=== PATIENT | male | born 1975 | race Caucasian/White ===

== ENCOUNTER → 2017-09-12 | Outpatient (CLI) | payer OTHER ==
[2017-09-12 21:15] LABS: Basophils % (A) 0 %; Eosinophils # (A) 0.1 k/uL (0-0.7); Eosinophils % (A) 2 %; HCT 40.1 % (39.0-53.0); HGB 13.6 gm/dL (13.0-17.5); Lymphocytes # (A) 2.5 k/uL (1.0-4.8); Lymphocytes % (A) 30 %; MCV 88.2 fL (80.0-100.0); Monocytes # (A) 0.5 k/uL (0-1.0); Monocytes % (A) 6 %; Neutrophils % (A) 60 %; Platelet Count 264 k/uL (150-450); RBC 4.55 m/uL (4.30-5.90); RDW 13.5 % (11.5-15.5); WBC 8.3 k/uL (3.8-10.6)
[2017-09-12 21:32] LABS: ALT 48 U/L (21-72); AST 36 U/L (17-59); Albumin 4.5 g/dL (3.5-5.0); Alkaline Phosphatase 124 U/L (38-126); Anion Gap 13 mmol/L; Bilirubin, Delta 0.3 mg/dL (0.0-0.2); Blood Urea Nitrogen 14 mg/dL (9-20); Calcium 9.3 mg/dL (8.4-10.2); Carbon Dioxide 23 mmol/L (22-30); Chloride 108 mmol/L (98-107); Glucose 62 mg/dL (74-99); Potassium 3.9 mmol/L (3.5-5.1); Sodium 144 mmol/L (137-145); Total Bilirubin 0.3 mg/dL (0.2-1.3)
[2017-09-12 21:46] LABS: T4, Free (Free Thyroxine) 0.81 ng/dL (0.78-2.19)
== END | disposition home or self-care (01) ==
LOC: LABMAIN 20:42
DX: Z51.81 Encounter for therapeutic drug level monitoring (principal)
CPT/HCPCS: 36415; 80053; 82248; 82306; 84439; 84443; 85025

== ENCOUNTER → 2017-09-12 | Outpatient (CLI) | payer OTHER ==
[2017-09-12 21:02] LABS: Blood Urea Nitrogen 14 mg/dL (9-20)
--- NOTE | 2017-09-12 23:25 | MR ---
EXAMINATION TYPE: MR brain wo/w con DATE OF EXAM: 09/12/2017 COMPARISON: NONE HISTORY: 42-year-old male Hyperacusis TECHNIQUE: Multiplanar, multisequence images of the brain and brainstem were acquired before and aft er administration of 10 ml mL IV Gadavist. Diffusion weighted imaging is performed. FINDINGS: No evidence for acute infarction, hemorrhage, mass, mass effect, midline shift, herniation, effacemen t of basal cisterns, or extra-axial fluid collection. The ventricles and sulci are age-appropriate. Major intracranial flow voids are intact. T2/FLAIR weighted sequences show mild T2 bright white matter change especially in the subcortical reg ions of the bifrontal lobes numbering approximately 10-15 on each side. Midline structures demonstrate normal morphology. The craniocervical junction is normal. Post contrast images demonstrate no evidence of pathologic enhancement. Dural venous sinuses are pat ent. Mild mucosal thickening of the ethmoid air cells and inferior maxillary sinuses with a a few mucosal retention cysts. Globes are intact. IMPRESSION: 1. No acute intracranial abnormality seen. 2. Mild burden of T2 bright white matter change with approximately 10-15 bright foci in each frontal lobe, primarily in the subcortical regions. Findings are nonspecific and may reflect early changes of chronic small vessel ischemic disease, chronic migraines, or other demyelinating process. Clinically correlate. 3. Mild chronic maxillary and ethmoid sinus disease.
== END | disposition home or self-care (01) ==
LOC: RADMRIMAIN 20:23
DX: R90.89 Other abnormal findings on diagnostic imaging of central nervous system (principal); H93.239 Hyperacusis, unspecified ear
CPT/HCPCS: 82565; 84520; 70553; 36415; A9581

== ENCOUNTER 2017-09-26 03:53 | Emergency (ER) | payer OTHER ==
[2017-09-26 04:00] VITALS: RESP 18
[2017-09-26] MEDS ORDERED: SODIUM CHLORIDE 0.9% 500 ML IV STA (04:16)
[2017-09-26] MEDS ORDERED: RX INFO: IV CONTRAST WAS GIVEN 1 EACH MISC MISCELLANE PRN (04:16)
--- NOTE | 2017-09-26 04:19 | ED ---
General Adult HPI - General Chief complaint: Headache Stated complaint: headache,dizziness Time Seen by Provider: 09/26/17 04:04 Source: patient, RN notes reviewed Mode of arrival: wheelchair Limitations: no limitations - History of Present Illness Initial comments: Patient is a pleasant 42-year-old male presenting to the emergency Department with complaints of headache. Headache symptoms present for the past month. Discomfort is mostly posterior however patient has tingling on the left side of his face and neck. Symptoms are positional. Patient has had some dizziness. Patient is scheduled to see a neurologist in the near future. Patient did have MRI of the brain done recently by ENT. No weakness. No confusion. No speech problems. No fevers. Patient does not want any pain medication at this time. - Related Data Home Medications Medication Instructions Recorded Confirmed ALPRAZolam [Xanax] 1 mg PO Q8HR PRN 12/27/14 03/12/15 Cholecalciferol [Vitamin D3] 2,000 unit PO HS 12/27/14 03/12/15 Citalopram Hydrobromide 40 mg PO HS 12/27/14 03/12/15 [Citalopram HBr] Levothyroxine Sodium [Synthroid] 25 mcg PO HS 12/27/14 03/12/15 Lisinopril 40 mg PO HS 12/27/14 03/12/15 Omeprazole [PriLOSEC] 20 mg PO HS 12/27/14 03/12/15 QUEtiapine FUMARATE [SEROquel XR] 300 mg PO HS 12/27/14 03/12/15 Simvastatin [Zocor] 80 mg PO HS 12/27/14 03/12/15 buPROPion XL [Wellbutrin Xl] 300 mg PO HS 12/27/14 03/12/15 Ibuprofen [Motrin] 200 - 400 mg PO Q6HR PRN 03/10/15 03/12/15 traZODone HCL [Desyrel] 100 mg PO HS PRN 03/10/15 03/12/15 Previous Rx's Medication Instructions Recorded Acetaminophen-Codeine 300-30mg 1 each PO Q4H PRN #12 tablet 09/26/17 [Tylenol #3] Allergies Allergy/AdvReac Type Severity Reaction Status Date / Time No Known Allergies Allergy Verified 09/26/17 04:00 Review of Systems ROS Statement: Those systems with pertinent positive or pertinent negative responses have been documented in the HPI. ROS Other: All systems not noted in ROS Statement are negative. Constitutional: Denies: fever Eyes: Denies: eye pain ENT: Denies: ear pain Respiratory: Denies: cough Cardiovascular: Denies: chest pain Endocrine: Denies: fatigue Gastrointestinal: Denies: abdominal pain Genitourinary: Denies: urgency Musculoskeletal: Denies: back pain Skin: Denies: rash Neurological: Reports: headache Past Medical History Past Medical History: Hyperlipidemia, Hypertension, Thyroid Disorder History of Any Multi-Drug Resistant Organisms: None Reported Past Surgical History: Hernia Repair Additional Past Surgical History / Comment(s): vasectomy, wisdom teeth removed, Past Psychological History: Depression, PTSD Smoking Status: Former smoker Past Alcohol Use History: Occasional General Exam Limitations: no limitations General appearance: alert, in no apparent distress Head exam: Present: atraumatic, other (No facial tenderness. No tenderness over the temporal artery.) Eye exam: Present: normal appearance, PERRL, EOMI. Absent: nystagmus ENT exam: Present: normal oropharynx Neck exam: Present: normal inspection, other (No carotid bruit). Absent: tenderness Respiratory exam: Present: normal lung sounds bilaterally Cardiovascular Exam: Present: regular rate, normal rhythm Extremities exam: Present: normal inspection Neurological exam: Present: alert, CN II-XII intact. Absent: motor sensory deficit Expanded Neurological exam: Present: protecting the airway Speech: Present: fluid speech Cranial nerves: EOM's Intact: Normal, Facial Sensation: Normal Sensory exam: Upper Extremity Light Touch: Normal, Lower Extremity Light Touch: Normal Motor strength exam: RUE: 5, LUE: 5, RLE: 5, LLE: 5 Eye Response: (4) open spontaneously Motor Response: (6) obeys commands Verbal Response: (5) oriented Psychiatric exam: Present: normal affect, normal mood Skin exam: Present: normal color Course Vital Signs 09/26/17 03:56 Temperature 98.3 F Pulse Rate 97 Respiratory 18 Rate Blood Pressure 111/66 O2 Sat by Pulse 96 Oximetry Medical Decision Making - Medical Decision Making Patient reevaluated and resting comfortably in bed. Patient does not want anything for discomfort at this time however is receptive to prescription. Patient updated on results and need for close follow-up with primary care physician as well as his planned neurology evaluation. - Lab Data Result diagrams: 09/26/17 04:21 09/26/17 04:21 Lab Results 09/26/17 09/26/17 09/26/17 Range/Units 04:21 04:21 04:21 WBC 8.4 (3.8-10.6) k/uL RBC 4.45 (4.30-5.90) m/uL Hgb 12.8 L (13.0-17.5) gm/dL Hct 38.2 L (39.0-53.0) % MCV 85.9 (80.0-100.0) fL MCH 28.7 (25.0-35.0) pg MCHC 33.4 (31.0-37.0) g/dL RDW 13.3 (11.5-15.5) % Plt Count 247 (150-450) k/uL Neutrophils % 57 % Lymphocytes % 32 % Monocytes % 7 % Eosinophils % 2 % Basophils % 1 % Neutrophils # 4.7 (1.3-7.7) k/uL Lymphocytes # 2.7 (1.0-4.8) k/uL Monocytes # 0.6 (0-1.0) k/uL Eosinophils # 0.2 (0-0.7) k/uL Basophils # 0.0 (0-0.2) k/uL PT 10.0 (9.0-12.0) sec INR 1.0 (<1.2) APTT 21.4 L (22.0-30.0) sec Sodium 146 H (137-145) mmol/L Potassium 3.4 L (3.5-5.1) mmol/L Chloride 107 (98-107) mmol/L Carbon Dioxide 19 L (22-30) mmol/L Anion Gap 20 mmol/L BUN 16 (9-20) mg/dL Creatinine 1.10 (0.66-1.25) mg/dL Est GFR (CKD-EPI)AfAm >90 (>60 ml/min/1.73 sqM) Est GFR (CKD-EPI)NonAf 82 (>60 ml/min/1.73 sqM) Glucose 93 (74-99) mg/dL Calcium 9.5 (8.4-10.2) mg/dL Total Bilirubin 0.3 (0.2-1.3) mg/dL AST 37 (17-59) U/L ALT 49 (21-72) U/L Alkaline Phosphatase 124 (38-126) U/L Total Protein 7.8 (6.3-8.2) g/dL Albumin 4.5 (3.5-5.0) g/dL - Radiology Data Radiology results: report reviewed (Computed tomography scan of brain shows no acute process. CTA of the brain and neck show no acute process.) Disposition Clinical Impression: Headache Disposition: HOME SELF-CARE Condition: Stable Instructions: Acute Headache (ED) Additional Instructions: Please follow-up to primary care physician in the next day or 2 for recheck. Please also follow-up with your neurologist as planned. Return for weakness, fever, increased pain, confusion, visual changes, worsening or changing symptoms or other concerns. Prescriptions: Acetaminophen-Codeine 300-30mg [Tylenol #3] 1 each PO Q4H PRN #12 tablet PRN Reason: Pain Referrals: Manan Brown MD [Primary Care Provider] - 1-2 days Time of Disposition: 05:31
[2017-09-26 04:28] LABS: Basophils % (A) 1 %; Eosinophils # (A) 0.2 k/uL (0-0.7); Eosinophils % (A) 2 %; HCT 38.2 % (39.0-53.0); HGB 12.8 gm/dL (13.0-17.5); Lymphocytes # (A) 2.7 k/uL (1.0-4.8); Lymphocytes % (A) 32 %; MCH 28.7 pg (25.0-35.0); MCHC 33.4 g/dL (31.0-37.0); MCV 85.9 fL (80.0-100.0); Mean Platelet Volume 6.8; Monocytes # (A) 0.6 k/uL (0-1.0); Monocytes % (A) 7 %; Neutrophils # (A) 4.7 k/uL (1.3-7.7); Neutrophils % (A) 57 %; Platelet Count 247 k/uL (150-450); RBC 4.45 m/uL (4.30-5.90); RDW 13.3 % (11.5-15.5); WBC 8.4 k/uL (3.8-10.6)
[2017-09-26 04:43] LABS: ALT 49 U/L (21-72); AST 37 U/L (17-59); Albumin 4.5 g/dL (3.5-5.0); Alkaline Phosphatase 124 U/L (38-126); Anion Gap 20 mmol/L; Blood Urea Nitrogen 16 mg/dL (9-20); Calcium 9.5 mg/dL (8.4-10.2); Carbon Dioxide 19 mmol/L (22-30); Chloride 107 mmol/L (98-107); Glucose 93 mg/dL (74-99); Partial Thromboplastin Time 21.4 sec (22.0-30.0); Potassium 3.4 mmol/L (3.5-5.1); Sodium 146 mmol/L (137-145); Total Bilirubin 0.3 mg/dL (0.2-1.3); Total Protein 7.8 g/dL (6.3-8.2)
--- NOTE | 2017-09-26 04:57 | CT ---
EXAM: CT Angiography Head With Intravenous Contrast CLINICAL HISTORY: CVA TECHNIQUE: Axial computed tomographic angiography images of the head with intravenous contrast using CT angiography protocol. CTDI is 57.40 mGy and DLP is 1150.50 mGy-cm. This CT exam was performed using one or more of the following dose reduction techniques: automated exposure control, adjustment of the mA and/or kV according to patient size, and/or use of iterative reconstruction technique. MIP reconstructed images were created and reviewed. COMPARISON: No relevant prior studies available. FINDINGS: HEAD: Right anterior cerebral artery: Unremarkable. No occlusion or significant stenosis. No aneurysm. Right middle cerebral artery: Unremarkable. No occlusion or significant stenosis. No aneurysm. Right posterior cerebral artery: Unremarkable. No occlusion or significant stenosis. No aneurysm. Left anterior cerebral artery: Unremarkable. No occlusion or significant stenosis. No aneurysm. Left middle cerebral artery: Unremarkable. No occlusion or significant stenosis. No aneurysm. Left posterior cerebral artery: Unremarkable. No occlusion or significant stenosis. No aneurysm. Basilar artery: Unremarkable. No occlusion or significant stenosis. No aneurysm. CAROTID STENOSIS REFERENCE USING NASCET CRITERIA: % ICA stenosis = (1 - narrowest ICA diameter/diameter of distal cervical ICA) x 100. Mild - <50% stenosis. Moderate - 50-69% stenosis. Severe - 70-94% stenosis. Near occlusion - 95-99% stenosis. Occluded - 100% stenosis. IMPRESSION: No acute findings in the arteries of the head. EXAM: CT Angiography Neck With Intravenous Contrast CLINICAL HISTORY: CVA TECHNIQUE: Axial computed tomographic angiography images of the neck with intravenous contrast using CT angiography protocol. CTDI is 57.40 mGy and DLP is 1150.50 mGy-cm. This CT exam was performed using one or more of the following dose reduction techniques: automated exposure control, adjustment of the mA and/or kV according to patient size, and/or use of iterative reconstruction technique. MIP reconstructed images were created and reviewed. COMPARISON: No relevant prior studies available. FINDINGS: VASCULATURE: Right common carotid artery: Unremarkable. No significant stenosis. No dissection or occlusion. Right internal carotid artery: Unremarkable. Extracranial segment is patent with no significant stenosis. No dissection or occlusion. Right external carotid artery: Unremarkable. No occlusion. Right vertebral artery: Unremarkable. No significant stenosis. No dissection or occlusion. Left common carotid artery: Unremarkable. No significant stenosis. No dissection or occlusion. Left internal carotid artery: Unremarkable. Extracranial segment is patent with no significant stenosis. No dissection or occlusion. Left external carotid artery: Unremarkable. No occlusion. Left vertebral artery: Unremarkable. No significant stenosis. No dissection or occlusion. NECK: Bones/joints: No acute fracture. No dislocation. Soft tissues: Unremarkable as visualized. No mass. CAROTID STENOSIS REFERENCE USING NASCET CRITERIA: % ICA stenosis = (1 - narrowest ICA diameter/diameter of distal cervical ICA) x 100. Mild - <50% stenosis. Moderate - 50-69% stenosis. Severe - 70-94% stenosis. Near occlusion - 95-99% stenosis. Occluded - 100% stenosis. IMPRESSION: Normal neck CTA.
--- NOTE | 2017-09-26 05:08 | CT ---
EXAM: CT Head Without Intravenous Contrast CLINICAL HISTORY: Headache TECHNIQUE: Axial computed tomography images of the head/brain without intravenous contrast. CTDI is 57.4 mGy and DLP is 1150.5 mGy-cm. This CT exam was performed using one or more of the following dose reduction techniques: automated exposure control, adjustment of the mA and/or kV according to patient size, and/or use of iterative reconstruction technique. COMPARISON: No relevant prior studies available. FINDINGS: Brain: Unremarkable. No hemorrhage. No significant white matter disease. No edema. Ventricles: Unremarkable. No ventriculomegaly. Bones/joints: Unremarkable. No acute fracture. Soft tissues: Unremarkable. Sinuses: Mild mucosal thickening of the paranasal sinuses. Mastoid air cells: Unremarkable as visualized. No mastoid effusion. IMPRESSION: No acute findings.
[2017-09-26] MEDS ORDERED: ACET/COD 300 MG/30 MG STARTER PACK 6 TAB BTL PO STA (05:38)
[2017-09-26 05:44] VITALS: BP 103/67; PULSE 88; TEMP 98.1
== END 2017-09-26 05:44 | disposition home or self-care (01) ==
LOC: EC 03:53
DX: R51 Headache (principal); R42 Dizziness and giddiness; R20.2 Paresthesia of skin; R40.2142 Coma scale, eyes open, spontaneous, at arrival to emergency department; R40.2252 Coma scale, best verbal response, oriented, at arrival to emergency department; R40.2362 Coma scale, best motor response, obeys commands, at arrival to emergency department; E78.5 Hyperlipidemia, unspecified; I10 Essential (primary) hypertension; E07.9 Disorder of thyroid, unspecified; F32.9 Major depressive disorder, single episode, unspecified; F43.10 Post-traumatic stress disorder, unspecified; Z87.891 Personal history of nicotine dependence; Z79.899 Other long term (current) drug therapy
CPT/HCPCS: 36415; 70450; 70496; 70498; 80053; 85025; 85610; 85730; 96360; 99284

== ENCOUNTER 2017-09-28 08:44 | Day surgery (SDC) | payer OTHER ==
[2017-09-27 09:19] VITALS: BMI 33.3
[~2017-09-28 08:44] MED LIST: LACTATED RINGERS 1,000 ML IV SCH
[2017-09-28] MEDS ORDERED: LIDOCAINE 1% INJ 10MG/ML (20 ML MDV) ONE ×2 (08:53→11:00)
[2017-09-28] MEDS ORDERED: GLYCOPYRROLATE 0.2 MG/ML 2 ML VIAL ONE ×2 (08:53→11:00)
[2017-09-28] MEDS ORDERED: PROPOFOL 10 MG/ML 20 ML VIAL IV ONE ×2 (08:53→11:00)
[2017-09-28 10:05] VITALS: TEMP 98.5
[2017-09-28] MEDS ORDERED: LIDOCAINE 1% 20 ML VIAL (10MG/ML) FOR IV START INTRADERMA ONE (10:11)
[2017-09-28] MEDS ORDERED: fentaNYL (PF) 50 MCG/ML 2 ML AMP IVP ONE (10:32)
--- NOTE | 2017-09-28 11:24 | P.PCN ---
Date of Procedure: 09/28/17 Procedure(s) Performed: Brief history: Patient is a pleasant 42-year-old white male, scheduled for an elective upper endoscopy as well as colonoscopy as a part of evaluation of and abdominal pain, and intermittent rectal bleeding. 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 He also has history of GERD and takes Prevacid 20 mg daily. Has been having intermittent rectal bleeding and also has prior history of colon polyps, hence he scheduled for colonoscopy today. Procedure performed: Esophagogastroduodenoscopy with biopsy Colonoscopy Preoperative diagnosis: History of gastric MALT lymphoma diagnosed in 2003 Abdominal pain or rectal bleeding Anesthesia: MAC Procedure: After informed consent was obtained from the patient was brought into the endoscopy unit and IV sedation was administered by anesthesia under continuous monitoring. Initially upper endoscopy was done. The Olympus GF 160 video endoscope was inserted inserted into the mouth and esophagus intubated without any difficulty and was gradually advanced into the stomach and duodenum and carefully examined. The bulb and second part of the duodenum appeared normal. The scope was then withdrawn into the stomach adequately insufflated with air and upon careful examination the antrum and body, cardia and fundus appeared normal. The scope was then withdrawn into the esophagus. The GE junction was located at 40 cm to the incisors. It appeared regular with no erythema erosions or ulcerations. Rest of the esophagus appeared normal. Patient tolerated the procedure well. At this time the patient continued to remain sedation. Initial digital rectal examination was normal. Olympus CF 160 video colonoscope was then inserted into the rectum and gradually advanced to the cecum without any difficulty. Careful examination was performed as the scope was gradually being withdrawn. The prep was excellent. The cecum, ascending colon, transverse colon, descending colon, sigmoid colon and rectum appeared normal. Retroflexion was performed in the rectum and small internal hemorrhoids were noted. Patient tolerated the procedure well. Impression: 1. Upper endoscopy revealed mild gastritis. 2 Colonoscopy revealed small internal hemorrhoids but no evidence of colitis or colorectal neoplasia. Recommendations: Findings of this examination were discussed with the patient as well as his family. He was advised to follow with the biopsy results. He can have a repeat surveillance colonoscopy in 5 is removed because of the prior history of colon polyps.]
[2017-09-28 11:41] VITALS: BP 106/69; PULSE 84; RESP 16
== END 2017-09-28 12:11 | disposition home or self-care (01) ==
LOC: ORWHC2ENDO 08:44
PROVIDERS: ATTEND Internal Medicine Gastroenterology
DX: K29.50 Unspecified chronic gastritis without bleeding (principal); K64.8 Other hemorrhoids; Z86.010 Personal history of colon polyps; Z85.72 Personal history of non-Hodgkin lymphomas; Z92.21 Personal history of antineoplastic chemotherapy; I10 Essential (primary) hypertension; E78.5 Hyperlipidemia, unspecified; Z87.891 Personal history of nicotine dependence; E07.9 Disorder of thyroid, unspecified; F39 Unspecified mood [affective] disorder; Z79.1 Long term (current) use of non-steroidal anti-inflammatories (NSAID); Z79.891 Long term (current) use of opiate analgesic; Z79.899 Other long term (current) drug therapy
CPT/HCPCS: 88305; 45378; 43239; J2001; J3010; J2704

== ENCOUNTER → 2017-10-19 | Outpatient (CLI) | payer OTHER ==
--- NOTE | 2017-10-19 15:43 | MR ---
EXAMINATION TYPE: MR cervical spine wo con DATE OF EXAM: 10/19/2017 COMPARISON: NONE HISTORY: Bilateral occipital neuralgia, head and neck pain for 1 to 2 months TECHNIQUE: Multiplanar, multisequence images of the cervical spine were acquired. C2-C3: No evidence for degenerative disc disease. No disc bulge/herniation or protrusion. No Canal stenosis. Foramina are patent bilaterally. C3-C4: There is broad-based subligamentous disc herniation with mild anterior thecal sac flattening. No spinal canal stenosis present. No cord contact is evident. Uncovertebral joint hypertrophy is pres ent with mild foraminal narrowing. C4-C5: No evidence of degenerative disc disease no focal disc bulge herniation or protrusion. No Lincoln l stenosis. Foramen are patent. C5-C6: No focal disc herniation or significant disc bulge is evident. No spinal canal stenosis is pre sent. There is uncovertebral joint hypertrophy with narrowing of the left foramen. C6-C7: Uncovertebral joint hypertrophy is present on the right with moderate right foraminal narrowin g. No significant disc bulge is evident. No spinal canal stenosis is present. Cord contact is not stephen dent. C7-T1: No evidence for degenerative disc disease. No disc bulge/herniation or protrusion. No Canal stenosis. Foramina are patent bilaterally. Vertebral body alignment is normal. Craniovertebral junction is normal. Spinal cord maintains normal signal through its visualized course. IMPRESSION: 1. Broad-based disc bulging and subligamentous disc extension at C3-4 with mild anterior thecal sac c ompression. No stenosis or cord contact is evident. 2. Uncovertebral joint hypertrophy discussed above with mild foraminal narrowing.
== END ==
LOC: RADMRIMAIN 14:32
PROVIDERS: ATTEND Psychiatry & Neurology Neurology
DX: M50.01 Cervical disc disorder with myelopathy, high cervical region (principal); M48.02 Spinal stenosis, cervical region
CPT/HCPCS: 72141

== ENCOUNTER → 2017-10-24 | Outpatient (CLI) | payer OTHER ==
[2017-10-23 15:15] VITALS: BMI 33.5
[2017-10-24 13:07] VITALS: BP 123/78; PULSE 92; RESP 16
--- NOTE | 2017-10-24 13:37 | P.HPIM ---
History of Present Illness H&P Date: 10/24/17 Chief Complaint: neck pain and headaches This is a 42-year-old patient referred by Dr. Ni for chronic pain in head and neck, and in his face at multiple locations. Patient has been taking medications from primary care physician including Tylenol #3 medications with some relief. Patient denies adverse drug effects from medications. Patient also denies new-onset weakness, bowel/bladder incontinence, or any other signs or symptoms of cauda equina syndrome. There are no signs of acute intoxication, and no indications of medication diversion or overuse. Patient notes that pain worsens significantly with rotating and sidebending the head and concentrating, and improves with heat, rest, and medication. Patient has used several types of medications for pain, including NSAIDS, OPIOIDS, TRAMADOL and BENZODIAZEPINES (Xanax. Patient HAS NOT had surgery. Patient HAS NOT had injections previously. Patient HAS NOT had physical therapy recently. In addition to above, 13-point review of systems is also negative for chest pain , shortness of breath, changes in vision, changes in hearing, new onset weakness , abdominal pain, diarrhea, extreme fatigue, malaise, fever, skin changes, homicidal or suicidal ideation, or bowel or bladder incontinence. Vital Signs: Reviewed in EMR Gen: WDWN, AAOx3, NAD HEENT: NCAT, EOMI, hearing grossly normal, TTP over bilateral occipital ridges Pulm: resp unlabored Abd: soft, NT, ND Neck: supple, trachea midline ROM in flexion cervical spine: reduced ROM in extension cervical spine: reduced Cervical paravertebral tenderness: + Cervical Facet tenderness: + R > L Spurling's: neg Upper extremity: decreased broom bundler strength in LUE Past Medical History Past Medical History: GERD/Reflux, Hyperlipidemia, Hypertension, Thyroid Disorder Additional Past Medical History / Comment(s): HEADACHES AND DIZZINESS, STATES HX OF HYPERACUSIS, HX MALT LYMPHOMA 2005, CHEMO 2004 History of Any Multi-Drug Resistant Organisms: None Reported Past Surgical History: Hernia Repair Additional Past Surgical History / Comment(s): vasectomy, wisdom teeth removed, Past Anesthesia/Blood Transfusion Reactions: No Reported Reaction Smoking Status: Former smoker - Past Family History Mother Family Medical History: No Reported History Medications and Allergies Home Medications Medication Instructions Recorded Confirmed Type Cholecalciferol [Vitamin D3] 2,000 unit PO HS 12/27/14 10/24/17 History Levothyroxine Sodium [Synthroid] 25 mcg PO HS 12/27/14 10/24/17 History Lisinopril 40 mg PO HS 12/27/14 10/24/17 History Omeprazole [PriLOSEC] 20 mg PO DAILY 12/27/14 10/24/17 History Simvastatin [Zocor] 80 mg PO HS 12/27/14 10/24/17 History Ibuprofen [Motrin] 800 mg PO RT-Q12H PRN 03/10/15 10/24/17 History Naproxen Sodium 220 mg PO DAILY PRN 09/27/17 10/24/17 History OXcarbazepine [Trileptal] 150 mg PO BID 09/27/17 10/24/17 History Prazosin [Minipress] 1 mg PO HS 09/27/17 10/24/17 History Venlafaxine HCl [Effexor XR] 150 mg PO HS 09/27/17 10/24/17 History Zolpidem [Ambien] 5 - 10 mg PO HS PRN 09/27/17 10/24/17 History buPROPion HCL [Wellbutrin SR] 150 mg PO HS 09/27/17 10/24/17 History ALPRAZolam [Xanax] 0.5 mg PO DAILY PRN 10/23/17 10/24/17 History Topiramate [Topiramate ER] 100 mg PO BID 10/23/17 10/24/17 History Venlafaxine HCl [Effexor XR] 37.5 mg PO HS 10/23/17 10/24/17 History Allergies Allergy/AdvReac Type Severity Reaction Status Date / Time No Known Allergies Allergy Verified 10/24/17 12:49 Physical Exam Vitals: Intake and Output 10/23/17 10/24/17 10/24/17 22:59 06:59 14:59 Other: Weight 104.326 kg Results Comments: MRI cervical spine without contrast demonstrates broad-based subligamentous disc herniation with mild anterior thecal sac flattening at the C3-C4 level. There is uncovertebral joint hypertrophy with mild foraminal narrowing at this level as well. At the C5-C6 level there is uncovertebral joint hypertrophy with narrowing of the left-sided foramen. At the C6-C7 level there is uncovertebral joint hypertrophy noted on the right with moderate right neural foraminal narrowing. Assessment and Plan (1) Occipital neuralgia Current Visit: Yes Status: Chronic Code(s): M54.81 - OCCIPITAL NEURALGIA SNOMED Code(s): 65397252 (2) Cervical spondylosis Current Visit: Yes Status: Chronic Code(s): M47.812 - SPONDYLOSIS W/O MYELOPATHY OR RADICULOPATHY, CERVICAL REGION SNOMED Code(s): 661792089 (3) Neural foraminal stenosis of cervical spine Current Visit: Yes Status: Chronic Code(s): M99.81 - OTHER BIOMECHANICAL LESIONS OF CERVICAL REGION SNOMED Code(s): 324427211842 Plan: Plan: 1. Explanation: Opioid and psychological risk scores were reviewed. Diagnoses , prognoses, and multiple treatment options including but not limited to physical therapy, interventional therapies, adjuvant medical therapies, narcotic medication therapies, and surgery were discussed with the patient and all questions were answered to the patient's satisfaction. 2. Opioid agreement: no opioids prescribed today 3. Counseling: The patient was counseled extensively on SMOKING CESSATION, BODY MASS INDEX, EXERCISE. Specifically, the patient was instructed regarding the importance of smoking cessation, weight control, and exercise in the context of both chronic pain and overall health. 4. Procedures: bilateral occipital NB, consider CMBB if little relief 5. Consultations: none 6. Investigations: none 7. Medications: none prescribed 8. Morphine equivalents per day prescribed: zero 9. Disposition: f/u for procedure as scheduled Time with Patient: Greater than 30
== END | disposition home or self-care (01) ==
LOC: PNWHC3 12:23
PROVIDERS: ATTEND Anesthesiology
DX: G89.29 Other chronic pain (principal); M99.71 Connective tissue and disc stenosis of intervertebral foramina of cervical region; M47.812 Spondylosis without myelopathy or radiculopathy, cervical region; M54.2 Cervicalgia; M54.81 Occipital neuralgia; E07.9 Disorder of thyroid, unspecified; E78.5 Hyperlipidemia, unspecified; I10 Essential (primary) hypertension; K21.9 Gastro-esophageal reflux disease without esophagitis; Z79.899 Other long term (current) drug therapy; Z79.1 Long term (current) use of non-steroidal anti-inflammatories (NSAID); Z87.891 Personal history of nicotine dependence
CPT/HCPCS: 99211

== ENCOUNTER 2017-11-13 08:06 | Day surgery (SDC) | payer OTHER ==
[2017-11-09 15:12] VITALS: BMI 33.0
[2017-11-13 08:51] VITALS: TEMP 96.9
[2017-11-13] MEDS ORDERED: LACTATED RINGERS 1,000 ML IV ONE (08:54)
[2017-11-13] MEDS ORDERED: LIDOCAINE 1% 20 ML VIAL (10MG/ML) FOR IV START INTRADERMA ONE (08:55)
--- NOTE | 2017-11-13 09:40 | P.PCN ---
Date of Procedure: 11/13/17 Surgeon: Sebastian Hancock Pathology: none sent Condition: stable Disposition: PACU Description of Procedure: PREOPERATIVE DIAGNOSIS: 1-occipital neuralgia POSTOPERATIVE DIAGNOSIS:. 1-occipital neuralgia PROCEDURE: Bilateral occipital nerve block ANESTHESIA: Conscious sedation with Versed. EBL: Minimal PROCEDURE INDICATION: The patient with neck pain and headache secondary to bilateral occipital neuralgia and has failed conservative management. No use of blood thinners. PROCEDURE DESCRIPTION / TECHNIQUE: The patient was seen and identified in the preoperative area. Risks, benefits, complications, and alternatives were discussed with the patient (including but not limited to incomplete pain relief , bleeding, infection, nerve damage, and allergies to medications), the patient agreed to proceed with the procedure and signed the consent after all questions were answered. Patient was taken to the OR and time out was completed to verify proper patient , position, laterality of pain, and allergies. Pt was placed in the sitting position. IV was started. Vital signs remained stable throughout the procedure. Conscious sedation was used during the procedure to decrease patients anxiety. The cervical area and bilateral occipital areas were prepped in the usual sterile fashion. Critical pause was taken. The right occipital ridge was palpated and was then accessed with a 25 G needle. Then after negative aspiration, 3 ml of the total 6 ml block solution containing 4 ml of PF Bupivacaine 0.5% and Kenalog 40 mg was injected. Needle was withdrawn intact. The entire procedure was then repeated on the left side exactly as above. Needle was withdrawn intact and there were no acute complications. DISPOSITION / PLANS: The patient was placed in a supine position and transferred to the recovery area in a stable condition for observation and was discharged from the recovery room after meeting discharge criteria. Home discharge instructions given to the patient by the staff. The patient was reexamined prior to discharge. The patient will schedule a follow up injection in approximately 2-4 weeks.
[2017-11-13] MEDS ORDERED: LACTATED RINGERS 1,000 ML IV SCH (09:45)
[2017-11-13 10:10] VITALS: BP 116/74; PULSE 90; RESP 20
[2017-11-13] MEDS ORDERED: IV FLUID CONTINUATION 1,000 ML IV ONE (10:11)
== END 2017-11-13 10:16 | disposition home or self-care (01) ==
LOC: ORPAIN 08:06
PROVIDERS: ATTEND Anesthesiology
DX: G89.29 Other chronic pain (principal); M54.81 Occipital neuralgia; M47.812 Spondylosis without myelopathy or radiculopathy, cervical region; M48.02 Spinal stenosis, cervical region; K21.9 Gastro-esophageal reflux disease without esophagitis; E78.5 Hyperlipidemia, unspecified; I10 Essential (primary) hypertension; E07.9 Disorder of thyroid, unspecified; Z79.891 Long term (current) use of opiate analgesic; Z79.890 Hormone replacement therapy; Z79.899 Other long term (current) drug therapy; Z85.72 Personal history of non-Hodgkin lymphomas; Z92.21 Personal history of antineoplastic chemotherapy; Z87.891 Personal history of nicotine dependence
CPT/HCPCS: 64405; J2250; J3301; J2001

== ENCOUNTER 2017-12-10 07:46 | Day surgery (SDC) | payer OTHER ==
[2017-12-07 08:24] VITALS: BMI 33.3
[2017-12-10 08:21] VITALS: TEMP 98.7
[2017-12-10] MEDS ORDERED: LIDOCAINE 1% 20 ML VIAL (10MG/ML) FOR IV START INTRADERMA ONE (08:30)
--- NOTE | 2017-12-10 09:26 | P.PCN ---
Date of Procedure: 12/10/17 Surgeon: Obey Muñoz Pathology: none sent Condition: stable Disposition: PACU Description of Procedure: PREOPERATIVE DIAGNOSIS: 1-occipital neuralgia POSTOPERATIVE DIAGNOSIS:. 1-occipital neuralgia PROCEDURE: Bilateral occipital nerve block ANESTHESIA: Conscious sedation with Versed. EBL: Minimal PROCEDURE INDICATION: The patient with neck pain and headache secondary to bilateral occipital neuralgia and has failed conservative management. No use of blood thinners. PROCEDURE DESCRIPTION / TECHNIQUE: The patient was seen and identified in the preoperative area. Risks, benefits, complications, and alternatives were discussed with the patient (including but not limited to incomplete pain relief , bleeding, infection, nerve damage, and allergies to medications), the patient agreed to proceed with the procedure and signed the consent after all questions were answered. Patient was taken to the OR and time out was completed to verify proper patient , position, laterality of pain, and allergies. Pt was placed in the sitting position. IV was started. Vital signs remained stable throughout the procedure. Conscious sedation was used during the procedure to decrease patients anxiety. The cervical area and bilateral occipital areas were prepped in the usual sterile fashion. Critical pause was taken. The right occipital ridge was palpated and was then accessed with a 25 G needle. Then after negative aspiration, 1.5 ml of the total 3 ml block solution containing 2 ml of PF Bupivacaine 0.5% and Kenalog 40 mg was injected. Needle was withdrawn intact. The entire procedure was then repeated on the left side exactly as above. Needle was withdrawn intact and there were no acute complications. DISPOSITION / PLANS: The patient was placed in a supine position and transferred to the recovery area in a stable condition for observation and was discharged from the recovery room after meeting discharge criteria. Home discharge instructions given to the patient by the staff. The patient was reexamined prior to discharge. The patient will follow up in the clinic in 2-4 weeks.
[2017-12-10 09:36] VITALS: BP 108/75; RESP 18
[2017-12-10 09:56] VITALS: PULSE 81
[2017-12-10] MEDS ORDERED: IV FLUID CONTINUATION 1,000 ML IV ONE (09:56)
== END 2017-12-10 10:05 | disposition home or self-care (01) ==
LOC: ORPAIN 07:46
PROVIDERS: ATTEND Anesthesiology
DX: M54.81 Occipital neuralgia (principal); G50.0 Trigeminal neuralgia; I10 Essential (primary) hypertension
CPT/HCPCS: 64405; J2250; J3301

== ENCOUNTER → 2017-12-26 | Outpatient (CLI) | payer OTHER ==
[2017-12-26 14:50] VITALS: BP 120/76; PULSE 116; RESP 18
--- NOTE | 2017-12-26 15:22 | P.PAINPG ---
Subjective Progress Note Date: 12/26/17 This is follow-up visit for this patient with a history of severe and chronic neck pain and headache diagnosed with occipital neuralgia , cervical spondylosis , cervical disc herniation We have done interventional pain procedures, we've done bilateral occipital nerve block, patient gets some benefit for short-term, currently is complaining of increased pain with activity He had some benefit from physical therapy done in the past Patients currently on Motrin 800 mg when necessary Patient denies any side effects of the medication, denies excessive drowsiness or sleepiness, denies suicidal ideation, and reports that the current pain medication is helping to control the pain and improve activity of daily living Patient denies any motor or sensory deficit , patient denies any fever or night sweats, denies any change in the bowel movements or urination Physical Examinations : 1-Constitutional : Cooperative , not in acute distress . 2-HEENT : nech ; supple , no Lymphadenopathy , no Thyromegaly , normal thyroid size . eyes : no ptosis , no icterus, no photophobia . ENT : normal of hearing , normal oropharynx , no Thrush . 3- Respiratory : Chest clear to auscultations Bilaterally , no wheezing , no Rhonchi . 4- Cardiovascular : regular rate and rhythem , S1 , S2 , no S3 , no S4. 5- Gastrointestinal : abdomen soft no tenderness , bowel sounds positive all four quadrents , no organomegally . 6- Genitourinary : Defferred . 7- neurologic: Cranial nerve II to XII intact , no focal neurological deffecit . 8- Psychatric: alert , oriented X 3 , appropriate affect , intact judgment and insight . 9- Lymphatic : no Lymphadenopathy . 10- Musculoskeltal : exams of the cervical spine = motor strength normal bilateral upper extremities facet loading test cervical area positive. Tenderness over the occipital nerve bilaterally exams of the Lumber spine =motor strength lower extremities ,thigh and legs .5/5 Assessment and plan = Chronic neck pain and headaches secondary to occipital neuralgia, cervical spondylosis, cervical herniated disc disease - diagnoses, prognosis, and treatment options including but not limited to physical therapy, surgical interventions, interventional therapies , and medication management including narcotics and adjuvant medication were discussed with the patient and all the questions answered Patient had good results after physical therapy done in the past and he will be referred to have repeat physical therapy in the cervical area, He will follow up in the pain clinic in 2 months, if he continues to have pain then we will consider doing diagnostic medial branch block cervical area C2 3, C3 4 and third occipital nerve Then if he had a good result and costovertebral doing radiofrequency ablation of the medial branch at the levels mentioned above Objective - Vital Signs Vital signs: Vital Signs Temp Pulse 116 H 12/26/17 14:42 Resp 18 12/26/17 14:42 BP 120/76 12/26/17 14:42 Pulse Ox 94 L 12/26/17 14:42 Intake & Output 12/25/17 12/26/17 12/26/17 18:59 06:59 18:59 Weight 103.419 kg PQRS Measure Charge Sheet Measure #130: Documentation of Current Meds in Medical Chart: Patient's medications documented in chart Measure #226: Tobacco Use: Screen & Cessation Intervention: Pt not a tobacco user Measure #111: Pneumonia Vaccination: Pneumococcal vaccine NOT administered or previously given Measure #47: Advance Care Plan: Advance care planning discussed & documented, plan or surrogate given Measure #412: Opioid Treatment Agreement: No documentation of signed opioid treatment agreement Measure #408: Opioid Therapy Follow-up Evaluation: Patient had NO f/u eval minimum every 3 months during opioid therapy Measure #317: Preventitive Care & Scrn High Bld Press & F/U: Normal blood pressure, f/u not required Measure #128: Body Mass Index (BMI) Screening & Follow-up: BMI documented ABOVE normal parameters - f/u documented Measure #131: Pain Assessment & Follow-up: Pain positive & plan documented, Follow-up scheduled Measure #431: Unhealthy Alcohol Use Preventative Care & Scrn: Patient not identified as an unhealthy alcohol user PQRS Narrative: Smoking Status Former smoker Do You Want the Pneumonia No Vaccine AT THIS TIME? Blood Pressure 120/76 Pain Intensity [Generalized] 1 Scale Used Numeric (1 - 10) Hx Alcohol Use (MH) No Home Medications: Ambulatory Orders Cholecalciferol [Vitamin D3] 2,000 unit PO HS 12/27/14 Levothyroxine Sodium [Synthroid] 25 mcg PO HS 12/27/14 Lisinopril 40 mg PO HS 12/27/14 Omeprazole [PriLOSEC] 20 mg PO DAILY 12/27/14 Simvastatin [Zocor] 80 mg PO HS 12/27/14 Ibuprofen [Motrin] 800 mg PO RT-Q12H PRN 03/10/15 OXcarbazepine [Trileptal] 300 mg PO BID 09/27/17 Prazosin [Minipress] 1 mg PO HS 09/27/17 Zolpidem [Ambien] 5 - 10 mg PO HS PRN 09/27/17 ALPRAZolam [Xanax] 0.5 mg PO DAILY PRN 10/23/17 Topiramate [Topiramate ER] 100 mg PO BID 10/23/17 Venlafaxine HCl [Effexor] 225 mg PO HS 12/07/17 Controlled Substance Measures - Controlled Substance Measures Is patient prescribed a controlled substance at discharge?: No When asked, does pt state using other controlled substances?: No If prescribed controlled substance>3 days was MAPS reviewed?: No If Rx opioid, was Start Talking consent form obtained?: No If opioid is for acute pain is fill amount 7 days or less?: No Was information provided regarding opioid addiction?: No
== END | disposition home or self-care (01) ==
LOC: PNWHC3 14:25
PROVIDERS: ATTEND Specialist
DX: G89.29 Other chronic pain (principal); M50.20 Other cervical disc displacement, unspecified cervical region; M47.812 Spondylosis without myelopathy or radiculopathy, cervical region; M54.81 Occipital neuralgia; Z79.891 Long term (current) use of opiate analgesic; Z87.891 Personal history of nicotine dependence; Z79.1 Long term (current) use of non-steroidal anti-inflammatories (NSAID); Z79.899 Other long term (current) drug therapy
CPT/HCPCS: 99211

== ENCOUNTER → 2018-04-09 | Outpatient (CLI) | payer OTHER ==
[2018-04-09 11:52] VITALS: BP 124/83; PULSE 99; RESP 16
--- NOTE | 2018-04-09 12:20 | P.PAINPG ---
Subjective Progress Note Date: 04/09/18 This is follow-up visit for this patient with a history of severe and chronic neck pain and headache diagnosed with occipital neuralgia , cervical spondylosis , cervical disc herniation We have done interventional pain procedures, we've done bilateral occipital nerve block, patient gets benefit for short-term, and he is done physical therapy, and he continued to have neck pain and headache, currently is complaining of increased pain with activity He had some benefit from physical therapy done in the past Patients currently on Motrin 800 mg when necessary Patient denies any side effects of the medication, denies excessive drowsiness or sleepiness, denies suicidal ideation, and reports that the current pain medication is helping to control the pain ,and improve activity of daily living Patient denies any motor or sensory deficit , patient denies any fever or night sweats, denies any change in the bowel movements or urination Physical Examinations : 1-Constitutional : Cooperative , not in acute distress . 2-HEENT : nech ; supple , no Lymphadenopathy , no Thyromegaly , normal thyroid size . eyes : no ptosis , no icterus, no photophobia . ENT : normal of hearing , normal oropharynx , no Thrush . 3- Respiratory : Chest clear to auscultations Bilaterally , no wheezing , no Rhonchi . 4- Cardiovascular : regular rate and rhythem , S1 , S2 , no S3 , no S4. 5- Gastrointestinal : abdomen soft no tenderness , bowel sounds positive all four quadrents , no organomegally . 6- Genitourinary : Defferred . 7- neurologic: Cranial nerve II to XII intact , no focal neurological deffecit . 8- Psychatric: alert , oriented X 3 , appropriate affect , intact judgment and insight . 9- Lymphatic : no Lymphadenopathy . 10- Musculoskeltal : exams of the cervical spine = motor strength normal bilateral upper extremities facet loading test cervical area positive. Tenderness over the occipital nerve bilaterally exams of the Lumber spine =motor strength lower extremities ,thigh and legs .5/5 Assessment and plan = Chronic neck pain and headaches secondary to occipital neuralgia, cervical spondylosis, cervical herniated disc disease - diagnoses, prognosis, and treatment options including but not limited to physical therapy, surgical interventions, interventional therapies , he continues to have pain then we will consider doing diagnostic medial branch block cervical area C2 3, C3 4 and third occipital nerve Then if he had a good result ,then we will consider doing radiofrequency ablation of the medial branch at the levels mentioned above PQRS Measure Charge Sheet Measure #130: Documentation of Current Meds in Medical Chart: Patient's medications documented in chart Measure #226: Tobacco Use: Screen & Cessation Intervention: Pt not a tobacco user Measure #111: Pneumonia Vaccination: Pneumococcal vaccine NOT administered or previously given Measure #47: Advance Care Plan: Advance care planning discussed & documented, pt chose/unable to give Measure #412: Opioid Treatment Agreement: No documentation of signed opioid treatment agreement Measure #408: Opioid Therapy Follow-up Evaluation: Patient had NO f/u eval minimum every 3 months during opioid therapy Measure #317: Preventitive Care & Scrn High Bld Press & F/U: Normal blood pressure, f/u not required Measure #128: Body Mass Index (BMI) Screening & Follow-up: BMI documented ABOVE normal parameters - f/u documented Measure #131: Pain Assessment & Follow-up: Pain positive & plan documented, Follow-up scheduled Measure #431: Unhealthy Alcohol Use Preventative Care & Scrn: Patient not identified as an unhealthy alcohol user PQRS Narrative: Smoking Status Former smoker Hx Alcohol Use (MH) No Home Medications: Ambulatory Orders Cholecalciferol [Vitamin D3] 2,000 unit PO HS 12/27/14 Levothyroxine Sodium [Synthroid] 25 mcg PO HS 12/27/14 Lisinopril 40 mg PO HS 12/27/14 Omeprazole [PriLOSEC] 20 mg PO DAILY 12/27/14 Simvastatin [Zocor] 80 mg PO HS 12/27/14 Ibuprofen [Motrin] 800 mg PO RT-Q12H PRN 03/10/15 OXcarbazepine [Trileptal] 600 mg PO TID 09/27/17 Prazosin [Minipress] 2 mg PO HS 09/27/17 Zolpidem [Ambien] 5 - 10 mg PO HS PRN 09/27/17 ALPRAZolam [Xanax] 0.5 mg PO DAILY PRN 10/23/17 Topiramate [Topiramate ER] 100 mg PO BID 10/23/17 Venlafaxine HCl [Effexor] 225 mg PO HS 12/07/17 Cyclobenzaprine [Flexeril] 10 mg PO DAILY PRN 04/09/18 Controlled Substance Measures - Controlled Substance Measures Is patient prescribed a controlled substance at discharge?: No When asked, does pt state using other controlled substances?: No If prescribed controlled substance>3 days was MAPS reviewed?: No If Rx opioid, was Start Talking consent form obtained?: No If opioid is for acute pain is fill amount 7 days or less?: No Was information provided regarding opioid addiction?: No
== END | disposition home or self-care (01) ==
LOC: PNWHC3 11:27
PROVIDERS: ATTEND Specialist
DX: G89.29 Other chronic pain (principal); M47.812 Spondylosis without myelopathy or radiculopathy, cervical region; M50.20 Other cervical disc displacement, unspecified cervical region; M54.81 Occipital neuralgia; Z87.891 Personal history of nicotine dependence; Z79.899 Other long term (current) drug therapy
CPT/HCPCS: 99211

== ENCOUNTER 2018-04-13 04:07 | Emergency (ER) | payer OTHER ==
[2018-04-13] MEDS ORDERED: SODIUM CHLORIDE 0.9% 1,000 ML IV STA (04:20)
[2018-04-13 04:39] LABS: Basophils % (A) 0 %; Eosinophils # (A) 0.1 k/uL (0-0.7); Eosinophils % (A) 2 %; HCT 39.9 % (39.0-53.0); HGB 13.3 gm/dL (13.0-17.5); Lymphocytes # (A) 1.5 k/uL (1.0-4.8); Lymphocytes % (A) 26 %; MCH 29.6 pg (25.0-35.0); MCHC 33.3 g/dL (31.0-37.0); MCV 88.8 fL (80.0-100.0); Mean Platelet Volume 6.2; Monocytes # (A) 0.3 k/uL (0-1.0); Monocytes % (A) 5 %; Neutrophils # (A) 3.6 k/uL (1.3-7.7); Neutrophils % (A) 66 %; Platelet Count 216 k/uL (150-450); RBC 4.49 m/uL (4.30-5.90); RDW 13.3 % (11.5-15.5); WBC 5.5 k/uL (3.8-10.6)
--- NOTE | 2018-04-13 04:43 | ED ---
Syncope HPI - General Chief Complaint: Syncope Stated Complaint: SYNCOPE Time Seen by Provider: 04/13/18 04:20 Source: patient, EMS Mode of arrival: EMS - History of Present Illness Initial Comments: Jeff is a 42-year-old male who presents the emergency department today for evaluation of syncopal episode at home. Patient reports that he has a complicated past medical history including significant occipital neuralgia which causes chronic headaches. He reports he is having a headache for a couple of days so he has not taken all of his medications, he states that yesterday evening he did choose to take all of his medications including his antihypertensives. He believes he took them as prescribed. He states that for a long period of time he has experienced lightheadedness and dizziness upon standing and that he has to stand very slowly. He does not know why this occurs. He is on to oral antihypertensives. He has discussed these symptoms with his physician in the past. Patient reports that this evening he stood and felt very lightheaded, he was attempting to walk to the restroom. He sat down and rested but then when he got back up and attempted to walk he again became very lightheaded, his vision darkened any reports that he fell forward, he states that he may have briefly lost consciousness but recalls landing on the ground. He believes he braced himself. He did obtain an abrasion to his left knee. Patient reports he then attempted to stand back up and again got lightheaded and fell to his knees. He reports this happened 3 times when trying to walk to the restroom. He then decided to call 911 for evaluation. EMS reports they found patient resting, he was very lightheaded upon sitting and standing to get on the gurney. He was noted to be tachycardic and hypotensive. He was never noted to have any dyspnea or hypoxia. He did report to EMS that he may have taken too much of his oral antihypertensives, however he denied this with speaking to staff in the ER. Patient reports that he is expressed lightheadedness with standing but never passed out before. He denies any cardiac history aside from hypertension. He denies any history of DVT or PE or any known family history of such. He denies any history of known arrhythmia. He's not had any recent long distance travel, immobilization, has not noticed any edema in his legs. He reports he has not been eating or drinking very well but has been some, he did miss a few doses of his oral antihypertensives. - Related Data Home Medications Medication Instructions Recorded Confirmed Cholecalciferol [Vitamin D3] 2,000 unit PO HS 12/27/14 04/11/18 Levothyroxine Sodium [Synthroid] 25 mcg PO HS 12/27/14 04/11/18 Lisinopril 40 mg PO HS 12/27/14 04/11/18 Omeprazole [PriLOSEC] 20 mg PO DAILY 12/27/14 04/11/18 Simvastatin [Zocor] 80 mg PO HS 12/27/14 04/11/18 Ibuprofen [Motrin] 800 mg PO RT-Q12H PRN 03/10/15 04/11/18 OXcarbazepine [Trileptal] 600 mg PO TID 09/27/17 04/11/18 Prazosin [Minipress] 2 mg PO HS 09/27/17 04/11/18 Zolpidem [Ambien] 5 - 10 mg PO HS PRN 09/27/17 04/11/18 ALPRAZolam [Xanax] 0.5 mg PO DAILY PRN 10/23/17 04/11/18 Topiramate [Topiramate ER] 100 mg PO BID 10/23/17 04/11/18 Venlafaxine HCl [Effexor] 225 mg PO HS 12/07/17 04/11/18 Cyclobenzaprine [Flexeril] 10 mg PO DAILY PRN 04/09/18 04/11/18 Allergies Allergy/AdvReac Type Severity Reaction Status Date / Time No Known Allergies Allergy Verified 04/11/18 13:55 Review of Systems ROS Statement: Those systems with pertinent positive or pertinent negative responses have been documented in the HPI. ROS Other: All systems not noted in ROS Statement are negative. Past Medical History Past Medical History: Hyperlipidemia, Hypertension, Musculoskeletal Disorder, Thyroid Disorder Additional Past Medical History / Comment(s): HX HEADACHES AND DIZZINESS Hx MALT LYMPHOMA 2004, bulging disk in neck. Hearing sensitive. History of Any Multi-Drug Resistant Organisms: None Reported Past Surgical History: Hernia Repair Additional Past Surgical History / Comment(s): vasectomy, wisdom teeth removed, pain procedures Past Anesthesia/Blood Transfusion Reactions: No Reported Reaction Past Psychological History: Depression, PTSD Smoking Status: Former smoker Past Alcohol Use History: Occasional Past Drug Use History: None Reported - Past Family History Mother Family Medical History: No Reported History General Exam - General Exam Comments Initial Comments: GENERAL: Patient is well-developed and well-nourished. Patient is nontoxic and well- hydrated and is in no distress. HENT: Normocephalic, Atraumatic. Neck is soft and supple. No significant lymphadenopathy is noted. Oropharynx is clear. Moist mucous membranes. Neck has full range of motion without eliciting any pain. No carotid bruits EYES: The sclera were anicteric and conjunctiva were pink and moist. Extraocular movements were intact and pupils were equal round and reactive to light. Eyelids were unremarkable. PULMONARY: Unlabored respirations. Good breath sounds bilaterally. No audible rales rhonchi or wheezing was noted. CARDIOVASCULAR: There is a regular rate and rhythm without any murmurs gallops or rubs. ABDOMEN: Soft and nontender with normal bowel sounds. SKIN: Abrasion to left knee NEUROLOGIC: Patient is alert and oriented x3. Cranial nerves II through XII are grossly intact. Motor and sensory are also intact. Normal speech, volume and content. Symmetrical smile. MUSCULOSKELETAL: Normal extremities with adequate strength and full range of motion. No lower extremity swelling or edema. No calf tenderness. LYMPHATICS: No significant lymphadenopathy is noted PSYCHIATRIC: Normal psychiatric evaluation. Limitations: no limitations Course Vital Signs 04/13/18 04/13/18 04/13/18 04:12 07:14 08:19 Temperature 98.4 F 98.9 F Pulse Rate 107 H 78 78 Respiratory 15 18 16 Rate Blood Pressure 91/56 95/61 111/61 O2 Sat by Pulse 93 L 97 99 Oximetry EKG Findings - EKG Comments: EKG Findings:: EKG obtained at 4:16 AM, rate is 104, rhythm is sinus tachycardia , there is leftward axis, normal intervals, VA 158, QRS 96, QTC is 454, there are no acute ST elevations or depressions no evidence of acute ischemia or infarction. Medical Decision Making - Medical Decision Making The patient was seen and evaluated, patient with what appears to be a episode of orthostatic syncope Patient was noted to be hypotensive upon EMS evaluation, hypotension resolved with IV fluids prior to arrival On exam the patient is very well-appearing EKG is sinus tachycardia Labs were ordered Patient was noted to be tachycardic, tachypneic with oxygen saturation of 93%, despite not having any risk factors decision was made to order CT pulmonary embolism study D-dimer was elevated, patient was arty in CT when this resulted. Computed tomography scan with no evidence of acute pulmonary embolism Patient was reevaluated, blood pressure and heart rate had improved. Patient reported feeling much better after IV fluids. Patient was able to ambulate independently from the bed up and down the hallway to the restroom with no symptoms. I discussed with the patient options for admission to the hospital for further evaluation versus discharge home. At this time the patient like to be discharged home to follow up with his primary care physician. I advised the patient to check his blood pressure home, he does have a blood pressure cuff. I advised the patient to hold his oral antihypertensives as his systolic blood pressure was below 120. Patient's breast understanding with this. All questions pertaining to care were answered the best my ability patient was discharged home in stable condition. - Lab Data Result diagrams: 04/13/18 04:25 Lab Results 04/13/18 04/13/18 04/13/18 Range/Units 04:25 04:25 04:25 WBC 5.5 (3.8-10.6) k/uL RBC 4.49 (4.30-5.90) m/uL Hgb 13.3 (13.0-17.5) gm/dL Hct 39.9 (39.0-53.0) % MCV 88.8 (80.0-100.0) fL MCH 29.6 (25.0-35.0) pg MCHC 33.3 (31.0-37.0) g/dL RDW 13.3 (11.5-15.5) % Plt Count 216 (150-450) k/uL Neutrophils % 66 % Lymphocytes % 26 % Monocytes % 5 % Eosinophils % 2 % Basophils % 0 % Neutrophils # 3.6 (1.3-7.7) k/uL Lymphocytes # 1.5 (1.0-4.8) k/uL Monocytes # 0.3 (0-1.0) k/uL Eosinophils # 0.1 (0-0.7) k/uL Basophils # 0.0 (0-0.2) k/uL PT (9.0-12.0) sec INR (<1.2) APTT (22.0-30.0) sec D-Dimer (<0.60) mg/L FEU Magnesium 1.9 (1.6-2.3) mg/dL Total Creatine Kinase 85 (55-170) U/L CK-MB (CK-2) 0.7 (0.0-2.4) ng/mL CK-MB (CK-2) Rel Index 0.8 Troponin I <0.012 (0.000-0.034) ng/mL Urine Color Urine Appearance (Clear) Urine pH (5.0-8.0) Ur Specific [place] (1.001-1.035) Urine Protein (Negative) Urine Glucose (UA) (Negative) Urine Ketones (Negative) Urine Blood (Negative) Urine Nitrite (Negative) Urine Bilirubin (Negative) Urine Urobilinogen (<2.0) mg/dL Ur Leukocyte Esterase (Negative) 04/13/18 04/13/18 Range/Units 06:16 07:20 WBC (3.8-10.6) k/uL RBC (4.30-5.90) m/uL Hgb (13.0-17.5) gm/dL Hct (39.0-53.0) % MCV (80.0-100.0) fL MCH (25.0-35.0) pg MCHC (31.0-37.0) g/dL RDW (11.5-15.5) % Plt Count (150-450) k/uL Neutrophils % % Lymphocytes % % Monocytes % % Eosinophils % % Basophils % % Neutrophils # (1.3-7.7) k/uL Lymphocytes # (1.0-4.8) k/uL Monocytes # (0-1.0) k/uL Eosinophils # (0-0.7) k/uL Basophils # (0-0.2) k/uL PT 10.6 (9.0-12.0) sec INR 1.1 (<1.2) APTT 18.2 L (22.0-30.0) sec D-Dimer 0.92 H (<0.60) mg/L FEU Magnesium (1.6-2.3) mg/dL Total Creatine Kinase (55-170) U/L CK-MB (CK-2) (0.0-2.4) ng/mL CK-MB (CK-2) Rel Index Troponin I (0.000-0.034) ng/mL Urine Color Yellow Urine Appearance Clear (Clear) Urine pH 7.0 (5.0-8.0) Ur Specific [place] 1.014 (1.001-1.035) Urine Protein Trace H (Negative) Urine Glucose (UA) Negative (Negative) Urine Ketones Negative (Negative) Urine Blood Negative (Negative) Urine Nitrite Negative (Negative) Urine Bilirubin Negative (Negative) Urine Urobilinogen <2.0 (<2.0) mg/dL Ur Leukocyte Esterase Negative (Negative) Disposition Clinical Impression: Syncope due to orthostatic hypotension Disposition: HOME SELF-CARE Condition: Good Instructions: Syncope (ED) Additional Instructions: Checking her blood pressure before taking any of your oral antihypertensives, do not take your blood pressure medications if your systolic blood pressure is below 120. Follow up with her primary care physician on Sunday Is patient prescribed a controlled substance at d/c from ED?: No Referrals: Manan Brown MD [Primary Care Provider] - 1-2 days
[2018-04-13 05:00] LABS: Creatine Kinase 85 U/L (55-170)
[2018-04-13 05:13] LABS: Creatine Kinase MB 0.7 ng/mL (0.0-2.4); Troponin I <0.012 ng/mL (0.000-0.034)
--- NOTE | 2018-04-13 05:22 | XR ---
EXAMINATION TYPE: XR chest 2V DATE OF EXAM: 04/13/2018 COMPARISON: NONE HISTORY: Syncope TECHNIQUE: Frontal and lateral views of the chest are obtained. FINDINGS: Heart and mediastinum are normal. Lungs are clear. Diaphragm is normal. Bony thorax appear s normal. IMPRESSION: Normal chest
[2018-04-13 06:52] LABS: INR 1.1 (<1.2); Prothrombin Time 10.6 sec (9.0-12.0)
[2018-04-13 07:15] VITALS: PULSE 78
[2018-04-13 07:28] LABS: Appearance,Urine Clear (Clear); Bilirubin,Urine Negative (Negative); Blood,Urine Negative (Negative); Color,Urine Yellow; Glucose,Urine (UA) Negative (Negative); Ketones,Urine Negative (Negative); Leukocyte Esterase,Urine Negative (Negative); Nitrite,Urine Negative (Negative); Protein,Urine Trace (Negative); Specific Gravity,Urine 1.014 (1.001-1.035); Urobilinogen,Urine <2.0 mg/dL (<2.0)
[2018-04-13 07:33] LABS: D-Dimer 0.92 mg/L FEU (<0.60); Partial Thromboplastin Time 18.2 sec (22.0-30.0)
--- NOTE | 2018-04-13 07:53 | CT ---
EXAMINATION TYPE: CT chest angio for PE DATE OF EXAM: 04/13/2018 COMPARISON: None. HISTORY: Syncopal episode CT DLP: 455 mGycm Automated exposure control for dose reduction was used. CONTRAST: CT Chest for pulmonary embolism performed with with IV Contrast, patient injected with 70 mL of Isovu e 370. FINDINGS: There is minimal dependent atelectasis in the dependent portions of the lungs. There is no significant axillary, mediastinal or hilar adenopathy. There is no evidence of pulmonary embolus. The aorta is normal in caliber. The heart is not enlarged. There is no pleural or pericardial fluid Visualized portions of the upper abdomen are unremarkable. There is minimal hypertrophic spondylosis within the spine. IMPRESSION: This examination is negative for pulmonary embolus.
[2018-04-13 08:21] VITALS: BP 111/61; RESP 16; TEMP 98.9
== END 2018-04-13 08:19 | disposition home or self-care (01) ==
LOC: EC 04:07
DX: I95.1 Orthostatic hypotension (principal); E78.5 Hyperlipidemia, unspecified; I10 Essential (primary) hypertension; E07.9 Disorder of thyroid, unspecified; F32.9 Major depressive disorder, single episode, unspecified; F43.10 Post-traumatic stress disorder, unspecified; Z85.72 Personal history of non-Hodgkin lymphomas; Z87.891 Personal history of nicotine dependence; Z79.899 Other long term (current) drug therapy
CPT/HCPCS: 36415; 85379; 82550; 82553; 83735; 84484; 85025; 85610; 85730; 81003; 71046; 71275; 99285; 96360; 96361 ×2; Q9967

== ENCOUNTER → 2018-04-18 | Day surgery (SDC) | payer OTHER ==
[2018-04-11 13:57] VITALS: BMI 33.3
[~2018-04-18] MED LIST changes: -LACTATED RINGERS 1,000 ML IV SCH; +SODIUM CHLORIDE 0.9% 1,000 ML IV ONE; +SODIUM CHLORIDE 0.9% 500 ML 500 ML IV SCH
[2018-04-18 06:59] VITALS: BP 124/78; PULSE 92; RESP 16; TEMP 97.8
--- NOTE | 2018-04-18 08:42 | P.PCN ---
Date of Procedure: 04/18/18 Procedure(s) Performed: PREOPERATIVE DIAGNOSIS:1- Cervical Spondylosis with Facet Arthropathy.without myelopathy. 2-occipital neuralgia. 3-cervical herniated disc disease. POSTOPERATIVE DIAGNOSIS: Same as preop diagnosis. PROCEDURES: Diagnostic bilateral C2-3 , C3-4, medial branch blocks, with fluoroscopic guidance. Diagnostic bilateral cervical occipital nerve block under fluoroscopy guidance ANESTHESIA: Local with 1% lidocaine; moderate sedation with Versed. 2 mg , and fentanyl 25 micrograms. EBL: Minimal PROCEDURE INDICATION: The patient with neck pain and headache secondary to cervical arthropathy unresponsive to more conservative treatments. PROCEDURE DESCRIPTION / TECHNIQUE: The patient was seen and identified in the preoperative area. Risks, benefits, complications, and alternatives were discussed with the patient, the patient agreed to proceed with the procedure and signed the consent. IV was started. Vital signs remained stable throughout the procedure. Patient was taken to the OR and time out was completed. The patient was placed in the prone position on the procedure table. A pillow was placed under the patients chest to increase the cervical interlaminar space. The cervical area was prepped and draped in the usual sterile fashion. Critical pause was taken. Vital signs were closely monitored during the procedure. Conscious sedation was used during the procedure to decrease patients anxiety. Using cross-table lateral fluoroscopy, the centroid of the trapezoid of right C2 , C3, was identified, marked, and localized with 1% lidocaine 1 ml at each level for skin and Sub Q infiltrations . Subsequently, a 22 G spinal needle was advanced guided by fluoroscopy to the centroid of the trapezoid of RightC2, C3, . [place] tip position was confirmed at the centroid of the trapezoids of Right C2 C3 with anteroposterior fluoroscopy. Subsequently,1 ml of preservative -free Ropivacaine 0.5% mixed with kenalog 10 mg and half ml of the mixture was injected after negative aspiration for blood and CSF. [place] was then removed intact the same procedure was repeated at the left C2-3 ,C3-4,levels. And then to do the right side third occipital nerve 22-gauge Quincke needle advanced slowly under fluoroscopy and placed at the center of the facet gel between the C2 on C3 vertebra on the right side, needle placement confirmed with AP and lateral views and after negative aspiration ropivacaine 0.5% half a milligram mixed with 10 mg of Kenalog injected after negative aspiration, then the same procedure was done for the left side third occipital nerve COMPLICATIONS: No acute complications. DISPOSITION / PLANS: The patient was placed in a supine position and transferred to the recovery area in a stable condition for observation and was discharged from the recovery room after meeting discharge criteria. Home discharge instructions given to the patient by the staff. The patient was reexamined prior to discharge. The patient will schedule a follow up in the clinic in 2-4 weeks.
--- NOTE | 2018-04-18 09:33 | FL ---
EXAMINATION TYPE: FL guided pain mgmt statistic DATE OF EXAM: 04/18/2018 FLUOROSCOPY Fluoroscopy time of 11 seconds was used during the lateral cervical facet injection at 3 levels. 4 i mage/s document/s the procedure.
== END | disposition home or self-care (01) ==
LOC: ORPAIN 06:33
PROVIDERS: ATTEND Specialist
DX: M47.812 Spondylosis without myelopathy or radiculopathy, cervical region (principal); M50.20 Other cervical disc displacement, unspecified cervical region; M54.81 Occipital neuralgia
CPT/HCPCS: 64490; 64491; 64405; J2250; J3301; J3010; 99152

== ENCOUNTER → 2018-05-01 | Day surgery (SDC) | payer OTHER ==
[2018-04-25 12:43] VITALS: BMI 33.3
[~2018-05-01] MED LIST changes: -SODIUM CHLORIDE 0.9% 1,000 ML IV ONE; +SODIUM CHLORIDE 0.9% 500 ML 500 ML IV ONE
[2018-05-01 06:57] VITALS: BP 99/62; PULSE 92; RESP 16; TEMP 97.8
--- NOTE | 2018-05-01 08:06 | P.PCN ---
Date of Procedure: 05/01/18 Surgeon: Obey Muñoz Pathology: none sent Condition: stable Disposition: PACU Description of Procedure: PREOPERATIVE DIAGNOSIS:1- Cervical Spondylosis with Facet Arthropathy.without myelopathy. 2-Cervicogenic headache POSTOPERATIVE DIAGNOSIS: Same as preop diagnosis. PROCEDURES: Diagnostic bilateral C2-3 , C3-4, medial branch blocks, with fluoroscopic guidance. Diagnostic bilateral third occipital nerve block under fluoroscopy guidance ANESTHESIA: Local with 1% lidocaine; moderate sedation with Versed. 2 mg , and fentanyl 25 micrograms. EBL: Minimal PROCEDURE INDICATION: The patient with neck pain and headache secondary to cervical arthropathy unresponsive to more conservative treatments. PROCEDURE DESCRIPTION / TECHNIQUE: The patient was seen and identified in the preoperative area. Risks, benefits, complications, and alternatives were discussed with the patient, the patient agreed to proceed with the procedure and signed the consent. IV was started. Vital signs remained stable throughout the procedure. Patient was taken to the OR and time out was completed. The patient was placed in the prone position on the procedure table. A pillow was placed under the patients chest to increase the cervical interlaminar space. The cervical area was prepped and draped in the usual sterile fashion. Critical pause was taken. Vital signs were closely monitored during the procedure. Conscious sedation was used during the procedure to decrease patients anxiety. Using cross-table lateral fluoroscopy, the centroid of the trapezoid of right C2 , C3, was identified, marked, and localized with 1% lidocaine 1 ml at each level for skin and Sub Q infiltrations . Subsequently, a 22 G spinal needle was advanced guided by fluoroscopy to the center of the trapezoid of RightC2, C3 , . [place] tip position was confirmed at the centroid of the trapezoids of Right C2 C3 with anteroposterior fluoroscopy. Subsequently,1 ml of preservative -free Ropivacaine 0.5% mixed with Decadron 10 mg and half ml of the mixture was injected after negative aspiration for blood and CSF. [place] was then removed intact the same procedure was repeated at the left C2-3 ,C3-4,levels. The target for the third occipital nerve was at the center of the C2 and C3 joint line bilaterally. And then to do the right side third occipital nerve 22-gauge Quincke needle advanced slowly under fluoroscopy and placed at the center of the facet gel between the C2 on C3 vertebra on the right side, needle placement confirmed with AP and lateral views and after negative aspiration ropivacaine 0.5% half a milligram mixed with 10 mg of Decadron injected after negative aspiration, then the same procedure was done for the left side third occipital nerve. A total dose of 10 mg of Decadron was used for this procedure. COMPLICATIONS: No acute complications. DISPOSITION / PLANS: The patient was placed in a supine position and transferred to the recovery area in a stable condition for observation and was discharged from the recovery room after meeting discharge criteria. Home discharge instructions given to the patient by the staff. The patient was reexamined prior to discharge. The patient will schedule a follow up in the clinic in 2-4 weeks.
--- NOTE | 2018-05-01 10:39 | FL ---
EXAMINATION TYPE: FL guided pain mgmt statistic DATE OF EXAM: 05/01/2018 HISTORY: Pain 17 secs fl time [address] Muñoz
== END | disposition home or self-care (01) ==
LOC: ORPAIN 06:32
PROVIDERS: ATTEND Anesthesiology
DX: M47.812 Spondylosis without myelopathy or radiculopathy, cervical region (principal); R51 Headache
CPT/HCPCS: 64490; 64491; 64450; J2250; J1100; J3010; 99152

== ENCOUNTER → 2018-05-20 | Outpatient (CLI) | payer OTHER ==
[2018-05-20 11:55] VITALS: BP 122/95; PULSE 101; RESP 16
--- NOTE | 2018-05-20 14:21 | P.PN ---
Subjective Progress Note Date: 05/20/18 Principal diagnosis: Neck and low back pain Jeff is a 42-year-old gentleman who presents today for follow-up. He presents after having bilateral cervical medial branch blocks done he reports that he had significant pain relief from the medial branch block. He was neck pain continues to be relieved since having the injections. He is inquiring about what the next step would be. He also complains of low back pain sometimes radiates into his right buttock. In terms of his neck pain he reports that his pain is doing better and is unsure what the next step should be if there is 1. He's had physical therapy in the past and continues to do the exercises at home. He is also inquiring about his low back pain which radiates into his buttock at times with exertion only. He also sees a neurologist for occipital neuralgia and sees a psychiatrist and is on multiple medications from those providers. Denies any new symptoms since last visit. Objective - Vital Signs Vital signs: Vital Signs Temp Pulse 101 H 05/20/18 11:48 Resp 16 05/20/18 11:48 BP 122/95 05/20/18 11:48 Pulse Ox 97 05/20/18 11:48 Intake & Output 05/19/18 05/20/18 05/20/18 18:59 06:59 18:59 Weight 104.326 kg - Exam General: Awake and alert oriented 3 no distress Respiratory exam: No audible wheezing no accessory muscle usage Cardiovascular exam: regular rate, palpable bilateral pulses, no lower extremity edema Abdominal exam: No distention nontender to palpation Cervical spine: Normal alignment, Spurling's negative, facet loading negative Lumbar spine: Loss of lumbar lordosis, normal alignment, non-tender to palpation over bilateral paraspinal muscles, facet loading is negative bilaterally. Straight leg raise is negative. Normal range of motion with flexion and extension of the lumbar spine and hips. His normal lateral side bending. Sacroiliac joints: Nontender to palpation, CHIARA is negative, [place] negative Neuro exam: Normal sensation in bilateral upper extremities, deep tendon reflexes are 2+ bilateral upper extremities. Normal sensation in bilateral lower extremities. Deep tendon reflexes are 2+ in lower extremities Psych exam: Cooperative, appropriate mood Assessment and Plan Assessment: Cervical spondylosis without myelopathy lumbago Plan: In terms of patient's cervical pain I discussed that if he continues to have good relief from the medial branch blocks we should wait on doing the ablation. He reports that he'll continue doing exercises daily routine and follow up with us as needed. If his pain gets any worse advised him to call and schedule the radiofrequency ablation which all from the longest term relief. As of his low back pain and did not find any physical red flags or any signs of nerve entrapment or facet arthritis at this time. I advised the patient exercise routinely and to focus on potentially losing some weight. Patient follow with us as needed Time with Patient: Less than 30
== END ==
LOC: PNWHC3 11:33
PROVIDERS: ATTEND Hospitalist
DX: M54.5 Low back pain (principal); M47.812 Spondylosis without myelopathy or radiculopathy, cervical region
CPT/HCPCS: 99211

== ENCOUNTER → 2018-09-10 | Outpatient (CLI) | payer OTHER ==
--- NOTE | 2018-09-10 14:06 | MR ---
EXAMINATION TYPE: MR brain wo/w con DATE OF EXAM: 09/10/2018 COMPARISON: 09/12/2017 HISTORY: Left-sided trigeminal neuralgia TECHNIQUE: Multiplanar, multisequence images of the brain and brainstem is performed without and with IV contras t, utilizing 11 mL intravenous Gadavist . FINDINGS: Diffusion weighted images demonstrate no evidence of a recent infarct or other diffusion ab normality. Midline structures demonstrate normal morphology. The craniocervical junction appears within normal limits. Post contrast images demonstrate no abnormal enhancement. The dural venous sinuses appear pa tent. Changes of chronic sinusitis are noted. Trace amount of fluid surrounding the optic nerves is nonspec ific. Craniocervical junction maintained. Sella turcica has a normal appearance. There again are multiple areas of abnormal signal seen scattered throughout the white matter bilatera lly. Findings are nonspecific. No enhancing lesions. No midline shift or mass effect. No cerebellopontine angle mass. IMPRESSION: 1. Stable nonspecific white matter changes differential diagnosis includes migraine headaches, hypert ension, or remote microvascular ischemia. Demyelinating process not entirely excluded. 2. Stable changes of chronic sinusitis. 3. Trace amount of fluid surrounding the optic nerves bilaterally is a nonspecific finding.
== END ==
LOC: RADMRIMAIN 12:52
PROVIDERS: ATTEND Psychiatry & Neurology Neurology
DX: R90.89 Other abnormal findings on diagnostic imaging of central nervous system (principal)
CPT/HCPCS: 82565; 70553; 36415; A9585

== ENCOUNTER 2018-10-17 07:25 | Day surgery (SDC) | payer OTHER ==
[2018-10-14 15:34] VITALS: BMI 34.9
[~2018-10-17 07:25] MED LIST changes: +LACTATED RINGERS 1,000 ML IV SCH; -SODIUM CHLORIDE 0.9% 500 ML 500 ML IV ONE; -SODIUM CHLORIDE 0.9% 500 ML 500 ML IV SCH
[2018-10-17 07:54] VITALS: RESP 18; TEMP 98.4
[2018-10-17] MEDS ORDERED: LIDOCAINE 1% 20 ML VIAL (10MG/ML) FOR IV START INTRADERMA ONE (08:14)
--- NOTE | 2018-10-17 08:43 | P.PCN ---
Date of Procedure: 10/17/18 Procedure(s) Performed: Preoperative diagnosis: Multiple sclerosis Post operative diagnoses: Multiple sclerosis Anesthesia = moderate sedation with Versed 2 mg and fentanyl 50 g, local infiltration with lidocaine 1% was Condition: stable Complication: none. Description of the procedure procedure risk and benefits discussed with the patient and family, consent signed. Patient and the procedure area placed in lateral position back prepped with chlorhexidine 3 times been local infiltration of the skin and subcutaneous tissue with lidocaine 1% 2 mL for skin and subcu interstitial frustrations at L4 5 levels then 22-gauge Quincke-type needle advanced slowly at L4- 5 interlaminar space there was positive cerebrospinal fluid which was clear, no heme, no paresthesia ,total of 9 ML of clear cerebrospinal fluid collected in 4 different tubes 2-2-1/2 mL in each, then the needle removed and a Band-Aid applied and patient tolerated the procedure well without any complications.
[2018-10-17] MEDS ORDERED: IV FLUID CONTINUATION 1,000 ML IV ONE (08:50)
[2018-10-17 09:04] LABS: T4, Free (Free Thyroxine) 0.69 ng/dL (0.78-2.19)
[2018-10-17 09:06] VITALS: BP 108/82; PULSE 79
[2018-10-17 10:25] LABS: Glucose,CSF 52 mg/dL (40-70); Total Protein,CSF 68 mg/dL (12-60)
[2018-10-17 10:56] LABS: Appearance,CSF Clear; CSF Tube Number 4; CSF Tube Volume 2.3; Nucleated Cells, CSF 1 u/L (0-5); Red Blood Cell,CSF 0 u/L (0-10)
[2018-10-17 16:22] LABS: Rheumatoid Factor 8 IU/mL (0-15)
[2018-10-17 17:12] LABS: Anti-DNA, DS unit <1.0 IU/mL; DNA Double-Stranded NEGATIVE (NEGATIVE); RNP <0.2 AI
[2018-10-18 11:08] LABS: VDRL, Qualitative CSF Nonreactive (Nonreactive)
[2018-10-18 11:22] LABS: Lyme IgG/IgM 0.03 Index
[2018-10-18 13:36] LABS: IgG - CSF 4.6 mg/dL (0.0 - 3.4); IgG/Albumin Index (CSF) 0.47 (0.00 - 0.77)
[2018-10-18 13:54] LABS: APTT 32 Sec(s) (<43); Dilute Russell Viper Venom 42 Sec(s) (<44)
== END 2018-10-17 09:23 | disposition home or self-care (01) ==
LOC: ORPAIN 07:25
PROVIDERS: ATTEND Specialist
DX: R20.0 Anesthesia of skin (principal)
CPT/HCPCS: 86592; 86235 ×3; 84439; 88108; 84157; 82945; 82040; 82042; 82784; 83916; 83873; 84443; 84450; 84460; 85730; 86431; 85613; 89050; 86618; 86780; 86038; 86225; 87801; 62270; J2250; J3010

== ENCOUNTER → 2019-01-20 | Outpatient (CLI) | payer OTHER ==
--- NOTE | 2019-01-20 14:17 | CT ---
EXAMINATION TYPE: CT iac wo con DATE OF EXAM: 01/20/2019 COMPARISON: CT brain 09/26/2017 HISTORY: 43-year-old male, hyperacusis bilateral ears. Left sided hearing sensitivity CT DLP: 142.7 mGycm Automated exposure control for dose reduction was used. TECHNIQUE: Contiguous high-resolution axial scanning of the temporal bones performed without IV cont rast. Coronal reformatted images obtained. FINDINGS: There is no obvious abnormality of the visualized intracranial structures allowing for thin section C T technique. External auditory canals are patent. The middle ear cavities and mastoid air cells are well opacified. There is no abnormality of middle e ar ossicles. The round and oval windows are normal. There is no abnormality of bony labyrinths. The vestibular and cochlear aqueducts are well visualized. 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 The facial nerve canal is normal bilaterally. The internal auditory canal and meati are symmetrical bilaterally. There is no evidence of fractures. Lobulated mucosal thickening left greater than right inferior maxillary sinuses and scattered trace m ucosal thickening ethmoid air cells. Reformatted images confirm above findings. IMPRESSION: 1. 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 Correlate for any corresponding clinical symptoms. 2. Otherwise, no specific abnormality on temporal bone CT. 3. Mild chronic maxillary and ethmoid sinus disease.
== END | disposition home or self-care (01) ==
LOC: RADCTMAIN 12:21
DX: H93.13 Tinnitus, bilateral (principal); H93.233 Hyperacusis, bilateral
CPT/HCPCS: 70480

== ENCOUNTER → 2019-03-05 | Outpatient (CLI) | payer OTHER ==
[2019-03-05 11:48] VITALS: BP 113/80; PULSE 94; RESP 18
--- NOTE | 2019-03-05 20:54 | P.PN ---
Subjective Progress Note Date: 03/05/19 This is follow-up visit for this patient with a history of severe and chronic neck pain and headache diagnosed with occipital neuralgia , cervical spondylosis cervical facet arthropathy , cervical disc herniation ,We have done interventional pain procedures, we've done bilateral medial branch blocks C2, and C3 , and the third occipital nerve, he got excellent pain relief for long- term , the neck pain and the headache came back recently and he is here to discuss the option of doing radiofrequency ablation of the medial branch and the levels mentioned above Patient denies any side effects of the medication, denies excessive drowsiness or sleepiness, denies suicidal ideation, and reports that the current pain medication is helping to control the pain ,and improve activity of daily living Patient denies any motor or sensory deficit , patient denies any fever or night sweats, denies any change in the bowel movements or urination Physical Examinations : -Constitutional : Cooperative , not in acute distress . -HEENT : nech ; supple , no Lymphadenopathy , no Thyromegaly , normal thyroid size . eyes : no ptosis , no icterus, no photophobia - neurologic: Cranial nerve II to XII intact , no focal neurological deffecit . - Psychatric: alert , oriented X 3 , appropriate affect , intact judgment and insight . - Lymphatic : no Lymphadenopathy . - Musculoskeltal : exams of the cervical spine = motor strength normal bilateral upper extremities facet loading test cervical area positive. Tenderness over the occipital nerve bilaterally exams of the Lumber spine =motor strength lower extremities ,thigh and legs .5/5 Assessment and plan = Chronic neck pain and headaches secondary to occipital neuralgia, cervical spondylosis with cervical facet arthropathy, cervical herniated disc disease - diagnostic medial branch block cervical area C2 , C3 and third occipital nerve done x2 ,and he gets excellent pain relief he will be a good candidate to radiofrequency ablation of the medial branch at the levels mentioned above , we will do the right side first PQRS Measure Charge Sheet Measure #130: Documentation of Current Meds in Medical Chart: Patient's medications documented in chart Measure #226: Tobacco Use: Screen & Cessation Intervention: Pt not a tobacco user Measure #111: Pneumonia Vaccination: Pneumococcal vaccine NOT administered or previously given Measure #47: Advance Care Plan: Advance care planning discussed & documented, pt chose/unable to give Measure #412: Opioid Treatment Agreement: No documentation of signed opioid treatment agreement Measure #408: Opioid Therapy Follow-up Evaluation: Patient had NO f/u eval minimum every 3 months during opioid therapy Measure #317: Preventitive Care & Scrn High Bld Press & F/U: Normal blood pressure, f/u not required Measure #128: Body Mass Index (BMI) Screening & Follow-up: BMI documented ABOVE normal parameters - f/u documented Measure #131: Pain Assessment & Follow-up: Pain positive & plan documented, Follow-up scheduled Measure #431: Unhealthy Alcohol Use Preventative Care & Scrn: Patient not identified as an unhealthy alcohol user PQRS Narrative: - Controlled Substance Measures Is patient prescribed a controlled substance at discharge?: No When asked, does pt state using other controlled substances?: No If prescribed controlled substance>3 days was MAPS reviewed?: No If Rx opioid, was Start Talking consent form obtained?: No If opioid is for acute pain is fill amount 7 days or less?: No Was information provided regarding opioid addiction?: No Objective - Vital Signs Vital signs: Vital Signs Temp Pulse 94 03/05/19 11:39 Resp 18 03/05/19 11:39 BP 113/80 03/05/19 11:39 Pulse Ox 96 03/05/19 11:39 Intake & Output 03/05/19 03/05/19 03/06/19 06:59 18:59 06:59 Weight 104.326 kg
== END | disposition home or self-care (01) ==
LOC: PNWHC3 11:25
PROVIDERS: ATTEND Specialist
DX: G89.29 Other chronic pain (principal); M50.20 Other cervical disc displacement, unspecified cervical region; M47.812 Spondylosis without myelopathy or radiculopathy, cervical region; M46.92 Unspecified inflammatory spondylopathy, cervical region; M54.81 Occipital neuralgia
CPT/HCPCS: 99211

== ENCOUNTER 2019-03-25 07:52 | Day surgery (SDC) | payer OTHER ==
[2019-03-24 08:36] VITALS: BMI 33.2
[2019-03-25 08:13] VITALS: RESP 16; TEMP 98.1
[2019-03-25] MEDS ORDERED: LIDOCAINE 1% 20 ML VIAL (10MG/ML) FOR IV START INTRADERMA ONE (08:20)
[2019-03-25] MEDS ORDERED: IV FLUID CONTINUATION 400 ML IV ONE (09:27)
--- NOTE | 2019-03-25 09:31 | P.PCN ---
Date of Procedure: 03/25/19 Procedure(s) Performed: PREOPERATIVE DIAGNOSIS: Cervical spondylosis POSTOPERATIVE DIAGNOSIS: Same PROCEDURES: Right C2, TON, C3 Radiofrequency thermocoagulation, with fluoroscopic guidance SURGEON: Michele Duke MD. ANESTHESIA: Moderate sedation with intravenous versed 2 mg and fentanyl 100 mcg and local infiltration with lidocaine 1% 4 ml EBL: Minimal PROCEDURE INDICATION: Cervical spondylosis PROCEDURE DESCRIPTION / TECHNIQUE: The patient was seen and identified in the preoperative area. Risks, benefits, complications, including but not limited to risk of infection ,bleeding , allergic reactions to the medications, incomplete pain relief, nerve damage and headache Alternatives were discussed with the patient, the patient agreed to proceed with the procedure and signed the consent. IV was started. The operative site was marked. Patient was taken to the OR and time out was completed. The patient was placed in the prone position on the procedure table. The lumber area was prepped and draped in the usual sterile fashion. . Vital signs were closely monitored during the procedure .IV sedation was used during the procedure to decrease patients anxiety. Using AP and then oblique fluoroscopy, the articular waist of the corresponding cervical vertebral bodies for the above-mentioned levels were identified, marked, and localized with 1% lidocaine. Subsequently, a 20 [id number] radiofrequency cannula with a 10-mm active tip was advanced guided by fluoroscopy to the midpoint of the trapezoid formed on the lateral view of the cervical vertebral bodies at each site then underwent motor testing at 2.5 Hz and 0 to 3 volt with local stimulation, but no radicular symptoms. Then the sites underwent radiofrequency thermocoagulation at 80 degrees celsius for 90 seconds after injecting 0.5 ml of PF lidocaine 4%. Cannulas were retracted and bandages were applied.. At the end of the procedure, the skin was cleansed and bandages were applied. COMPLICATIONS: No acute complications. DISPOSITION / PLANS: The patient was placed in a supine position and trans ferred to the recovery area in a stable condition for observation and was discharged from the recovery room after meeting discharge criteria. Home discharge instructions given to the patient by the staff. He will follow up for the same procedure on the left side in a few weeks.
[2019-03-25 09:57] VITALS: BP 119/78; PULSE 80
--- NOTE | 2019-03-25 15:38 | FL ---
EXAMINATION TYPE: FL guided pain mgmt statistic DATE OF EXAM: 03/25/2019 CLINICAL HISTORY: Neck pain TECHNIQUE: Fluoroscopy. COMPARISON: None. FINDINGS: Fluoroscopic guidance was provided during procedure performed by Dr. Duke. A total of 7 seconds of fluoroscopic time was utilized during the procedure and 2 spot images was acquired demon strating multilevel localization of the cervical spine. IMPRESSION: As Above.
== END 2019-03-25 10:04 | disposition home or self-care (01) ==
LOC: ORPAIN 07:52
PROVIDERS: ATTEND Student in an Organized Health Care Education/Training Program
DX: M47.892 Other spondylosis, cervical region (principal); M54.81 Occipital neuralgia
CPT/HCPCS: 64633; 64634; 99152

== ENCOUNTER 2019-04-08 07:25 | Day surgery (SDC) | payer OTHER ==
[2019-04-03 11:17] VITALS: BMI 32.7
[2019-04-08 07:54] VITALS: TEMP 97.8
[2019-04-08] MEDS ORDERED: LIDOCAINE 1% 20 ML VIAL (10MG/ML) FOR IV START INTRADERMA ONE (07:54)
[2019-04-08] MEDS ORDERED: LACTATED RINGERS 1,000 ML IV ONE (07:54)
--- NOTE | 2019-04-08 09:17 | P.PCN ---
Date of Procedure: 04/08/19 Procedure(s) Performed: PREOPERATIVE DIAGNOSIS: Cervical spondylosis POSTOPERATIVE DIAGNOSIS: Same PROCEDURES: Left Radiofrequency thermocoagulation, with fluoroscopic guidance PHYSICIAN: Michele Duke MD. ANESTHESIA: Moderate sedation with intravenous versed 2 mg and fentanyl 100 mcg and local infiltration with lidocaine 1% 4 ml EBL: Minimal PROCEDURE INDICATION: Cervical spondylosis, neck pain PROCEDURE DESCRIPTION / TECHNIQUE: The patient was seen and identified in the preoperative area. Risks, benefits, complications, including but not limited to risk of infection ,bleeding , allergic reactions to the medications, incomplete pain relief, nerve damage and headache Alternatives were discussed with the patient, the patient agreed to proceed with the procedure and signed the consent. IV was started. The operative site was marked. Patient was taken to the OR and time out was completed. The patient was placed in the prone position on the procedure table. The lumber area was prepped and draped in the usual sterile fashion. . Vital signs were closely monitored during the procedure .IV sedation was used during the procedure to decrease patients anxiety. Using AP and then oblique fluoroscopy, the articular waist of the corresponding cervical vertebral bodies for the above-mentioned levels were identified, marked, and localized with 1% lidocaine. Subsequently, a 18 [id number] radiofrequency cannula with a 10-mm active tip was advanced guided by fluoroscopy to the midpoint of the trapezoid formed on the lateral view of the cervical vertebral bodies at each site then underwent motor testing at 2.5 Hz and 0 to 3 volt with local stimulation, but no radicular symptoms. Then the sites underwent radiofrequency thermocoagulation at 80 degrees celsius for 90 seconds after injecting 0.5-.75 ml of PF lidocaine 4%. ACannulas were retracted while injecting lidocaine 1% until the needle is out. Images were saved to radiology. At the end of the procedure, the skin was cleansed and bandages were applied. COMPLICATIONS: No acute complications. DISPOSITION / PLANS: The patient was placed in a supine position and transferred to the recovery area in a stable condition for observation and was discharged from the recovery room after meeting discharge criteria. Home discharge instructions given to the patient by the staff. He will be seen in follow up in clinic.
--- NOTE | 2019-04-08 09:27 | FL ---
EXAMINATION TYPE: FL guided pain mgmt statistic DATE OF EXAM: 04/08/2019 COMPARISON: NONE HISTORY: Neck pain TECHNIQUE: Fluoroscopy. FINDINGS: Fluoroscopic guidance was provided during procedure performed by Dr. Duke. A total of 7 seconds of fluoroscopic time was utilized during the procedure and 2 spot images were acquired demo nstrating multilevel localization of the cervical spine. IMPRESSION: As Above.
[2019-04-08 09:28] VITALS: RESP 16
[2019-04-08 09:42] VITALS: BP 110/66; PULSE 91
== END 2019-04-08 09:52 | disposition home or self-care (01) ==
LOC: ORPAIN 07:25
PROVIDERS: ATTEND Student in an Organized Health Care Education/Training Program
DX: M47.812 Spondylosis without myelopathy or radiculopathy, cervical region (principal)
CPT/HCPCS: 64633; 64634; J2250; J2001; J3010; 99152

== ENCOUNTER → 2019-05-20 | Outpatient (CLI) | payer OTHER ==
[2019-05-20 13:39] VITALS: BP 146/87; PULSE 96; RESP 18
--- NOTE | 2019-05-20 14:36 | P.PAINPG ---
Subjective Progress Note Date: 05/20/19 This is a 43-year-old male with cervical spondylosis, who presents for follow-up after cervical RFA. He reports excellent pain control and increase function after his RFA, he reports reduced incidence of headaches, and decrease high neck pain. However now isn't noticing more pain in the lower neck, in the areas that were not ablated. He sits for long times this pain does had bothersome. Thus he would like to address this. Furthermore he would like an excuse for jury duty given his symptoms, this is denied. He also interested in getting an MRI. Objective - Vital Signs Vital signs: Vital Signs Temp Pulse 96 05/20/19 13:31 Resp 18 05/20/19 13:31 BP 146/87 05/20/19 13:31 Pulse Ox 96 05/20/19 13:31 - Exam Vital Signs: Reviewed in EMR GENERAL: Well appearing, in no acute distress, PSYCH: Mood and affect is appropriate. Awake, alert, and oriented SKIN: Skin color, texture, turgor normal, no rashes or lesions HEENT: Normocephalic, atraumatic. EOM intact CV: No pedal edema RESP: Respirations are unlabored, no audible wheezing GI: Abdomen non-distended MUSCULOSKELETAL: Bilateral upper and lower extremity strength is normal and symmetric. No atrophy or tone abnormalities are noted. Neck: pain to palpation over cervical paraspinals. Cervical facet loading did proDUCE pain Extremities: Peripheral joint ROM is full and pain free without obvious instability or laxity in all four extremities. No edema or skin discolorations noted. Gait: Gait is anantalgic NEUR: Bilateral upper and lower extremity coordination and muscle stretch reflexes are physiologic and symmetric. Negative clonus. No loss of sensation is noted. Cranial nerves are grossly intact. Assessment and Plan Assessment: Assessment: 1. Cervical spondylosis 2. Cervicogenic headaches 3. Obesity Plan: 1. Explanation: I explained to him that it appears that he has pain in the lower cervical facets, this was not targeted recently. When one area of pain is treated another area sometimes becomes more prominent. 2. Opioid agreement: None 3. Counseling: The patient was counseled extensively on BODY MASS INDEX, EXERCISE. Specifically, the patient was instructed regarding the importance of weight control, and exercise in the context of both chronic pain and overall health. 4. Procedures: Medial branch workup at bilateral C4, C5, C6 5. Consultations: None 6. Investigations: Cervical MRI ordered, given patient's ongoing neck pain, and per patient's request. We do not need to review this MRI prior to proceeding with a medial branch workup 7. Medications: Encouraged patient to have discussions with primary care physician 8. Disposition: For his procedures , PQRS Measure Charge Sheet Measure #131: Pain Assessment & Follow-up: Pain positive & plan documented PQRS Narrative: Smoking Status Former smoker Blood Pressure 146/87 Pain Intensity [Neck] 3 Scale Used Numeric (1 - 10) Hx Alcohol Use (MH) No Home Medications: Ambulatory Orders Cholecalciferol [Vitamin D3] 2,000 unit PO HS 12/27/14 Levothyroxine Sodium [Synthroid] 50 mcg PO HS 12/27/14 Lisinopril 20 mg PO HS 12/27/14 Omeprazole [PriLOSEC] 20 mg PO DAILY 12/27/14 Simvastatin [Zocor] 80 mg PO HS 12/27/14 Ibuprofen [Motrin] 800 mg PO Q8H PRN 03/10/15 OXcarbazepine [Trileptal] 900 mg PO BID 09/27/17 Prazosin [Minipress] 4 mg PO HS 09/27/17 Zolpidem [Ambien] 5 - 10 mg PO HS PRN 09/27/17 ALPRAZolam [Xanax] 0.5 mg PO DAILY PRN 10/23/17 Topiramate [Topiramate ER] 100 mg PO BID 10/23/17 Venlafaxine HCl [Effexor] 300 mg PO HS 12/07/17 ARIPiprazole [Abilify] 5 mg PO HS 05/14/19 Baclofen [Lioresal] 20 mg PO QID PRN 05/14/19 Controlled Substance Measures - Controlled Substance Measures Is patient prescribed a controlled substance at discharge?: No
== END | disposition home or self-care (01) ==
LOC: PNWHC3 12:49
PROVIDERS: ATTEND Student in an Organized Health Care Education/Training Program
DX: M47.812 Spondylosis without myelopathy or radiculopathy, cervical region (principal); R51 Headache; E66.9 Obesity, unspecified
CPT/HCPCS: 99211

== ENCOUNTER 2019-05-28 06:13 | Day surgery (SDC) | payer OTHER ==
[2019-05-26 11:27] VITALS: BMI 33.5
[2019-05-28] MEDS ORDERED: LACTATED RINGERS 1,000 ML IV SCH (06:19)
[2019-05-28 07:19] VITALS: TEMP 98.2
[2019-05-28] MEDS ORDERED: IV FLUID CONTINUATION 1,000 ML IV ONE (08:07)
[2019-05-28] MEDS ORDERED: LACTATED RINGERS 1,000 ML IV ONE (08:07)
[2019-05-28 08:10] VITALS: RESP 18
[2019-05-28 08:25] VITALS: BP 132/67; PULSE 67
--- NOTE | 2019-05-28 08:32 | FL ---
EXAMINATION TYPE: FL guided pain mgmt statistic DATE OF EXAM: 05/28/2019 CLINICAL HISTORY: Neck pain. TECHNIQUE: Fluoroscopy. COMPARISON: None. FINDINGS: Fluoroscopic guidance was provided during pain relief procedure performed by Dr. Leon . A total of 24 seconds of fluoroscopic time was utilized during the procedure and 7 spot images are acqu ired. Images acquired shows needle localization at several levels in the cervical spine . IMPRESSION: As Above.
--- NOTE | 2019-05-28 08:35 | P.PCN ---
Date of Procedure: 05/28/19 Procedure(s) Performed: PREOPERATIVE DIAGNOSIS: Cervical Spondylosis with Facet Arthropathy.without myelopathy POSTOPERATIVE DIAGNOSIS: Cervical Spondylosis, Facet Arthropathy. Without myelopathy PROCEDURES: Bilateral Diagnostic C4, C5, C6 medial branch blocks for facets C4- 5, C5-6, with fluoroscopic guidance ANESTHESIA: Local with 1% lidocaine; no IV sedation per patient request Fluoroscopy was used for the procedure and images were saved in the radiology portion of the chart. EBL: Minimal PROCEDURE INDICATION: The patient with neck pain secondary to cervical arthropathy unresponsive to more conservative treatments. PROCEDURE DESCRIPTION / TECHNIQUE: The patient was seen and identified in the preoperative area. Risks, benefits, complications, and alternatives were discussed with the patient, the patient agreed to proceed with the procedure and signed the consent. IV was started. Vital signs remained stable throughout the procedure. Patient was taken to the OR and time out was completed. The patient was placed in the prone position on the procedure table. A pillow was placed under the patients chest to increase the cervical interlaminar space. The cervical area was prepped and draped in the usual sterile fashion. A timeout was performed. Vital signs were closely monitored during the procedure. Using cross-table lateral fluoroscopy, and using a lateral approach for needle placement the centroid of the trapezoid of the C4, C5 was identified, marked, and localized with 1% lidocaine 0.2 ml at each level for skin and subcutaneous infiltration . Subsequently, a 25 G 3.5" Quinke spinal needle was advanced guided by fluoroscopy to the centroid of the trapezoid C4, C5. [place] tip position was confirmed using lateral fluoroscopy.0.2 mL of [id number]-[id number] was injected at each level, revealing no intravascular uptake. Subsequently, 0.5 mL of 4% lidocaine was injected at each level. For C6 level, a posterior approach was used for needle placement and needle was advanced to the centroid of the trapezoid using crosstable lateral fluoroscopy. 0.2 mL of Isovue-200 was injected, revealing no intravascular uptake. Subsequently, 0.5 mL of 4% lidocaine was injected at each level. COMPLICATIONS: No acute complications. DISPOSITION / PLANS: The patient was placed in a supine position and transferred to the recovery area in a stable condition for observation and was discharged from the recovery room after meeting discharge criteria. Home discharge instructions given to the patient by the staff. The patient will follow up for repeat procedure in 2 weeks.
== END 2019-05-28 08:44 | disposition home or self-care (01) ==
LOC: ORPAIN 06:13
PROVIDERS: ATTEND Anesthesiology
DX: M47.812 Spondylosis without myelopathy or radiculopathy, cervical region (principal); E66.9 Obesity, unspecified; Z68.34 Body mass index [BMI] 34.0-34.9, adult; Z87.891 Personal history of nicotine dependence; Z79.899 Other long term (current) drug therapy; Z79.890 Hormone replacement therapy; Z79.1 Long term (current) use of non-steroidal anti-inflammatories (NSAID)
CPT/HCPCS: 64490; 64491; Q9966

== ENCOUNTER → 2019-06-04 | Outpatient (CLI) | payer OTHER ==
--- NOTE | 2019-06-04 14:20 | MR ---
EXAMINATION TYPE: MR cervical spine wo con DATE OF EXAM: 06/04/2019 COMPARISON: 10/19/2017 HISTORY: Cervical disc degeneration TECHNIQUE: Multiplanar, multisequence images of the cervical spine were acquired. FINDINGS: Cervical spine vertebral bodies maintain normal vertebral body heights and alignment. Cervi kit cord signal is within normal limits. C2-C3: Disc desiccation without spinal canal stenosis or neural foraminal narrowing. No focal herniat ion. C3-C4: There is a central disc herniation superimposed on a broad-based disc bulge mildly narrowing t he ventral subarachnoid space and bilateral neural foramen. Uncovertebral hypertrophy is also again s een. Finding is similar to the prior exam. C4-C5: New left foraminal disc herniation is small with uncovertebral hypertrophy creating mild left neural foraminal narrowing. Right neuroforamen and spinal canal are patent. C5-C6: Broad-based disc bulge and uncovertebral hypertrophy mildly narrow the left neural foramen. Ri ght neuroforamen and spinal canal are patent. Disc desiccation is seen. C6-C7: Right eccentric disc bulge mildly narrows the right neural foramen in combination with uncover tebral hypertrophy. Spinal canal and neural foramen are patent. C7-T1: No evidence for degenerative disc disease. No disc bulge/herniation or protrusion. No Canal stenosis. Foramina are patent bilaterally. IMPRESSION: 1. New left foraminal disc herniation at C4-C5 and small creating mild left neural foraminal narrowin g. 2. Similar-appearing central disc herniation and broad-based disc bulge at C3-C4 creating mild spinal stenosis and mild bilateral neural foraminal narrowing. 3. Mild degenerative disc disease of the cervical spine creating variable degrees of neural foraminal narrowing as detailed above.
== END | disposition home or self-care (01) ==
LOC: RADMRIMAIN 13:11
PROVIDERS: ATTEND Student in an Organized Health Care Education/Training Program
DX: M48.02 Spinal stenosis, cervical region (principal); M50.21 Other cervical disc displacement, high cervical region; M50.30 Other cervical disc degeneration, unspecified cervical region
CPT/HCPCS: 72141

== ENCOUNTER 2019-06-11 06:58 | Day surgery (SDC) | payer OTHER ==
[2019-06-10 11:00] VITALS: BMI 34.6
[2019-06-11 07:26] VITALS: TEMP 98.8
[2019-06-11] MEDS ORDERED: LIDOCAINE 1% 20 ML VIAL (10MG/ML) FOR IV START INTRADERMA ONE (07:31)
--- NOTE | 2019-06-11 08:31 | P.PCN ---
Date of Procedure: 06/11/19 Procedure(s) Performed: PREOPERATIVE DIAGNOSIS: Cervical Spondylosis with Facet Arthropathy.without myelopathy POSTOPERATIVE DIAGNOSIS: Cervical Spondylosis Facet Arthropathy. Without myelopathy PROCEDURES: Diagnostic bilateral C4 , C5 , and C6 medial branch blocks, with fluoroscopic guidance (fluoroscopy images available in radiology department ) ( to target the facet joint at C4- 5 , C5- 6 ) ANESTHESIA: Local with 1% lidocaine; moderate sedation with Versed. 2 mg , and fentanyl 50 micrograms EBL: Minimal PROCEDURE INDICATION: The patient with neck pain secondary to cervical arthropathy unresponsive to more conservative treatments. PROCEDURE DESCRIPTION / TECHNIQUE: The patient was seen and identified in the preoperative area. Risks, benefits, complications, and alternatives were discussed with the patient, the patient agreed to proceed with the procedure and signed the consent. IV was started. Vital signs remained stable throughout the procedure. Patient was taken to the OR and time out was completed. The patient was placed in the prone position on the procedure table. A pillow was placed under the patients chest to increase the cervical interlaminar space. The cervical area was prepped and draped in the usual sterile fashion. Critical pause was taken. Vital signs were closely monitored during the procedure. Conscious sedation was used during the procedure to decrease patients anxiety. Using cross-table lateral fluoroscopy, the centroid of the trapezoid of right C4 , C5 and C6, was identified, marked, and localized with 1% lidocaine 1 ml at each level for skin and Sub Q infiltrations . Subsequently, a 22 G 3 spinal needle was advanced guided by fluoroscopy to the centroid of the trapezoid of Right C4 , C5, C6 . [place] tip position was confirmed at the centroid of the trapezoids of Right C4 , C5 ,C6 with anteroposterior fluoroscopy. Subsequently, 1.5 ml of preservative-free Ropivacaine 0.5% mixed with Depo- Medrol 20 mg and half ml of the mixture was injected after negative aspiration for blood and CSF. Taylor was then removed intact the same procedure was repeated at the left C4 , C5 , and C6 levels. COMPLICATIONS: No acute complications DISPOSITION / PLANS: The patient was placed in a supine position and transferred to the recovery area in a stable condition for observation and was discharged from the recovery room after meeting discharge criteria. Home discharge instructions given to the patient by the staff. The patient was reexamined prior to discharge. The patient will schedule a follow up in the clinic in 2-4 weeks.
[2019-06-11] MEDS ORDERED: IV FLUID CONTINUATION 1,000 ML IV ONE ×2 (08:35)
[2019-06-11 08:57] VITALS: BP 111/77; PULSE 75; RESP 18
--- NOTE | 2019-06-11 08:57 | FL ---
EXAMINATION TYPE: FL guided pain mgmt statistic DATE OF EXAM: 06/11/2019 CLINICAL HISTORY: Neck pain. TECHNIQUE: Fluoroscopy. COMPARISON: None. FINDINGS: Fluoroscopic guidance was provided during pain relief procedure performed by Dr. Galeas . A total of 14 seconds of fluoroscopic time was utilized during the procedure and 5 spot images are acquired. Images acquired shows needle localization at multiple levels on the cervical spine. IMPRESSION: As Above.
== END 2019-06-11 09:06 | disposition home or self-care (01) ==
LOC: ORPAIN 06:58
PROVIDERS: ATTEND Specialist
DX: M47.812 Spondylosis without myelopathy or radiculopathy, cervical region (principal)
CPT/HCPCS: 64490; 64491; J2250; J1030; J3010; 99152

== ENCOUNTER → 2019-07-09 | Outpatient (CLI) | payer OTHER ==
[2019-07-09 13:29] VITALS: BP 116/78; PULSE 100; RESP 16
--- NOTE | 2019-07-10 05:17 | P.PAINPG ---
Subjective Progress Note Date: 07/09/19 This is a follow-up visit for this 43 years old male with a chronic history of severe neck pain and headache, he is diagnosed with occipital neuralgia ,and cervical spondylosis with cervical facet arthropathy, recently we have done diagnostic medial branch block cervical area C4, C5, C6, bilaterally, and he reported that he had significant improvement in his neck pain after the block and he was able to do more activity, and the improvement was only for short- term, he denies any motor or sensory deficit, he continued to use Motrin and baclofen., As prescribed by his primary care he denies any side effect of the medication, patient had a new MRI done which showed the patient had multilevel cervical herniated disc disease and multilevel cervical spondylosis with facet arthropathy Objective - Vital Signs Vital signs: Vital Signs Temp Pulse 100 07/09/19 13:21 Resp 16 07/09/19 13:21 BP 116/78 07/09/19 13:21 Pulse Ox 95 07/09/19 13:21 - Exam Physical Examinations : -Constitutiona : Cooperative , not in acute distress . -HEENT : nech : supple , no Lymphadenopathy , normal thyroid size . : eyes : no ptosis , no icterus, no photophobia . : ENT : normal of hearing , normal oropharynx , no Thrush . - Respiratory : Chest clear to auscultations Bilaterally , no wheezing , no Rhonchi . - Cardiovascula : regular rate and rhythem , S1 , S2 , no S3 , no S4. - Gastrointestina : abdomen soft no tenderness , bowel sounds , no organomegally . - Genitourinary : Defferred . - neurologic : Cranial nerve II to XII intact , no focal neurological deffecit . -psychatric : alert , oriented X 3 , appropriate affect , intact judgment and insight . -Lymphatic : no Lymphadenopathy . - musculoskeltal : Cervical Spine motor stregnth in the deltoid and biceps, normal right side , normal Left side motor stregnth biceps and the wrist extensors normal right side ,normal left side . motor stregnth in the triceps muscle . normal Right side , normal Left side deep tendon reflexes normal at the biceps , normal at Brachioradialis , normal at triceps. cervical facet loading test: Positive Bilaterally Tenderness over the occipital nerve bilaterally Spurling test positive bilaterally. Neck distraction test positive bilaterally. Serge sign positive bilaterally. Lumber spine moter stegnth lower extremities ,thigh and legs 5/5 Right side , 5/5 Left side Assessment and Plan Plan: Assessment and plan =Chronic neck pain and headaches secondary to cervical herniated disc disease, cervical spondylosis with facet arthropathy, and occipital neuralgia. Patient had positive results after diagnostic medial branch block cervical area C4, C5, C6 done on 2 different occasions, and he would be good candidate to have a frequency thermocoagulation of the medial branch cervical area or to the right side first. Procedure risk and benefits and alternatives discussed with the patient he agreed with the preceding. Patient would continue to use Motrin and colton lofen as prescribed by his primary care. Time with Patient: Less than 30 PQRS Measure Charge Sheet Measure #130: Documentation of Current Meds in Medical Chart: Patient's medications documented in chart Measure #226: Tobacco Use: Screen & Cessation Intervention: Pt not a tobacco user Measure #111: Pneumonia Vaccination: Pneumococcal vaccine administered or previously received Measure #47: Advance Care Plan: Advance care planning discussed & documented, pt chose/unable to give Measure #412: Opioid Treatment Agreement: No documentation of signed opioid treatment agreement Measure #408: Opioid Therapy Follow-up Evaluation: Patient had NO f/u eval minimum every 3 months during opioid therapy Measure #317: Preventitive Care & Scrn High Bld Press & F/U: Normal blood pressure, f/u not required Measure #128: Body Mass Index (BMI) Screening & Follow-up: BMI documented ABOVE normal parameters - f/u documented Measure #131: Pain Assessment & Follow-up: Pain positive & plan documented, Follow-up scheduled Measure #431: Unhealthy Alcohol Use Preventative Care & Scrn: Patient not identified as an unhealthy alcohol user PQRS Narrative: Smoking Status Former smoker Blood Pressure 116/78 Pain Intensity [Neck] 0 Scale Used Numeric (1 - 10) Hx Alcohol Use (MH) No Home Medications: Ambulatory Orders Levothyroxine Sodium [Synthroid] 50 mcg PO HS 12/27/14 Lisinopril 20 mg PO HS 12/27/14 Omeprazole [PriLOSEC] 20 mg PO DAILY 12/27/14 Simvastatin [Zocor] 80 mg PO HS 12/27/14 Ibuprofen [Motrin] 800 mg PO Q8H PRN 03/10/15 OXcarbazepine [Trileptal] 225 mg PO BID 09/27/17 Prazosin [Minipress] 4 mg PO HS 09/27/17 Zolpidem [Ambien] 5 - 10 mg PO HS PRN 09/27/17 Topiramate [Topiramate ER] 100 mg PO BID 10/23/17 Venlafaxine HCl [Effexor] 300 mg PO HS 12/07/17 ARIPiprazole [Abilify] 5 mg PO HS 05/14/19 Baclofen [Lioresal] 20 mg PO QID PRN 05/14/19 methylPREDNISolone Dose Pack [Medrol Dose Pack] 4 mg PO DIRECTED 07/07/19 Controlled Substance Measures - Controlled Substance Measures Is patient prescribed a controlled substance at discharge?: No
== END | disposition home or self-care (01) ==
LOC: PNWHC3 13:05
PROVIDERS: ATTEND Specialist
DX: G89.29 Other chronic pain (principal); M50.20 Other cervical disc displacement, unspecified cervical region; M47.892 Other spondylosis, cervical region; M46.92 Unspecified inflammatory spondylopathy, cervical region; M54.81 Occipital neuralgia; Z87.891 Personal history of nicotine dependence; Z79.890 Hormone replacement therapy; Z79.1 Long term (current) use of non-steroidal anti-inflammatories (NSAID); Z79.52 Long term (current) use of systemic steroids; Z79.899 Other long term (current) drug therapy
CPT/HCPCS: 99211

== ENCOUNTER 2019-07-23 06:37 | Day surgery (SDC) | payer OTHER ==
[2019-07-21 12:36] VITALS: BMI 35.2
[2019-07-23 07:04] VITALS: RESP 16; TEMP 98
[2019-07-23] MEDS ORDERED: LIDOCAINE 1% 20 ML VIAL (10MG/ML) FOR IV START INTRADERMA ONE (07:08)
[2019-07-23] MEDS ORDERED: MIDAZOLAM 2 MG/2 ML VIAL ONE (07:28)
[2019-07-23] MEDS ORDERED: methylPREDNISolone ACETATE 40 MG/ML 1 ML VIAL ONE (07:28)
[2019-07-23] MEDS ORDERED: fentaNYL (PF) 50 MCG/ML 2 ML AMP ONE (07:28)
[2019-07-23] MEDS ORDERED: ROPIVACAINE 5MG/ML 20ML VIAL ONE (07:28)
--- NOTE | 2019-07-23 07:52 | P.PCN ---
Date of Procedure: 07/23/19 Procedure(s) Performed: PREOPERATIVE DIAGNOSIS: Cervical spondylosis with Facet Arthropathy without myelopathy. POSTOPERATIVE DIAGNOSIS: Cervical spondylosis with Facet Arthropathy without myelopathy. PROCEDURES: Radiofrequency thermocoagulation Right C4, C5, C6 medial branch with Fluroscopy Guidence(fluoroscopy was available in etiology department ) (to denervate the facet joint at C4- 5 , C5- 6 ) ANESTHESIA: Local with Ropivacaine 0.5 % , moderate sedation with fentanyl 100 micrograms and Versed 2 mg EBL: Minimal PROCEDURE INDICATION: The patient with neck pain secondary to cervical arthropathy who had more than 50% relief of her pain with previous diagnostic cervical medial branch block. PROCEDURE DESCRIPTION / TECHNIQUE: The patient was seen and identified in the preoperative area. Risks, benefits, complications, and alternatives were d iscussed with the patient, the patient agreed to proceed with the procedure and signed the consent. IV was started. Vital signs remained stable throughout the procedure. Patient was taken to the OR and time out was completed. The patient was placed in the prone position on the procedure table. A pillow was placed under the patients chest to increase the cervical interlaminar space. The cervical area was prepped and draped in the usual sterile fashion. Critical pause was taken. Vital signs were closely monitored during the procedure. Conscious sedation was used during the procedure to decrease patients anxiety. Using cross-table lateral fluoroscopy, the centroid of the trapezoid of right C4, C5, and C6 were identified, marked, and localized with 1% lidocaine. Subsequently, a 20 [id number] radiofrequency cannula with a 10-mm active tip was advanced guided by fluoroscopy to the centroid of the trapezoid of right C4, C5, and C6 . Needle tip position was confirmed at the centroid of the trapezoids of right C4, C5, and C6 with anteroposterior fluoroscopy. Each site then underwent sensory testing at 50 Hz and 0 to 1 volt and motor testing at 2 Hz and 0 to 3 volt with local stimulation, but no radicular symptoms down the arm. Thereafter right C4, C5 and C6 sites underwent radiofrequency thermocoagulation at 80 degrees celsius for 90 seconds after injecting 0.5 ml of PF Ropivacaine 0.5 %. After thermocoagulation, 1 ml of the block solution containing Depo- Medrol 40 mg and 5 mL of preservative-free normal saline was injected at the right C4, C5, and C6 levels after negative aspiration of CSF and blood and with no paresthesias. Cannulas were retracted while injecting lidocaine 1% until the needle is out. Skin was cleansed and bandages were applied. COMPLICATIONS: No acute complications. DISPOSITION / PLANS: The patient was placed in a supine position and transferred to the recovery area in a stable condition for observation and was discharged from the recovery room after meeting discharge criteria. Home discharge instructions given to the patient by the staff. The patient was reexamined prior to discharge. The patient will schedule a follow up in the [facility] in 2-4 weeks.
[2019-07-23] MEDS ORDERED: IV FLUID CONTINUATION 1,000 ML IV ONE (07:56)
[2019-07-23 08:17] VITALS: BP 128/88; PULSE 90
--- NOTE | 2019-07-23 09:07 | FL ---
EXAMINATION TYPE: FL guided pain mgmt statistic DATE OF EXAM: 07/23/2019 HISTORY: Fluoroscopy time 22 seconds of fluoroscopy provided. IMPRESSION: 1. Fluoroscopy time.
== END 2019-07-23 08:27 ==
LOC: ORPAIN 06:37
PROVIDERS: ATTEND Specialist
DX: M47.812 Spondylosis without myelopathy or radiculopathy, cervical region (principal)
CPT/HCPCS: 64633; 64634; J2250; J1030; J3010; J2795; 99152

== ENCOUNTER 2019-08-06 08:01 | Day surgery (SDC) | payer OTHER ==
[2019-08-04 15:19] VITALS: BMI 34.7
[~2019-08-06 08:01] MED LIST changes: +BUPIVACAINE (PF) 0.5% 30 ML VIAL ONE; +MIDAZOLAM 2 MG/2 ML VIAL ONE; +fentaNYL (PF) 50 MCG/ML 2 ML AMP ONE; +methylPREDNISolone ACETATE 40 MG/ML 1 ML VIAL ONE
[2019-08-06 08:27] VITALS: TEMP 97.9
[2019-08-06] MEDS ORDERED: LIDOCAINE 1% 20 ML VIAL (10MG/ML) FOR IV START INTRADERMA ONE (08:33)
--- NOTE | 2019-08-06 09:06 | P.PCN ---
Date of Procedure: 08/06/19 Procedure(s) Performed: PREOPERATIVE DIAGNOSIS: Cervical spondylosis with Facet Arthropathy without myelopathy. POSTOPERATIVE DIAGNOSIS: Cervical spondylosis with Facet Arthropathy without myelopathy. PROCEDURES: Radiofrequency thermocoagulation Left C4, C5, C6 medial branch with Fluroscopy Guidence(fluoroscopy was available in etiology department ) (to denervate the facet joint at C4- 5 , C5- 6 ) ANESTHESIA: Local with Ropivacaine 0.5 % , moderate sedation with fentanyl 100 micrograms and Versed 2 mg EBL: Minimal PROCEDURE INDICATION: The patient with neck pain secondary to cervical arthropathy who had more than 50% relief of her pain with previous diagnostic cervical medial branch block. PROCEDURE DESCRIPTION / TECHNIQUE: The patient was seen and identified in the preoperative area. Risks, benefits, complications, and alternatives were di scussed with the patient, the patient agreed to proceed with the procedure and signed the consent. IV was started. Vital signs remained stable throughout the procedure. Patient was taken to the OR and time out was completed. The patient was placed in the prone position on the procedure table. A pillow was placed under the patients chest to increase the cervical interlaminar space. The cervical area was prepped and draped in the usual sterile fashion. Critical pause was taken. Vital signs were closely monitored during the procedure. Conscious sedation was used during the procedure to decrease patients anxiety. Using cross-table lateral fluoroscopy, the centroid of the trapezoid of Left C4, C5, and C6 were identified, marked, and localized with 1% lidocaine. Subsequently, a 20 [id number] radiofrequency cannula with a 10-mm active tip was advanced guided by fluoroscopy to the centroid of the trapezoid of Left C4, C5, and C6 . Needle tip position was confirmed at the centroid of the trapezoids of Left C4, C5, and C6 with anteroposterior fluoroscopy. Each site then underwent sensory testing at 50 Hz and 0 to 1 volt and motor testing at 2 Hz and 0 to 3 volt with local stimulation, but no radicular symptoms down the arm. Thereafter Left C4, C5 and C6 sites underwent radiofrequency thermocoagulation at 80 degrees celsius for 90 seconds after injecting 0.5 ml of PF Ropivacaine 0.5 %. After thermocoagulation, 1 ml of the block solution containing Depo- Medrol 40 mg and 5 mL of preservative-free normal saline was injected at the Left C4, C5, and C6 levels after negative aspiration of CSF and blood and with no paresthesias. Cannulas were retracted while injecting lidocaine 1% until the needle is out. Skin was cleansed and bandages were applied. COMPLICATIONS: No acute complications. DISPOSITION / PLANS: The patient was placed in a supine position and transferred to the recovery area in a stable condition for observation and was discharged from the recovery room after meeting discharge criteria. Home discharge instructions given to the patient by the staff. The patient was reexamined prior to discharge. The patient will schedule a follow up in the clinic in 2-4 weeks.
[2019-08-06 09:21] VITALS: RESP 18
[2019-08-06] MEDS ORDERED: IV FLUID CONTINUATION 600 ML IV ONE (09:22)
[2019-08-06 09:40] VITALS: BP 129/85; PULSE 90
--- NOTE | 2019-08-06 09:44 | FL ---
EXAMINATION TYPE: FL guided pain mgmt statistic DATE OF EXAM: 08/06/2019 CLINICAL HISTORY: Neck pain. TECHNIQUE: Fluoroscopy. COMPARISON: None. FINDINGS: Fluoroscopic guidance was provided during pain relief procedure performed by Dr. Galeas . A total of 11 seconds of fluoroscopic time was utilized during the procedure and 3 spot images are acquired. Images acquired shows needle localization at multiple levels of the cervical spine. IMPRESSION: As Above.
== END 2019-08-06 09:49 | disposition home or self-care (01) ==
LOC: ORPAIN 08:01
PROVIDERS: ATTEND Specialist
DX: M47.812 Spondylosis without myelopathy or radiculopathy, cervical region (principal)
CPT/HCPCS: 64633; 64634; J2250; J1030; J3010; 99152

== ENCOUNTER → 2019-08-27 | Outpatient (CLI) | payer OTHER ==
[2019-08-27 12:51] VITALS: BP 126/78; PULSE 93; RESP 18
--- NOTE | 2019-08-27 13:10 | P.PN ---
Subjective Progress Note Date: 08/27/19 This is a follow-up visit for this 43 years old male with a chronic history of severe neck pain and headache, he is diagnosed with occipital neuralgia ,and cervical spondylosis with cervical facet arthropathy, status post RFA medial branch block cervical area bilaterally, and he reported that he had significant improvement in his neck pain after the block and he was able to do more activity, he denies any motor or sensory deficit, he continued to use Motrin and baclofen., As prescribed by his primary care he denies any side effect of the medication. Objective - Vital Signs Vital signs: Vital Signs Temp Pulse 93 08/27/19 12:47 Resp 18 08/27/19 12:47 BP 126/78 08/27/19 12:47 Pulse Ox 94 L 08/27/19 12:47 - Exam Physical Examinations : -Constitutiona : Cooperative , not in acute distress . -HEENT : nech : supple , no Lymphadenopathy , normal thyroid size . : eyes : no ptosis , no icterus, no photophobia . - neurologic : Cranial nerve II to XII intact , no focal neurological deffecit . -psychatric : alert , oriented X 3 , appropriate affect , intact judgment and insight . -Lymphatic : no Lymphadenopathy . - musculoskeltal : Cervical Spine motor stregnth in the deltoid and biceps, normal right side , normal Left side motor stregnth biceps and the wrist extensors normal right side ,normal left side . motor stregnth in the triceps muscle . normal Right side , normal Left side Lumber spine moter stegnth lower extremities ,thigh and legs 5/5 Right side , 5/5 Left side Assessment and Plan Plan: Assessment and plan =Chronic neck pain and headaches secondary to cervical herniated disc disease, cervical spondylosis with facet arthropathy, and occipital neuralgia Patient had excellent pain relief after RFA of the medial branch cervical area. Patient would continue to use Motrin and baclofen as prescribed by his primary care. Patient will follow up in the pain clinic when necessary Time with Patient: Less than 30
== END | disposition home or self-care (01) ==
LOC: PNWHC3 12:09
PROVIDERS: ATTEND Specialist
DX: G89.29 Other chronic pain (principal); M50.20 Other cervical disc displacement, unspecified cervical region; M47.812 Spondylosis without myelopathy or radiculopathy, cervical region; M46.92 Unspecified inflammatory spondylopathy, cervical region; M54.81 Occipital neuralgia; Z98.890 Other specified postprocedural states
CPT/HCPCS: 99211

== ENCOUNTER → 2020-05-24 | Outpatient (CLI) | payer OTHER | END | disposition home or self-care (01) | LOC: LABWHC1 15:19 | PROVIDERS: ATTEND Family Medicine | DX: R05 Cough (principal); R68.83 Chills (without fever); R51.9 Headache, unspecified; R19.7 Diarrhea, unspecified; Z20.828 Contact with and (suspected) exposure to other viral communicable diseases | CPT/HCPCS: U0003; C9803 ==

== ENCOUNTER 2020-07-19 15:38 | Inpatient (IN) | payer OTHER ==
[2020-07-19] MEDS ORDERED: SODIUM CHLORIDE 0.9% 1,000 ML IV STA (16:02)
[2020-07-19] MEDS ORDERED: KETOROLAC 15 MG/ML 1 ML VIAL IVP STA (16:03)
[2020-07-19 16:50] LABS: Basophils % (A) 1 %; Eosinophils # (A) 0.2 k/uL (0-0.7); Eosinophils % (A) 2 %; HCT 38.6 % (39.0-53.0); HGB 13.1 gm/dL (13.0-17.5); Lymphocytes # (A) 1.2 k/uL (1.0-4.8); Lymphocytes % (A) 17 %; MCH 30.7 pg (25.0-35.0); MCV 90.1 fL (80.0-100.0); Monocytes # (A) 0.5 k/uL (0-1.0); Monocytes % (A) 7 %; Neutrophils # (A) 5.1 k/uL (1.3-7.7); Neutrophils % (A) 72 %; Platelet Count 198 k/uL (150-450); RBC 4.28 m/uL (4.30-5.90); RDW 12.7 % (11.5-15.5); WBC 7.1 k/uL (3.8-10.6)
[2020-07-19 16:58] LABS: ALT 27 U/L (4-49); AST 31 U/L (17-59); African American GFR (CKD) >90 (>60 ml/min/1.73 sqM); Albumin 4.2 g/dL (3.5-5.0); Alkaline Phosphatase 111 U/L (38-126); Anion Gap 11 mmol/L; Blood Urea Nitrogen 14 mg/dL (9-20); Calcium 8.9 mg/dL (8.4-10.2); Carbon Dioxide 19 mmol/L (22-30); Chloride 110 mmol/L (98-107); Glucose 102 mg/dL (74-99); Non-African American GFR(CKD) >90 (>60 ml/min/1.73 sqM); Potassium 3.6 mmol/L (3.5-5.1); Sodium 140 mmol/L (137-145); Total Bilirubin 0.7 mg/dL (0.2-1.3); Total Protein 7.7 g/dL (6.3-8.2)
--- NOTE | 2020-07-19 16:58 | XR ---
EXAMINATION TYPE: XR chest 2V DATE OF EXAM: 07/19/2020 COMPARISON: 04/13/2018 HISTORY: Difficulty breathing TECHNIQUE: 2 views FINDINGS: There is some atelectasis at the lung bases. Heart size is normal. There are no hilar abi s. Costophrenic angles are clear. Bony thorax is intact. IMPRESSION: There is some new atelectasis left lung base compared to old exam. Normal heart.
[2020-07-19 17:13] LABS: Prothrombin Time 10.8 sec (9.0-12.0)
--- NOTE | 2020-07-19 17:15 | ED ---
SOB HPI - General Chief Complaint: Shortness of Breath Stated Complaint: SOB Time Seen by Provider: 07/19/20 15:40 Source: patient Mode of arrival: wheelchair Limitations: no limitations - History of Present Illness Initial Comments: Patient is a 44-year-old male with past history of hypertension, hyperlipidemia and lymphoma who presents to the emergency department with reported cough and shortness of breath. Patient presents and states that since yesterday he has had pleuritic chest pain located on the left side but does not radiate. He is short of breath. Admits to nonproductive cough. No fevers or chills reported at home however patient presents and does have a temperature here. He denies previous history of cardiac or lung disease. States that he does pain. Patient tested positive for covid in may. Reports that his symptoms improved only to worsen yesterday. Patient denies any nausea or vomiting. No numbness, tingling or weakness in his extremities. No hematemesis. No changes in bowel or bladder habits. No lower trauma swelling. No history of DVT or PE. No other alleviating, precipitating or modifying factors - Related Data Home Medications Medication Instructions Recorded Confirmed Omeprazole [PriLOSEC] 20 mg PO DAILY 12/27/14 07/19/20 Simvastatin [Zocor] 80 mg PO HS 12/27/14 07/19/20 Ibuprofen [Motrin] 800 mg PO Q8H PRN 03/10/15 07/19/20 Baclofen [Lioresal] 20 mg PO QID PRN 05/14/19 07/19/20 ARIPiprazole [Abilify] 5 mg PO DAILY 07/19/20 07/19/20 Desvenlafaxine [Pristiq ER] 100 mg PO DAILY 07/19/20 07/19/20 Levothyroxine Sodium [Synthroid] 50 mcg PO DAILY 07/19/20 07/19/20 Rosman Carbonate 150 mg PO DAILY 07/19/20 07/19/20 Rosman Carbonate 300 mg PO HS 07/19/20 07/19/20 Loperamide [Imodium] 2 mg PO BID 07/19/20 07/19/20 Potassium Chloride ER [K-Dur 20] 20 meq PO BID 07/19/20 07/19/20 Prazosin HCl 4 mg PO HS 07/19/20 07/19/20 Topiramate [Topamax] 100 mg PO BID 07/19/20 07/19/20 Zolpidem Tartrate [Ambien] 10 mg PO HS PRN 07/19/20 07/19/20 clonazePAM [KlonoPIN] 0.5 mg PO TID 07/19/20 07/19/20 diphenhydrAMINE [Benadryl] 25 mg PO DAILY PRN 07/19/20 07/19/20 lisinopriL [Zestril] 20 mg PO DAILY 07/19/20 07/19/20 Previous Rx's Medication Instructions Recorded Rivaroxaban [Xarelto Starter Pack] 0 mg PO DIRECTED 30 Days #1 pack 07/20/20 Allergies Allergy/AdvReac Type Severity Reaction Status Date / Time No Known Allergies Allergy Verified 07/19/20 17:14 Review of Systems ROS Statement: Those systems with pertinent positive or pertinent negative responses have been documented in the HPI. ROS Other: All systems not noted in ROS Statement are negative. Past Medical History Past Medical History: Cancer, Hyperlipidemia, Hypertension, Thyroid Disorder Additional Past Medical History / Comment(s): HX HEADACHES AND DIZZINESS, Hx LYMPHOMA 2005, bulging disk in neck. 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 History of Any Multi-Drug Resistant Organisms: None Reported Past Surgical History: Hernia Repair Additional Past Surgical History / Comment(s): vasectomy, wisdom teeth removed, pain procedures Past Anesthesia/Blood Transfusion Reactions: No Reported Reaction Past Psychological History: Anxiety, Depression, PTSD Smoking Status: Never smoker Past Alcohol Use History: None Reported Past Drug Use History: Marijuana - Past Family History Mother Family Medical History: No Reported History General Exam Limitations: no limitations General appearance: alert, in no apparent distress Head exam: Present: atraumatic, normocephalic, normal inspection Eye exam: Present: normal appearance, PERRL, EOMI. Absent: scleral icterus, conjunctival injection, periorbital swelling ENT exam: Present: normal exam, mucous membranes moist Neck exam: Present: normal inspection. Absent: tenderness, meningismus, l ymphadenopathy Respiratory exam: Present: normal lung sounds bilaterally. Absent: respiratory distress, wheezes, rales, rhonchi, stridor Cardiovascular Exam: Present: regular rate, normal rhythm, normal heart sounds. Absent: systolic murmur, diastolic murmur, rubs, gallop, clicks GI/Abdominal exam: Present: soft, normal bowel sounds. Absent: distended, tenderness, guarding, rebound, rigid Extremities exam: Present: normal inspection, full ROM, normal capillary refill. Absent: tenderness, pedal edema, joint swelling, calf tenderness Back exam: Present: normal inspection Neurological exam: Present: alert, oriented X3, CN II-XII intact Psychiatric exam: Present: normal affect, normal mood Skin exam: Present: warm, dry, intact, normal color. Absent: rash Course Vital Signs 07/19/20 07/19/20 07/19/20 15:39 16:33 17:00 Temperature 100.8 F H Pulse Rate 98 86 83 Pulse Rate [ Pulse Oximetery ] Respiratory 20 18 18 Rate Blood Pressure 114/79 Blood Pressure [Right Arm] O2 Sat by Pulse 96 95 96 Oximetry 07/19/20 07/19/20 07/19/20 17:30 18:00 18:30 Temperature Pulse Rate 72 73 80 Pulse Rate [ Pulse Oximetery ] Respiratory 20 18 20 Rate Blood Pressure 111/83 112/75 106/76 Blood Pressure [Right Arm] O2 Sat by Pulse 95 95 97 Oximetry 07/19/20 07/19/20 07/20/20 19:40 20:00 00:00 Temperature 98.7 F 98.1 F Pulse Rate 74 Pulse Rate [ 81 101 H Pulse Oximetery ] Respiratory 18 18 18 Rate Blood Pressure 109/75 Blood Pressure 117/81 114/71 [Right Arm] O2 Sat by Pulse 97 97 Oximetry 07/20/20 03:16 Temperature 98.4 F Pulse Rate Pulse Rate [ 98 Pulse Oximetery ] Respiratory 18 Rate Blood Pressure Blood Pressure 119/77 [Right Arm] O2 Sat by Pulse 97 Oximetry Medical Decision Making - Medical Decision Making Upon arrival patient is placed into room 6. A thorough history of physical exam is performed. Laboratory studies are obtained and the patient went for chest x- ray. Because of this pleuritic chest pain I d-dimer was ordered which does come back elevated at 15.5. Coronavirus is not detected. Influenza A and B are negative. Patient was sent over for a CT of his chest which does demonstrate bi lateral pulmonary emboli with no evidence of right heart strain. Patchy bilateral lower lobe pneumonia. Results are discussed the patient. He is started on antibiotics and a heparin drip. He has no contra indications to heparin. Discussed the case with Dr. Brown who agreed to admit the patient. I will consult pulmonology. Patient remained in stable condition awaiting upon the floor - Lab Data Result diagrams: 07/21/20 07:28 07/20/20 05:21 Lab Results 07/19/20 07/19/20 07/19/20 Range/Units 16:41 16:41 16:41 WBC 7.1 (3.8-10.6) k/uL RBC 4.28 L (4.30-5.90) m/uL Hgb 13.1 (13.0-17.5) gm/dL Hct 38.6 L (39.0-53.0) % MCV 90.1 (80.0-100.0) fL MCH 30.7 (25.0-35.0) pg MCHC 34.0 (31.0-37.0) g/dL RDW 12.7 (11.5-15.5) % Plt Count 198 (150-450) k/uL MPV 7.0 Neutrophils % 72 % Lymphocytes % 17 % Monocytes % 7 % Eosinophils % 2 % Basophils % 1 % Neutrophils # 5.1 (1.3-7.7) k/uL Lymphocytes # 1.2 (1.0-4.8) k/uL Monocytes # 0.5 (0-1.0) k/uL Eosinophils # 0.2 (0-0.7) k/uL Basophils # 0.0 (0-0.2) k/uL PT 10.8 (9.0-12.0) sec INR 1.0 (<1.2) APTT 21.6 L (22.0-30.0) sec D-Dimer 15.51 H (<0.60) mg/L FEU Sodium 140 (137-145) mmol/L Potassium 3.6 (3.5-5.1) mmol/L Chloride 110 H (98-107) mmol/L Carbon Dioxide 19 L (22-30) mmol/L Anion Gap 11 mmol/L BUN 14 (9-20) mg/dL Creatinine 1.00 (0.66-1.25) mg/dL Est GFR (CKD-EPI)AfAm >90 (>60 ml/min/1.73 sqM) Est GFR (CKD-EPI)NonAf >90 (>60 ml/min/1.73 sqM) Glucose 102 H (74-99) mg/dL Plasma Lactic Acid Amadeo (0.7-2.0) mmol/L Calcium 8.9 (8.4-10.2) mg/dL Total Bilirubin 0.7 (0.2-1.3) mg/dL AST 31 (17-59) U/L ALT 27 (4-49) U/L Alkaline Phosphatase 111 (38-126) U/L Troponin I (0.000-0.034) ng/mL NT-Pro-B Natriuret Pep pg/mL Total Protein 7.7 (6.3-8.2) g/dL Albumin 4.2 (3.5-5.0) g/dL Coronavirus (PCR) (Not Detectd) Influenza Type A RNA (Not Detectd) Influenza Type B (PCR) (Not Detectd) 07/19/20 07/19/20 07/19/20 Range/Units 16:41 16:41 16:41 WBC (3.8-10.6) k/uL RBC (4.30-5.90) m/uL Hgb (13.0-17.5) gm/dL Hct (39.0-53.0) % MCV (80.0-100.0) fL MCH (25.0-35.0) pg MCHC (31.0-37.0) g/dL RDW (11.5-15.5) % Plt Count (150-450) k/uL MPV Neutrophils % % Lymphocytes % % Monocytes % % Eosinophils % % Basophils % % Neutrophils # (1.3-7.7) k/uL Lymphocytes # (1.0-4.8) k/uL Monocytes # (0-1.0) k/uL Eosinophils # (0-0.7) k/uL Basophils # (0-0.2) k/uL PT (9.0-12.0) sec INR (<1.2) APTT (22.0-30.0) sec D-Dimer (<0.60) mg/L FEU Sodium (137-145) mmol/L Potassium (3.5-5.1) mmol/L Chloride (98-107) mmol/L Carbon Dioxide (22-30) mmol/L Anion Gap mmol/L BUN (9-20) mg/dL Creatinine (0.66-1.25) mg/dL Est GFR (CKD-EPI)AfAm (>60 ml/min/1.73 sqM) Est GFR (CKD-EPI)NonAf (>60 ml/min/1.73 sqM) Glucose (74-99) mg/dL Plasma Lactic Acid Amadeo 1.0 (0.7-2.0) mmol/L Calcium (8.4-10.2) mg/dL Total Bilirubin (0.2-1.3) mg/dL AST (17-59) U/L ALT (4-49) U/L Alkaline Phosphatase (38-126) U/L Troponin I <0.012 (0.000-0.034) ng/mL NT-Pro-B Natriuret Pep 25 pg/mL Total Protein (6.3-8.2) g/dL Albumin (3.5-5.0) g/dL Coronavirus (PCR) (Not Detectd) Influenza Type A RNA (Not Detectd) Influenza Type B (PCR) (Not Detectd) 07/19/20 07/19/20 Range/Units 17:04 17:25 WBC (3.8-10.6) k/uL RBC (4.30-5.90) m/uL Hgb (13.0-17.5) gm/dL Hct (39.0-53.0) % MCV (80.0-100.0) fL MCH (25.0-35.0) pg MCHC (31.0-37.0) g/dL RDW (11.5-15.5) % Plt Count (150-450) k/uL MPV Neutrophils % % Lymphocytes % % Monocytes % % Eosinophils % % Basophils % % Neutrophils # (1.3-7.7) k/uL Lymphocytes # (1.0-4.8) k/uL Monocytes # (0-1.0) k/uL Eosinophils # (0-0.7) k/uL Basophils # (0-0.2) k/uL PT (9.0-12.0) sec INR (<1.2) APTT (22.0-30.0) sec D-Dimer (<0.60) mg/L FEU Sodium (137-145) mmol/L Potassium (3.5-5.1) mmol/L Chloride (98-107) mmol/L Carbon Dioxide (22-30) mmol/L Anion Gap mmol/L BUN (9-20) mg/dL Creatinine (0.66-1.25) mg/dL Est GFR (CKD-EPI)AfAm (>60 ml/min/1.73 sqM) Est GFR (CKD-EPI)NonAf (>60 ml/min/1.73 sqM) Glucose (74-99) mg/dL Plasma Lactic Acid Amadeo (0.7-2.0) mmol/L Calcium (8.4-10.2) mg/dL Total Bilirubin (0.2-1.3) mg/dL AST (17-59) U/L ALT (4-49) U/L Alkaline Phosphatase (38-126) U/L Troponin I (0.000-0.034) ng/mL NT-Pro-B Natriuret Pep pg/mL Total Protein (6.3-8.2) g/dL Albumin (3.5-5.0) g/dL Coronavirus (PCR) Not Detected (Not Detectd) Influenza Type A RNA Not Detected (Not Detectd) Influenza Type B (PCR) Not Detected (Not Detectd) - EKG Data EKG Comments: EKG demonstrates normal sinus rhythm with a ventricular rate of 85. MA interval 182. QRS 94. QTC of 426. No acute ST segment elevations or depressions Critical Care Time Critical Care Time: Yes Critical Care Time: 32 mins for initiation and management of heparin drip. Disposition Clinical Impression: Shortness of breath, Pulmonary embolism, Pyrexia, CAP (community acquired pneumonia), History of COVID-19 Disposition: ADMITTED IP TO THIS HOSP Condition: Serious Is patient prescribed a controlled substance at d/c from ED?: No Decision to Admit Reason: Admit from EC Decision Date: 07/19/20 Decision Time: 18:55
[2020-07-19 17:27] LABS: D-Dimer 15.51 mg/L FEU (<0.60); Partial Thromboplastin Time 21.6 sec (22.0-30.0)
--- NOTE | 2020-07-19 18:29 | CT ---
EXAMINATION TYPE: CT chest angio for PE DATE OF EXAM: 07/19/2020 COMPARISON: 04/13/2018 HISTORY: SOB, elevated d-dimer CT DLP: 565.9 mGycm Automated exposure control for dose reduction was used. CONTRAST: Performed with IV Contrast, patient injected with 100 mL of Isovue 370. Images were obtained from the thoracic inlet to the diaphragm with IV contrast Isovue 100 mL. FINDINGS: There are 3-D post processed images. There is some patchy linear infiltrate and atelectasis at the lung bases. This is more on the left si de. Heart size is fairly normal. There is no pericardial effusion. There is no mediastinal adenopathy . There are no hilar masses. There are multiple filling defects in the smaller branches of the lower lobe pulmonary arteries bilat erally. There is also embolism in right upper lobe pulmonary artery. Thoracic vertebra have normal al ignment. There is no compression fracture. Sternum is intact. The ribs appear intact. IMPRESSION: Bilateral pulmonary emboli as above. No evidence of right heart strain. Normal heart size. There is patchy bilateral lower lobe pneumonia and atelectasis that is increased compared to old exam . This exam was discussed with Rachel Gan at 6:30 PM. Pulmonary emboli appear new compared to old exam . Pneumonia is new compared to old exam. :
[2020-07-19] MEDS ORDERED: HEPARIN SODIUM,PORCINE 10,000 UNIT/ML 1 ML VIAL IV ONE (18:49)
[2020-07-19] MEDS ORDERED: HEPARIN SODIUM,PORCINE 5,000 UNIT/ML 1 ML VIAL IV PRN (18:49)
[2020-07-19] MEDS ORDERED: AZITHROMYCIN 500 MG in SODIUM CHLORIDE 0.9% 250 ML IVPB STA (18:50)
[2020-07-19] MEDS ORDERED: cefTRIAXone IN SWFI 1,000 MG/10 ML SYRINGE IVP STA (18:50)
[2020-07-19] MEDS ORDERED: NALOXONE 0.4 MG/ML 1 ML VIAL IV PRN (18:57)
[2020-07-19] MEDS: HEPARIN SOD,PORK IN 0.45% NACL 25,000 UNIT in 0.45% NACL 1 250ML.BAG IV SCH (19:37)
[2020-07-19] MEDS ORDERED: IBUPROFEN 400 MG TAB PO PRN (20:52)
[2020-07-19] MEDS ORDERED: LOPERAMIDE 2 MG CAP PO PRN (21:30)
[2020-07-19] MEDS: PRAZOSIN 1 MG CAP PO SCH (22:03)
[2020-07-19] MEDS: POTASSIUM CHLORIDE ER 20 MEQ TAB.ER PO SCH (22:03)
[2020-07-19] MEDS: LITHIUM CARBONATE 150 MG CAP PO SCH (22:03)
[2020-07-19] MEDS: TOPIRAMATE 100 MG TAB PO SCH (22:03)
[2020-07-19] MEDS: ZOLPIDEM 5 MG TAB PO PRN (23:14)
[2020-07-19] MEDS: clonazePAM 0.5 MG TAB PO PRN (23:14)
--- NOTE | 2020-07-19 23:49 | US ---
EXAMINATION TYPE: US venous doppler duplex LE DATE OF EXAM: 07/19/2020 11:08 PM COMPARISON: NONE CLINICAL HISTORY: pe. PE per order. Patient on Heparin. SIDE PERFORMED: Bilateral TECHNIQUE: The lower extremity deep venous system is examined utilizing real time linear array sonog bal with graded compression, doppler sonography and color-flow sonography. VESSELS IMAGED: Common Femoral Vein Deep Femoral Vein Greater Saphenous Vein * Femoral Vein Popliteal Vein Small Saphenous Vein * Proximal Calf Veins (* superficial vessels) Right Leg: There appear to be internal echoes within the noncompressible PTV's at mid calf. These ve ssels show trickle-no color flow. No evidence of DVT in veins imaged from prox calf veins - through C FV/GSV. Left Leg: No evidence of DVT in veins imaged at this time. IMPRESSION: There is evidence of acute deep vein thrombosis in the right calf posterior tibial vein. No evidence of deep vein thrombosis in the left leg.
[2020-07-20] MEDS: MORPHINE SULFATE 4 MG/ML SYRINGE IV PRN ×2 (00:55→05:36)
[2020-07-20] MEDS: LEVOTHYROXINE 50 MCG TAB PO SCH (05:36)
[2020-07-20] MEDS: PANTOPRAZOLE 40 MG TABLET PO SCH (05:36)
[2020-07-20 06:07] LABS: Basophils % (A) 0 %; Eosinophils # (A) 0.1 k/uL (0-0.7); Eosinophils % (A) 1 %; HCT 35.7 % (39.0-53.0); HGB 11.7 gm/dL (13.0-17.5); Lymphocytes # (A) 1.7 k/uL (1.0-4.8); Lymphocytes % (A) 21 %; MCH 29.9 pg (25.0-35.0); MCHC 32.9 g/dL (31.0-37.0); Mean Platelet Volume 6.8; Monocytes # (A) 0.6 k/uL (0-1.0); Monocytes % (A) 8 %; Neutrophils # (A) 5.2 k/uL (1.3-7.7); Neutrophils % (A) 67 %; Platelet Count 169 k/uL (150-450); RBC 3.92 m/uL (4.30-5.90); RDW 12.6 % (11.5-15.5); WBC 7.7 k/uL (3.8-10.6)
[2020-07-20 06:18] LABS: Partial Thromboplastin Time 60.7 sec (22.0-30.0); Prothrombin Time 11.1 sec (9.0-12.0)
[2020-07-20 06:25] LABS: African American GFR (CKD) >90 (>60 ml/min/1.73 sqM); Anion Gap 8 mmol/L; Blood Urea Nitrogen 14 mg/dL (9-20); Calcium 8.5 mg/dL (8.4-10.2); Carbon Dioxide 19 mmol/L (22-30); Chloride 113 mmol/L (98-107); Glucose 87 mg/dL (74-99); Non-African American GFR(CKD) >90 (>60 ml/min/1.73 sqM); Potassium 3.6 mmol/L (3.5-5.1); Sodium 140 mmol/L (137-145)
[2020-07-20] MEDS: LITHIUM CARBONATE 150 MG CAP PO SCH ×2 (09:15→21:37)
[2020-07-20] MEDS: ARIPiprazole 5 MG TAB PO SCH (09:15)
[2020-07-20] MEDS: POTASSIUM CHLORIDE ER 20 MEQ TAB.ER PO SCH ×2 (09:16→20:38)
[2020-07-20] MEDS: TOPIRAMATE 100 MG TAB PO SCH ×2 (09:16→20:38)
[2020-07-20] MEDS: DESVENLAFAXINE SUCCINATE 50 MG TAB.ER.24H PO SCH (09:16)
[2020-07-20] MEDS: lisinopriL 20 MG TAB PO SCH (09:16)
--- NOTE | 2020-07-20 09:55 | ECHOF ---
Referral Reason:b/l pe MEASUREMENTS -------- HEIGHT: 177.8 cm WEIGHT: 92.1 kg BP: 119/77 RVIDd: 2.7 cm (< 3.3) IVSd: 0.8 cm (0.6 - 1.1) LVIDd: 4.7 cm (3.9 - 5.3) LVPWd: 0.9 cm (0.6 - 1.1) IVSs: 1.9 cm LVIDs: 1.4 cm LVPWs: 1.4 cm LAESV Index (A-L): 17.47 ml/m Ao Diam: 3.3 cm (2.0 - 3.7) AV Cusp: 1.4 cm (1.5 - 2.6) LA Diam: 3.1 cm (2.7 - 3.8) MV EXCURSION: 19.783 mm (> 18.000) MV EF SLOPE: 166 mm/s (70 - 150) EPSS: 0.6 cm MV E Rhys: 0.80 m/s MV DecT: 196 ms MV A Rhys: 0.77 m/s MV E/A Ratio: 1.05 RAP: 5.00 mmHg RVSP: 24.78 mmHg FINDINGS -------- Sinus rhythm. This was a technically adequate study. The left ventricular size is normal. Left ventricular wall thickness is normal. Overall left vent ricular systolic function is normal with, an EF between 55 - 60 %. The diastolic filling pattern is normal for the age of the patient 8.81. The right ventricle is normal in size. Normal LA size by volume 22+/-6 ml/m2. The right atrial size is normal. The aortic valve is trileaflet, and appears structurally normal. No aortic stenosis or regurgitation. The mitral valve is normal. There is trace mitral regurgitation. The tricuspid valve appears structurally normal. Mild tricuspid regurgitation present. Right vent ricular systolic pressure is normal at < 35 mmHg. Trace/mild (physiologic) pulmonic regurgitation. The aortic root size is normal. IVC Not well visulized. There is no pericardial effusion. CONCLUSIONS -------- 1. Left ventricular wall thickness is normal. 2. Overall left ventricular systolic function is normal with, an EF between 55 - 60 %. 3. Normal LA size by volume 22+/-6 ml/m2. 4. The aortic valve is trileaflet, and appears structurally normal. No aortic stenosis or regurgitati on. 5. There is trace mitral regurgitation. 6. Mild tricuspid regurgitation present. 7. Trace/mild (physiologic) pulmonic regurgitation. 8. There is no pericardial effusion. TOOL AND DIE ENGINEER: Irene Lomeli RDCS
--- NOTE | 2020-07-20 11:14 | P.CNPUL ---
History of Present Illness Consult date: 07/20/20 Reason for consult: dyspnea History of present illness: 44-year-old male patient presented to the ED with increased shortness of breath and cough. The patient had some pleuritic chest pain on the left and he became progressively more short of breath. No fever. No chills. No 70 previous cardiac disease or lung disease. He has tested positive for COVID 19 back in May 2020 she was retested during this current admission and assess came back negative. At that point, and based on his ongoing symptoms, the patient was given a CT angiogram/that his d-dimer level was elevated. The CAT scan of the chest was done utilizing a CT a protocol and it showed bilateral pulmonary embolism. There were filling defects bilaterally and this was involving the smaller branches of the lower lobe pulmonary artery bilaterally. There was also some patchy infiltration of the left lower lobe along with some atelectasis. A Doppler of the lower extremity came back no DVT on the left, there was some noncompressibility on the right and there was evidence of a DVT involving the right posterior tibial vein. For that reason, the patient was admitted to the hospital. Echocardiogram showed a preserved LV function without any acute abnormalities. The patient is currently on IV heparin. Hemodynamically, the patient is currently on room air oxygen with a pulse ox of 97%, his heart rate is 86 in sinus and he is afebrile and hemodynamically stable on no pressors. White cell count at 7.7 with a hemoglobin of 11.7 and the coagulation profile was normal at the time of admission. Renal function is also stable. He has a component of non-anion gap metabolic acidosis. The patient has a remote history of non-Hodgkin's lymphoma and he was treated by Dr. Hussein with a combination of chemotherapy and Rituxan and he had full remission since. She is not sedentary. He is quite active at home. No other identifiable risk factors. No orthopedic injuries. No recent surgeries. Past Medical History Past Medical History: Cancer, Hyperlipidemia, Hypertension, Thyroid Disorder Additional Past Medical History / Comment(s): COVID 19 in May 2020, NHL in 2003 in remission, bulging disk in neck. 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 History of Any Multi-Drug Resistant Organisms: None Reported Past Surgical History: Hernia Repair Additional Past Surgical History / Comment(s): vasectomy, wisdom teeth removed, pain procedures Past Anesthesia/Blood Transfusion Reactions: No Reported Reaction Past Psychological History: Anxiety, Depression, PTSD Smoking Status: Never smoker Past Alcohol Use History: None Reported Past Drug Use History: Marijuana - Past Family History Mother Family Medical History: No Reported History Medications and Allergies Home Medications Medication Instructions Recorded Confirmed Type Omeprazole [PriLOSEC] 20 mg PO DAILY 12/27/14 07/19/20 History Simvastatin [Zocor] 80 mg PO HS 12/27/14 07/19/20 History Ibuprofen [Motrin] 800 mg PO Q8H PRN 03/10/15 07/19/20 History Baclofen [Lioresal] 20 mg PO QID PRN 05/14/19 07/19/20 History ARIPiprazole [Abilify] 5 mg PO DAILY 07/19/20 07/19/20 History Desvenlafaxine [Pristiq ER] 100 mg PO DAILY 07/19/20 07/19/20 History Levothyroxine Sodium [Synthroid] 50 mcg PO DAILY 07/19/20 07/19/20 History Loperamide [Imodium] 2 mg PO BID 07/19/20 07/19/20 History Potassium Chloride ER [K-Dur 20] 20 meq PO BID 07/19/20 07/19/20 History RX: [place] Carbonate 150 mg PO DAILY 07/19/20 07/19/20 History RX: [place] Carbonate 300 mg PO HS 07/19/20 07/19/20 History RX: Prazosin HCl 4 mg PO HS 07/19/20 07/19/20 History Topiramate [Topamax] 100 mg PO BID 07/19/20 07/19/20 History Zolpidem Tartrate [Ambien] 10 mg PO HS PRN 07/19/20 07/19/20 History clonazePAM [KlonoPIN] 0.5 mg PO TID 07/19/20 07/19/20 History diphenhydrAMINE [Benadryl] 25 mg PO DAILY PRN 07/19/20 07/19/20 History lisinopriL [Zestril] 20 mg PO DAILY 07/19/20 07/19/20 History Allergies Allergy/AdvReac Type Severity Reaction Status Date / Time No Known Allergies Allergy Verified 07/19/20 17:14 Physical Exam Vitals: Vital Signs Temp Pulse Pulse Resp BP BP Pulse Ox 07/20/20 08:00 98.9 F 86 18 102/66 97 07/20/20 03:16 98.4 F 98 18 119/77 97 07/20/20 00:00 98.1 F 101 H 18 114/71 97 07/19/20 20:00 98.7 F 81 18 117/81 07/19/20 19:40 74 18 109/75 97 07/19/20 18:30 80 20 106/76 97 07/19/20 18:00 73 18 112/75 95 07/19/20 17:30 72 20 111/83 95 07/19/20 17:00 83 18 96 07/19/20 16:33 86 18 95 07/19/20 15:39 100.8 F H 98 20 114/79 96 Intake and Output 07/19/20 07/20/20 07/20/20 22:59 06:59 14:59 Intake Total 363.588 222 Output Total 250 Balance 113.588 222 Intake: IV 250 Azithromycin 500 mg In 250 Sodium Chloride 0.9% 250 ml @ 250 mls/hr IVPB ONCE STA Rx#:[id number] Intake, IV Titration 113.588 Amount Heparin Sod,Pork in 0.45% 113.588 NaCl 25,000 unit In 0.45 % NaCl 1 250ml.bag @ 18 UNITS/KG/HR 18.37 mls/hr IV .[id number] [facility] Rx#: [id number] Oral 222 Output: Urine 250 Other: Voiding Method Urinal # Voids 0 Weight 102.058 kg 92.5 kg The patient appeared well nourished and normally developed. Vital signs as documented. Head exam is unremarkable. No scleral icterus or corneal arcus noted. Neck is without jugular venous distension, thyromegaly, or carotid bruits. Carotid upstrokes are brisk bilaterally. Lungs are clear to auscultation and percussion. Cardiac exam reveals the PMI to be normally sized and situated. Rhythm is regular. First and second heart sounds normal. No murmurs, rubs or gallops. Abdominal exam reveals normal bowel sounds, no masses, no organomegaly and no aortic enlargement. Extremities are nonedematous and both femoral and pedal pulses are normal. Results - Laboratory Findings CBC and BMP: 07/20/20 05:21 07/20/20 05:21 ABG WBC 7.7 k/uL (3.8-10.6) 07/20/20 05:21 RBC 3.92 m/uL (4.30-5.90) L 07/20/20 05:21 Hgb 11.7 gm/dL (13.0-17.5) L 07/20/20 05:21 Hct 35.7 % (39.0-53.0) L 07/20/20 05:21 MCV 91.0 fL (80.0-100.0) 07/20/20 05:21 MCH 29.9 pg (25.0-35.0) 07/20/20 05:21 MCHC 32.9 g/dL (31.0-37.0) 07/20/20 05:21 RDW 12.6 % (11.5-15.5) 07/20/20 05:21 Plt Count 169 k/uL (150-450) 07/20/20 05:21 MPV 6.8 07/20/20 05:21 Neutrophils % 67 % 07/20/20 05:21 Lymphocytes % 21 % 07/20/20 05:21 Monocytes % 8 % 07/20/20 05:21 Eosinophils % 1 % 07/20/20 05:21 Basophils % 0 % 07/20/20 05:21 Neutrophils # 5.2 k/uL (1.3-7.7) 07/20/20 05:21 Lymphocytes # 1.7 k/uL (1.0-4.8) 07/20/20 05:21 Monocytes # 0.6 k/uL (0-1.0) 07/20/20 05:21 Eosinophils # 0.1 k/uL (0-0.7) 07/20/20 05:21 Basophils # 0.0 k/uL (0-0.2) 07/20/20 05:21 PT 11.1 sec (9.0-12.0) 07/20/20 05:21 INR 1.0 (<1.2) 07/20/20 05:21 APTT 60.7 sec (22.0-30.0) H 07/20/20 05:21 D-Dimer 15.51 mg/L FEU (<0.60) H 07/19/20 16:41 Sodium 140 mmol/L (137-145) 07/20/20 05:21 Potassium 3.6 mmol/L (3.5-5.1) 07/20/20 05:21 Chloride 113 mmol/L (98-107) H 07/20/20 05:21 Carbon Dioxide 19 mmol/L (22-30) L 07/20/20 05:21 Anion Gap 8 mmol/L 07/20/20 05:21 BUN 14 mg/dL (9-20) 07/20/20 05:21 Creatinine 0.90 mg/dL (0.66-1.25) 07/20/20 05:21 Est GFR (CKD-EPI)AfAm >90 (>60 ml/min/1.73 sqM) 07/20/20 05:21 Est GFR (CKD-EPI)NonAf >90 (>60 ml/min/1.73 sqM) 07/20/20 05:21 Glucose 87 mg/dL (74-99) 07/20/20 05:21 Plasma Lactic Acid Amadeo 1.0 mmol/L (0.7-2.0) 07/19/20 16:41 Calcium 8.5 mg/dL (8.4-10.2) 07/20/20 05:21 Total Bilirubin 0.7 mg/dL (0.2-1.3) 07/19/20 16:41 AST 31 U/L (17-59) 07/19/20 16:41 ALT 27 U/L (4-49) 07/19/20 16:41 Alkaline Phosphatase 111 U/L (38-126) 07/19/20 16:41 Troponin I <0.012 ng/mL (0.000-0.034) 07/20/20 05:21 NT-Pro-B Natriuret Pep 25 pg/mL 07/19/20 16:41 Total Protein 7.7 g/dL (6.3-8.2) 07/19/20 16:41 Albumin 4.2 g/dL (3.5-5.0) 07/19/20 16:41 Coronavirus (PCR) Not Detected (Not Detectd) 07/19/20 17:25 Influenza Type A RNA Not Detected (Not Detectd) 07/19/20 17:04 Influenza Type B (PCR) Not Detected (Not Detectd) 07/19/20 17:04 PT/INR, D-dimer PT 11.1 sec (9.0-12.0) 07/20/20 05:21 INR 1.0 (<1.2) 07/20/20 05:21 D-Dimer 15.51 mg/L FEU (<0.60) H 07/19/20 16:41 Abnormal lab findings: Abnormal Labs 07/19/20 07/19/20 07/19/20 16:41 16:41 16:41 RBC 4.28 L Hgb Hct 38.6 L APTT 21.6 L D-Dimer 15.51 H Chloride 110 H Carbon Dioxide 19 L Glucose 102 H 07/20/20 07/20/20 07/20/20 01:16 05:21 05:21 RBC 3.92 L Hgb 11.7 L Hct 35.7 L APTT 96.0 H 60.7 H D-Dimer Chloride Carbon Dioxide Glucose 07/20/20 05:21 RBC Hgb Hct APTT D-Dimer Chloride 113 H Carbon Dioxide 19 L Glucose - Diagnostic Findings Chest x-ray: image reviewed Assessment and Plan Plan: 1 acute bilateral pulmonary embolism with secondary shortness of breath and pleurisy and the patient has some atelectatic changes involving the left lung base. The patient also has a right lower extremity DVT. The patient is hemodyn amically stable on room air oxygen and the patient is currently on IV heparin. Echo shows not show any significant strain pattern. 2 Covid 19 infection, back in May 2020 and the patient is clinically recovered 3 history of non-Hodgkin's lymphoma 2004 post treatment with systemic chemotherapy and the patient has been in remission since 4 hyperlipidemia 5 hypothyroidism Plan I'm not sure if this is a provoked or a unprovoked event. Ideally, COVID 19 infection can trigger DVT and pulmonary embolism. Nevertheless, his infection was back in May 2020 and I think it is late for this type of complication to occur specially the patient is clinically recovered post COVID. I'm recom mending long as anticoagulation for now, and I'm recommending treating this patient is an unprovoked event with long-term anticoagulation. The patient was started with heparin and we'll switch him to an oral anticoagulants at a later stage, preferably Eliquis. We'll continue to follow.
[2020-07-20] MEDS: HEPARIN SOD,PORK IN 0.45% NACL 25,000 UNIT in 0.45% NACL 1 250ML.BAG IV SCH ×2 (13:27→22:57)
[2020-07-20] MEDS ORDERED: diphenhydrAMINE 25 MG CAP PO PRN (16:34)
--- NOTE | 2020-07-20 18:07 | HP ---
HISTORY AND PHYSICAL CHIEF COMPLAINT: Shortness of breath. HISTORY OF PRESENT ILLNESS: This is the first admission for this 44-year-old white male. At the end of May he developed coronavirus infection with very few symptoms, stayed home, did well. For the last 4 days he has been getting progressively more short of breath. He has had no fever, chills, chest pain, hemoptysis, etc. He came to the emergency room, where studies yesterday showed that he had multiple bilateral pulmonary emboli. REVIEW OF SYSTEMS: He has had no neurologic problems, change in vision or hearing, history of heart disease, palpitations, chest pain, abdominal pain, nausea, vomiting, melena, hematochezia, jaundice, hepatitis, cirrhosis, hematuria, frequency, urgency, incontinence, renal failure, diabetes, etc. Past medical history reveals that he has bipolar disorder with depression. His medications include: 1. Baclofen 20 mg q.i.d. p.r.n. 2. Potassium. 3. Ibuprofen 800 q.i.d. p.r.n. 4. Omeprazole 20 mg once a day. 5. Lisinopril 20 mg once a day. 6. Levothyroxine 50 once a day. 7. Simvastatin 80 mg at bedtime. 8. [place] 150 mg twice a day. 9. Ambien 10 mg at bedtime p.r.n. 10.Aripiprazole 5 mg once a day. 11.Desvenlafaxine 100 mg once a day. 12.Klonopin 0.5 twice a day p.r.n. 13.Fluticasone. 14.Prazosin 2 mg at bedtime. 15.Topiramate 100 mg twice a day. He used to smoke but has stopped. He does not abuse alcohol. PHYSICAL EXAMINATION: Blood pressure is 123/76 with a pulse of 79, respirations of 34. He is afebrile. In general he appeared to be well developed, well nourished, in no acute distress. Skin color is normal. Skin is warm and dry. Lymph nodes were not enlarged. Head, ears, eyes, nose, mouth and throat were normal and neck veins were not distended. Thyroid is not enlarged. Chest is clear. Cardiac exam is normal. The abdomen is soft, nontender. Extremities are normal. IMPRESSION: 1. Pulmonary emboli. 2. Recent SARs COV-2 infection. 3. History of hypertension. 4. Hypothyroidism. 5. Hyperlipidemia. 6. Bipolar disorder. 7. Depression. PLAN: 1. Bed rest. 2. IV fluids. 3. Anticoagulate. 4. Pulmonology consult. DARIEN / KATIE: [id number] /
--- NOTE | 2020-07-20 18:22 | PN ---
PROGRESS NOTE CHIEF COMPLAINT: Pulmonary emboli. HISTORY OF PRESENT ILLNESS: This gentleman is fairly comfortable and not particularly short of breath. He has had no cough, hemoptysis, fever, chills, etc. PHYSICAL EXAMINATION: He has scattered rales throughout both lung cervantes. Cardiac exam is normal. Abdomen is soft. IMPRESSION: Multiple pulmonary emboli. PLAN: Continue with anticoagulation and increase activity. MMODL / IJN: [id number] /
[2020-07-20] MEDS: clonazePAM 0.5 MG TAB PO PRN (20:38)
[2020-07-20] MEDS: ZOLPIDEM 5 MG TAB PO PRN (20:38)
[2020-07-20] MEDS: PRAZOSIN 1 MG CAP PO SCH (21:37)
[2020-07-21] MEDS: MORPHINE SULFATE 4 MG/ML SYRINGE IV PRN (06:21)
[2020-07-21] MEDS: HEPARIN SOD,PORK IN 0.45% NACL 25,000 UNIT in 0.45% NACL 1 250ML.BAG IV SCH (06:21)
[2020-07-21] MEDS: LEVOTHYROXINE 50 MCG TAB PO SCH (06:21)
[2020-07-21] MEDS: PANTOPRAZOLE 40 MG TABLET PO SCH (06:21)
[2020-07-21 08:16] LABS: Basophils % (A) 1 %; Eosinophils # (A) 0.1 k/uL (0-0.7); Eosinophils % (A) 2 %; HCT 35.8 % (39.0-53.0); HGB 11.7 gm/dL (13.0-17.5); Lymphocytes # (A) 1.3 k/uL (1.0-4.8); Lymphocytes % (A) 19 %; MCH 29.9 pg (25.0-35.0); MCHC 32.7 g/dL (31.0-37.0); MCV 91.6 fL (80.0-100.0); Mean Platelet Volume 6.8; Monocytes # (A) 0.5 k/uL (0-1.0); Monocytes % (A) 8 %; Neutrophils # (A) 4.7 k/uL (1.3-7.7); Neutrophils % (A) 69 %; Platelet Count 192 k/uL (150-450); RBC 3.91 m/uL (4.30-5.90); RDW 12.6 % (11.5-15.5); WBC 6.9 k/uL (3.8-10.6)
[2020-07-21 08:20] LABS: Prothrombin Time 10.6 sec (9.0-12.0)
[2020-07-21] MEDS: POTASSIUM CHLORIDE ER 20 MEQ TAB.ER PO SCH ×2 (10:28→20:39)
[2020-07-21] MEDS: DESVENLAFAXINE SUCCINATE 50 MG TAB.ER.24H PO SCH (10:29)
[2020-07-21] MEDS: lisinopriL 20 MG TAB PO SCH (10:29)
[2020-07-21] MEDS: ARIPiprazole 5 MG TAB PO SCH (10:29)
[2020-07-21] MEDS: TOPIRAMATE 100 MG TAB PO SCH ×2 (10:29→20:39)
[2020-07-21] MEDS: LITHIUM CARBONATE 150 MG CAP PO SCH ×2 (10:29→20:39)
--- NOTE | 2020-07-21 11:10 | P.PN ---
Subjective Progress Note Date: 07/21/20 44-year-old male patient presented to the ED with increased shortness of breath and cough. The patient had some pleuritic chest pain on the left and he became progressively more short of breath. No fever. No chills. No 70 previous cardiac disease or lung disease. He has tested positive for COVID 19 back in May 2020 she was retested during this current admission and assess came back negative. At that point, and based on his ongoing symptoms, the patient was given a CT angiogram/that his d-dimer level was elevated. The CAT scan of the chest was done utilizing a CT a protocol and it showed bilateral pulmonary embolism. There were filling defects bilaterally and this was involving the sm aller branches of the lower lobe pulmonary artery bilaterally. There was also some patchy infiltration of the left lower lobe along with some atelectasis. A Doppler of the lower extremity came back no DVT on the left, there was some noncompressibility on the right and there was evidence of a DVT involving the right posterior tibial vein. For that reason, the patient was admitted to the hospital. Echocardiogram showed a preserved LV function without any acute abnormalities. The patient is currently on IV heparin. Hemodynamically, the patient is currently on room air oxygen with a pulse ox of 97%, his heart rate is 86 in sinus and he is afebrile and hemodynamically stable on no pressors. White cell count at 7.7 with a hemoglobin of 11.7 and the coagulation profile was normal at the time of admission. Renal function is also stable. He has a component of non-anion gap metabolic acidosis. The patient has a remote history of non-Hodgkin's lymphoma and he was treated by Dr. Hussein with a combination of chemotherapy and Rituxan and he had full remission since. She is not sedentar y. He is quite active at home. No other identifiable risk factors. No orthopedic injuries. No recent surgeries. A follow-up is being done on 07/21/2020 and the patient is doing well and he is still experiencing some limited amount of pleurisy along the left lung. The patient otherwise doing well. He has no specific complaints. No calf pain. No hemoptysis. The patient remains on IV heparin. No fever chills or night sweats. No other significant events otherwise over the past 24 hours. No nausea. No vomiting. No abdominal pain. Objective - Vital Signs Vital signs: Vital Signs Temp 98.0 F 07/21/20 06:20 Pulse 73 07/21/20 06:20 Resp 16 07/21/20 06:20 BP 100/65 07/21/20 06:20 Pulse Ox 96 07/21/20 06:20 Intake & Output 07/20/20 07/21/20 07/21/20 18:59 06:59 18:59 Intake Total 723.412 250 240 Output Total 2 Balance 723.412 248 240 Weight 120.5 kg Intake: Intake, IV Titration 136.412 250 Amount Heparin Sod,Pork in 0.45% 136.412 250 NaCl 25,000 unit In 0.45 % NaCl 1 250ml.bag @ 18 UNITS/KG/HR 18.37 mls/hr IV .[id number] [facility] Rx#: [id number] Oral 587 240 Output: Urine 2 Other: # Voids 3 - Exam The patient appeared well nourished and normally developed. Vital signs as documented. Head exam is unremarkable. No scleral icterus or corneal arcus no briana. Neck is without jugular venous distension, thyromegaly, or carotid bruits. Carotid upstrokes are brisk bilaterally. Lungs are clear to auscultation and percussion. Cardiac exam reveals the PMI to be normally sized and situated. Rhythm is regular. First and second heart sounds normal. No murmurs, rubs or gallops. Abdominal exam reveals normal bowel sounds, no masses, no organomegaly and no aortic enlargement. Extremities are nonedematous and both femoral and pedal pulses are normal. - Labs CBC & Chem 7: 07/21/20 07:28 07/20/20 05:21 Labs: Abnormal Lab Results - Last 24 Hours (Table) 07/21/20 Range/Units 07:28 RBC 3.91 L (4.30-5.90) m/uL Hgb 11.7 L (13.0-17.5) gm/dL Hct 35.8 L (39.0-53.0) % Microbiology - Last 24 Hours (Table) 07/19/20 19:23 Blood Culture - Preliminary Blood No Growth after 24 hours Assessment and Plan Plan: 1 acute bilateral pulmonary embolism with secondary shortness of breath and pleurisy and the patient has some atelectatic changes involving the left lung base. The patient also has a right lower extremity DVT. The patient is hemodynamically stable on room air oxygen and the patient is currently on IV heparin. Echo shows not show any significant strain pattern. 2 Covid 19 infection, back in May 2020 and the patient is clinically recovered 3 history of non-Hodgkin's lymphoma 2004 post treatment with systemic chemotherapy and the patient has been in remission since 4 hyperlipidemia 5 hypothyroidism Plan I'm not sure if this is a provoked or a unprovoked event. Ideally, COVID 19 infection can trigger DVT and pulmonary embolism. Nevertheless, his infection was back in May 2020 and I think it is late for this type of complication to occur specially the patient is clinically recovered post COVID. I'm recommending long as anticoagulation for now, and I'm recommending treating this patient is an unprovoked event with long-term anticoagulation. The patient was started with heparin and we'll switch him to an oral anticoagulants at a later stage, preferably Eliquis of Xarelto. After sending the prescription, we decided on Xarelto starting doses of 50 mg twice a day for one week and later on 20 mg by mouth daily from that point on. We'll initiate anticoagulation. His condition is stable for now. No interval change in his condition otherwise. We'll provide the patient incentive spirometer. Increase activity as tolerated
[2020-07-21] MEDS: RIVAROXABAN 15 MG TAB PO SCH ×2 (12:52→17:16)
--- NOTE | 2020-07-21 17:31 | PN ---
PROGRESS NOTE CHIEF COMPLAINT: Pulmonary emboli. HISTORY OF PRESENT ILLNESS: This gentleman is doing fairly well, but he is still experiencing chest pain when he breathes and he is still short of breath. PHYSICAL EXAMINATION: He still has scattered rales throughout. Cardiac exam is normal and vital signs are normal. IMPRESSION: Pulmonary emboli with pleuritic pain. PLAN: Continue with current program. He probably should be kept in the hospital another day or so until his shortness of breath and pleurisy improve, and then he can be sent home on a DOAC. MMODL / IJN: [id number] /
[2020-07-21] MEDS: ZOLPIDEM 5 MG TAB PO PRN (20:39)
[2020-07-21] MEDS: BACLOFEN 10 MG TAB PO PRN (20:39)
[2020-07-21] MEDS: clonazePAM 0.5 MG TAB PO PRN (20:39)
[2020-07-21] MEDS: PRAZOSIN 1 MG CAP PO SCH (20:39)
[2020-07-22] MEDS: RIVAROXABAN 15 MG TAB PO SCH (05:20)
[2020-07-22] MEDS: BACLOFEN 10 MG TAB PO PRN (05:20)
[2020-07-22] MEDS: PANTOPRAZOLE 40 MG TABLET PO SCH (05:20)
[2020-07-22] MEDS: LEVOTHYROXINE 50 MCG TAB PO SCH (05:21)
[2020-07-22 08:07] LABS: Basophils % (A) 1 %; Eosinophils # (A) 0.2 k/uL (0-0.7); Eosinophils % (A) 3 %; HCT 37.1 % (39.0-53.0); HGB 12.3 gm/dL (13.0-17.5); Lymphocytes # (A) 1.4 k/uL (1.0-4.8); Lymphocytes % (A) 21 %; MCH 30.3 pg (25.0-35.0); MCHC 33.2 g/dL (31.0-37.0); MCV 91.3 fL (80.0-100.0); Mean Platelet Volume 6.9; Monocytes # (A) 0.4 k/uL (0-1.0); Monocytes % (A) 6 %; Neutrophils # (A) 4.6 k/uL (1.3-7.7); Neutrophils % (A) 69 %; Platelet Count 231 k/uL (150-450); RBC 4.06 m/uL (4.30-5.90); RDW 12.5 % (11.5-15.5); WBC 6.8 k/uL (3.8-10.6)
[2020-07-22 08:17] LABS: INR 1.3 (<1.2); Prothrombin Time 13.5 sec (9.0-12.0)
[2020-07-22] MEDS: POTASSIUM CHLORIDE ER 20 MEQ TAB.ER PO SCH (08:19)
[2020-07-22] MEDS: LITHIUM CARBONATE 150 MG CAP PO SCH (08:22)
[2020-07-22] MEDS: DESVENLAFAXINE SUCCINATE 50 MG TAB.ER.24H PO SCH (08:22)
[2020-07-22] MEDS: TOPIRAMATE 100 MG TAB PO SCH (08:23)
[2020-07-22] MEDS: ARIPiprazole 5 MG TAB PO SCH (08:23)
[2020-07-22] MEDS: lisinopriL 20 MG TAB PO SCH (09:08)
--- NOTE | 2020-07-22 10:55 | P.PN ---
Subjective Progress Note Date: 07/22/20 44-year-old male patient presented to the ED with increased shortness of breath and cough. The patient had some pleuritic chest pain on the left and he became progressively more short of breath. No fever. No chills. No 70 previous cardiac disease or lung disease. He has tested positive for COVID 19 back in May 2020 she was retested during this current admission and assess came back negative. At that point, and based on his ongoing symptoms, the patient was given a CT angiogram/that his d-dimer level was elevated. The CAT scan of the chest was done utilizing a CT a protocol and it showed bilateral pulmonary embolism. There were filling defects bilaterally and this was involving the sm aller branches of the lower lobe pulmonary artery bilaterally. There was also some patchy infiltration of the left lower lobe along with some atelectasis. A Doppler of the lower extremity came back no DVT on the left, there was some noncompressibility on the right and there was evidence of a DVT involving the right posterior tibial vein. For that reason, the patient was admitted to the hospital. Echocardiogram showed a preserved LV function without any acute abnormalities. The patient is currently on IV heparin. Hemodynamically, the patient is currently on room air oxygen with a pulse ox of 97%, his heart rate is 86 in sinus and he is afebrile and hemodynamically stable on no pressors. White cell count at 7.7 with a hemoglobin of 11.7 and the coagulation profile was normal at the time of admission. Renal function is also stable. He has a component of non-anion gap metabolic acidosis. The patient has a remote history of non-Hodgkin's lymphoma and he was treated by Dr. Hussein with a combination of chemotherapy and Rituxan and he had full remission since. She is not sedentar y. He is quite active at home. No other identifiable risk factors. No orthopedic injuries. No recent surgeries. A follow-up is being done on 07/21/2020 and the patient is doing well and he is still experiencing some limited amount of pleurisy along the left lung. The patient otherwise doing well. He has no specific complaints. No calf pain. No hemoptysis. The patient remains on IV heparin. No fever chills or night sweats. No other significant events otherwise over the past 24 hours. No nausea. No vomiting. No abdominal pain. Anyone 2020, the patient is being seen for a follow-up. Still on room air oxygen. Hemoglobin is at 12.3 and the patient was taken the IV heparin the p atient was started on Xarelto. Doing well. Still having some pain in the left posterior chest area which is pleuritic although this is also improving. He is ambulating. No respiratory difficulties at this point and his left ventricle ejection fraction is around 55-60% on the right side of the heart shows no evidence of any strain pattern. Objective - Vital Signs Vital signs: Vital Signs Temp 98.4 F 07/22/20 08:15 Pulse 89 07/22/20 08:15 Resp 20 07/22/20 08:15 BP 101/64 07/22/20 08:15 Pulse Ox 95 07/22/20 08:15 Intake & Output 07/21/20 07/22/20 07/22/20 18:59 06:59 18:59 Intake Total 1020 240 Output Total 300 Balance 720 240 Weight 119.5 kg Intake: Oral 1020 240 Output: Urine 300 Other: # Voids 3 1 - Exam The patient appeared well nourished and normally developed. Vital signs as documented. Head exam is unremarkable. No scleral icterus or corneal arcus noted. Neck is without jugular venous distension, thyromegaly, or carotid bruits. Carotid upstrokes are brisk bilaterally. Lungs are clear to auscultation and percussion. Cardiac exam reveals the PMI to be normally sized and situated. Rhythm is regular. First and second heart sounds normal. No murmurs, rubs or gallops. Abdominal exam reveals normal bowel sounds, no masses, no organomegaly and no aortic enlargement. Extremities are nonedematous and both femoral and pedal pulses are normal. - Labs CBC & Chem 7: 07/22/20 07:48 07/20/20 05:21 Labs: Abnormal Lab Results - Last 24 Hours (Table) 07/22/20 07/22/20 Range/Units 07:48 07:48 RBC 4.06 L (4.30-5.90) m/uL Hgb 12.3 L (13.0-17.5) gm/dL Hct 37.1 L (39.0-53.0) % PT 13.5 H (9.0-12.0) sec INR 1.3 H (<1.2) Microbiology - Last 24 Hours (Table) 07/19/20 19:23 Blood Culture - Preliminary Blood No Growth after 48 hours Assessment and Plan Plan: 1 acute bilateral pulmonary embolism with secondary shortness of breath and pleurisy and the patient has some atelectatic changes involving the left lung base. The patient also has a right lower extremity DVT. The patient is hemodynamically stable on room air oxygen and the patient is currently on IV heparin. Echo shows not show any significant strain pattern. 2 Covid 19 infection, back in May 2020 and the patient is clinically recovered 3 history of non-Hodgkin's lymphoma 2003 post treatment with systemic chemotherapy and the patient has been in remission since 4 hyperlipidemia 5 hypothyroidism Plan I'm not sure if this is a provoked or a unprovoked event. Ideally, COVID 19 infection can trigger DVT and pulmonary embolism. Nevertheless, his infection was back in May 2020 and I think it is late for this type of complication t o occur specially the patient is clinically recovered post COVID. I'm recommending long as anticoagulation for now, and I'm recommending treating this patient is an unprovoked event with long-term anticoagulation. The patient was started with heparin and we'll switch him to an oral anticoagulants at a later stage, preferably Eliquis of Xarelto. After sending the prescription, we decided on Xarelto starting doses of 15 mg twice a day for one week and later on 20 mg by mouth daily from that point on. The Xarelto was started yesterday and the patient is taking her treatment without any major side effects. He is being considered for discharge today to be followed up on outpatient basis with me in 2 months time. His pleurisy will ultimately recovered. He will need an outpatient chest x-ray.
[2020-07-22 12:14] VITALS: BP 119/77; PULSE 73; RESP 18; TEMP 98.1
--- NOTE | 2020-07-22 23:38 | DS ---
DISCHARGE SUMMARY CHIEF COMPLAINT: Chest pain, shortness of breath. HISTORY OF PRESENT ILLNESS AND PHYSICAL EXAMINATION: Details of this man's history and physical can be found in the initial workup. LABORATORY STUDIES: While he was in the hospital, he had laboratory studies, details of which can be found in the laboratory section of his chart. COURSE IN THE HOSPITAL: After admission, he was placed on bedrest, started on intravenous fluids and seen by Infectious Disease and Pulmonology and was placed on protocol for pulmonary emboli. While in the hospital, he did fairly well but he continued to have some pleuritic pain, as well as shortness of breath. He was doing fairly well and quite stable and it was felt that he could go home on the and he will be seen in 1 day. He will be sent home on oral anticoagulants. FINAL DIAGNOSES: 1. Multiple bilateral pulmonary emboli. 2. History of Covid pneumonia 2 months ago. MMODL / IJN: [id number] /
== END 2020-07-22 13:58 | disposition home or self-care (01) | DRG 176 ==
LOC: EC 15:38 → 3SCARD 18:57
PROVIDERS: ADMIT Family Medicine; ATTEND Family Medicine
DX: I26.99 Other pulmonary embolism without acute cor pulmonale (principal); E87.2 Acidosis; J98.11 Atelectasis; I82.441 Acute embolism and thrombosis of right tibial vein; E03.9 Hypothyroidism, unspecified; E78.5 Hyperlipidemia, unspecified; F31.9 Bipolar disorder, unspecified; F43.10 Post-traumatic stress disorder, unspecified; Z86.16 Personal history of COVID-19; I10 Essential (primary) hypertension; Z79.890 Hormone replacement therapy; Z79.899 Other long term (current) drug therapy; Z85.72 Personal history of non-Hodgkin lymphomas; Z87.01 Personal history of pneumonia (recurrent); Z98.890 Other specified postprocedural states; Z92.21 Personal history of antineoplastic chemotherapy
CPT/HCPCS: 36415; 71046; 71275; 80048; 80053; 83605; 83880; 84484; 85025; 85379; 85610; 85730; 87040; 87502; 87635; 93005; 93306; 93970; 96361; 96365; 96366; 96367; 96375; 96376; 99291

== ENCOUNTER 2021-03-02 14:46 | Inpatient (IN) | payer MEDICAID, OTHER ==
--- NOTE | 2021-03-02 15:47 | ED ---
Psych HPI - General Chief Complaint: Psychiatric Symptoms Stated Complaint: Mental Health Time Seen by Provider: 03/02/21 15:21 Source: patient, RN notes reviewed Mode of arrival: ambulatory - History of Present Illness Initial Comments: 45-year-old male with a history depression who states she's feeling suicidal and depressed. He states is uncooperative for past 2-3 weeks he did recently get his lithium level changed. He has no particular trigger at this time he did cut himself last night he was afraid he might come self worse and possibly harms also is here for evaluation. He cut himself on the left forearm with a scalpel he had. His last tetanus shot was within the last 10 years. MD Complaint: suicidal ideation, feels depressed - Related Data Home Medications Medication Instructions Recorded Confirmed Omeprazole [PriLOSEC] 20 mg PO HS 12/27/14 03/02/21 Simvastatin [Zocor] 80 mg PO HS 12/27/14 03/02/21 Baclofen [Lioresal] 20 mg PO QID PRN 05/14/19 03/02/21 ARIPiprazole [Abilify] 5 mg PO DAILY 07/19/20 03/02/21 Desvenlafaxine [Pristiq ER] 100 mg PO DAILY 07/19/20 03/02/21 Levothyroxine Sodium [Synthroid] 50 mcg PO DAILY 07/19/20 03/02/21 [place] Carbonate 300 mg PO BID 07/19/20 03/02/21 Potassium Chloride ER [K-Dur 20] 20 meq PO BID 07/19/20 03/02/21 Prazosin HCl 4 mg PO HS 07/19/20 03/02/21 Topiramate [Topamax] 100 mg PO BID 07/19/20 03/02/21 clonazePAM [KlonoPIN] 0.5 mg PO TID 07/19/20 03/02/21 Ergocalciferol [Vitamin D2 (1250 1,250 mcg PO Q7D 02/14/21 03/02/21 Mcg = 75415 Iu)] Rivaroxaban [Xarelto] 20 mg PO HS 02/14/21 03/02/21 Zolpidem [Ambien] 5 mg PO HS PRN 02/14/21 03/02/21 Allergies Allergy/AdvReac Type Severity Reaction Status Date / Time No Known Allergies Allergy Verified 03/02/21 16:16 Review of Systems ROS Statement: Those systems with pertinent positive or pertinent negative responses have been documented in the HPI. ROS Other: All systems not noted in ROS Statement are negative. Past Medical History Past Medical History: Cancer, Deep Vein Thrombosis (DVT), GERD/Reflux, Hyperlipidemia, Hypertension, Osteoarthritis (OA), Pneumonia, Pulmonary Embolus (PE), Thyroid Disorder Additional Past Medical History / Comment(s): HX HEADACHES AND DIZZINESS, Hx LYMPHOMA 2003, bulging disc in neck. 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 , no longer on bp meds, states Covid May-2019, pneumonia Aug 2020 .,states current blood clot right leg and in lungs., frequent diarrhea., back, neck & hip pain. History of Any Multi-Drug Resistant Organisms: None Reported Past Surgical History: Hernia Repair Additional Past Surgical History / Comment(s): vasectomy, wisdom teeth removed, pain procedures Past Anesthesia/Blood Transfusion Reactions: No Reported Reaction Past Psychological History: Anxiety, Depression, PTSD Smoking Status: Former smoker Past Alcohol Use History: None Reported Past Drug Use History: None Reported, Marijuana - Past Family History Mother Family Medical History: No Reported History Father Family Medical History: Cancer General Exam - General Exam Comments Initial Comments: This is a well developed well-nourished awake alert oriented 3 male Limitations: no limitations General appearance: alert Head exam: Present: atraumatic, normocephalic, normal inspection Eye exam: Present: normal appearance, PERRL, EOMI. Absent: scleral icterus, conjunctival injection, periorbital swelling ENT exam: Present: normal exam, mucous membranes moist Neck exam: Present: normal inspection. Absent: tenderness, meningismus, lym phadenopathy Respiratory exam: Present: normal lung sounds bilaterally. Absent: respiratory distress, wheezes, rales, rhonchi, stridor Cardiovascular Exam: Present: regular rate, normal rhythm, normal heart sounds. Absent: systolic murmur, diastolic murmur, rubs, gallop, clicks GI/Abdominal exam: Present: soft, normal bowel sounds. Absent: distended, tenderness, guarding, rebound, rigid Extremities exam: Present: full ROM, normal capillary refill, other (Superficial abrasion seen to the lower left forearm no suture repair indicated no active bleeding no foreign body. At least 5 or 6 linear abrasions.). Absent: tenderness, pedal edema, joint swelling, calf tenderness Back exam: Present: normal inspection Neurological exam: Present: alert, oriented X3, CN II-XII intact Psychiatric exam: Present: depressed, flat affect, suicidal ideation Skin exam: Present: warm, dry, intact, normal color. Absent: rash Course Vital Signs 03/02/21 15:08 Temperature 98.3 F Pulse Rate 77 Respiratory 18 Rate Blood Pressure 120/85 O2 Sat by Pulse 96 Oximetry Medical Decision Making - Medical Decision Making The patient was evaluated by the EPS service he will be admitted for inpatient evaluation and treatment noted to have hypokalemia and was started in the emergency department with oral potassium supplements. Additionally his lithium level was found to be subtherapeutic. - Lab Data Result diagrams: 03/02/21 16:00 03/02/21 16:00 Lab Results 03/02/21 03/02/21 03/02/21 Range/Units 16:00 16:00 17:01 WBC 5.2 (3.8-10.6) k/uL RBC 4.32 (4.30-5.90) m/uL Hgb 13.8 (13.0-17.5) gm/dL Hct 39.7 (39.0-53.0) % MCV 92.0 (80.0-100.0) fL MCH 32.0 (25.0-35.0) pg MCHC 34.8 (31.0-37.0) g/dL RDW 13.2 (11.5-15.5) % Plt Count 214 (150-450) k/uL MPV 6.5 Neutrophils % 57 % Lymphocytes % 31 % Monocytes % 6 % Eosinophils % 3 % Basophils % 1 % Neutrophils # 3.0 (1.3-7.7) k/uL Lymphocytes # 1.6 (1.0-4.8) k/uL Monocytes # 0.3 (0-1.0) k/uL Eosinophils # 0.2 (0-0.7) k/uL Basophils # 0.1 (0-0.2) k/uL Sodium 143 (137-145) mmol/L Potassium 3.0 L (3.5-5.1) mmol/L Chloride 112 H (98-107) mmol/L Carbon Dioxide 21 L (22-30) mmol/L Anion Gap 10 mmol/L BUN 9 (9-20) mg/dL Creatinine 0.88 (0.66-1.25) mg/dL Est GFR (CKD-EPI)AfAm >90 (>60 ml/min/1.73 sqM) Est GFR (CKD-EPI)NonAf >90 (>60 ml/min/1.73 sqM) Glucose 110 H (74-99) mg/dL Calcium 8.5 (8.4-10.2) mg/dL Total Bilirubin 0.1 L (0.2-1.3) mg/dL AST 33 (17-59) U/L ALT 27 (4-49) U/L Alkaline Phosphatase 90 (38-126) U/L Total Protein 7.1 (6.3-8.2) g/dL Albumin 4.1 (3.5-5.0) g/dL Urine Opiates Screen (NotDetected) Ur Oxycodone Screen (NotDetected) Urine Methadone Screen (NotDetected) Ur Propoxyphene Screen (NotDetected) Ur Barbiturates Screen (NotDetected) U Tricyclic Antidepress (NotDetected) Ur Phencyclidine Scrn (NotDetected) Ur Amphetamines Screen (NotDetected) U Methamphetamines Scrn (NotDetected) U Benzodiazepines Scrn (NotDetected) [place] 0.5 mmol/L Urine Cocaine Screen (NotDetected) U Marijuana (THC) Screen (NotDetected) Coronavirus (PCR) Not Detected (Not Detectd) 03/02/21 Range/Units Unknown WBC (3.8-10.6) k/uL RBC (4.30-5.90) m/uL Hgb (13.0-17.5) gm/dL Hct (39.0-53.0) % MCV (80.0-100.0) fL MCH (25.0-35.0) pg MCHC (31.0-37.0) g/dL RDW (11.5-15.5) % Plt Count (150-450) k/uL MPV Neutrophils % % Lymphocytes % % Monocytes % % Eosinophils % % Basophils % % Neutrophils # (1.3-7.7) k/uL Lymphocytes # (1.0-4.8) k/uL Monocytes # (0-1.0) k/uL Eosinophils # (0-0.7) k/uL Basophils # (0-0.2) k/uL Sodium (137-145) mmol/L Potassium (3.5-5.1) mmol/L Chloride (98-107) mmol/L Carbon Dioxide (22-30) mmol/L Anion Gap mmol/L BUN (9-20) mg/dL Creatinine (0.66-1.25) mg/dL Est GFR (CKD-EPI)AfAm (>60 ml/min/1.73 sqM) Est GFR (CKD-EPI)NonAf (>60 ml/min/1.73 sqM) Glucose (74-99) mg/dL Calcium (8.4-10.2) mg/dL Total Bilirubin (0.2-1.3) mg/dL AST (17-59) U/L ALT (4-49) U/L Alkaline Phosphatase (38-126) U/L Total Protein (6.3-8.2) g/dL Albumin (3.5-5.0) g/dL Urine Opiates Screen Not Detected (NotDetected) Ur Oxycodone Screen Not Detected (NotDetected) Urine Methadone Screen Not Detected (NotDetected) Ur Propoxyphene Screen Not Detected (NotDetected) Ur Barbiturates Screen Not Detected (NotDetected) U Tricyclic Antidepress Not Detected (NotDetected) Ur Phencyclidine Scrn Not Detected (NotDetected) Ur Amphetamines Screen Not Detected (NotDetected) U Methamphetamines Scrn Not Detected (NotDetected) U Benzodiazepines Scrn Detected H (NotDetected) [place] mmol/L Urine Cocaine Screen Not Detected (NotDetected) U Marijuana (THC) Screen Detected H (NotDetected) Coronavirus (PCR) (Not Detectd) Disposition Clinical Impression: Depression, Suicidal ideation, Abrasion of left forearm, Hypokalemia Disposition: TRANSFER TO PSYCH HOSP/UNIT Condition: Stable Referrals: Manan Brown MD [Primary Care Provider] - 1-2 days
[2021-03-02 16:08] LABS: Basophils # (A) 0.1 k/uL (0-0.2); Basophils % (A) 1 %; Eosinophils # (A) 0.2 k/uL (0-0.7); Eosinophils % (A) 3 %; HCT 39.7 % (39.0-53.0); HGB 13.8 gm/dL (13.0-17.5); Lymphocytes # (A) 1.6 k/uL (1.0-4.8); Lymphocytes % (A) 31 %; MCHC 34.8 g/dL (31.0-37.0); Mean Platelet Volume 6.5; Monocytes # (A) 0.3 k/uL (0-1.0); Monocytes % (A) 6 %; Neutrophils % (A) 57 %; Platelet Count 214 k/uL (150-450); RBC 4.32 m/uL (4.30-5.90); RDW 13.2 % (11.5-15.5); WBC 5.2 k/uL (3.8-10.6)
[2021-03-02 16:18] LABS: ALT 27 U/L (4-49); AST 33 U/L (17-59); African American GFR (CKD) >90 (>60 ml/min/1.73 sqM); Albumin 4.1 g/dL (3.5-5.0); Alkaline Phosphatase 90 U/L (38-126); Anion Gap 10 mmol/L; Blood Urea Nitrogen 9 mg/dL (9-20); Calcium 8.5 mg/dL (8.4-10.2); Carbon Dioxide 21 mmol/L (22-30); Chloride 112 mmol/L (98-107); Glucose 110 mg/dL (74-99); Lithium 0.5 mmol/L; Non-African American GFR(CKD) >90 (>60 ml/min/1.73 sqM); Sodium 143 mmol/L (137-145); Total Bilirubin 0.1 mg/dL (0.2-1.3); Total Protein 7.1 g/dL (6.3-8.2)
[2021-03-02 16:39] LABS: Amphetamine Screen,Urine Not Detected (NotDetected); Barbiturate Screen,Urine Not Detected (NotDetected); Benzodiazepines Screen,Urine Detected (NotDetected); Cocaine Screen,Urine Not Detected (NotDetected); Methadone Screen, Urine Not Detected (NotDetected); Opiate Screen,Urine Not Detected (NotDetected); Oxycodone Screen, Urine Not Detected (NotDetected); Phencyclidine Screen,Urine Not Detected (NotDetected); Tricyclic Antidepressant,Urine Not Detected (NotDetected); Urn Cannabinoid Scrn Detected (NotDetected)
[2021-03-02] MEDS ORDERED: POTASSIUM CHLORIDE ER 20 MEQ TAB.ER PO STA (16:54)
[2021-03-02] MEDS ORDERED: ATORVASTATIN 40 MG TAB PO STA (18:05)
[2021-03-02] MEDS ORDERED: MAGNESIUM HYDROXIDE 2,400 MG/10 ML CUP PO PRN (18:11)
[2021-03-02] MEDS ORDERED: MAG HYDROX/AL HYDROX/SIMETH 30 ML CUP PO PRN (18:11)
[2021-03-02] MEDS ORDERED: ACETAMINOPHEN TAB 325 MG TAB PO PRN (18:11)
[2021-03-02] MEDS ORDERED: ZOLPIDEM 5 MG TAB PO PRN (18:27)
[2021-03-02] MEDS: PANTOPRAZOLE 40 MG TABLET PO SCH (20:15)
[2021-03-02] MEDS: clonazePAM 0.5 MG TAB PO SCH (20:15)
[2021-03-02] MEDS: LITHIUM CARBONATE 300 MG CAP PO SCH (20:16)
[2021-03-02] MEDS: PRAZOSIN 1 MG CAP PO SCH (20:16)
[2021-03-02] MEDS: TOPIRAMATE 100 MG TAB PO SCH (20:16)
[2021-03-02] MEDS: POTASSIUM CHLORIDE ER 20 MEQ TAB.ER PO SCH (20:17)
[2021-03-02] MEDS: RIVAROXABAN 20 MG TAB PO SCH (20:17)
[2021-03-03] MEDS ORDERED: DESVENLAFAXINE SUCCINATE 50 MG TAB.ER.24H PO SCH (09:00)
[2021-03-03] MEDS ORDERED: ARIPiprazole 5 MG TAB PO SCH (09:00)
[2021-03-03] MEDS: TOPIRAMATE 100 MG TAB PO SCH (09:02)
[2021-03-03] MEDS: POTASSIUM CHLORIDE ER 20 MEQ TAB.ER PO SCH ×2 (09:04→20:46)
[2021-03-03] MEDS: clonazePAM 0.5 MG TAB PO SCH ×3 (09:05→20:46)
[2021-03-03] MEDS: LITHIUM CARBONATE 300 MG CAP PO SCH ×2 (09:05→20:46)
[2021-03-03] MEDS: NICOTINE 14MG/24HR PATCH TRANSDERM SCH (09:09)
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
[2021-03-03] MEDS: ATORVASTATIN 80 MG TAB PO SCH (20:46)
[2021-03-03] MEDS: PANTOPRAZOLE 40 MG TABLET PO SCH (20:46)
[2021-03-03] MEDS: RIVAROXABAN 20 MG TAB PO SCH (20:46)
[2021-03-03] MEDS: PRAZOSIN 1 MG CAP PO SCH (20:46)
[2021-03-03] MEDS: BACLOFEN 10 MG TAB PO PRN (20:47)
[2021-03-03] MEDS ORDERED: DOXEPIN 25 MG CAP PO SCH (21:00)
--- NOTE | 2021-03-04 00:24 | P.MDCNMH ---
History of Present Illness H&P Date: 03/03/21 Chief Complaint: Suicide attempt. Patient is a 45-year-old male with a known history of hypertension, hyperlipidemia, GERD, history of DVT, osteoarthritis, PE, hypothyroidism and history of lymphoma in 2003, history of COVID-19 pneumonia in May 2020 anxiety/depression and PTSD, and chronic neck and back and hip pain. Presents to ER due to complaints of suicidal ideation. Patient states that he is very depressed and for the past 2 to 3 weeks has not taken his medication. He did cut himself last night as he was afraid he might become worse. He did cut himself on the left forearm with a scalpel he had. Last tetanus start was within last 10 years. Laboratory data showed WBC 5.2 hemoglobin 13.8 and platelets 240 Sodium 143 potassium 3.0 chloride 112 bicarb is 21 BUN 9 creatinine 0.88 11 years or not elevated UDS is positive for benzodiazepines and marijuana [place] level is 0.5 Review of Systems Complete review of systems could not be obtained from the patient except as per HPI. Past Medical History Past Medical History: Cancer, Deep Vein Thrombosis (DVT), GERD/Reflux, Hyperlipidemia, Hypertension, Osteoarthritis (OA), Pneumonia, Pulmonary Embolus (PE), Thyroid Disorder Additional Past Medical History / Comment(s): HX HEADACHES AND DIZZINESS, Hx LYMPHOMA 2003, bulging disc in neck. 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 , no longer on bp meds, states Covid May-2020, pneumonia Aug 2020 .,states current blood clot right leg and in lungs., frequent diarrhea., back, neck & hip pain. History of Any Multi-Drug Resistant Organisms: None Reported Past Surgical History: Hernia Repair Additional Past Surgical History / Comment(s): vasectomy, wisdom teeth removed, pain procedures Past Anesthesia/Blood Transfusion Reactions: No Reported Reaction Past Psychological History: Anxiety, Depression, PTSD Smoking Status: Former smoker Past Alcohol Use History: None Reported Additional Past Alcohol Use History / Comment(s): QUIT SMOKING 2012, smoked for about 20 yrs Past Drug Use History: None Reported, Marijuana Additional Drug Use History / Comment(s): no current marijuana (quit 1 month ago) - Past Family History Mother Family Medical History: No Reported History Father Family Medical History: Cancer Medications and Allergies Home Medications Medication Instructions Recorded Confirmed Type Omeprazole [PriLOSEC] 20 mg PO HS 12/27/14 03/02/21 History Simvastatin [Zocor] 80 mg PO HS 12/27/14 03/02/21 History Baclofen [Lioresal] 20 mg PO QID PRN 05/14/19 03/02/21 History ARIPiprazole [Abilify] 5 mg PO DAILY 07/19/20 03/02/21 History Desvenlafaxine [Pristiq ER] 100 mg PO DAILY 07/19/20 03/02/21 History Levothyroxine Sodium [Synthroid] 50 mcg PO DAILY 07/19/20 03/02/21 History [place] Carbonate 300 mg PO BID 07/19/20 03/02/21 History Potassium Chloride ER [K-Dur 20] 20 meq PO BID 07/19/20 03/02/21 History Prazosin HCl 4 mg PO HS 07/19/20 03/02/21 History Topiramate [Topamax] 100 mg PO BID 07/19/20 03/02/21 History clonazePAM [KlonoPIN] 0.5 mg PO TID 07/19/20 03/02/21 History Ergocalciferol [Vitamin D2 (1250 1,250 mcg PO Q7D 02/14/21 03/02/21 History Mcg = 21461 Iu)] Rivaroxaban [Xarelto] 20 mg PO HS 02/14/21 03/02/21 History Zolpidem [Ambien] 5 mg PO HS PRN 02/14/21 03/02/21 History Allergies Allergy/AdvReac Type Severity Reaction Status Date / Time No Known Allergies Allergy Verified 03/02/21 16:16 Physical Exam Vitals: Vital Signs Temp Pulse Resp BP 03/03/21 03:40 98.1 F 93 15 130/90 PHYSICAL EXAMINATION: Patient is lying in the bed comfortably, no acute distress, awake alert and cali ented.. HEENT: Normocephalic. Neck is supple. Pupils reactive. Nostrils clear. Oral cavity is moist. Neck reveals no JVD, carotid bruits, or thyromegaly. CHEST EXAMINATION: Trachea is central. Symmetrical expansion. Lung cervantes clear to auscultation and percussion. CARDIAC: Normal S1, S2 with no gallops. No murmurs ABDOMEN: Soft. Bowel sounds normal. No organomegaly. No abdominal bruits. Extremities: reveal no edema. No clubbing or cyanosis Neurologically awake, alert, oriented x3 with well-coordinated movements. No focal deficits noted Skin: No rash or skin lesions. Psychiatric: Coperative. Nonsuicidal Musculoskeletal: No joint swelling or deformity. Normal range of motion. Cranial Nerve Examination - Cranial Nerves Cranial Nerve I- Olfactory: Intact Cranial Nerve II- Optic: Intact Cranial Nerve III- Oculomotor: Intact Cranial Nerve IV- Trochlear: Intact Cranial Nerve V- Trigeminal: Intact Cranial Nerve - Abducens: Intact Cranial Nerve VII- Facial: Intact Cranial Nerve VIII- Auditory: Intact Cranial Nerve IX- Glossopharyngeal: Intact Cranial Nerve X- Vagus: Intact Cranial Nerve XI- Accessory: Intact Cranial Nerve XII- Hypoglossal: Intact Results CBC & Chem 7: 03/02/21 16:00 03/02/21 16:00 Assessment and Plan Assessment: Major depression with suicide attempt by cutting with a scalpel. UDS positive for benzodiazepines and marijuana hypokalemia. Noncompliance with medications and lithium level is 0.5 Recent history of DVT/PE currently on anticoagulation with Xarelto Hypertension Hyperlipidemia GERD Osteoarthritis Hypothyroidism History of chronic neck pain back pain and hip pain and bulging disc in the neck Hyperacusis Anxiety/depression PTSD Previous history of smoking and currently marijuana use. DVT prophylaxis with early ambulation. Plan: Patient will be continued on Current psychiatric medication and management. Continue with Xarelto and other home medications and follow-up closely. Replace \\potassium. Further recommendations based on clinical course. Thank you for your consult. Time with Patient: Greater than 30
[2021-03-04] MEDS: BACLOFEN 10 MG TAB PO PRN ×2 (05:53→16:12)
[2021-03-04] MEDS: LITHIUM CARBONATE 300 MG CAP PO SCH ×2 (08:47→20:09)
[2021-03-04] MEDS: POTASSIUM CHLORIDE ER 20 MEQ TAB.ER PO SCH ×2 (08:47→20:10)
[2021-03-04] MEDS: clonazePAM 0.5 MG TAB PO SCH ×3 (08:48→21:17)
[2021-03-04] MEDS: NICOTINE 14MG/24HR PATCH TRANSDERM SCH (08:49)
[2021-03-04] MEDS ORDERED: DESVENLAFAXINE SUCCINATE 50 MG TAB.ER.24H PO SCH (09:00)
--- NOTE | 2021-03-04 11:00 | P.PN ---
Progress Note - Text Progress Note Date: 03/04/21 Interval History: Patient was seen resting in bed and was directable and agreeable to speak with job specification writer in the office. Patient reports that he continues to experience suicidal thoughts and thoughts of self-harm. He does report that this has overall improved since his admission. He continues to endorse significant feelings of depression including anhedonia, hopelessness, helplessness. He is otherwise not reporting any homicidal ideation, intention, and/or plan. He reports no issues regarding his sleep or his appetite. The patient has been tolerating his medication adjustments well but does express that he experiences elevated anxiety. He does report that the doxepin appears to help with his sleep and his depression. The patient reports that he actually did well with topiramate and confused topiramate and Topamax. He reports he actually liked this medication as it helped him significantly with his neurological and neck pain. Mental Status Exam: General Appearance: Patient appears to be stated age is alert, directable, and cooperative. Superficial cuts on his left forearm. Multiple tattoos. Behavior: Patient is calmly seated without any agitated behavior. Eye contact is appropriate. Speech: Patient's speech is fluent and nonpressured. Mood/Affect: Mood is improving mildly, affect is congruent and constricted. Suicidality/Homicidality: Patient denies having any suicidal or homicidal ideation intent or plan. Perceptions: Patient denies any visual hallucinations and denies any auditory hallucinations Though content/process: There is no evidence of any delusional thought content and thought process is linear and goal-directed. Memory and concentration: AOX3, grossly intact for the purposes of this session Judgment and insight: Improving mildly Vital Signs Temp 97.7 F 03/04/21 05:56 Pulse 88 03/04/21 08:45 Resp 16 03/04/21 05:56 BP 143/89 03/04/21 08:45 Pulse Ox 97 03/02/21 18:24 Assessment Major depressive disorder, recurrent, severe Posttraumatic stress disorder Borderline personality disorder Plan: -Patient continues to meet criteria for inpatient psychiatric admission for symptom stabilization and safety. Patient has signed adult voluntary form and medication consent and was placed in patient's chart. -Medications: Continue Klonopin 0.5 mg 3 times a day for anxiety Discontinue Pristiq. We will increase Sinequan to 50 mg at bedtime for depression/anxiety/PTSD/insomnia Continue prazosin 4 mg at bedtime for PTSD related nightmares Continue lithium 300 mg by mouth twice a day for suicidal ideation Restart Topamax as per patient preference at 50 mg by mouth twice a day and we will gradually titrate to 100 mg twice a day over the weekend. -When necessary Haldol for agitation/aggression. -SW on board for discharge planning. Encouraged the patient to participate in milieu.
[2021-03-04] MEDS: PRAZOSIN 1 MG CAP PO SCH (20:09)
[2021-03-04] MEDS: TOPIRAMATE 25 MG TAB PO SCH (20:09)
[2021-03-04] MEDS: PANTOPRAZOLE 40 MG TABLET PO SCH (20:09)
[2021-03-04] MEDS: ATORVASTATIN 80 MG TAB PO SCH (20:10)
[2021-03-04] MEDS: RIVAROXABAN 20 MG TAB PO SCH (20:10)
[2021-03-04] MEDS: DOXEPIN 25 MG CAP PO SCH (20:10)
[2021-03-05] MEDS: LITHIUM CARBONATE 300 MG CAP PO SCH ×2 (08:41→20:49)
[2021-03-05] MEDS: clonazePAM 0.5 MG TAB PO SCH ×3 (08:41→20:52)
[2021-03-05] MEDS: POTASSIUM CHLORIDE ER 20 MEQ TAB.ER PO SCH ×2 (08:41→20:50)
[2021-03-05] MEDS: TOPIRAMATE 25 MG TAB PO SCH ×2 (08:41→20:51)
[2021-03-05] MEDS ORDERED: LOPERAMIDE 2 MG CAP PO PRN (10:29)
--- NOTE | 2021-03-05 12:24 | P.PN ---
Progress Note - Text Progress Note Date: 03/05/21 Clinical Problems: Major depressive disorder recurrent severe without psychotic features, posttraumatic stress disorder, borderline personality disorder Interim history: Reviewed the medical record and interviewed the patient. He is a 45-year-old single male who has a long history of mental illness. He described begining treatment for depression when he was in his 20s and in retrospect believes that he has been depressed since he was an adolescent. He described a fluctuating course of depression where her unexpectantly experiences periods of increased feelings of hopelessness and helplessness with resulting suicidal ideation and suicide attempts. In addition he began self cutting in his 20s after he is diagnosed with a cancer. He reported continued feelings of depression, hopelessness and helplessness. However, he denied that he is currently experiencing urges to cut himself. He showed several superficial lacerations on his left forearm from the cutting prior to admission. He described continued thoughts of or suicide but denied current intent or plan. Although he is unable to identify a reason for his recent worsening of his depression, the changes mental status appears to have developed since his last biopsy. He is currently waiting the results of the biopsy to determine if there is recurrence of the cancer. He denied side effects to the current dose of Sinequan. His lithium level on admission was 0.5. He is attending therapeutic groups and activities. He slept 7 hours last night. Mental status exam: He presented as a stocky and bearded 45-year-old male who was pleasant on approach. He made eye contact and appeared to attend to the interview. He had multiple tattoos and, as noted above, superficial lacerations on his left forearm. He had a depressed facial expression. He showed psychomotor retardation but no abnormal involuntary movements. His gait was slow but steady. Her speech was spontaneous with decreased crying rate, rhythm and volume. No articulation difficulties. His affect is depressed and not reactive. He describes suicidal ideation and wish but denied intent or plan. He expressed continued feelings of hopelessness, helplessness and worthlessness. He ruminated about his depression and his inability to function. He did not express ideas reference, paranoid ideation or delusions. His thinking was abstract and associations were coherent, logical goal directed. He denied hallucinations did not appear to responding to internal stimuli. Assessment: He his son currently depressed and presents with worsening depression, self-harm and suicidal ideation. He continues to experience thoughts of or suicide but is not experiencing urges to cut himself. Plan: He knew inpatient treatment. Safety precautions. Continue Klonopin 0.5 mg 3 times a day, Sinequan 50 mg at bedtime, lithium 300 mg twice a day and Minipress 4 mg at bedtime. Titrate both the Sinequan and lithium according to clinical response and tolerance. Begin Imodium 2 mg 4 times a day when necessary for diarrhea. Continue other medications including Lipitor, baclofen, ergoCalciferol, Protonix, K-Dur, Xarelto and Topamax. Encouraged continued participation in therapeutic groups and activities. Evaluate clinical status response to treatment daily basis.
[2021-03-05] MEDS: BACLOFEN 10 MG TAB PO PRN (13:49)
[2021-03-05] MEDS: DOXEPIN 25 MG CAP PO SCH (20:49)
[2021-03-05] MEDS: ATORVASTATIN 80 MG TAB PO SCH (20:49)
[2021-03-05] MEDS: PANTOPRAZOLE 40 MG TABLET PO SCH (20:50)
[2021-03-05] MEDS: PRAZOSIN 1 MG CAP PO SCH (20:51)
[2021-03-05] MEDS: RIVAROXABAN 20 MG TAB PO SCH (20:51)
[2021-03-06] MEDS: clonazePAM 0.5 MG TAB PO SCH ×3 (07:49→21:08)
[2021-03-06] MEDS: LITHIUM CARBONATE 300 MG CAP PO SCH ×2 (07:49→20:26)
[2021-03-06] MEDS: TOPIRAMATE 100 MG TAB PO SCH ×2 (07:49→20:26)
[2021-03-06] MEDS: POTASSIUM CHLORIDE ER 20 MEQ TAB.ER PO SCH ×2 (07:49→20:26)
[2021-03-06] MEDS: BACLOFEN 10 MG TAB PO PRN ×2 (07:51→22:46)
--- NOTE | 2021-03-06 11:59 | P.PN ---
Progress Note - Text Progress Note Date: 03/06/21 Clinical Problems: Major depressive disorder recurrent severe without psychotic features, titubation, posttraumatic stress disorder, borderline personality disorder Interim history: I reviewed the medical record and interviewed the patient. He feels that he is "withdrawing" from Pristiq. He talked about subjective experience that he described as "zapping" in his head. He has had similar experiences when he stopped other psychotropic medications. He complained of subjective anxiety that was not relief by clonazepam. His mood is "somewhat" better than on admission but he continues to experience feelings of hopelessness and helplessness. He denied current thoughts of self-harm but could not contract for safety. The titubation was more apparent today than yesterday. He discussed the titubation with a neurologist and the neurologist did not make a diagnosis. However titubation is considered a cerebellar tremor and is of cerebellar origin. He denied side effects to the current dose of Sinequan. He is attending therapeutic groups and activities. He slept 4 hours last night. Mental status exam: He presented as a stocky and bearded 45-year-old male who was pleasant on approach. He made eye contact and appeared to attend to the interview. He had prominent head tremor and a depressed facial expression. He showed psychomotor retardation but no abnormal involuntary movements. His gait was slow but steady. Her speech was spontaneous with decreased rate, rhythm and volume. No articulation difficulties. His affect is depressed and not reactive. He denied suicidal ideation and . He expressed continued feelings of hopelessness, helplessness and worthlessness. He ruminated about his depression and his inability to function. He did not express ideas reference, paranoid ideation or delusions. His thinking was abstract and associations were coherent, logical goal directed. He denied hallucinations did not appear to responding to internal stimuli. Assessment: His clinical status has improved mildly with a slight improvement in mood and decrease in suicidal thoughts and thoughts of self-harm. The head tremor is suspicious of underlying neurological disorder. Plan: Continue inpatient treatment and safety precautions. Continue Klonopin 0.5 mg 3 times a day, Sinequan 50 mg at bedtime, lithium 300 mg twice a day and Minipress 4 mg at bedtime. Titrate both the Sinequan and lithium according to clinical response and tolerance. Continue other medications including Lipitor, baclofen, ergoCalciferol, Protonix, K-Dur, Xarelto and Topamax. Encouraged continued participation in therapeutic groups and activities. Evaluate clinical status response to treatment daily basis.
[2021-03-06] MEDS: haloperidoL 5 MG TAB PO PRN ×2 (13:42→21:36)
[2021-03-06] MEDS: PRAZOSIN 1 MG CAP PO SCH (20:26)
[2021-03-06] MEDS: PANTOPRAZOLE 40 MG TABLET PO SCH (20:26)
[2021-03-06] MEDS: ATORVASTATIN 80 MG TAB PO SCH (20:26)
[2021-03-06] MEDS: DOXEPIN 25 MG CAP PO SCH (20:26)
[2021-03-06] MEDS: RIVAROXABAN 20 MG TAB PO SCH (20:27)
[2021-03-07] MEDS: LITHIUM CARBONATE 300 MG CAP PO SCH ×2 (08:36→20:09)
[2021-03-07] MEDS: TOPIRAMATE 100 MG TAB PO SCH ×2 (08:36→20:09)
[2021-03-07] MEDS: POTASSIUM CHLORIDE ER 20 MEQ TAB.ER PO SCH ×2 (08:36→20:09)
[2021-03-07] MEDS: BACLOFEN 10 MG TAB PO PRN ×2 (08:37→20:11)
[2021-03-07] MEDS: clonazePAM 0.5 MG TAB PO SCH ×3 (08:37→20:10)
--- NOTE | 2021-03-07 11:06 | P.PN ---
Progress Note - Text Progress Note Date: 03/07/21 Interval History: Patient was seen resting in bed and was directable and agreeable to speak with typewriter assembly and parts inspector in the office. The patient reports that he has been having a good week. He is currently not reporting any suicidal or homicidal ideation, and/or plan. He is not reporting any auditory or visual hallucinations. His delusions. The patient is not endorsing any issues with his sleep or his appetite. The patient does state that he feels like he is experiencing some discontinuation symptoms secondary to being off the Pristiq. He says that he has been expressing some "tingling" in his upper extremities and some "brain zaps." He is otherwise tolerating the change in medications well and reports that these symptoms are manageable at this time. Mental Status Exam: General Appearance: Patient appears to be stated age is alert, directable, and cooperative. Superficial cuts on his left forearm. Multiple tattoos. Behavior: Patient is calmly seated without any agitated behavior. Eye contact is appropriate. Speech: Patient's speech is fluent and nonpressured. Mood/Affect: Mood is improving mildly, affect is congruent and constricted. Slightly increased range of affect. Suicidality/Homicidality: Patient denies having any suicidal or homicidal ideation intent or plan. Perceptions: Patient denies any visual hallucinations and denies any auditory hallucinations Though content/process: There is no evidence of any delusional thought content and thought process is linear and goal-directed. Memory and concentration: AOX3, grossly intact for the purposes of this session Judgment and insight: Improving mildly Vital Signs Temp 97.9 F 03/07/21 05:53 Pulse 96 03/07/21 05:53 Resp 18 03/07/21 05:53 BP 108/68 03/07/21 05:53 Pulse Ox 96 03/07/21 05:53 Assessment Major depressive disorder, recurrent, severe Posttraumatic stress disorder Borderline personality disorder Plan: -Patient continues to meet criteria for inpatient psychiatric admission for symptom stabilization and safety. Patient has signed adult voluntary form and medication consent and was placed in patient's chart. -Medications: Continue Klonopin 0.5 mg 3 times a day for anxiety We will increase Sinequan to 75 mg at bedtime for depression/anxiety/PTSD/insomnia Continue prazosin 4 mg at bedtime for PTSD related nightmares Continue lithium 300 mg by mouth twice a day for suicidal ideation Continue Topamax 100 mg by mouth twice a day for off label use for mood stabilization with the added benefit of weight loss. -When necessary Haldol for agitation/aggression. -SW on board for discharge planning. Encouraged the patient to participate in milieu.
[2021-03-07] MEDS: ATORVASTATIN 80 MG TAB PO SCH (20:08)
[2021-03-07] MEDS: PANTOPRAZOLE 40 MG TABLET PO SCH (20:09)
[2021-03-07] MEDS: RIVAROXABAN 20 MG TAB PO SCH (20:09)
[2021-03-07] MEDS: PRAZOSIN 1 MG CAP PO SCH (20:09)
[2021-03-07] MEDS ORDERED: DOXEPIN 25 MG CAP PO SCH (21:00)
[2021-03-08] MEDS: POTASSIUM CHLORIDE ER 20 MEQ TAB.ER PO SCH (09:14)
[2021-03-08] MEDS: TOPIRAMATE 100 MG TAB PO SCH (09:15)
[2021-03-08] MEDS: LITHIUM CARBONATE 300 MG CAP PO SCH (09:15)
[2021-03-08] MEDS: clonazePAM 0.5 MG TAB PO SCH (09:15)
[2021-03-08 09:19] VITALS: BP 122/83; PULSE 114; RESP 16; TEMP 96.8
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
[2021-03-09] MEDS ORDERED: ERGOCALCIFEROL 1,250 MCG (50,000 IU) CAPSULE PO SCH (09:00)
== END 2021-03-08 11:50 | disposition home or self-care (01) | DRG 885 ==
LOC: EC 14:46 → 3MHU 18:24
PROVIDERS: ADMIT Psychiatry & Neurology Psychiatry; ATTEND Psychiatry & Neurology Psychiatry
DX: F31.4 Bipolar disorder, current episode depressed, severe, without psychotic features (principal); Z91.128 Patient's intentional underdosing of medication regimen for other reason; E03.9 Hypothyroidism, unspecified; F60.3 Borderline personality disorder; Z20.822 Contact with and (suspected) exposure to COVID-19; F43.10 Post-traumatic stress disorder, unspecified; S50.812A Abrasion of left forearm, initial encounter; F12.90 Cannabis use, unspecified, uncomplicated; E87.6 Hypokalemia; T43.596A Underdosing of other antipsychotics and neuroleptics, initial encounter; I10 Essential (primary) hypertension; K21.9 Gastro-esophageal reflux disease without esophagitis; H93.231 Hyperacusis, right ear; E78.5 Hyperlipidemia, unspecified; R45.87 Impulsiveness; R25.1 Tremor, unspecified; G47.00 Insomnia, unspecified; M54.2 Cervicalgia; M25.559 Pain in unspecified hip; M19.90 Unspecified osteoarthritis, unspecified site; X78.8XXA Intentional self-harm by other sharp object, initial encounter; Z79.890 Hormone replacement therapy; Z79.01 Long term (current) use of anticoagulants; Z79.899 Other long term (current) drug therapy; Z86.718 Personal history of other venous thrombosis and embolism; Z91.5 Personal history of self-harm; Z86.711 Personal history of pulmonary embolism; Z87.01 Personal history of pneumonia (recurrent); Z85.72 Personal history of non-Hodgkin lymphomas; Z87.19 Personal history of other diseases of the digestive system; Z98.52 Vasectomy status; Z98.818 Other dental procedure status; Z87.891 Personal history of nicotine dependence; Z56.0 Unemployment, unspecified; Z62.810 Personal history of physical and sexual abuse in childhood; Z86.16 Personal history of COVID-19; Z86.69 Personal history of other diseases of the nervous system and sense organs; Z98.890 Other specified postprocedural states; Z81.1 Family history of alcohol abuse and dependence
CPT/HCPCS: 36415; 80053; 80178; 80306; 82075; 85025; 87635; 99285

== ENCOUNTER → 2021-06-20 | Outpatient (CLI) | payer OTHER ==
[2021-06-20 18:51] LABS: African American GFR (CKD) 104.1 (60.0-200.0); Anion Gap 13.7 mmol/L (10.00-18.00); BUN/Creat Ratio 11.7 Ratio (12.00-20.00); Blood Urea Nitrogen 11.7 mg/dL (9.0-27.0); Calcium 8.9 mg/dL (8.7-10.3); Carbon Dioxide 18.3 mmol/L (20.0-27.5); Lithium 0.3 mmol/L (0.50-1.20); Non-African American GFR(CKD) 89.9 (60.0-200.0); Potassium 3.6 mmol/L (3.5-5.5)
== END | disposition home or self-care (01) ==
LOC: LABWHC1 10:09
PROVIDERS: ATTEND Psychiatry & Neurology Psychiatry
DX: F60.3 Borderline personality disorder (principal); F33.2 Major depressive disorder, recurrent severe without psychotic features
CPT/HCPCS: 36415; 80048; 80178

== ENCOUNTER 2021-06-29 14:07 | Inpatient (IN) | payer MEDICAID, OTHER ==
[2021-06-29 18:43] LABS: Basophils % (A) 1 %; Eosinophils # (A) 0.2 k/uL (0-0.7); Eosinophils % (A) 3 %; HCT 42.6 % (39.0-53.0); HGB 13.8 gm/dL (13.0-17.5); Lymphocytes # (A) 1.9 k/uL (1.0-4.8); Lymphocytes % (A) 33 %; MCH 30.3 pg (25.0-35.0); MCHC 32.5 g/dL (31.0-37.0); MCV 93.5 fL (80.0-100.0); Monocytes # (A) 0.4 k/uL (0-1.0); Monocytes % (A) 7 %; Neutrophils # (A) 3.2 k/uL (1.3-7.7); Neutrophils % (A) 54 %; Platelet Count 206 k/uL (150-450); RBC 4.56 m/uL (4.30-5.90); RDW 13.1 % (11.5-15.5); WBC 5.8 k/uL (3.8-10.6)
[2021-06-29 18:46] LABS: Appearance,Urine Clear (Clear); Bilirubin,Urine Negative (Negative); Blood,Urine Negative (Negative); Color,Urine Yellow; Glucose,Urine (UA) Negative (Negative); Ketones,Urine Negative (Negative); Leukocyte Esterase,Urine Negative (Negative); Nitrite,Urine Negative (Negative); PH, Urine 6.5 (5.0-8.0); Protein,Urine Negative (Negative); Urobilinogen,Urine <2.0 mg/dL (<2.0)
[2021-06-29 18:52] LABS: Partial Thromboplastin Time 23.2 sec (22.0-30.0); Prothrombin Time 10.5 sec (9.0-12.0)
[2021-06-29 18:55] LABS: ALT 31 U/L (4-49); AST 32 U/L (17-59); Acetaminophen <10.0 ug/mL; African American GFR (CKD) >90 (>60 ml/min/1.73 sqM); Albumin 4.4 g/dL (3.5-5.0); Alcohol <10 mg/dL; Alkaline Phosphatase 95 U/L (38-126); Anion Gap 12 mmol/L; Blood Urea Nitrogen 15 mg/dL (9-20); Carbon Dioxide 20 mmol/L (22-30); Chloride 111 mmol/L (98-107); Glucose 81 mg/dL (74-99); Lithium 0.5 mmol/L; Non-African American GFR(CKD) 85 (>60 ml/min/1.73 sqM); Potassium 3.9 mmol/L (3.5-5.1); Salicylate <1.0 mg/dL; Sodium 143 mmol/L (137-145); Total Bilirubin 0.3 mg/dL (0.2-1.3); Total Protein 7.9 g/dL (6.3-8.2)
[2021-06-29 18:57] LABS: Amphetamine Screen,Urine Not Detected (NotDetected); Barbiturate Screen,Urine Not Detected (NotDetected); Benzodiazepines Screen,Urine Not Detected (NotDetected); Cocaine Screen,Urine Not Detected (NotDetected); Methadone Screen, Urine Not Detected (NotDetected); Opiate Screen,Urine Not Detected (NotDetected); Oxycodone Screen, Urine Not Detected (NotDetected); Phencyclidine Screen,Urine Not Detected (NotDetected); Tricyclic Antidepressant,Urine Detected (NotDetected); Urn Cannabinoid Scrn Detected (NotDetected)
--- NOTE | 2021-06-29 19:32 | ED ---
Psych HPI - General Chief Complaint: Psychiatric Symptoms Stated Complaint: Mental Health Time Seen by Provider: 06/29/21 16:51 Source: patient Mode of arrival: ambulatory - History of Present Illness Initial Comments: Jeff is a 45-year-old male with extensive psychiatric history most recent hospitalization and patient was in March. Patient presents to the ER today via private vehicle with suicidal thoughts and feeling like his medications need to be adjusted. Patient reports he has been compliant with his home medications, he has been following with the [facility] but is getting established with [facility], he has an intake appointment on . - Related Data Home Medications Medication Instructions Recorded Confirmed Omeprazole [PriLOSEC] 20 mg PO HS 12/27/14 06/29/21 Baclofen [Lioresal] 20 mg PO QID PRN 05/14/19 06/29/21 Levothyroxine Sodium [Synthroid] 50 mcg PO HS 07/19/20 06/29/21 Potassium Chloride ER [K-Dur 20] 20 meq PO HS 07/19/20 06/29/21 clonazePAM [KlonoPIN] 0.5 mg PO BID 07/19/20 06/29/21 Rivaroxaban [Xarelto] 20 mg PO HS 02/14/21 06/29/21 ARIPiprazole [Abilify] 5 mg PO HS 06/29/21 06/29/21 Azelastine HCl [Astepro] 1 spray EA NOSTRIL HS 06/29/21 06/29/21 Ketoconazole 2% Shampoo [Nizoral] 1 applic TOPICAL DIRECTED 06/29/21 06/29/21 Prazosin HCl 2 mg PO HS 06/29/21 06/29/21 Propranolol [Inderal] 10 mg PO BID 06/29/21 06/29/21 Simvastatin [Zocor] 80 mg PO HS 06/29/21 06/29/21 Zolpidem Tartrate [Ambien Cr] 12.5 mg PO HS 06/29/21 06/29/21 Previous Rx's Medication Instructions Recorded Doxepin [SINEquan] 75 mg PO HS 30 Days cap 03/08/21 [place] Carbonate 300 mg PO BID 30 Days cap 03/08/21 Topiramate [Topamax] 100 mg PO BID 30 Days tab 03/08/21 Allergies Allergy/AdvReac Type Severity Reaction Status Date / Time No Known Allergies Allergy Verified 06/29/21 18:17 Review of Systems ROS Statement: Those systems with pertinent positive or pertinent negative responses have been documented in the HPI. ROS Other: All systems not noted in ROS Statement are negative. Past Medical History Past Medical History: Cancer, Deep Vein Thrombosis (DVT), GERD/Reflux, Hyper lipidemia, Hypertension, Osteoarthritis (OA), Pneumonia, Pulmonary Embolus (PE), Thyroid Disorder Additional Past Medical History / Comment(s): HX HEADACHES AND DIZZINESS, Hx LYMPHOMA 2003, bulging disc in neck. 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 , no longer on bp meds, states Covid May-2019, pneumonia Aug 2020 .,states current blood clot right leg and in lungs., frequent diarrhea., back, neck & hip pain. History of Any Multi-Drug Resistant Organisms: None Reported Past Surgical History: Hernia Repair Additional Past Surgical History / Comment(s): vasectomy, wisdom teeth removed, pain procedures Past Anesthesia/Blood Transfusion Reactions: No Reported Reaction Past Psychological History: Anxiety, Depression, PTSD Smoking Status: Former smoker Past Alcohol Use History: None Reported Past Drug Use History: None Reported, Marijuana - Past Family History Mother Family Medical History: No Reported History Father Family Medical History: Cancer General Exam - General Exam Comments Initial Comments: Physical Exam GENERAL: Patient is well-developed and well-nourished. Patient is nontoxic and well-hydrated and is in no distress. HENT: Normocephalic, Atraumatic. EYES: PERRL, EOMI PULMONARY: Unlabored respirations. CARDIOVASCULAR: RRR Warm and well perfused extremities ABDOMEN: Non-distended SKIN: No rashes or bruising : Deferred NEUROLOGIC: Alert and oriented Normal speech Normal gait MUSCULOSKELETAL: Moving all extremities with no apparent injury PSYCHIATRIC: No SI/HI Limitations: no limitations Course Vital Signs 06/29/21 14:23 Temperature 97.9 F Pulse Rate 79 Respiratory 18 Rate Blood Pressure 127/80 O2 Sat by Pulse 97 Oximetry Medical Decision Making - Medical Decision Making Patient medically cleared for evaluation by EPS, patient was evaluated Herself in voluntarily, patient has maximized outpatient resources he is compliant with medications to having suicidal thoughts therefore warrants admission to inpatient psychiatric care. Patient signed in voluntarily. - Lab Data Result diagrams: 06/29/21 17:28 06/29/21 17:28 Lab Results 06/29/21 06/29/21 06/29/21 Range/Units 17:28 17:28 17:28 WBC 5.8 (3.8-10.6) k/uL RBC 4.56 (4.30-5.90) m/uL Hgb 13.8 (13.0-17.5) gm/dL Hct 42.6 (39.0-53.0) % MCV 93.5 (80.0-100.0) fL MCH 30.3 (25.0-35.0) pg MCHC 32.5 (31.0-37.0) g/dL RDW 13.1 (11.5-15.5) % Plt Count 206 (150-450) k/uL MPV 7.0 Neutrophils % 54 % Lymphocytes % 33 % Monocytes % 7 % Eosinophils % 3 % Basophils % 1 % Neutrophils # 3.2 (1.3-7.7) k/uL Lymphocytes # 1.9 (1.0-4.8) k/uL Monocytes # 0.4 (0-1.0) k/uL Eosinophils # 0.2 (0-0.7) k/uL Basophils # 0.0 (0-0.2) k/uL PT 10.5 (9.0-12.0) sec INR 1.0 (<1.2) APTT 23.2 (22.0-30.0) sec Sodium (137-145) mmol/L Potassium (3.5-5.1) mmol/L Chloride (98-107) mmol/L Carbon Dioxide (22-30) mmol/L Anion Gap mmol/L BUN (9-20) mg/dL Creatinine (0.66-1.25) mg/dL Est GFR (CKD-EPI)AfAm (>60 ml/min/1.73 sqM) Est GFR (CKD-EPI)NonAf (>60 ml/min/1.73 sqM) Glucose (74-99) mg/dL Calcium (8.4-10.2) mg/dL Total Bilirubin (0.2-1.3) mg/dL AST (17-59) U/L ALT (4-49) U/L Alkaline Phosphatase (38-126) U/L Total Protein (6.3-8.2) g/dL Albumin (3.5-5.0) g/dL Urine Color Yellow Urine Appearance Clear (Clear) Urine pH 6.5 (5.0-8.0) Ur Specific [place] 1.020 (1.001-1.035) Urine Protein Negative (Negative) Urine Glucose (UA) Negative (Negative) Urine Ketones Negative (Negative) Urine Blood Negative (Negative) Urine Nitrite Negative (Negative) Urine Bilirubin Negative (Negative) Urine Urobilinogen <2.0 (<2.0) mg/dL Ur Leukocyte Esterase Negative (Negative) Salicylates mg/dL Urine Opiates Screen Not Detected (NotDetected) Ur Oxycodone Screen Not Detected (NotDetected) Urine Methadone Screen Not Detected (NotDetected) Ur Propoxyphene Screen Not Detected (NotDetected) Acetaminophen ug/mL Ur Barbiturates Screen Not Detected (NotDetected) U Tricyclic Antidepress Detected H (NotDetected) Ur Phencyclidine Scrn Not Detected (NotDetected) Ur Amphetamines Screen Not Detected (NotDetected) U Methamphetamines Scrn Not Detected (NotDetected) U Benzodiazepines Scrn Not Detected (NotDetected) [place] mmol/L Urine Cocaine Screen Not Detected (NotDetected) U Marijuana (THC) Screen Detected H (NotDetected) Serum Alcohol mg/dL Coronavirus (PCR) (Not Detectd) 06/29/21 06/29/21 Range/Units 17:28 21:21 WBC (3.8-10.6) k/uL RBC (4.30-5.90) m/uL Hgb (13.0-17.5) gm/dL Hct (39.0-53.0) % MCV (80.0-100.0) fL MCH (25.0-35.0) pg MCHC (31.0-37.0) g/dL RDW (11.5-15.5) % Plt Count (150-450) k/uL MPV Neutrophils % % Lymphocytes % % Monocytes % % Eosinophils % % Basophils % % Neutrophils # (1.3-7.7) k/uL Lymphocytes # (1.0-4.8) k/uL Monocytes # (0-1.0) k/uL Eosinophils # (0-0.7) k/uL Basophils # (0-0.2) k/uL PT (9.0-12.0) sec INR (<1.2) APTT (22.0-30.0) sec Sodium 143 (137-145) mmol/L Potassium 3.9 (3.5-5.1) mmol/L Chloride 111 H (98-107) mmol/L Carbon Dioxide 20 L (22-30) mmol/L Anion Gap 12 mmol/L BUN 15 (9-20) mg/dL Creatinine 1.05 (0.66-1.25) mg/dL Est GFR (CKD-EPI)AfAm >90 (>60 ml/min/1.73 sqM) Est GFR (CKD-EPI)NonAf 85 (>60 ml/min/1.73 sqM) Glucose 81 (74-99) mg/dL Calcium 9.0 (8.4-10.2) mg/dL Total Bilirubin 0.3 (0.2-1.3) mg/dL AST 32 (17-59) U/L ALT 31 (4-49) U/L Alkaline Phosphatase 95 (38-126) U/L Total Protein 7.9 (6.3-8.2) g/dL Albumin 4.4 (3.5-5.0) g/dL Urine Color Urine Appearance (Clear) Urine pH (5.0-8.0) Ur Specific [place] (1.001-1.035) Urine Protein (Negative) Urine Glucose (UA) (Negative) Urine Ketones (Negative) Urine Blood (Negative) Urine Nitrite (Negative) Urine Bilirubin (Negative) Urine Urobilinogen (<2.0) mg/dL Ur Leukocyte Esterase (Negative) Salicylates <1.0 mg/dL Urine Opiates Screen (NotDetected) Ur Oxycodone Screen (NotDetected) Urine Methadone Screen (NotDetected) Ur Propoxyphene Screen (NotDetected) Acetaminophen <10.0 ug/mL Ur Barbiturates Screen (NotDetected) U Tricyclic Antidepress (NotDetected) Ur Phencyclidine Scrn (NotDetected) Ur Amphetamines Screen (NotDetected) U Methamphetamines Scrn (NotDetected) U Benzodiazepines Scrn (NotDetected) [place] 0.5 mmol/L Urine Cocaine Screen (NotDetected) U Marijuana (THC) Screen (NotDetected) Serum Alcohol <10 mg/dL Coronavirus (PCR) Not Detected (Not Detectd) Disposition Clinical Impression: Depression, Suicidal ideation Disposition: TRANSFER TO PSYCH HOSP/UNIT Condition: Serious Referrals: Manan Brown MD [Primary Care Provider] - 1-2 days
[2021-06-29] MEDS ORDERED: BACLOFEN 10 MG TAB PO PRN (21:45)
[2021-06-29] MEDS ORDERED: ZOLPIDEM 5 MG TAB PO SCH (22:00)
[2021-06-29] MEDS: clonazePAM 0.5 MG TAB PO SCH (22:27)
[2021-06-29] MEDS ORDERED: MAG HYDROX/AL HYDROX/SIMETH 30 ML CUP PO PRN (23:40)
[2021-06-29] MEDS ORDERED: MAGNESIUM HYDROXIDE 2,400 MG/10 ML CUP PO PRN (23:40)
[2021-06-29] MEDS ORDERED: HALOPERIDOL LACTATE 5 MG/ML 1 ML VIAL IM PRN (23:45)
[2021-06-29] MEDS ORDERED: PANTOPRAZOLE 40 MG TABLET PO SCH (23:45)
[2021-06-29] MEDS ORDERED: haloperidoL 5 MG TAB PO PRN (23:45)
[2021-06-30] MEDS: ARIPiprazole 5 MG TAB PO SCH ×2 (00:46→20:51)
[2021-06-30] MEDS: DOXEPIN 25 MG CAP PO SCH ×2 (00:47→20:51)
[2021-06-30] MEDS: PROPRANOLOL 10 MG TAB PO SCH ×3 (00:47→20:52)
[2021-06-30] MEDS: LITHIUM CARBONATE 300 MG CAP PO SCH ×2 (00:47→08:01)
[2021-06-30] MEDS: PRAZOSIN 1 MG CAP PO SCH ×2 (00:47→20:54)
[2021-06-30] MEDS: RIVAROXABAN 20 MG TAB PO SCH ×2 (00:47→20:53)
[2021-06-30] MEDS: TOPIRAMATE 100 MG TAB PO SCH ×3 (00:48→20:53)
[2021-06-30] MEDS: BACLOFEN 10 MG TAB PO PRN ×2 (00:49→13:49)
[2021-06-30] MEDS: PANTOPRAZOLE 40 MG TABLET PO SCH ×2 (00:59→20:53)
[2021-06-30] MEDS: LEVOTHYROXINE 50 MCG TAB PO SCH (06:37)
[2021-06-30] MEDS: clonazePAM 0.5 MG TAB PO SCH ×2 (08:02→21:01)
[2021-06-30 08:24] LABS: Lithium 0.5 mmol/L
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
[2021-06-30] MEDS: clonazePAM 0.5 MG TAB PO PRN (13:50)
[2021-06-30 14:56] LABS: Chol/HDL Ratio 3.47 Ratio
[2021-06-30] MEDS: ATORVASTATIN 40 MG TAB PO SCH (20:51)
[2021-06-30] MEDS: LITHIUM CARBONATE 150 MG CAP PO SCH (20:53)
[2021-06-30] MEDS: POTASSIUM CHLORIDE ER 20 MEQ TAB.ER PO SCH (21:53)
[2021-07-01] MEDS: BACLOFEN 10 MG TAB PO PRN (02:45)
[2021-07-01] MEDS: LEVOTHYROXINE 50 MCG TAB PO SCH (06:19)
[2021-07-01] MEDS: PROPRANOLOL 10 MG TAB PO SCH ×2 (08:39→21:13)
[2021-07-01] MEDS: TOPIRAMATE 100 MG TAB PO SCH ×2 (08:39→21:10)
[2021-07-01] MEDS: LITHIUM CARBONATE 150 MG CAP PO SCH ×2 (08:39→21:11)
[2021-07-01] MEDS: POTASSIUM CHLORIDE ER 20 MEQ TAB.ER PO SCH ×2 (08:39→21:11)
[2021-07-01] MEDS: clonazePAM 0.5 MG TAB PO SCH ×2 (08:40→21:10)
--- NOTE | 2021-07-01 10:22 | P.PN ---
Progress Note - Text Progress Note Date: 07/01/21 Interval History: Patient was seen attending group and was directable and agreeable to speak with assembly instructions writer in the office after group. Patient reports that he feels no significant changes in regards to the medication adjustments. He does state that his suicidal thoughts appeared to be "fleeting." He is currently not reporting any homicidal ideation, intention, and/or plan. He denies any auditory or visual hallucinations. He reports no paranoia or other delusions. The patient denies any issues regarding his appetite. He does report that he has had a few episodes of nighttime awakening and expresses that he has some musculoskeletal pain in the morning. He is otherwise not endorsing any other significant issues at this time. He is scheduled for an intake with [facility] this Sunday. Mental Status Exam: General Appearance: Patient appears to be stated age is alert, directable, and cooperative. Behavior: Patient is calmly seated without any agitated behavior. Speech: Patient's speech is fluent and nonpressured. Mood/Affect: Mood is improving mildly, affect is congruent and constricted. Suicidality/Homicidality: Patient denies having any suicidal or homicidal ideation intent or plan. Perceptions: Patient denies any visual hallucinations and denies any auditory hallucinations Though content/process: There is no evidence of any delusional thought content and thought process is linear and goal-directed. Memory and concentration: AOX3, grossly intact for the purposes of this session Judgment and insight: Improving mildly Vital Signs Temp 97.3 F L 06/30/21 01:02 Pulse 78 07/01/21 08:35 Resp 18 06/30/21 20:48 BP 120/80 07/01/21 08:35 Pulse Ox 95 06/30/21 20:48 Intake & Output 06/30/21 07/01/21 07/01/21 18:59 06:59 18:59 Weight 111.5 kg Laboratory Results - Last 24 Hours 06/30/21 06/30/21 06:36 06:[address] Glu mg/dL 97 Hemoglobin A1c 5.0 Triglycerides 143.00 Cholesterol 140.00 LDL Cholesterol, Calc 71.0 VLDL Cholesterol, Calc 28.60 HDL Cholesterol 40.40 Cholesterol/HDL Ratio 3.47 Assessment Major depressive disorder, recurrent, severe Posttraumatic stress disorder Borderline personality disorder Plan: -Patient continues to meet criteria for inpatient psychiatric admission for symptom stabilization and safety. Patient has signed adult voluntary form and medication consent and was placed in patient's chart. -Medications: Continue Sinequan 75 mg by mouth at bedtime for depression/anxiety/insomnia Continue prazosin 2 mg by mouth at bedtime for PTSD related nightmares Continue Abilify 5 mg by mouth at bedtime for mood augmentation Continue Topamax for migraine headaches Continue Inderal for tremors Continue lithium 450 mg by mouth twice a day for suicidality -When necessary Ativan and Haldol for agitation/aggression. -SW on board for discharge planning. Encouraged the patient to participate in milieu.
[2021-07-01] MEDS: ACETAMINOPHEN TAB 325 MG TAB PO PRN (13:31)
[2021-07-01] MEDS: clonazePAM 0.5 MG TAB PO PRN (13:32)
[2021-07-01] MEDS: BACLOFEN 10 MG TAB PO SCH ×2 (15:10→21:10)
--- NOTE | 2021-07-01 18:54 | CONS ---
CONSULTATION CHIEF COMPLAINT: Major depression. HISTORY OF PRESENT ILLNESS: This is another admission for this 45-year-old white male. He presents to the hospital with depression. He has had a lifelong history of depression. He also has hypothyroidism, hyperlipidemia, gout, gastritis, and history of pulmonary embolism probably related to COVID last year. REVIEW OF SYSTEMS: He has no complaints including headache, chest pain, shortness of breath, abdominal pain, etc. Past medical history, family history and personal and social histories are all otherwise unremarkable or noncontributory. He has been on the psych floor before. He has smoked in the past, but does not any longer. PHYSICAL EXAMINATION: Blood pressure is 138/74 with a pulse of 69, respirations of 20 and he is afebrile. In general he appeared to be slightly overweight and in no acute distress. Skin color is normal. Skin is warm and dry. Head, ears, eyes, nose, mouth and throat were normal. Chest is clear. Cardiac exam is normal. Abdomen is soft and nontender. He has a depressed affect. He is admitted to the hospital with diagnoses: 1. Major depression. 2. History of pulmonary embolism. 3. Hypertriglyceridemia. 4. Gastritis. RECOMMENDATIONS: None. MMODL / IJN: [id number] /
[2021-07-01] MEDS: ARIPiprazole 5 MG TAB PO SCH (21:10)
[2021-07-01] MEDS: PANTOPRAZOLE 40 MG TABLET PO SCH (21:10)
[2021-07-01] MEDS: ATORVASTATIN 40 MG TAB PO SCH (21:11)
[2021-07-01] MEDS: RIVAROXABAN 20 MG TAB PO SCH (21:11)
[2021-07-01] MEDS: DOXEPIN 25 MG CAP PO SCH (21:13)
[2021-07-01] MEDS: PRAZOSIN 1 MG CAP PO SCH (21:14)
[2021-07-02] MEDS: ACETAMINOPHEN TAB 325 MG TAB PO PRN (02:12)
[2021-07-02] MEDS: LEVOTHYROXINE 50 MCG TAB PO SCH (06:36)
[2021-07-02] MEDS: LITHIUM CARBONATE 150 MG CAP PO SCH (07:57)
[2021-07-02] MEDS: PROPRANOLOL 10 MG TAB PO SCH ×2 (07:57→20:54)
[2021-07-02] MEDS: POTASSIUM CHLORIDE ER 20 MEQ TAB.ER PO SCH ×2 (07:57→20:54)
[2021-07-02] MEDS: TOPIRAMATE 100 MG TAB PO SCH ×2 (07:58→20:53)
[2021-07-02] MEDS: BACLOFEN 10 MG TAB PO SCH ×3 (07:58→20:54)
[2021-07-02] MEDS: clonazePAM 0.5 MG TAB PO SCH ×2 (07:59→20:56)
--- NOTE | 2021-07-02 11:40 | P.PN ---
Progress Note - Text Progress Note Date: 07/02/21 Interval History: Patient was seen attending group and was directable and agreeable to speak with resume writer in the office. The patient reports that he is feeling better today. He reports that he did wake up with some muscles collegial pain however was given a wedge which helped him sleep at night. He is currently not reporting any homicidal ideation, intention, and/or plan. He does report some suicidal ideation but denies any intention or plan at this time. The patient denies any issues regarding his appetite. He does report that he had some frequent nighttime awakenings due to pain.. He is not endorsing any auditory or visual hallucinations. He reports no paranoia or other delusions. Mental Status Exam: General Appearance: Patient appears to be stated age is alert, directable, and cooperative. Behavior: Patient is calmly seated without any agitated behavior. Speech: Patient's speech is fluent and nonpressured. Mood/Affect: Mood is improving mildly, affect is congruent and constricted. Suicidality/Homicidality: Patient denies any homicidal ideation however endorses suicidal ideation. Auditory/visual hallucinations: Patient denies any hallucinations. Though content/process: There is no evidence of any delusional thought content and thought process is linear and goal-directed. Memory and concentration: AOX3, grossly intact for the purposes of this session Judgment and insight: Improving mildly Vital Signs Temp 97.3 F L 06/30/21 01:02 Pulse 81 07/02/21 02:00 Resp 17 07/02/21 02:00 BP 125/79 07/02/21 02:00 Pulse Ox 95 07/02/21 02:00 Assessment Major depressive disorder, recurrent, severe Posttraumatic stress disorder Borderline personality disorder Plan: -Patient continues to meet criteria for inpatient psychiatric admission for symptom stabilization and safety. Patient has signed adult voluntary form and medication consent and was placed in patient's chart. -Medications: Continue Sinequan 75 mg by mouth at bedtime for depression/anxiety/insomnia Continue prazosin 2 mg by mouth at bedtime for PTSD related nightmares Continue Abilify 5 mg by mouth at bedtime for mood augmentation Continue Topamax for migraine headaches Continue Inderal for tremors Increase lithium to 450 mg in the morning and 600 mg at bedtime for suicidality We will draw a lithium level tomorrow. -When necessary Ativan and Haldol for agitation/aggression. -SW on board for discharge planning. Encouraged the patient to participate in milieu.
[2021-07-02] MEDS: ATORVASTATIN 40 MG TAB PO SCH (20:54)
[2021-07-02] MEDS: DOXEPIN 25 MG CAP PO SCH (20:54)
[2021-07-02] MEDS: PRAZOSIN 1 MG CAP PO SCH (20:54)
[2021-07-02] MEDS: RIVAROXABAN 20 MG TAB PO SCH (20:54)
[2021-07-02] MEDS: PANTOPRAZOLE 40 MG TABLET PO SCH (20:54)
[2021-07-02] MEDS: ARIPiprazole 5 MG TAB PO SCH (20:55)
[2021-07-02] MEDS ORDERED: LITHIUM CARBONATE 300 MG CAP PO SCH (21:00)
[2021-07-03] MEDS: LEVOTHYROXINE 50 MCG TAB PO SCH (06:12)
[2021-07-03] MEDS: BACLOFEN 10 MG TAB PO SCH ×3 (08:28→20:39)
[2021-07-03] MEDS: TOPIRAMATE 100 MG TAB PO SCH ×2 (08:28→20:40)
[2021-07-03] MEDS: clonazePAM 0.5 MG TAB PO SCH ×2 (08:28→20:40)
[2021-07-03] MEDS: PROPRANOLOL 10 MG TAB PO SCH ×2 (08:29→20:41)
[2021-07-03] MEDS: POTASSIUM CHLORIDE ER 20 MEQ TAB.ER PO SCH ×2 (08:29→20:40)
[2021-07-03] MEDS ORDERED: LITHIUM CARBONATE 150 MG CAP PO SCH (09:00)
--- NOTE | 2021-07-03 12:02 | P.PN ---
Progress Note - Text Progress Note Date: 07/03/21 Interval History: Patient was seen attending group and was directable and agreeable to speak with technical report writer in the office. He states that he is feeling better today does not endorse any suicidal or homicidal ideation, tests, and/or plan. He denies any auditory or visual hallucinations. He reports no paranoia or other delusions. The patient does state that he had one nighttime awakening but did overall have 8 hours of sleep. He is not reporting any significant side effects to the medication. Mental Status Exam: General Appearance: Patient appears to be stated age is alert, directable, and cooperative. Behavior: Patient is calmly seated without any agitated behavior. Speech: Patient's speech is fluent and nonpressured. Mood/Affect: Mood is improving mildly, affect is congruent and constricted. Suicidality/Homicidality: Patient denies any homicidal ideation however endorses suicidal ideation. Auditory/visual hallucinations: Patient denies any hallucinations. Though content/process: There is no evidence of any delusional thought content and thought process is linear and goal-directed. Memory and concentration: AOX3, grossly intact for the purposes of this session Judgment and insight: Improving mildly Vital Signs Temp 97.3 F L 07/03/21 05:55 Pulse 80 07/03/21 08:31 Resp 15 07/03/21 08:31 BP 135/94 07/03/21 08:31 Pulse Ox 96 07/02/21 20:56 Assessment Major depressive disorder, recurrent, severe Posttraumatic stress disorder Borderline personality disorder Plan: -Patient continues to meet criteria for inpatient psychiatric admission for symptom stabilization and safety. Patient has signed adult voluntary form and medication consent and was placed in patient's chart. -Medications: Continue Sinequan 75 mg by mouth at bedtime for depression/anxiety/insomnia Continue prazosin 2 mg by mouth at bedtime for PTSD related nightmares Continue Abilify 5 mg by mouth at bedtime for mood augmentation Continue Topamax for migraine headaches Continue Inderal for tremors [place] level was 0.6. We will increase lithium to 600 mg by mouth twice a day for suicidality. -When necessary Ativan and Haldol for agitation/aggression. -SW on board for discharge planning. Encouraged the patient to participate in milieu.
[2021-07-03] MEDS: ARIPiprazole 5 MG TAB PO SCH (20:39)
[2021-07-03] MEDS: LITHIUM CARBONATE 300 MG CAP PO SCH (20:39)
[2021-07-03] MEDS: PRAZOSIN 1 MG CAP PO SCH (20:39)
[2021-07-03] MEDS: DOXEPIN 25 MG CAP PO SCH (20:40)
[2021-07-03] MEDS: RIVAROXABAN 20 MG TAB PO SCH (20:40)
[2021-07-03] MEDS: PANTOPRAZOLE 40 MG TABLET PO SCH (20:40)
[2021-07-03] MEDS: ATORVASTATIN 40 MG TAB PO SCH (20:40)
[2021-07-04] MEDS: LEVOTHYROXINE 50 MCG TAB PO SCH (06:41)
[2021-07-04 07:17] VITALS: BP 115/79; PULSE 85; RESP 16; TEMP 97.8
[2021-07-04] MEDS: POTASSIUM CHLORIDE ER 20 MEQ TAB.ER PO SCH (08:52)
[2021-07-04] MEDS: BACLOFEN 10 MG TAB PO SCH (08:52)
[2021-07-04] MEDS: PROPRANOLOL 10 MG TAB PO SCH (08:52)
[2021-07-04] MEDS: TOPIRAMATE 100 MG TAB PO SCH (08:52)
[2021-07-04] MEDS: clonazePAM 0.5 MG TAB PO SCH (08:53)
[2021-07-04] MEDS: LITHIUM CARBONATE 300 MG CAP PO SCH (08:53)
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
== END 2021-07-04 12:40 | disposition home or self-care (01) | DRG 885 ==
LOC: EC 14:07 → 3MHU 23:38
PROVIDERS: ADMIT Psychiatry & Neurology Psychiatry; ATTEND Psychiatry & Neurology Psychiatry
DX: F33.2 Major depressive disorder, recurrent severe without psychotic features (principal); R45.851 Suicidal ideations; E03.9 Hypothyroidism, unspecified; E78.5 Hyperlipidemia, unspecified; F31.9 Bipolar disorder, unspecified; F43.10 Post-traumatic stress disorder, unspecified; F60.3 Borderline personality disorder; G43.909 Migraine, unspecified, not intractable, without status migrainosus; G47.00 Insomnia, unspecified; I10 Essential (primary) hypertension; K29.70 Gastritis, unspecified, without bleeding; M10.9 Gout, unspecified; Z79.01 Long term (current) use of anticoagulants; Z79.890 Hormone replacement therapy; Z79.899 Other long term (current) drug therapy; Z81.1 Family history of alcohol abuse and dependence; Z85.72 Personal history of non-Hodgkin lymphomas; Z86.16 Personal history of COVID-19; Z86.711 Personal history of pulmonary embolism; Z87.891 Personal history of nicotine dependence; Z91.52 Personal history of nonsuicidal self-harm; Z20.822 Contact with and (suspected) exposure to COVID-19
CPT/HCPCS: 36415; 80053; 80061; 80143; 80178; 80179; 80306; 80320; 81003; 82075; 83036; 84443; 85025; 85610; 85730; 87635; 99285

== ENCOUNTER → 2021-08-09 | Outpatient (CLI) | payer OTHER ==
--- NOTE | 2021-08-09 19:01 | CONS ---
CONSULTATION REASON FOR CONSULTATION: Sleep apnea. HISTORY OF PRESENT ILLNESS: This is a 45-year-old male patient with multiple comorbidities. The patient has poor sleep quality. He is coming in for further advice. He has issues with insomnia, yet his sleep is also fragmented. His insomnia was attributed to his chronic psychiatric disorder. The patient has chronic anxiety, bipolar disorder and depression. He has also a borderline personality disorder and followed up with Dr. Archibald on an outpatient basis. For sleep generation and maintenance, the patient was taking Ambien 6.25 mg CR 1 tab at bedtime and the psychiatry discontinued the medication in the beginning of July of 2021. He did have some rebound insomnia after discontinuing the medication. Nevertheless, he continues to be on Klonopin 0.5 mg at bedtime. He is also taking doxepin 25 mg 3 tabs at bedtime. Once he is able to generate sleep at around 11:00 pm, the patient wakes up frequently in the middle of the night. He admits to snore and his sleep is quite fragmented and after sleeping around 5-6 hours he would wake up and he feels tired and sleepy during the day. He ultimately gets out of bed around 8 o'clock in the morning. He is currently having also back pain which is waking him up from sleep. He is sleeping on a recliner and he is unable to sleep in his bed. No sleepwalking. No sleeptalking. No grinding of the teeth. No restlessness in the lower extremities. PAST MEDICAL HISTORY: 1. Chronic anxiety disorder. 2. Bipolar depression. 3. Hypothyroidism. 4. Hyperlipidemia. 5. Previous history of pulmonary embolism. 6. History of chronic insomnia. 7. Obesity. 8. Right hip osteoarthritis. 9. Borderline personality disorder. 10.History of depression. 11.Previous history of suicidal attempts. 12.Chronic back pain. 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 14.History of alcoholism. PAST SURGICAL HISTORY: Include hernia repair and vasectomy. DRUG ALLERGIES: Not known. OUTPATIENT MEDICATION LIST: The patient is currently off Ambien. He is taking propranolol 10 mg twice a day, Klonopin 1 mg at bedtime. [place] 1200 mg once a day. Baclofen 20 mg 4 tablets as needed. Topamax 100 mg twice a day. Potassium chloride 20 mEq p.o. daily, vitamin D2 03943/units q.month, ibuprofen on an as-needed basis, 20 mg p.o. daily, doxepin 75 mg at bedtime, omeprazole 20 mg p.o. daily, Synthroid 50 mcg p.o. daily, Zocor 80 mg p.o. daily, Abilify 5 mg p.o. daily. The patient also has nightmares and takes Prazosin 2 mg 1 tablet a day. SOCIAL HISTORY: Used to smoke marijuana in the past. Has not smoked for the past 5 months. He used to smoke cigarettes in the past. Has not smoked for 3 years. He has history of alcoholism and currently he is not drinking. He has not drank for more than 3 years. FAMILY HISTORY: Mother has hyperlipidemia and hypertension. Father has also hypertension. No history of any family history of obstructive sleep apnea. REVIEW OF SYSTEMS: Fourteen-point review of system was done. Positive findings are mentioned in history of present illness. Of significance is the absence of any sleepwalking. There is history of nightmares for which the patient is taking prazosin. No grinding of the teeth. No palpitations. No nocturnal heartburn. The patient has chronic anxiety requiring anxiolytics as mentioned. No recent weight gain. No heartburn. No chest pain or shortness of breath at this point in time. The patient has pulmonary embolism, maintained on long-term anticoagulation with Xarelto. PHYSICAL EXAMINATION: BP is 116/79, pulse 67, respirations 16, temperature 97.2, saturation 99% on room air. Height is 5 feet 8 inches, weight is 250, BMI 38. Neck size 18 inches. Sabine score of 10. GENERAL APPEARANCE: Calm comfortable. Head is atraumatic, normocephalic. NECK: Supple. No JVD. No goiter. No neck mass. Mallampati class 4. LUNGS: Clear to auscultation. HEART: Heart sounds are regular rate and rhythm, normal S1, S2. No murmurs. ABDOMEN: Soft, nontender. No organomegaly. EXTREMITIES: No edema, no cyanosis or clubbing. IMPRESSION: 1. Comorbid insomnia related to chronic anxiety/bipolar disorder. 2. Chronic hypersomnia. Consider underlying obstructive sleep apnea. The patient has a Mallampati class 4 along with chronic hypersomnia and sleepiness. Sabine score is currently at 10. The possibility of obstructive sleep apnea cannot be completely ruled out. 3. Sleep fragmentation related to anxiety, pain and possible obstructive sleep apnea. The patient is currently sleeping in a recliner. Consider also possibility of Ambien withdrawal knowing that the patient was taking Ambien for many years and this was discontinued earlier this year. 4. Chronic anxiety maintained on a combination of Klonopin and taking doxepin at bedtime. 5. History of marijuana use, quit five months ago. 6. History of alcohol abuse, quit 3 years ago. 7. Chronic back pain/sciatic nerve injury. 8. Chronic anxiety/bipolar disorder. 9. History of nightmares, maintained on prazosin. 10.History of pulmonary embolism, maintained on Xarelto. 11.Obesity. 12.Degenerative arthritis and chronic back pain. 13.History of bilateral inguinal hernia. 14.Previous history of suicide. PLAN: 1. Encourage weight loss. 2. Maintain a regular sleep schedule. 3. The patient is currently off Ambien. Continue doxepin and continue Klonopin for now. 4. Proceed with an in-lab polysomnogram to evaluate the patient's sleep architecture. Rule out underlying obstructive sleep apnea, assess if there is any component of insomnia. Based on that we will make further recommendations. 5. Continue same medication. 6. May need to have a better pain control and orthopedic evaluation regarding his chronic back pain, which is affecting his sleep maintenance and making him sleep on a recliner. 7. We will continue to follow and make further recommendations based on the results of the sleep study. DIANNEL / GINAN: [id number] /
== END ==
LOC: SLEEP 13:58
PROVIDERS: ATTEND Internal Medicine Critical Care Medicine
DX: G47.10 Hypersomnia, unspecified (principal); F41.9 Anxiety disorder, unspecified; G89.29 Other chronic pain; M54.9 Dorsalgia, unspecified; E66.9 Obesity, unspecified; M19.90 Unspecified osteoarthritis, unspecified site; Z68.38 Body mass index [BMI] 38.0-38.9, adult
CPT/HCPCS: 99211

== ENCOUNTER 2021-09-12 17:19 | Observation (INO) | payer OTHER ==
[2021-09-12] MEDS ORDERED: LORazepam 2 MG/ML INJ IV STA (17:29)
[2021-09-12] MEDS ORDERED: SODIUM CHLORIDE 0.9% 1,000 ML IV ONE (17:29)
--- NOTE | 2021-09-12 17:32 | ED ---
General Adult HPI - General Chief complaint: Altered Mental Status Stated complaint: AMS Time Seen by Provider: 09/12/21 17:22 Source: patient, EMS, RN notes reviewed Mode of arrival: EMS Limitations: altered mental status - History of Present Illness Initial comments: Patient is a pleasant 46-year-old male presenting to the emergency department with change in mental status. Onset of symptoms is unclear. Patient was found by EMS unresponsive. Patient is a poor historian regarding his symptoms. Patient states he feels fine and has no complaints. Patient states he was just a chair follow-up and shaky. Patient does not feel that he was unresponsive. No history of similar symptoms previously. Patient denies alcohol or drug use. Patient states he does have a history of alcohol use however not in the past 3 years. No history of seizures. Patient denies any injury or pain. Patient denies any depression or suicide attempt - Related Data Home Medications Medication Instructions Recorded Confirmed Omeprazole [PriLOSEC] 20 mg PO HS 12/27/14 09/12/21 Baclofen [Lioresal] 20 mg PO Q48H PRN 05/14/19 09/12/21 Potassium Chloride ER [K-Dur 20] 20 meq PO BID 07/19/20 09/12/21 Rivaroxaban [Xarelto] 20 mg PO HS 02/14/21 09/12/21 Ibuprofen [Motrin] 800 mg PO QID PRN 09/12/21 09/12/21 Levothyroxine Sodium [Synthroid] 50 mcg PO DAILY 09/12/21 09/12/21 [place] 900 mg PO HS 09/12/21 09/12/21 Prazosin HCl 2 mg PO HS 09/12/21 09/12/21 Simvastatin [Zocor] 80 mg PO HS 09/12/21 09/12/21 clonazePAM [KlonoPIN] 1 mg PO BID 09/12/21 09/12/21 Previous Rx's Medication Instructions Recorded ARIPiprazole [Abilify] 5 mg PO HS 30 Days tab 07/04/21 Doxepin [SINEquan] 75 mg PO HS 30 Days cap 07/04/21 Propranolol [Inderal] 10 mg PO BID 30 Days tab 07/04/21 Topiramate [Topamax] 100 mg PO BID 30 Days tab 07/04/21 Allergies Allergy/AdvReac Type Severity Reaction Status Date / Time No Known Allergies Allergy Verified 09/12/21 19:06 Review of Systems ROS Statement: Those systems with pertinent positive or pertinent negative responses have been documented in the HPI. ROS Other: All systems not noted in ROS Statement are negative. Constitutional: Denies: fever Eyes: Denies: eye pain ENT: Denies: ear pain Respiratory: Denies: cough Cardiovascular: Denies: chest pain Endocrine: Denies: fatigue Gastrointestinal: Denies: abdominal pain Genitourinary: Denies: dysuria Musculoskeletal: Denies: back pain Skin: Denies: rash Neurological: Denies: headache, weakness, confusion Past Medical History Past Medical History: Cancer, Deep Vein Thrombosis (DVT), GERD/Reflux, Hyperlipidemia, Hypertension, Osteoarthritis (OA), Pneumonia, Pulmonary Embolus (PE), Thyroid Disorder Additional Past Medical History / Comment(s): HX HEADACHES AND DIZZINESS, Hx LYMPHOMA 2003, bulging disc in neck. 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 , no longer on bp meds, states Covid May-2020, pneumonia Aug 2020 .,states current blood clot right leg and in lungs., frequent diarrhea., back, neck & hip pain. History of Any Multi-Drug Resistant Organisms: None Reported Past Surgical History: Hernia Repair Additional Past Surgical History / Comment(s): vasectomy, wisdom teeth removed, pain procedures Past Anesthesia/Blood Transfusion Reactions: No Reported Reaction Past Psychological History: Anxiety, Depression, PTSD Smoking Status: Former smoker Past Drug Use History: None Reported, Marijuana - Past Family History Mother Family Medical History: No Reported History Father Family Medical History: Cancer General Exam Limitations: altered mental status General appearance: alert, in no apparent distress, other (Patient does have mild resting tremor and appears somewhat postictal) Eye exam: Present: normal appearance, PERRL, EOMI ENT exam: Present: normal oropharynx Neck exam: Present: normal inspection. Absent: tenderness Respiratory exam: Present: normal lung sounds bilaterally Cardiovascular Exam: Present: regular rate, normal rhythm GI/Abdominal exam: Present: soft. Absent: tenderness Extremities exam: Present: normal inspection Neurological exam: Present: alert, CN II-XII intact. Absent: motor sensory deficit Expanded Patient oriented to: Present: person, place. Absent: time (Twice answers the location) Motor strength exam: RUE: 5, LUE: 5, RLE: 5, LLE: 5 Eye Response: (4) open spontaneously Motor Response: (6) obeys commands Verbal Response: (4) confused conversation Psychiatric exam: Present: flat affect Skin exam: Present: normal color Course Vital Signs 09/12/21 09/12/21 17:20 18:57 Temperature 99.3 F Pulse Rate 82 79 Respiratory 20 18 Rate Blood Pressure 133/96 135/95 O2 Sat by Pulse 95 96 Oximetry EKG Findings - EKG Comments: EKG Findings:: Sinus rhythm 87. ID 16 he 9. QRS 11. QT 317. QTC 362. Normal axis. LVH criteria. Nonspecific ST-T. Medical Decision Making - Medical Decision Making Patient reevaluated and still minimally confused. Patient is not able to oriented times. Patient updated on results and plan. Case discussed with Dr. Brown, who will admit his patient with neurology consult. - Lab Data Result diagrams: 09/12/21 19:00 09/12/21 17:32 Lab Results 09/12/21 09/12/21 09/12/21 Range/Units 17:32 17:32 17:32 WBC 5.1 (3.8-10.6) k/uL RBC 4.26 L (4.30-5.90) m/uL Hgb 12.8 L (13.0-17.5) gm/dL Hct 39.2 (39.0-53.0) % MCV 92.1 (80.0-100.0) fL MCH 30.0 (25.0-35.0) pg MCHC 32.6 (31.0-37.0) g/dL RDW 13.3 (11.5-15.5) % Plt Count Not Reportable MPV 9.9 Neutrophils % (Manual) 64 % Lymphocytes % (Manual) 28 % Monocytes % (Manual) 5 % Eosinophils % (Manual) 3 % Neutrophils # (Manual) 3.26 (1.3-7.7) k/uL Lymphocytes # (Manual) 1.43 (1.0-4.8) k/uL Monocytes # (Manual) 0.26 (0-1.0) k/uL Eosinophils # (Manual) 0.15 (0-0.7) k/uL Nucleated RBCs 0 (0-0) /100 WBC Manual Slide Review Performed Macrocytosis ACLS SPECIALIST PT (9.0-12.0) sec INR (<1.2) APTT (22.0-30.0) sec Sodium 143 (137-145) mmol/L Potassium 4.9 (3.5-5.1) mmol/L Chloride 114 H (98-107) mmol/L Carbon Dioxide 15 L (22-30) mmol/L Anion Gap 14 mmol/L BUN 11 (9-20) mg/dL Creatinine 1.09 (0.66-1.25) mg/dL Est GFR (CKD-EPI)AfAm >90 (>60 ml/min/1.73 sqM) Est GFR (CKD-EPI)NonAf 80 (>60 ml/min/1.73 sqM) Glucose 96 (74-99) mg/dL Calcium 9.0 (8.4-10.2) mg/dL Total Bilirubin 1.6 H (0.2-1.3) mg/dL AST 63 H (17-59) U/L ALT 36 (4-49) U/L Alkaline Phosphatase 122 (38-126) U/L Troponin I 0.020 (0.000-0.034) ng/mL Total Protein 9.1 H (6.3-8.2) g/dL Albumin 4.8 (3.5-5.0) g/dL Salicylates <1.0 mg/dL Acetaminophen <10.0 ug/mL Serum Alcohol <10 mg/dL 09/12/21 09/12/21 Range/Units 18:54 19:00 WBC (3.8-10.6) k/uL RBC (4.30-5.90) m/uL Hgb (13.0-17.5) gm/dL Hct (39.0-53.0) % MCV (80.0-100.0) fL MCH (25.0-35.0) pg MCHC (31.0-37.0) g/dL RDW (11.5-15.5) % Plt Count 239 MPV 7.3 Neutrophils % (Manual) % Lymphocytes % (Manual) % Monocytes % (Manual) % Eosinophils % (Manual) % Neutrophils # (Manual) (1.3-7.7) k/uL Lymphocytes # (Manual) (1.0-4.8) k/uL Monocytes # (Manual) (0-1.0) k/uL Eosinophils # (Manual) (0-0.7) k/uL Nucleated RBCs (0-0) /100 WBC Manual Slide Review Macrocytosis PT 10.9 (9.0-12.0) sec INR 1.0 (<1.2) APTT 23.7 (22.0-30.0) sec Sodium (137-145) mmol/L Potassium (3.5-5.1) mmol/L Chloride (98-107) mmol/L Carbon Dioxide (22-30) mmol/L Anion Gap mmol/L BUN (9-20) mg/dL Creatinine (0.66-1.25) mg/dL Est GFR (CKD-EPI)AfAm (>60 ml/min/1.73 sqM) Est GFR (CKD-EPI)NonAf (>60 ml/min/1.73 sqM) Glucose (74-99) mg/dL Calcium (8.4-10.2) mg/dL Total Bilirubin (0.2-1.3) mg/dL AST (17-59) U/L ALT (4-49) U/L Alkaline Phosphatase (38-126) U/L Troponin I (0.000-0.034) ng/mL Total Protein (6.3-8.2) g/dL Albumin (3.5-5.0) g/dL Salicylates mg/dL Acetaminophen ug/mL Serum Alcohol mg/dL - Radiology Data Radiology results: report reviewed (CT brain reveals no acute process), image reviewed (Chest x-ray shows no acute process) Disposition Clinical Impression: Altered mental status Disposition: ADMITTED IP TO THIS HOSP Is patient prescribed a controlled substance at d/c from ED?: No Referrals: Manan Brown MD [Primary Care Provider] - 1-2 days Decision Time: 20:45
[2021-09-12 17:44] LABS: HCT 39.2 % (39.0-53.0); HGB 12.8 gm/dL (13.0-17.5); MCHC 32.6 g/dL (31.0-37.0); MCV 92.1 fL (80.0-100.0); Mean Platelet Volume 9.9; RBC 4.26 m/uL (4.30-5.90); RDW 13.3 % (11.5-15.5); WBC 5.1 k/uL (3.8-10.6)
[2021-09-12 18:03] LABS: ALT 36 U/L (4-49); AST 63 U/L (17-59); Acetaminophen <10.0 ug/mL; African American GFR (CKD) >90 (>60 ml/min/1.73 sqM); Albumin 4.8 g/dL (3.5-5.0); Alcohol <10 mg/dL; Alkaline Phosphatase 122 U/L (38-126); Anion Gap 14 mmol/L; Blood Urea Nitrogen 11 mg/dL (9-20); Carbon Dioxide 15 mmol/L (22-30); Chloride 114 mmol/L (98-107); Glucose 96 mg/dL (74-99); Non-African American GFR(CKD) 80 (>60 ml/min/1.73 sqM); Salicylate <1.0 mg/dL; Sodium 143 mmol/L (137-145); Total Bilirubin 1.6 mg/dL (0.2-1.3); Total Protein 9.1 g/dL (6.3-8.2)
[2021-09-12 18:22] LABS: Eosinophils # (M) 0.15 k/uL (0-0.7); Lymphocytes # (M) 1.43 k/uL (1.0-4.8); Monocytes # (M) 0.26 k/uL (0-1.0); Neutrophils # (M) 3.26 k/uL (1.3-7.7); Neutrophils % (M) 64 %; Nucleated Red Blood Cells 0 /100 WBC (0-0); Total Cells Counted 100
--- NOTE | 2021-09-12 18:22 | CT ---
EXAMINATION TYPE: CT brain wo con DATE OF EXAM: 09/12/2021 COMPARISON: 09/26/2017 HISTORY: Altered mental status. CT DLP: 1178.4 mGycm Automated exposure control for dose reduction was used. Images of the brain obtained without contrast. Ventricles have normal size. There is no mass effect or midline shift. There is no sign of intracrani al hemorrhage. The calvarium is intact. There is normal aeration of the mastoid sinuses. IMPRESSION: Negative unenhanced head CT scan. No adverse change compared to old exam. There is clearing of mucous retention cyst left maxillary sinus compared to old exam.
--- NOTE | 2021-09-12 18:24 | XR ---
EXAMINATION TYPE: XR chest 2V DATE OF EXAM: 09/12/2021 COMPARISON: 03/16/2021 HISTORY: Altered mental status TECHNIQUE: FINDINGS: There is some minimal reticular density left lung base. The other lung cervantes are clear. He art and mediastinum are normal. Diaphragm is normal. There are chest leads. Bony thorax is intact. IMPRESSION: There are some new minimal reticular interstitial left lower lobe density compared to old exam. Normal heart.
[2021-09-12 18:28] LABS: Potassium 4.9 mmol/L (3.5-5.1)
[2021-09-12 19:28] LABS: Mean Platelet Volume 7.3; Platelet Count 239 k/uL (150-450)
[2021-09-12 19:42] LABS: Partial Thromboplastin Time 23.7 sec (22.0-30.0); Prothrombin Time 10.9 sec (9.0-12.0)
[2021-09-12] MEDS ORDERED: LORazepam 2 MG/ML INJ IV PRN (20:45)
[2021-09-12] MEDS ORDERED: NALOXONE 0.4 MG/ML 1 ML VIAL IV PRN (20:45)
[2021-09-12] MEDS: SODIUM CHLORIDE 0.9% 1,000 ML IV SCH (21:44)
[2021-09-12 23:20] LABS: Appearance,Urine Clear (Clear); Bilirubin,Urine Negative (Negative); Blood,Urine Negative (Negative); Color,Urine Yellow; Glucose,Urine (UA) Negative (Negative); Ketones,Urine Negative (Negative); Leukocyte Esterase,Urine Negative (Negative); Nitrite,Urine Negative (Negative); PH, Urine 6.5 (5.0-8.0); Protein,Urine Negative (Negative); Specific Gravity,Urine 1.012 (1.001-1.035); Urobilinogen,Urine <2.0 mg/dL (<2.0)
[2021-09-12 23:29] LABS: Amphetamine Screen,Urine Not Detected (NotDetected); Barbiturate Screen,Urine Not Detected (NotDetected); Benzodiazepines Screen,Urine Detected (NotDetected); Cocaine Screen,Urine Not Detected (NotDetected); Methadone Screen, Urine Not Detected (NotDetected); Opiate Screen,Urine Not Detected (NotDetected); Oxycodone Screen, Urine Not Detected (NotDetected); Phencyclidine Screen,Urine Not Detected (NotDetected); Tricyclic Antidepressant,Urine Detected (NotDetected); Urn Cannabinoid Scrn Not Detected (NotDetected)
[2021-09-12] MEDS ORDERED: IBUPROFEN 400 MG TAB PO PRN (23:32)
[2021-09-12] MEDS ORDERED: RIVAROXABAN 20 MG TAB PO SCH (23:45)
[2021-09-13] MEDS: PRAZOSIN 1 MG CAP PO SCH ×2 (00:13→21:38)
[2021-09-13] MEDS: LITHIUM CARBONATE 300 MG CAP PO SCH ×2 (00:13→21:38)
[2021-09-13] MEDS: TOPIRAMATE 100 MG TAB PO SCH ×3 (00:13→21:38)
[2021-09-13] MEDS: PROPRANOLOL 10 MG TAB PO SCH ×3 (00:13→21:38)
[2021-09-13] MEDS: DOXEPIN 25 MG CAP PO SCH ×2 (00:14→21:39)
[2021-09-13] MEDS: clonazePAM 1 MG TAB PO SCH ×3 (00:14→21:39)
[2021-09-13] MEDS: ARIPiprazole 5 MG TAB PO SCH ×2 (00:15→21:38)
[2021-09-13] MEDS: PANTOPRAZOLE 40 MG TABLET PO SCH ×2 (00:15→21:38)
[2021-09-13] MEDS: RIVAROXABAN 10 MG TAB PO SCH ×2 (00:52→21:19)
[2021-09-13] MEDS: LEVOTHYROXINE 50 MCG TAB PO SCH (05:27)
[2021-09-13] MEDS: POTASSIUM CHLORIDE ER 20 MEQ TAB.ER PO SCH ×2 (07:40→21:38)
[2021-09-13] MEDS ORDERED: BACLOFEN 10 MG TAB PO PRN (09:00)
[2021-09-13 09:05] LABS: Basophils # (A) 0.05 X 10*3/uL (0.00-0.10); Basophils % (A) 0.7 %; Eosinophils # (A) 0.12 X 10*3/uL (0.04-0.35); Eosinophils % (A) 1.7 %; HCT 41.3 % (39.6-50.0); Immature Grans, Automated 0.4 %; Lymphocytes # (A) 2.07 X 10*3/uL (0.90-5.00); Lymphocytes % (A) 30.1 %; MCH 29.2 pg (27.0-32.0); MCHC 31.5 g/dL (32.0-37.0); MCV 92.8 fL (80.0-97.0); Mean Platelet Volume 9.4 fL (9.5-12.2); Monocytes # (A) 0.56 X 10*3/uL (0.20-1.00); Monocytes % (A) 8.2 %; NRBC Per 100 WBC 0 /100 WBCS (0.0-0.0); Neutrophils # (A) 4.04 X 10*3/uL (1.80-7.70); Neutrophils % (A) 58.9 %; Platelet Count 245 X 10*3/uL (140-440); RBC 4.45 X 10*6/uL (4.40-5.60); RDW 13.3 % (11.5-14.5); WBC 6.87 X 10*3/uL (4.50-10.00)
[2021-09-13 09:10] LABS: African American GFR (CKD) 103.4 (60.0-200.0); Albumin 4.2 g/dL (3.8-4.9); Albumin/Globulin Ratio 1.5 (1.60-3.17); Anion Gap 11.6 mmol/L (10.00-18.00); Calcium 8.9 mg/dL (8.7-10.3); Carbon Dioxide 20.4 mmol/L (20.0-27.5); Globulin 2.8 g/dL (1.6-3.3); Non-African American GFR(CKD) 89.2 (60.0-200.0); Potassium 3.9 mmol/L (3.5-5.5); Total Bilirubin 0.4 mg/dL (0.30-1.20)
--- NOTE | 2021-09-13 09:15 | P.CNNES ---
History of Present Illness Consult date: 09/13/21 Requesting physician: Jonatan Horvath Reason for Consult: altered mental status History of Present Illness: This is a 46-year-old gentleman with history of non-hodgkins MALT lymphoma since 2003 post chemotherapy (last in 2004), occipital ncepalgia and trigeminal neurlagia, tremors, hypertension, hyperlipidemia, pulmonary embolism, DVT on anticoagulation, hypothyroidism, history of tobacco use (stopped in 2012), alcohol use (stopped 3 years ago) who presents emergency department on 09/12/2021 for episode of unresponsiveness. She stated that he was at home and that he was sitting in his recliner chair and all the sudden he passed out and he was on the floor and this happened around 4 PM yesterday. He is not sure how long the episode lasted for but he denies any urinary or bowel incontinence or any tongue bite or shortness of the tongue. Upon waking up he called for help and his mom called EMS. This event was witnessed when this happened according to the patient. He denies any history of seizures, stroke or TIA in the past. He denies any warning signs prior to passing out. He denies of any alcohol use and he said the last alcohol use was about 3 years ago and he doesn't have history of significant alcohol use in the past for 12 years area he also smoked about a half a pack a day for 20 years and stopped in 2012. Regarding his non- Hodgkin MALT lymphoma he said he is in remission and follows up with the oncologist Dr. Bah. He follows up with Dr. Ni for his headache occipital and trigeminal neuralgia. He states that that regarding his tremor that he has had for 3 years he was told by his neurologist Dr. Ni that it's unclear the cause. He said that he was tried on propranolol and that has not helped. Per the ED note it is mentioned that the patient was found unresponsive by EMS. Patient stated that he has history of anxiety, borderline percentile disorder, major depression disorder. Patient is on Xarelto 20 mg daily at bedtime, Zocor 80 mg daily at bedtime, Synthroid, Topamax 100 mg 1 tablet twice a day, propranolol 10 mg 1 tablet twice a day, prazosin 2 mg daily at bedtime, baclofen 20 mg every 4 hours as needed, Klonopin 1 mg 1 tablet twice a day, lithium 900 mg daily at bedtime, Abilify 5 mg daily at bedtime. Some other workup in the hospital consisted of: Initial vital signs his blood pressure of 133/96, heart rate of 82, respiratory of 20, temperature of 99.3 Fahrenheit oral, pulse ox of 95% room air. White blood cell is 5.1 thousand, MCV 92.1. Sodium is 143, BUN is 11, creatinine is 1.09, glucose is 96, calcium is 9.0, AST of 63 and ALT of 36. Urinalysis is negative for urinary tract infection. Urine drug screen is positive for tricyclic antidepressant and benzodiazepine otherwise rest is nondetected. Sessile it's is less than 1.0, acetaminophen is less than 10.0, serum alcohol was less than 10. CT of the head is reported as negative unenhanced head CT scan. No adverse change compared to old exam. There is clearing of mucus retention cyst left m axillary sinus compared to old exam. Review of Systems Review of system: The 12 point system was reviewed and apparent positive and negative per HPI. Past Medical History Past Medical History: Cancer, Deep Vein Thrombosis (DVT), GERD/Reflux, Hyperlipidemia, Hypertension, Osteoarthritis (OA), Pneumonia, Pulmonary Embolus (PE), Thyroid Disorder Additional Past Medical History / Comment(s): HX HEADACHES AND DIZZINESS, Hx LYMPHOMA 2003, bulging disc in neck. 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 , no longer on bp meds, states Covid May-2020, pneumonia Aug 2020 .,states current blood clot right leg and in lungs., frequent diarrhea., back, neck & hip pain. History of Any Multi-Drug Resistant Organisms: None Reported Past Surgical History: Hernia Repair Additional Past Surgical History / Comment(s): vasectomy, wisdom teeth removed, pain procedures Past Anesthesia/Blood Transfusion Reactions: No Reported Reaction Past Psychological History: Anxiety, Depression, PTSD Smoking Status: Former smoker Past Alcohol Use History: None Reported Additional Past Alcohol Use History / Comment(s): QUIT SMOKING 2012, smoked for about 20 yrs Past Drug Use History: None Reported, Marijuana Additional Drug Use History / Comment(s): no current marijuana (quit 1 month ago) - Past Family History Mother Family Medical History: No Reported History Father Family Medical History: Cancer Medications and Allergies Home Medications Medication Instructions Recorded Confirmed Type Omeprazole [PriLOSEC] 20 mg PO HS 12/27/14 09/12/21 History Baclofen [Lioresal] 20 mg PO Q48H PRN 05/14/19 09/12/21 History Potassium Chloride ER [K-Dur 20] 20 meq PO BID 07/19/20 09/12/21 History Rivaroxaban [Xarelto] 20 mg PO HS 02/14/21 09/12/21 History ARIPiprazole [Abilify] 5 mg PO HS 30 Days tab 07/04/21 09/12/21 Rx Doxepin [SINEquan] 75 mg PO HS 30 Days cap 07/04/21 09/12/21 Rx Propranolol [Inderal] 10 mg PO BID 30 Days tab 07/04/21 09/12/21 Rx Topiramate [Topamax] 100 mg PO BID 30 Days tab 07/04/21 09/12/21 Rx Ibuprofen [Motrin] 800 mg PO QID PRN 09/12/21 09/12/21 History Levothyroxine Sodium [Synthroid] 50 mcg PO DAILY 09/12/21 09/12/21 History [place] Carbonate 900 mg PO HS 09/12/21 09/12/21 History Prazosin HCl 2 mg PO HS 09/12/21 09/12/21 History Simvastatin [Zocor] 80 mg PO HS 09/12/21 09/12/21 History clonazePAM [KlonoPIN] 1 mg PO BID 09/12/21 09/12/21 History Allergies Allergy/AdvReac Type Severity Reaction Status Date / Time No Known Allergies Allergy Verified 09/12/21 19:06 Physical Examination - Vital Signs Vital Signs: Vital Signs Temp Pulse Pulse Resp BP BP Pulse Ox 09/13/21 07:42 18 09/13/21 07:36 97.4 F L 65 18 125/83 98 09/13/21 01:47 84 18 09/13/21 00:31 98.0 F 76 18 132/87 96 09/12/21 22:01 98.4 F 84 18 155/98 98 09/12/21 20:45 79 18 133/94 96 09/12/21 18:57 79 18 135/95 96 09/12/21 17:20 99.3 F 82 20 133/96 95 Intake and Output 09/12/21 09/13/21 09/13/21 22:59 06:59 14:59 Other: Voiding Method Toilet Toilet # Voids 1 1 Weight 104.326 kg GENERAL: The patient is lying in bed and is not in acute distress. CHEST: The heart rate is regular rate rhythm. No murmurs to auscultation. No carotid bruit bilaterally. LUNG: Clear to auscultation bilaterally no wheezing noted throughout. Not labored breathing. ABDOMEN/GI: Bowel sounds present in all 4 quadrants. No tenderness to palpation throughout. NEUROLOGICAL: Higher mental function: The patient is awake, alert, oriented to self, place and time. Patient is following commands. No aphasia and no neglect. Cranial nerves: The pupils are round, equal and reactive to light and accommodation. Visual cervantes are full to confrontation throughout. Extraocular movement is intact no nystagmus is noted. Facial sensation is normal to touch throughout. The facial strength is normal throughout. Hearing is normal bilaterally to hand rub. Tongue is midline and moved [id number] without any difficulty. No dysarthria is noted. Shoulder shrug is normal bilaterally. Has tremors over head and bilateral arms at rest. Motor: Gait is deferred. The strength is 5 over 5 throughout. Normal tone and bulk. Cerebellum: Normal finger to nose heel to dejesus bilaterally. Sensation: Sensation is normal to touch throughout. Reflexes (right/left): 2+ throughout. Plantars are downgoing bilaterally. Results - Laboratory Findings CBC and BMP: 09/12/21 19:00 09/12/21 17:32 Abnormal Lab Findings: Abnormal Labs 09/12/21 09/12/21 09/12/21 17:32 17:32 22:54 RBC 4.26 L Hgb 12.8 L Chloride 114 H Carbon Dioxide 15 L Total Bilirubin 1.6 H AST 63 H Total Protein 9.1 H U Tricyclic Antidepress Detected H U Benzodiazepines Scrn Detected H Assessment and Plan Assessment: Syncopal episode (had episode of unresponsiveness. He denies any urinary, bowel icontinence or tongue bite). Patient is afebrile and the there is no leukocytosis to suggest meningeal encephalitis. Rule out seizure. History of Non-hodgkins MALT lymphoma since 2003 and last chemotherapy in 2004 Tremor for 3 years involving head and bilateral upper extremities. Unsure exact cause that he was notified by his outpatient neurologist History of Trigemenal and occipital neuralgia History of hypertension and on presentation his blood pressure was slightly elevated History of pulmonary embolism on Xarelto History of DVT on Xarelto Hypothyroidism History of major depression disorder History of anxiety History of borderline personality Plan: I ordered MRI of the brain with and without. I ordered a routine EEG. I'll not start the patient on antiepileptic drugs unless there is up to foam discharges or seizure on the EEG Ordered TSH, vitamin B12, folate, ammonia level Every 4 neuro checks Ordered lithium level Ordered 2D echo We'll defer the rest of the medical management to the primary team Upon discharge, the patient needs to follow-up with his neurologist as outpatient (Dr. Ni) within 1-2 weeks The plan is discussed with patient and his nurse. Thank you for the consultation Alexis Villalta M.D. Neuro-hospitalist Time with Patient: Greater than 30
[2021-09-13] MEDS: SODIUM CHLORIDE 0.9% 1,000 ML IV SCH ×2 (12:35→21:39)
--- NOTE | 2021-09-13 17:09 | EEG ---
ELECTROENCEPHALOGRAM REPORT DATE OF SERVICE: 09/13/2021 CLINICAL HISTORY: This is a 46-year-old gentleman who had a syncopal episode at home. The video EEG is obtained to evaluate for seizure epileptiform activity. RELEVANT MEDICATION: The patient is not on any antiepileptic drugs. EEG TYPE: A routine 21-channel EEG is performed with video using the 10/20 electrode placement system. DESCRIPTION: Wakefulness is only obtained. During awake state, the background consists of low to moderate voltage that is well modulated and sustained of 8 to 8.5 hertz activity. There is no physiological sleep architecture. There is rare left temporal and central slowing (predominately over temporal derivatives). Interictal and ictal is none. ACTIVATION PROCEDURE: Photic stimulation and hyperventilation are not performed. CLINICAL INTERPRETATION: This is an abnormal routine EEG. The is rare focal slowing over the left temporal region possible due to focal cerebral dysfunction. Otherwise, the background is normal and there is no epileptiform discharges or seizure on the EEG. Clinical correlation is recommended. DARIEN / KATIE: [id number] / KAYLIN
[2021-09-13 17:52] LABS: Folate, Serum 15.6 ng/mL (4.40-31.00)
--- NOTE | 2021-09-13 18:07 | HP ---
HISTORY AND PHYSICAL CHIEF COMPLAINT: Syncopal episode. HISTORY OF PRESENT ILLNESS: This is another admission for this 46-year-old white male who has had psychiatric problems on and off in the past. He has been doing fairly well. Apparently he was sitting at home on a recliner and suddenly passed out. He had not stood up. He had no headache, chest pain, loss of sphincter control, aura or any other difficulties after he awoke. He denied any diaphoresis, focal neurologic deficits, tremors, etc. Review of systems is otherwise unremarkable. Past medical history, family history, and personal and social histories reveal that he has been on: 1. Xarelto for a previous pulmonary embolism. 2. Simvastatin 80 mg at bedtime. 3. Levothyroxine 0.05 mg. 4. Omeprazole 20 mg once a day. 5. Ibuprofen 800 mg q.i.d. p.r.n. 6. KCl 20 mEq twice a day. 7. [place] carbonate 300 mg four at bedtime. 8. Klonopin 0.5 twice a day. 9. Prazosin 2 at bedtime. 10.Baclofen 20 mg four times a day as needed. 11.Vitamin D. 12.Doxepin 25 mg three every night. 13.Ultram 50 mg p.r.n. 14.Azelastine nasal solution once a day. 15.Imodium p.r.n. 16.Aripiprazole 5 mg once a day. 17.Topiramate 100 mg twice a day. The remainder of his history is unremarkable. He does not drink. He used to smoke but does not any longer. He lives with his mother. PHYSICAL EXAMINATION: Blood pressure 126/72 with a pulse of 77, respirations of 15. He is afebrile. In general he appeared to be slightly overweight, in no acute distress. Skin color is normal. Skin is warm, dry. Lymph nodes are not enlarged. Head, ears, eyes, nose, mouth and throat were normal. Neck veins were not distended. Thyroid is not enlarged. Chest is clear. Cardiac exam is normal. Abdomen is soft, nontender. Extremities are normal. He does have a slight tremor in the left lower extremity. IMPRESSION: 1. Syncopal episode; etiology unknown. 2. ? seizure. 3. Depression. 4. Schizophrenia. PLAN: 1. Bedrest. 2. IV fluids. 3. Seizure precautions. 4. Frequent neurologic checks and vital signs. 5. Neurology consult. DARIEN / KATIE: [id number] /
--- NOTE | 2021-09-13 18:13 | PN ---
PROGRESS NOTE DATE OF SERVICE: 09/13/2021 CHIEF COMPLAINT: Syncope. HISTORY OF PRESENT ILLNESS: This gentleman is doing well. He is awake and alert. He has had no further problems. He is not lethargic. He has no neurologic complaints such as change in vision or hearing, weakness, numbness, tremors, etc. PHYSICAL EXAMINATION: His chest is clear. Cardiac exam is normal. Abdomen is soft, nontender. IMPRESSION: Syncopal event; etiology unknown. PLAN: Continue with neurologic evaluation. MMODL / IJN: [id number] /
[2021-09-14] MEDS: LEVOTHYROXINE 50 MCG TAB PO SCH (05:22)
[2021-09-14 08:25] VITALS: RESP 16
[2021-09-14] MEDS: POTASSIUM CHLORIDE ER 20 MEQ TAB.ER PO SCH (08:30)
[2021-09-14] MEDS: clonazePAM 1 MG TAB PO SCH (08:30)
[2021-09-14] MEDS: TOPIRAMATE 100 MG TAB PO SCH (09:44)
[2021-09-14] MEDS: PROPRANOLOL 10 MG TAB PO SCH (09:44)
--- NOTE | 2021-09-14 11:12 | ECHOF ---
Referral Reason:syncope MEASUREMENTS -------- HEIGHT: 177.8 cm WEIGHT: 104.3 kg BP: 125/83 IVSd: 1.0 cm (0.6 - 1.1) LVIDd: 4.9 cm (3.9 - 5.3) LVPWd: 0.9 cm (0.6 - 1.1) EDV(Teich): 111 ml IVSs: 1.5 cm LVIDs: 3.4 cm LVPWs: 1.3 cm %IVS Thck: 54 % ESV(Teich): 48 ml EF(Teich): 57 % %FS: 30 % SV(Teich): 63 ml LA Diam: 3.2 cm (2.7 - 3.8) RVIDd: 3.2 cm (< 3.3) Ao Diam: 3.3 cm (2.0 - 3.7) AV Cusp: 2.1 cm (1.5 - 2.6) EPSS: 1.0 cm MV E Rhys: 0.83 m/s MV DecT: 212 ms MV Dec Robeson: 3.9 m/s MV A Rhys: 0.62 m/s MV E/A Ratio: 1.35 MV PHT: 62 ms AV Vmax: 1.09 m/s AV maxP.79 mmHg TR Vmax: 1.97 m/s TR maxP.45 mmHg RAP: 5.00 mmHg RVSP: 20.45 mmHg MV EF SLOPE: 99.46 mm/s (70 - 150) MV EXCURSION: 13.99 mm (> 18.000) FINDINGS -------- Sinus rhythm. This was a technically good study. The left ventricular size is normal. Left ventricular wall thickness is normal. Overall left vent ricular systolic function is normal with, an EF between 55 - 60 %. The right ventricle is normal in size. The left atrium is normal in size. The right atrium is normal in size. Interatrial and interventricular septum intact. The aortic valve is trileaflet, and appears structurally normal. No aortic stenosis or regurgitation. There is trace mitral regurgitation. Mild tricuspid regurgitation present. Right ventricular systolic pressure is normal at < 35 mmHg. Trace/mild (physiologic) pulmonic regurgitation. The aortic root size is normal. Normal inferior vena cava with normal inspiratory collapse consistent with estimated right atrial pre ssure of 5 mmHg. There is no pericardial effusion. CONCLUSIONS -------- 1. The left ventricular size is normal. 2. Left ventricular wall thickness is normal. 3. Overall left ventricular systolic function is normal with, an EF between 55 - 60 %. 4. There is trace mitral regurgitation. 5. Mild tricuspid regurgitation present. 6. Trace/mild (physiologic) pulmonic regurgitation. 7. There is no pericardial effusion. CERTIFIED PESTICIDE APPLICATOR: Heidi Rodriguez RDCS
[2021-09-14 15:33] VITALS: BP 95/56; PULSE 69; TEMP 98.2
[2021-09-14] MEDS: SODIUM CHLORIDE 0.9% 1,000 ML IV SCH (16:12)
--- NOTE | 2021-09-14 16:23 | P.PN ---
Subjective Progress Note Date: 09/14/21 The patient is seen at bedside and he states he is doing well. No further seizure-like episodes. Pending MRI Brain. Objective - Vital Signs Vital signs: Vital Signs Temp 98.2 F 09/14/21 15:00 Pulse 69 09/14/21 15:00 Resp 16 09/14/21 15:00 BP 95/56 09/14/21 15:00 Pulse Ox 94 L 09/14/21 15:00 Intake & Output 09/13/21 09/14/21 09/14/21 18:59 06:59 18:59 Intake Total 1302 580 Balance 1302 580 Intake: Oral 1302 580 Other: Voiding Method Toilet Toilet Toilet # Voids 2 2 - Exam GENERAL: The patient is lying in bed and is not in acute distress. NEUROLOGICAL: Higher mental function: The patient is awake, alert, oriented to self, place and time. Patient is following commands. No aphasia and no neglect. Cranial nerves: The pupils are round, equal and reactive to light and accommodation. Visual cervantes are full to confrontation throughout. Extraocular movement is intact no nystagmus is noted. Facial sensation is normal to touch throughout. The facial strength is normal throughout. Hearing is normal bilaterally to hand rub. Tongue is midline and moved [id number] without any difficulty. No dysarthria is noted. Shoulder shrug is normal bilaterally. Has tremors over head and bilateral arms at rest. Motor: Gait is deferred. The strength is 5 over 5 throughout. Normal tone and bulk. Cerebellum: Normal finger to nose heel to dejesus bilaterally. Sensation: Sensation is normal to touch throughout. Reflexes (right/left): 2+ throughout. Plantars are downgoing bilaterally. WORK-UP: Routine EEG: This is a normal routine EEG. There is no focal slowing, epileptiform discharges or seizure on the EEG. [place] level is 1.0 which is subtherapeutic level Vitamin B12 is 441. Serum folate is 15.6 TSH is 0.278 and is free T4 is 1.03. 2-D echo was reported as left ventricle systolic function is normal with eject ion fraction of 55-60%. Left atrium is normal in size. - Labs CBC & Chem 7: 09/13/21 05:45 09/13/21 05:45 Labs: Abnormal Lab Results - Last 24 Hours (Table) 09/13/21 Range/Units 05:45 TSH 0.278 L (0.350-5.500) uIU/mL Assessment and Plan Assessment: Syncopal episode (had episode of unresponsiveness. He denies any urinary, bowel icontinence or tongue bite). Patient is afebrile and the there is no leukocytosis to suggest meningeal encephalitis. Rule out seizure. History of Non-hodgkins MALT lymphoma since 2003 and last chemotherapy in 2004 Tremor for 3 years involving head and bilateral upper extremities. Unsure exact cause that he was notified by his outpatient neurologist History of Trigemenal and occipital neuralgia History of hypertension and on presentation his blood pressure was slightly elevated History of pulmonary embolism on Xarelto History of DVT on Xarelto Hypothyroidism History of major depression disorder History of anxiety History of borderline personality Plan: I ordered MRI of the brain with and without. Routine EEG is normal and did not reveal any seizures. I will order 2.5 hour ambulatory EEG (outpatient) and it will be coordinated by film technician. Every 4 neuro checks We'll defer the rest of the medical management to the primary team Upon discharge, the patient needs to follow-up with his neurologist as outpatient (Dr. Ni) within 1-2 weeks The plan is discussed with patient and his nurse. Alexis Villalta M.D. Neuro-hospitalist Time with Patient: Less than 30
--- NOTE | 2021-09-14 17:37 | MR ---
EXAMINATION TYPE: MR brain wo con DATE OF EXAM: 09/14/2021 COMPARISON: 09/10/2018 HISTORY: altered mental status. Seizure protocol. Multiplanar multiecho imaging of the brain performed without contrast. Ventricles and sulci appear normal. There is no mass effect or midline shift. Diffusion images show n o evidence of acute infarct. Corpus callosum appears intact. Brainstem is intact. Cerebellum appears normal. Sella turcica is normal. There is no evidence of orbital mass. There is no evidence of cerebral edema . There is a pair of 5 mm foci of increased signal in the white matter left parietal lobe on the T2 a nd FLAIR images.: IMPRESSION: Isolated small white matter high signal foci in the left parietal lobe not significantly different th an old exam. No evidence of a new white matter lesion. No cortical infarct. There is improvement in the sinusitis compared to old exam.
--- NOTE | 2021-09-15 16:06 | DS ---
DISCHARGE SUMMARY CHIEF COMPLAINT: Syncopal episode. HISTORY OF PRESENT ILLNESS AND PHYSICAL EXAMINATION: Details of this man's history and physical can be found in the initial workup. LABORATORY STUDIES: While he was in the hospital he had laboratory studies, details of which can be found in the laboratory section of his chart. COURSE IN THE HOSPITAL: After admission he was placed on bedrest and started on intravenous fluids and frequent monitoring of his neurologic status and vital signs. He was seen by Neurology and studies were all negative. The reason for his syncope was not clear. He will be followed up in the office. FINAL DIAGNOSIS: 1. Syncopal episode, etiology unknown. 2. Schizophrenia. 3. Major depression. OPERATIONS: None. CONSULTATION: Neurology. He is improved. MMODL / IJN: [id number] /
== END 2021-09-14 18:12 | disposition home or self-care (01) ==
LOC: EC 17:19 → 6NMEDSUR 20:47
PROVIDERS: ADMIT Family Medicine; ATTEND Family Medicine
DX: R55 Syncope and collapse (principal); R56.9 Unspecified convulsions; R41.82 Altered mental status, unspecified; F20.9 Schizophrenia, unspecified; F32.A Depression, unspecified; R25.1 Tremor, unspecified; K21.9 Gastro-esophageal reflux disease without esophagitis; M19.90 Unspecified osteoarthritis, unspecified site; E03.9 Hypothyroidism, unspecified; E78.5 Hyperlipidemia, unspecified; M50.20 Other cervical disc displacement, unspecified cervical region; M54.50 Low back pain, unspecified; M25.559 Pain in unspecified hip; M54.81 Occipital neuralgia; G50.0 Trigeminal neuralgia; R19.7 Diarrhea, unspecified; F43.10 Post-traumatic stress disorder, unspecified; F60.3 Borderline personality disorder; F41.9 Anxiety disorder, unspecified; Z79.01 Long term (current) use of anticoagulants; Z79.890 Hormone replacement therapy; Z79.899 Other long term (current) drug therapy; Z98.52 Vasectomy status; I10 Essential (primary) hypertension; Z87.01 Personal history of pneumonia (recurrent); Z85.72 Personal history of non-Hodgkin lymphomas; Z86.711 Personal history of pulmonary embolism; Z86.718 Personal history of other venous thrombosis and embolism; Z87.891 Personal history of nicotine dependence; Z92.21 Personal history of antineoplastic chemotherapy; Z86.16 Personal history of COVID-19
CPT/HCPCS: 99285; 96361 ×3; 96374; 36415; 95816; 93005; 93306; 84439; 80053 ×2; 84443; 82607; 82746; 80178; 84484; 85025 ×2; 85049; 85610; 85730; 81003; 80306; 80143; 80179; 71046; 70450; 70551; G0378 ×3; G0480; J2060; 80320

== ENCOUNTER → 2021-10-03 | Outpatient (CLI) | payer OTHER ==
[2021-10-03 17:27] LABS: Cardiolipin Ab IgG Interp NEGATIVE (NEGATIVE); Cardiolipin Ab IgM Interp NEGATIVE (NEGATIVE); Cardiolipin IgA Antibody <2.0 U/mL; Cardiolipin IgM Antibody <1.5 U/mL
[2021-10-03 17:56] LABS: INR 0.9 (<1.2); Partial Thromboplastin Time 24.4 sec (22.0-30.0); Prothrombin Time 10.2 sec (9.0-12.0)
[2021-10-04 10:14] LABS: Protein C (Activity) 72 % (71-138)
[2021-10-04 11:46] LABS: Anti-Thrombin III Antigen 104 % (80 - 120); Free Protein S Antigen 111 % (57 - 171)
[2021-10-04 13:49] LABS: APTT 37 Sec(s) (<43); Dilute Russell Viper Venom 29 Sec(s) (<44)
== END | disposition home or self-care (01) ==
LOC: LABWHC1 09:52
PROVIDERS: ATTEND Internal Medicine Critical Care Medicine
DX: I26.99 Other pulmonary embolism without acute cor pulmonale (principal)
CPT/HCPCS: 36415; 81240; 81241; 85301; 85303; 85306; 85610; 85613; 85730; 86147

== ENCOUNTER → 2021-10-04 | Outpatient (CLI) | payer OTHER ==
--- NOTE | 2021-10-12 11:35 | HM ---
24 Hour Holter monitor note: Patient wore a Holter monitor for 24 hrs from 10/04/2021 until 10/05/2021. Findings: Patient's baseline heart rate was normal sinus rhythm. There were no signficant atrial fibrillation, atrial flutter, or ventricular tachycardia episodes. There were no significant pauses greater than 2 seconds. Patient's minimum heart rate was 58. Patient's maximum heart rate was 118. Patient's average heart rate was 77. There were a total of 25 PVCs noted which were asymptomatic. Patient had 4 activated events with episodes of chest pain which corresponded with normal sinus rhythm. Conclusions: 24-hour Holter monitor showing normal sinus rhythm with rare asymptomatic 25 total PVCs. Patient activated events of chest pain corresponding with normal sinus rhythm. [facility]
== END | disposition home or self-care (01) ==
LOC: RADECHMAIN 11:43
PROVIDERS: ATTEND Family Medicine
DX: R55 Syncope and collapse (principal)
CPT/HCPCS: 93225; 93226

== ENCOUNTER 2021-10-14 03:29 | Emergency (ER) | payer OTHER ==
[2021-10-14] MEDS ORDERED: SODIUM CHLORIDE 0.9% 1,000 ML IV ONE (03:48)
[2021-10-14 04:09] LABS: Basophils # (A) 0.1 k/uL (0-0.2); Basophils % (A) 1 %; Eosinophils # (A) 0.3 k/uL (0-0.7); Eosinophils % (A) 5 %; HCT 39.8 % (39.0-53.0); HGB 12.7 gm/dL (13.0-17.5); Lymphocytes # (A) 2.1 k/uL (1.0-4.8); Lymphocytes % (A) 32 %; MCH 29.7 pg (25.0-35.0); MCHC 31.9 g/dL (31.0-37.0); Mean Platelet Volume 7.1; Monocytes # (A) 0.4 k/uL (0-1.0); Monocytes % (A) 7 %; Neutrophils # (A) 3.4 k/uL (1.3-7.7); Neutrophils % (A) 53 %; Platelet Count 234 k/uL (150-450); RBC 4.28 m/uL (4.30-5.90); RDW 13.6 % (11.5-15.5); WBC 6.5 k/uL (3.8-10.6)
--- NOTE | 2021-10-14 04:18 | CT ---
EXAMINATION TYPE: CT brain wo con DATE OF EXAM: 10/14/2021 COMPARISON: 09/25/2021 HISTORY: fall CT DLP: 1158.4 mGycm Automated exposure control for dose reduction was used. CT brain without contrast. Ventricles have fairly normal size. There is no mass effect or midline shift. There is no sign of int racranial hemorrhage. No evidence of cerebral edema. There is some mild hyperostosis of the calvarium . Sella turcica appears normal. There is normal aeration of the mastoid sinuses. IMPRESSION: Negative unenhanced head CT scan. No evidence of traumatic injury. No change.
[2021-10-14 04:19] LABS: ALT 23 U/L (4-49); AST 43 U/L (17-59); African American GFR (CKD) >90 (>60 ml/min/1.73 sqM); Alkaline Phosphatase 88 U/L (38-126); Anion Gap 7 mmol/L; Blood Urea Nitrogen 10 mg/dL (9-20); Calcium 8.4 mg/dL (8.4-10.2); Carbon Dioxide 20 mmol/L (22-30); Chloride 114 mmol/L (98-107); Glucose 108 mg/dL (74-99); Non-African American GFR(CKD) >90 (>60 ml/min/1.73 sqM); Sodium 141 mmol/L (137-145); Total Bilirubin 0.7 mg/dL (0.2-1.3); Total Protein 7.5 g/dL (6.3-8.2)
[2021-10-14 04:23] LABS: Potassium 4.2 mmol/L (3.5-5.1)
[2021-10-14 04:33] LABS: Lithium 0.8 mmol/L
[2021-10-14] MEDS ORDERED: diphenhydrAMINE 50 MG/ML 1 ML VIAL IVP STA (05:11)
[2021-10-14] MEDS ORDERED: KETOROLAC 15 MG/ML 1 ML VIAL IVP STA (05:11)
--- NOTE | 2021-10-14 05:25 | ED ---
Headache HPI - General Chief Complaint: Headache Stated Complaint: Headache Time Seen by Provider: 10/14/21 03:34 Mode of arrival: EMS Limitations: no limitations - History of Present Illness Initial Comments: This patient is 46-year-old man who complains of having headache that is been persistent. He did have head injury recently. His heel head was struck on counter at home. Also having some associated nausea. No neck pain. MD Complaint: headache -: days(s) Onset Description: sudden Location: frontal Severity: severe Quality: aching Consistency: constant Improves With: nothing Worsens With: none Context: recent head injury Associated Symptoms: nausea - Related Data Home Medications Medication Instructions Recorded Confirmed Omeprazole [PriLOSEC] 20 mg PO HS 12/27/14 09/12/21 Baclofen [Lioresal] 20 mg PO Q48H PRN 05/14/19 09/12/21 Potassium Chloride ER [K-Dur 20] 20 meq PO BID 07/19/20 09/12/21 Rivaroxaban [Xarelto] 20 mg PO HS 02/14/21 09/12/21 Ibuprofen [Motrin] 800 mg PO QID PRN 09/12/21 09/12/21 Levothyroxine Sodium [Synthroid] 50 mcg PO DAILY 09/12/21 09/12/21 Prue Carbonate 900 mg PO HS 09/12/21 09/12/21 Prazosin HCl 2 mg PO HS 09/12/21 09/12/21 Simvastatin [Zocor] 80 mg PO HS 09/12/21 09/12/21 clonazePAM [KlonoPIN] 1 mg PO BID 09/12/21 09/12/21 Previous Rx's Medication Instructions Recorded ARIPiprazole [Abilify] 5 mg PO HS 30 Days tab 07/04/21 Doxepin [SINEquan] 75 mg PO HS 30 Days cap 07/04/21 Propranolol [Inderal] 10 mg PO BID 30 Days tab 07/04/21 Topiramate [Topamax] 100 mg PO BID 30 Days tab 07/04/21 Allergies Allergy/AdvReac Type Severity Reaction Status Date / Time No Known Allergies Allergy Verified 09/25/21 14:54 Review of Systems ROS Statement: Those systems with pertinent positive or pertinent negative responses have been documented in the HPI. ROS Other: All systems not noted in ROS Statement are negative. Constitutional: Denies: fever, chills, weakness Eyes: Denies: eye pain, vision change ENT: Denies: epistaxis, congestion Respiratory: Denies: cough, dyspnea Cardiovascular: Denies: chest pain, palpitations, syncope Gastrointestinal: Reports: nausea. Denies: abdominal pain, vomiting Genitourinary: Denies: dysuria Musculoskeletal: Denies: back pain Neurological: Reports: headache. Denies: weakness, numbness, paresthesias, confusion Past Medical History Past Medical History: Cancer, Deep Vein Thrombosis (DVT), GERD/Reflux, Hyperlipidemia, Hypertension, Osteoarthritis (OA), Pneumonia, Pulmonary Embolus (PE), Thyroid Disorder Additional Past Medical History / Comment(s): HX HEADACHES AND DIZZINESS, Hx LYMPHOMA 2003, bulging disc in neck. 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 , no longer on bp meds, states Covid May-2020, pneumonia Aug 2020 .,states current blood clot right leg and in lungs., frequent diarrhea., back, neck & hip pain. History of Any Multi-Drug Resistant Organisms: None Reported Past Surgical History: Hernia Repair Additional Past Surgical History / Comment(s): vasectomy, wisdom teeth removed, pain procedures Past Anesthesia/Blood Transfusion Reactions: No Reported Reaction Past Psychological History: Anxiety, Depression, PTSD Smoking Status: Former smoker Past Alcohol Use History: None Reported Past Drug Use History: None Reported, Marijuana - Past Family History Mother Family Medical History: No Reported History Father Family Medical History: Cancer General Exam Limitations: no limitations General appearance: alert, in no apparent distress Head exam: Present: atraumatic, normocephalic Eye exam: Present: normal appearance, PERRL, EOMI. Absent: scleral icterus, conjunctival injection, nystagmus ENT exam: Present: normal oropharynx Neck exam: Present: normal inspection, full ROM. Absent: tenderness, meningismus Respiratory exam: Present: normal lung sounds bilaterally. Absent: respiratory distress, wheezes, rales, rhonchi, stridor Cardiovascular Exam: Present: regular rate, normal rhythm, normal heart sounds. Absent: systolic murmur, diastolic murmur, rubs, gallop GI/Abdominal exam: Present: soft. Absent: tenderness Extremities exam: Present: normal inspection Back exam: Present: normal inspection. Absent: vertebral tenderness Neurological exam: Present: alert, oriented X3, CN II-XII intact. Absent: motor sensory deficit Skin exam: Present: warm, dry, intact, normal color. Absent: rash Course Vital Signs 10/14/21 10/14/21 10/14/21 03:31 05:16 05:52 Temperature 97.8 F 97.7 F Pulse Rate 76 72 68 Respiratory 18 20 18 Rate Blood Pressure 125/82 111/65 122/84 O2 Sat by Pulse 97 92 L 97 Oximetry Medical Decision Making - Lab Data Result diagrams: 10/14/21 03:56 10/14/21 03:56 Lab Results 10/14/21 10/14/21 Range/Units 03:56 03:56 WBC 6.5 (3.8-10.6) k/uL RBC 4.28 L (4.30-5.90) m/uL Hgb 12.7 L (13.0-17.5) gm/dL Hct 39.8 (39.0-53.0) % MCV 93.0 (80.0-100.0) fL MCH 29.7 (25.0-35.0) pg MCHC 31.9 (31.0-37.0) g/dL RDW 13.6 (11.5-15.5) % Plt Count 234 (150-450) k/uL MPV 7.1 Neutrophils % 53 % Lymphocytes % 32 % Monocytes % 7 % Eosinophils % 5 % Basophils % 1 % Neutrophils # 3.4 (1.3-7.7) k/uL Lymphocytes # 2.1 (1.0-4.8) k/uL Monocytes # 0.4 (0-1.0) k/uL Eosinophils # 0.3 (0-0.7) k/uL Basophils # 0.1 (0-0.2) k/uL Sodium 141 (137-145) mmol/L Potassium 4.2 (3.5-5.1) mmol/L Chloride 114 H (98-107) mmol/L Carbon Dioxide 20 L (22-30) mmol/L Anion Gap 7 mmol/L BUN 10 (9-20) mg/dL Creatinine 0.96 (0.66-1.25) mg/dL Est GFR (CKD-EPI)AfAm >90 (>60 ml/min/1.73 sqM) Est GFR (CKD-EPI)NonAf >90 (>60 ml/min/1.73 sqM) Glucose 108 H (74-99) mg/dL Calcium 8.4 (8.4-10.2) mg/dL Total Bilirubin 0.7 (0.2-1.3) mg/dL AST 43 (17-59) U/L ALT 23 (4-49) U/L Alkaline Phosphatase 88 (38-126) U/L Total Protein 7.5 (6.3-8.2) g/dL Albumin 4.0 (3.5-5.0) g/dL Prue 0.8 mmol/L Disposition Clinical Impression: Head injury Disposition: HOME SELF-CARE Condition: Good Instructions (If sedation given, give patient instructions): Head Injury (ED) Is patient prescribed a controlled substance at d/c from ED?: No Referrals: Manan Brown MD [Primary Care Provider] - 1-2 days
[2021-10-14 05:55] VITALS: BP 122/84; PULSE 68; RESP 18; TEMP 97.7
== END 2021-10-14 05:45 | disposition home or self-care (01) ==
LOC: EC 03:29
DX: S09.90XA Unspecified injury of head, initial encounter (principal); I10 Essential (primary) hypertension; E07.9 Disorder of thyroid, unspecified; K21.9 Gastro-esophageal reflux disease without esophagitis; Z79.899 Other long term (current) drug therapy; Z79.1 Long term (current) use of non-steroidal anti-inflammatories (NSAID); Z87.891 Personal history of nicotine dependence; W22.09XA Striking against other stationary object, initial encounter
CPT/HCPCS: 36415; 80053; 80178; 85025; 70450; 99285; 96374; 96361; J1885

== ENCOUNTER → 2021-10-18 | Outpatient (CLI) | payer OTHER ==
--- NOTE | 2021-10-18 16:02 | US ---
EXAMINATION TYPE: US carotid duplex BILAT DATE OF EXAM: 10/18/2021 COMPARISON: NONE CLINICAL HISTORY: R55 SYNCOPE AND COLLAPSE. EXAM MEASUREMENTS: RIGHT: Peak Systolic Velocity (PSV) cm/sec ----- Right CCA: 118.0 ----- Right ICA: 71.2 ----- Right ECA: 91.8 ICA/CCA ratio: 0.6 RIGHT: End Diastole cm/sec ----- Right CCA: 22.7 ----- Right ICA: 15.6 ----- Right ECA: 91.8 LEFT: Peak Systolic Velocity (PSV) cm/sec ----- Left CCA: 125.0 ----- Left ICA: 63.9 ----- Left ECA: 131.0 ICA/CCA ratio: 0.51 LEFT: End Diastole cm/sec ----- Left CCA: 20.8 ----- Left ICA: 24.6 ----- Left ECA: 13.1 VERTEBRALS (direction of flow): Right Vertebral: Antegrade Left Vertebral: Antegrade Rhythm: Normal Technically difficult study. Patient has large thick neck, high bifurcation and is unable to well lif t his chin. No atherosclerotic changes with no elevations in velocity seen bilaterally. IMPRESSION: 1. No significant flow-limiting stenosis based on velocity measurements. There were some technical li mitations present during this exam Criteria for Assigning % of Stenosis / Diameter reduction (Estimation based on the indirect measurements of the internal carotid artery velocities (ICA PSV). 1. Normal (no stenosis)=ICA PSV < 125 cm/s: ratio < 2.0: ICA EDV<40 cm/s. 2. Less than 50% stenosis=ICA PSV < 125 cm/s: ratio < 2.0: ICA EDV<40 cm/s. 3. 50 to 69% stenosis=ICA PSV of 125 to 230 cm/s: ration 2.0 ? 4.0: ICA EDV 40-100 cm/s. 4. Greater than 70% stenosis to near occlusion= ICA PSV > 230 cm/s: ratio > 4.0: ICA EDV > 100 cm/s. 5. Near occlusion= ICA PSV velocities may be low or undetectable: variable ratio and ICA EDV. 6. Total occlusion=unable to detect flow.
== END | disposition home or self-care (01) ==
LOC: RADUSWWP 14:29
PROVIDERS: ATTEND Psychiatry & Neurology Neurology
DX: R55 Syncope and collapse (principal)
CPT/HCPCS: 93880

== ENCOUNTER 2022-01-30 08:28 | Day surgery (SDC) | payer OTHER ==
[2022-01-26 12:11] VITALS: BMI 36.3
[~2022-01-30 08:28] MED LIST changes: -BUPIVACAINE (PF) 0.5% 30 ML VIAL ONE; -LACTATED RINGERS 1,000 ML IV SCH; -MIDAZOLAM 2 MG/2 ML VIAL ONE; +SODIUM CHLORIDE 0.9% 1,000 ML IV SCH; -fentaNYL (PF) 50 MCG/ML 2 ML AMP ONE; -methylPREDNISolone ACETATE 40 MG/ML 1 ML VIAL ONE
[2022-01-30 09:05] VITALS: BP 119/78; PULSE 76; RESP 18; TEMP 98.6
--- NOTE | 2022-02-01 10:35 | P.EPPROC ---
- EP Procedure Note Electrophysiology Procedure Note: Diagnosis Recurrent syncope Twelve-lead EKG Sinus mechanism 77 beats a minute normal ME narrow QRS normal ST segments normal QT interval No delta waves, no epsilon waves LVH Tilt table test Baseline blood pressure 122/74 mmHg, Baseline heart rate 78 beats a minute Patient was tilted upright at an angle of 70 per protocol No change in heart rate and blood pressure No symptoms Patient did supine at the end of the procedure Impression twelve-lead EKG shows left ventricle hypertrophy, sinus rhythm no other abnormalities Normal heart rate and blood pressure response to upright tilting
== END 2022-01-30 11:15 | disposition home or self-care (01) ==
LOC: CATHEP 08:28
PROVIDERS: ATTEND Internal Medicine Clinical Cardiac Electrophysiology
DX: I51.7 Cardiomegaly (principal); R55 Syncope and collapse; E03.9 Hypothyroidism, unspecified; Z86.718 Personal history of other venous thrombosis and embolism; Z86.711 Personal history of pulmonary embolism; Z86.16 Personal history of COVID-19; Z87.891 Personal history of nicotine dependence; F20.9 Schizophrenia, unspecified; Z85.028 Personal history of other malignant neoplasm of stomach; Z82.49 Family history of ischemic heart disease and other diseases of the circulatory system; Z20.822 Contact with and (suspected) exposure to COVID-19
CPT/HCPCS: 87635; 93660

== ENCOUNTER → 2022-03-27 | Outpatient (CLI) | payer OTHER ==
[2022-03-27 15:44] LABS: African American GFR (CKD) 97.5 (60.0-200.0); Blood Urea Nitrogen 10.4 mg/dL (9.0-27.0); Chol/HDL Ratio 3.66 Ratio; Non-African American GFR(CKD) 84.1 (60.0-200.0)
== END | disposition home or self-care (01) ==
LOC: LABWHC1 09:16
PROVIDERS: ATTEND Psychiatry & Neurology Psychiatry
DX: F32.0 Major depressive disorder, single episode, mild (principal); Z79.899 Other long term (current) drug therapy
CPT/HCPCS: 36415; 80061; 80178; 82565; 83036; 84439; 84443; 84520

== ENCOUNTER → 2023-01-05 | Outpatient (CLI) | payer OTHER ==
--- NOTE | 2023-01-05 17:00 | US ---
EXAMINATION TYPE: US venous doppler duplex LE BI DATE OF EXAM: 01/05/2023 1:03 PM COMPARISON: 07/19/2020 CLINICAL INDICATION: Male, 47 years old with history of R25.2 CRAMP AND SPASM; leg cramps. SIDE PERFORMED: Bilateral TECHNIQUE: The lower extremity deep venous system is examined utilizing real time linear array sonog bal with graded compression, doppler sonography and color-flow sonography. VESSELS IMAGED: Common Femoral Vein Deep Femoral Vein Greater Saphenous Vein * Femoral Vein Popliteal Vein Small Saphenous Vein * Proximal Calf Veins (* superficial vessels) Right Leg: Negative for DVT Left Leg: Negative for DVT IMPRESSION: Grayscale, color doppler, spectral doppler imaging performed of the deep veins of the lo wer extremities. There is normal flow, compressibility, vascular waveforms.
== END | disposition home or self-care (01) ==
LOC: RADUSWWP 12:28
PROVIDERS: ATTEND Internal Medicine Critical Care Medicine
DX: R25.2 Cramp and spasm (principal)
CPT/HCPCS: 93970

== ENCOUNTER → 2023-02-14 | Outpatient (CLI) | payer OTHER ==
--- NOTE | 2023-02-15 10:27 | MR ---
EXAMINATION TYPE: MR cervical spine wo con DATE OF EXAM: 02/14/2023 COMPARISON: 06/04/2000 and HISTORY: Neck pain, headaches, LUE weakness. TECHNIQUE: Multiplanar, multisequence images of the cervical spine were acquired without contrast. C2-C3: No evidence for degenerative disc disease. No disc bulge/herniation or protrusion. No Canal stenosis. Foramina are patent bilaterally. C3-C4: Broad-based central disc herniation encroaching upon the anterior margin of the spinal cord mi ldly progressed from previous exam. Mild right-sided foraminal protrusion. Mild degenerative disc dis ease. C4-C5: Uncovertebral joint hypertrophy greater on the left with mild left-sided foraminal attachment. Left paracentral disc bulging. No canal stenosis. Mild degenerative disease. C5-C6: Mild degenerative disc disease. No disc bulge/herniation or protrusion. No Canal stenosis. Foramina are patent bilaterally. C6-C7: Mild degenerative disc disease. No disc bulge/herniation or protrusion. No Canal stenosis. Foramina are patent bilaterally. C7-T1: No evidence for degenerative disc disease. No disc bulge/herniation or protrusion. No Canal stenosis. Foramina are patent bilaterally. Cervical segments are intact. There is normal alignment. Cervical spinal cord is of normal signal. Craniovertebral junction relationships are within normal limits. Scoliotic curvature of the spine. Shotty lymph nodes in the soft tissue compartments of the neck. IMPRESSION: 1. Mild progression of disc herniation and disc osteophyte complex broad-based greater paracentrally to the left C3-C4. Now encroaches upon the anterior margin of the spinal cord. 2. Multilevel mild degenerative disc disease. Uncovertebral joint particularly and disc bulging great er on the left C4-C5 appears stable with mild left-sided foraminal protrusion. 3. Scoliosis.
== END | disposition home or self-care (01) ==
LOC: RADMRIMAIN 10:16
PROVIDERS: ATTEND Psychiatry & Neurology Neurology
DX: M50.21 Other cervical disc displacement, high cervical region (principal); M50.31 Other cervical disc degeneration, high cervical region; M41.82 Other forms of scoliosis, cervical region; M25.78 Osteophyte, vertebrae; M54.81 Occipital neuralgia
CPT/HCPCS: 72141

== ENCOUNTER → 2023-02-21 | Outpatient (CLI) | payer OTHER ==
[2023-02-21 10:49] VITALS: BP 128/88; PULSE 83; RESP 15; TEMP 98.7
--- NOTE | 2023-02-21 15:13 | P.PAINPG ---
PQRS Measure Charge Sheet Comment: HISTORY OF PRESENT ILLNESS: 47 yr old male as a referral from Dr Brown presents today w severe and chronic LBP x 7 yrs secondary to lumbar DDD, spondylosis and facet arthropathy without myelopathy for evaluation. Pt states pain level is provoked at 6/10 in intensity, constant, localized in the lower lumbar spine, achy in character w shooting pain towards the BL hips and BLEs. Pain is provoked by bending, lifting. Pain is alleviated by PT x 6 wks in Nov 2022, medications (Baclofen, [place]), topical, sitting, use of a TENS unit, repositioning and rest. Oswestry axial pain score at 26. PMH: OA, Lymphoma (2003), GERD, Hyperlipidemia, HTN, OA, PE, Hypothyroid Disorder, Trigeminal Neuralgia, Occipital Neuralgia, MDD/ Anxiety PSH: Hernia Repair, Vasectomy, [place] Teeth Extraction SH: Former tobacco user, No ETOH use, Cannabis use FH: Mo- No Reported History. Fa- CA. All: See list Meds: See list REVIEW OF ORGAN SYSTEMS: CONSTITUTIONAL: No fevers or chills. No recent weight loss. NEUROLOGICAL: + numbness and tingling along the distal extremities. No seizure disorders or headaches. MUSCULOSKELETAL: + pain PSYCHIATRIC: Denies current depression or suicidal thoughts. Physical Examinations : Constitutional : Cooperative , not in acute distress . Neurologic : Cranial nerve II to XII intact. No focal neurological deficits. Psychiatric : alert & oriented x 3. Matching mood & appropriate affect. Judgment & insight intact. Musculoskeletal : Cervical Spine Motor strength in the deltoid and biceps: Normal right side. Normal Left side Motor strength biceps and the wrist extensors: Normal right side . Normal left side Motor strength in the triceps muscle: Normal right side. Normal left side Deep tendon reflexes: Normal at the biceps. Normal at Brachioradialis. Normal at triceps Vertebral body tenderness to deep palpation over Cervical facet loading test: positive bilaterally Spurling test: positive bilaterally Neck distraction test: positive bilaterally Serge sign: positive bilaterally Lumbar spine Motor strength lower extremities ,thigh and legs 5/5 Right side , 5/5 Left side Deep tendon reflexes : Normal Knee Jerk. Normal Ankle Jerk Vertebral body tenderness over L4 Hutchinson Test positive over L4-L5 Lumbar facet Loading Test: positive Right / positive Left Range of motion of the lumbar spine Flexion 30 degrees, extension 10 degrees Straight Leg Raise test: Left/ Right positive at degree Yoni test: positive right / positive left. Severe tenderness over the Sacroiliac joint on the Right / Left sides Gaenslen test: positive bilaterally Seated flexion test: positive bilaterally. Sacral spine : Severe tenderness over the Sacroiliac joint: right side / left side Range of motion: Flexion of the lumbar spine <60 degrees Range of motion: Extension of the lumbar spine <20 degrees Gaenslen's Test positive Sam's Test positive Yoni test: positive right side / left side Thigh Thrust Test Sacral Thrust Test Imaging: MRI noncontrast of the lumbar spine from 09/23/22 reviewed Assessment/ Plan : Lumbar DDD Recommendation of GOYO L4-L5 #1. May need a series of injections for optimal pain relief. Risks, benefits of procedure discussed and patient verbalized understanding. Admits to aspirin or anti- coagulant use or medical history of diabetes. Protocol for discontinuation/ continuation of medications arnav procedure discussed. Minimal anesthesia provided, if clinically indicated, consisting of Versed and Fentanyl. All questions answered. I have spent greater than 30 minutes on patient care today. Dr Galeas was available by phone for the evaluation of this patient. The time was used to review the medical records including relevant urine studies and Prescription history (MAPs), review of the available imaging, evaluation and examination of the patient, coordination of care with the medical staff and if applicable referring physicians, as well as creation of the medical record - Pain Location Bilateral Lower Back Non-Pharmacological Interventions: Ice, Inactivity, Physical Therapy, Position/Reposition, Sitting Pharmacological Interventions: PRN Medication, Scheduled Medication PQRS Narrative: Smoking Status Former smoker Hx Alcohol Use (MH) No Home Medications: Ambulatory Orders Omeprazole [PriLOSEC] 20 mg PO HS 12/27/14 Baclofen [Lioresal] 20 mg PO TID PRN 05/14/19 Potassium Chloride ER [K-Dur 20] 20 meq PO DAILY 07/19/20 Propranolol [Inderal] 10 mg PO BID 30 Days tab 07/04/21 Topiramate [Topamax] 100 mg PO BID 30 Days tab 07/04/21 Ibuprofen [Motrin] 800 mg PO QID PRN 09/12/21 Levothyroxine Sodium [Synthroid] 50 mcg PO DAILY 09/12/21 Simvastatin [Zocor] 80 mg PO HS 09/12/21 Ergocalciferol (Vitamin D2) [Drisdol (50,000 Iu)] 1,250 mcg PO Q30D 08/29/22 ARIPiprazole [Abilify] 5 mg PO DAILY 30 Days #30 tab 09/07/22 DULoxetine HCL [Cymbalta] 60 mg PO BID 30 Days #60 cap 09/07/22 Doxepin [SINEquan] 75 mg PO HS 30 Days #90 cap 09/07/22 [place] Carbonate 600 mg PO BID 30 Days #120 cap 09/07/22 Prazosin [Minipress] 2 mg PO HS 30 Days #60 cap 09/07/22 Controlled Substance Measures - Controlled Substance Measures Is patient prescribed a controlled substance at discharge?: No
== END ==
LOC: PNWHC3 10:23
PROVIDERS: ATTEND Specialist
DX: M51.36 Other intervertebral disc degeneration, lumbar region (principal); M54.41 Lumbago with sciatica, right side; M54.42 Lumbago with sciatica, left side; M54.81 Occipital neuralgia; M19.90 Unspecified osteoarthritis, unspecified site; K21.9 Gastro-esophageal reflux disease without esophagitis; I10 Essential (primary) hypertension; E78.5 Hyperlipidemia, unspecified; I26.99 Other pulmonary embolism without acute cor pulmonale; E03.9 Hypothyroidism, unspecified; F41.9 Anxiety disorder, unspecified; Z87.891 Personal history of nicotine dependence; Z79.890 Hormone replacement therapy
CPT/HCPCS: 99211

== ENCOUNTER 2023-02-23 12:25 | Inpatient (IN) | payer MEDICAID, OTHER ==
--- NOTE | 2023-02-23 13:11 | ED ---
General Adult HPI - General Chief complaint: Psychiatric Symptoms Stated complaint: PYSCH Time Seen by Provider: 02/23/23 12:30 Source: patient, family, EMS, RN notes reviewed, old records reviewed Mode of arrival: EMS Limitations: no limitations - History of Present Illness Initial comments: Patient is a 47-year-old male who presents with the department after being sent from his primary care's office for suicidal ideations and plan. Arrives via EMS. States he has a plan by overdosing on pills. Patient does have a history of attempting suicide by self injuring himself in cutting his arms. Not recently. States he has been having increased depression and stressors in his life. This includes living with family, having an old unreliable car, and just being unhappy with where he is currently. Denies any homicidal ideations, attempts complaints. Denies any chest pain or shortness of breath. Denies any visual or auditory hallucinations. He has no other acute complaints at this time. Presents for further evaluation at this time. - Related Data Home Medications Medication Instructions Recorded Confirmed Omeprazole [PriLOSEC] 20 mg PO DAILY 12/27/14 02/23/23 Baclofen [Lioresal] 20 mg PO TID 05/14/19 02/23/23 Potassium Chloride ER [K-Dur 20] 20 meq PO DAILY 07/19/20 02/23/23 Ergocalciferol (Vitamin D2) 1,250 mcg PO Q30D 08/29/22 02/23/23 [Drisdol (50,000 Iu)] ARIPiprazole [Abilify] 5 mg PO HS 02/23/23 02/23/23 HYDROcodone/APAP 7.5-325MG [[place] 1 tab PO BID PRN 02/23/23 02/23/23 7.5-325] Ibuprofen [Motrin] 800 mg PO Q6H PRN 02/23/23 02/23/23 Prazosin HCl 2 mg PO HS 02/23/23 02/23/23 Simvastatin [Zocor] 40 mg PO HS 02/23/23 02/23/23 Previous Rx's Medication Instructions Recorded Propranolol [Inderal] 10 mg PO BID 30 Days tab 07/04/21 Topiramate [Topamax] 100 mg PO BID 30 Days tab 07/04/21 DULoxetine HCL [Cymbalta] 60 mg PO BID 30 Days #60 cap 09/07/22 Doxepin [SINEquan] 75 mg PO HS 30 Days #90 cap 09/07/22 [place] Carbonate 600 mg PO BID 30 Days #120 cap 09/07/22 Allergies Allergy/AdvReac Type Severity Reaction Status Date / Time No Known Allergies Allergy Verified 02/23/23 17:41 Review of Systems ROS Statement: Those systems with pertinent positive or pertinent negative responses have been documented in the HPI. Review of Systems: CONST: Denies fever EYES: Denies blurry vision ENT: Denies nasal congestion C/V: Denies Chest pain RESP: Denies shortness of breath GI: Denies abdominal pain : Denies dysuria SKIN: Denies rash. MSK: Denies joint pain. NEURO: Denies headache PSYCH: Denies homicidal ideations/plans/attempts. Denies visual or auditory hallucinations. He endorses suicidal ideation, plan. Denies attempt. ROS Other: All systems not noted in ROS Statement are negative. Past Medical History Past Medical History: Cancer, Deep Vein Thrombosis (DVT), GERD/Reflux, Hyperlipidemia, Hypertension, Osteoarthritis (OA), Pneumonia, Pulmonary Embolus (PE), Syncope, Thyroid Disorder Additional Past Medical History / Comment(s): HX HEADACHES AND DIZZINESS, Hx LYMPHOMA 2003, bulging disc in neck. 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 , no longer on bp meds, states Covid May-2020, pneumonia Aug 2020 .,states current blood clot right leg and in lungs., frequent diarrhea., back, neck & hip pain. STATES PASSED OUT TWICE IN AUGUST History of Any Multi-Drug Resistant Organisms: None Reported Past Surgical History: Hernia Repair Additional Past Surgical History / Comment(s): vasectomy, wisdom teeth removed, pain procedures Past Anesthesia/Blood Transfusion Reactions: No Reported Reaction Past Psychological History: Anxiety, Depression, PTSD Smoking Status: Former smoker Past Alcohol Use History: None Reported Past Drug Use History: None Reported, Marijuana - Past Family History Mother Family Medical History: No Reported History Father Family Medical History: Cancer General Exam - General Exam Comments Initial Comments: General: Appears in no acute distress. HEAD: Normal with no signs of head trauma. EYES: PERRLA, EOMI, conjunctiva normal, no discharge. ENT: Hearing grossly intact, normal oropharynx. RESPIRATORY: Clear breath sounds bilaterally. No wheezes, rales, or rhonchi. C/V: Regular rate and rhythm, S1 and S2 auscultated, peripheral pulses 2+ and intact throughout. ABD: Abd is soft, nontender, nondistended EXT: Normal range of motion, no obvious deformity SKIN: Old healed self injuring scars on arms from self cutting. No new injuries. No cutting on legs. NEURO: Alert and oriented 4. Limitations: no limitations Course Vital Signs 02/23/23 12:30 Temperature 98.6 F Pulse Rate 75 Respiratory 19 Rate Blood Pressure 131/85 O2 Sat by Pulse 94 L Oximetry Medical Decision Making - Medical Decision Making Was pt. sent in by a medical professional or institution ([facility], FIRE B[employer]ALION CHIEF, urgent care, hospital, or senior living...) When possible be specific @ -Sent from his primary care physician's office for psychiatric evaluation. Did you speak to anyone other than the patient for history (EMS, parent, family, police, friend...)? What history was obtained from this source @ -No Did you review nursing and triage notes (agree or disagree)? Why? @ -I reviewed and agree with nursing and triage notes Were old charts reviewed (outside hosp., previous admission, EMS record, old EKG, old radiological studies, urgent care reports/EKG's, senior living records)? Report findings @ -No old charts were reviewed Differential Diagnosis (chest pain, altered mental status, abdominal pain women, abdominal pain men, vaginal bleeding, weakness, fever, dyspnea, syncope, headache, dizziness, GI bleed, back pain, seizure, CVA, palpatations, mental health, musculoskeletal)? @ -Differential Mental Health Depression, anxiety, bipolar, psychosis, schizophrenia, borderline personality, situational depression, adjustment disorder, behavioral disorder, brain tumor, malingering, substance abuse, encephalopathy, medication reaction, dementia, hypothyroidism, degenerative neurologic disorder, lupus.... This is not meant to be all-inclusive list EKG interpreted by me (3pts min.). @ -None done X-rays interpreted by me (1pt min.). @ -None done CT interpreted by me (1pt min.). @ -None done U/S interpreted by me (1pt. min.). @ -None done What testing was considered but not performed or refused? (CT, X-rays, U/S, labs)? Why? @ -None What meds were considered but not given or refused? Why? @ -None Did you discuss the management of the patient with other professionals (professionals i.e. , PA, FIRE BATTALION CHIEF, lab, RT, psych nurse, director social welfare, retread mold operator, teacher, parachute/combatant diver officer, telephonic case manager)? Give summary @ -EPS notified of the consult. Was smoking cessation discussed for >3mins.? @ -No Was critical care preformed (if so, how long)? @ -No Were there social determinants of health that impacted care today? How? (Homelessness, low income, unemployed, alcoholism, drug addiction, transportation, low edu. Level, literacy, decrease access to med. care, half-way, rehab)? @ -No Was there de-escalation of care discussed even if they declined (Discuss DNR or withdrawal of care, Hospice)? DNR status @ -No What co-morbidities impacted this encounter? (DM, HTN, Smoking, COPD, CAD, Cancer, CVA, ARF, Chemo, Hep., AIDS, mental health diagnosis, sleep apnea, morbid obesity)? @ -Past history of depression and mental health illness. Was patient admitted / discharged? Hospital course, mention meds given and route, prescriptions, significant lab abnormalities, going to OR and other pertinent info. @ -Based on the patient's presentation and physical exam, I believe he requires psychiatric evaluation. Vital signs within acceptable limits. Patient placed in green scrubs. Suicide precautions ordered. Sitter ordered. BAT is 0. UDS is still pending at this time. At this time, patient is medically cleared for evaluation by psychiatry. Disposition is pending psychiatric evaluation. EPS was notified of the consult. Patient evaluated by EPS. Patient will be admitted to inpatient psychiatry. Undiagnosed new problem with uncertain prognosis? @ -No Drug Therapy requiring intensive monitoring for toxicity (Heparin, Nitro, Insulin, Cardizem)? @ -No Were any procedures done? @ -No Diagnosis/symptom? @ -Encounter for psychiatric evaluation, suicidal ideation Acute, or Chronic, or Acute on Chronic? @ -Acute Uncomplicated (without systemic symptoms) or Complicated (systemic symptoms)? @ -Uncomplicated Side effects of treatment? @ -No Exacerbation, Progression, or Severe Exacerbation? @ -No Poses a threat to life or bodily function? How? (Chest pain, [place], [place], pneumonia, PE, COPD, DKA, ARF, appy, cholecystitis, CVA, Diverticulitis, Homicidal, Saima cidal, threat to staff... and all critical care pts) @ -Potentially - Lab Data Lab Results 02/23/23 02/23/23 02/23/23 Range/Units 13:21 16:05 16:15 Urine Color Yellow Urine Appearance Clear (Clear) Urine pH 7.5 (5.0-8.0) Ur Specific [place] 1.016 (1.001-1.035) Urine Protein Negative (Negative) Urine Glucose (UA) Negative (Negative) Urine Ketones Negative (Negative) Urine Blood Negative (Negative) Urine Nitrite Negative (Negative) Urine Bilirubin Negative (Negative) Urine Urobilinogen <2.0 (<2.0) mg/dL Ur Leukocyte Esterase Negative (Negative) Urine Opiates Screen Detected H (NotDetected) Ur Oxycodone Screen Not Detected (NotDetected) Urine Methadone Screen Not Detected (NotDetected) Ur Propoxyphene Screen Not Detected (NotDetected) Ur Barbiturates Screen Not Detected (NotDetected) U Tricyclic Antidepress Detected H (NotDetected) Ur Phencyclidine Scrn Not Detected (NotDetected) Ur Amphetamines Screen Not Detected (NotDetected) U Methamphetamines Scrn Not Detected (NotDetected) U Benzodiazepines Scrn Not Detected (NotDetected) Urine Cocaine Screen Not Detected (NotDetected) U Marijuana (THC) Screen Detected H (NotDetected) Coronavirus (PCR) Not Detected (Not Detectd) Disposition Clinical Impression: Encounter for psychiatric assessment, Suicidal ideations Disposition: TRANSFER TO PSYCH HOSP/UNIT Condition: Stable
[2023-02-23 14:05] LABS: Amphetamine Screen,Urine Not Detected (NotDetected); Barbiturate Screen,Urine Not Detected (NotDetected); Benzodiazepines Screen,Urine Not Detected (NotDetected); Cocaine Screen,Urine Not Detected (NotDetected); Methadone Screen, Urine Not Detected (NotDetected); Opiate Screen,Urine Detected (NotDetected); Oxycodone Screen, Urine Not Detected (NotDetected); Phencyclidine Screen,Urine Not Detected (NotDetected); Tricyclic Antidepressant,Urine Detected (NotDetected); Urn Cannabinoid Scrn Detected (NotDetected)
[2023-02-23] MEDS ORDERED: LORazepam 0.5 MG TAB PO STA (15:02)
[2023-02-23] MEDS ORDERED: MAG HYDROX/AL HYDROX/SIMETH 30 ML CUP PO PRN (17:47)
[2023-02-23] MEDS ORDERED: MAGNESIUM HYDROXIDE 2,400 MG/30 ML CUP PO PRN (17:47)
[2023-02-23] MEDS ORDERED: LORazepam 2 MG/ML INJ IM PRN (17:53)
[2023-02-23] MEDS ORDERED: HALOPERIDOL LACTATE 5 MG/ML 1 ML VIAL IM PRN (17:54)
[2023-02-23] MEDS ORDERED: haloperidoL 5 MG TAB PO PRN (17:54)
[2023-02-23] MEDS: ACETAMINOPHEN TAB 325 MG TAB PO PRN (19:12)
[2023-02-23 19:16] LABS: Appearance,Urine Clear (Clear); Bilirubin,Urine Negative (Negative); Blood,Urine Negative (Negative); Color,Urine Yellow; Glucose,Urine (UA) Negative (Negative); Ketones,Urine Negative (Negative); Leukocyte Esterase,Urine Negative (Negative); Nitrite,Urine Negative (Negative); PH, Urine 7.5 (5.0-8.0); Protein,Urine Negative (Negative); Specific Gravity,Urine 1.016 (1.001-1.035); Urobilinogen,Urine <2.0 mg/dL (<2.0)
[2023-02-23] MEDS: PRAZOSIN 1 MG CAP PO SCH (20:47)
[2023-02-23] MEDS: LITHIUM CARBONATE 300 MG CAP PO SCH (20:47)
[2023-02-23] MEDS: TOPIRAMATE 100 MG TAB PO SCH (20:48)
[2023-02-23] MEDS: ARIPiprazole 5 MG TAB PO SCH (20:48)
[2023-02-23] MEDS: DULoxetine HCL 60 MG CAPSULE.DR PO SCH (20:48)
[2023-02-23] MEDS: PROPRANOLOL 10 MG TAB PO SCH (21:01)
[2023-02-23] MEDS: DOXEPIN 25 MG CAP PO SCH (21:01)
[2023-02-24 06:14] LABS: ALT 30 U/L (4-49); AST 31 U/L (17-59); African American GFR (CKD) >90 (>60 ml/min/1.73 sqM); Alkaline Phosphatase 102 U/L (38-126); Anion Gap 7 mmol/L; Blood Urea Nitrogen 12 mg/dL (9-20); Calcium 8.5 mg/dL (8.4-10.2); Carbon Dioxide 23 mmol/L (22-30); Chloride 111 mmol/L (98-107); Glucose 91 mg/dL (74-99); Non-African American GFR(CKD) 83 (>60 ml/min/1.73 sqM); Potassium 3.8 mmol/L (3.5-5.1); Sodium 141 mmol/L (137-145); Total Bilirubin 0.4 mg/dL (0.2-1.3); Total Protein 7.2 g/dL (6.3-8.2)
[2023-02-24 06:20] LABS: HCT 40.6 % (39.0-53.0); MCH 29.1 pg (25.0-35.0); MCHC 32.1 g/dL (31.0-37.0); MCV 90.5 fL (80.0-100.0); Platelet Count 221 k/uL (150-450); RBC 4.48 m/uL (4.30-5.90); RDW 13.5 % (11.5-15.5); WBC 5.6 k/uL (3.8-10.6)
[2023-02-24] MEDS: PROPRANOLOL 10 MG TAB PO SCH ×2 (08:36→21:11)
[2023-02-24] MEDS: DULoxetine HCL 60 MG CAPSULE.DR PO SCH ×2 (08:36→20:12)
[2023-02-24] MEDS: TOPIRAMATE 100 MG TAB PO SCH ×2 (08:36→21:11)
[2023-02-24] MEDS: LITHIUM CARBONATE 300 MG CAP PO SCH ×2 (08:36→20:12)
[2023-02-24] MEDS: POTASSIUM CHLORIDE ER 20 MEQ TAB.ER PO SCH (08:36)
[2023-02-24] MEDS: PANTOPRAZOLE 40 MG TABLET PO SCH (08:36)
[2023-02-24] MEDS: ACETAMINOPHEN TAB 325 MG TAB PO PRN (08:37)
[2023-02-24 11:12] LABS: Lithium 0.8 mmol/L
[2023-02-24] MEDS: IBUPROFEN 800 MG TAB PO PRN ×2 (11:43→20:52)
--- NOTE | 2023-02-24 14:41 | P.HP ---
Psychiatric H&P - . H&P Date: 02/24/23 History & Physical: Allergies Allergy/AdvReac Type Severity Reaction Status Date / Time No Known Allergies Allergy Verified 02/24/23 09:57 Vital Signs Temp 98.0 F 02/24/23 07:14 Pulse 67 02/24/23 07:14 Resp 16 02/24/23 07:14 BP 108/55 02/24/23 07:14 Pulse Ox 95 02/24/23 07:14 FiO2 Intake & Output 02/23/23 02/24/23 02/24/23 18:59 06:59 18:59 Weight 117.934 kg 116.392 kg 116.392 kg Laboratory Last Values WBC 5.6 k/uL (3.8-10.6) 02/24/23 05:39 RBC 4.48 m/uL (4.30-5.90) 02/24/23 05:39 Hgb 13.0 gm/dL (13.0-17.5) 02/24/23 05:39 Hct 40.6 % (39.0-53.0) 02/24/23 05:39 MCV 90.5 fL (80.0-100.0) 02/24/23 05:39 MCH 29.1 pg (25.0-35.0) 02/24/23 05:39 MCHC 32.1 g/dL (31.0-37.0) 02/24/23 05:39 RDW 13.5 % (11.5-15.5) 02/24/23 05:39 Plt Count 221 k/uL (150-450) 02/24/23 05:39 MPV 7.0 02/24/23 05:39 Sodium 141 mmol/L (137-145) 02/24/23 05:39 Potassium 3.8 mmol/L (3.5-5.1) 02/24/23 05:39 Chloride 111 mmol/L (98-107) H 02/24/23 05:39 Carbon Dioxide 23 mmol/L (22-30) 02/24/23 05:39 Anion Gap 7 mmol/L 02/24/23 05:39 BUN 12 mg/dL (9-20) 02/24/23 05:39 Creatinine 1.06 mg/dL (0.66-1.25) 02/24/23 05:39 Est GFR (CKD-EPI)AfAm >90 (>60 ml/min/1.73 sqM) 02/24/23 05:39 Est GFR (CKD-EPI)NonAf 83 (>60 ml/min/1.73 sqM) 02/24/23 05:39 Glucose 91 mg/dL (74-99) 02/24/23 05:[address] Glu mg/dL 108 mg/dL 02/24/23 05:39 Hemoglobin A1c 5.4 % (<=6.0) 02/24/23 05:39 Calcium 8.5 mg/dL (8.4-10.2) 02/24/23 05:39 Total Bilirubin 0.4 mg/dL (0.2-1.3) 02/24/23 05:39 AST 31 U/L (17-59) 02/24/23 05:39 ALT 30 U/L (4-49) 02/24/23 05:39 Alkaline Phosphatase 102 U/L (38-126) 02/24/23 05:39 Total Protein 7.2 g/dL (6.3-8.2) 02/24/23 05:39 Albumin 4.0 g/dL (3.5-5.0) 02/24/23 05:39 TSH 0.707 mIU/L (0.465-4.680) 02/24/23 05:39 Urine Color Yellow 02/23/23 16:05 Urine Appearance Clear (Clear) 02/23/23 16:05 Urine pH 7.5 (5.0-8.0) 02/23/23 16:05 Ur Specific [place] 1.016 (1.001-1.035) 02/23/23 16:05 Urine Protein Negative (Negative) 02/23/23 16:05 Urine Glucose (UA) Negative (Negative) 02/23/23 16:05 Urine Ketones Negative (Negative) 02/23/23 16:05 Urine Blood Negative (Negative) 02/23/23 16:05 Urine Nitrite Negative (Negative) 02/23/23 16:05 Urine Bilirubin Negative (Negative) 02/23/23 16:05 Urine Urobilinogen <2.0 mg/dL (<2.0) 02/23/23 16:05 Ur Leukocyte Esterase Negative (Negative) 02/23/23 16:05 Urine Opiates Screen Detected (NotDetected) H 02/23/23 13:21 Ur Oxycodone Screen Not Detected (NotDetected) 02/23/23 13:21 Urine Methadone Screen Not Detected (NotDetected) 02/23/23 13:21 Ur Propoxyphene Screen Not Detected (NotDetected) 02/23/23 13:21 Ur Barbiturates Screen Not Detected (NotDetected) 02/23/23 13:21 U Tricyclic Antidepress Detected (NotDetected) H 02/23/23 13:21 Ur Phencyclidine Scrn Not Detected (NotDetected) 02/23/23 13:21 Ur Amphetamines Screen Not Detected (NotDetected) 02/23/23 13:21 U Methamphetamines Scrn Not Detected (NotDetected) 02/23/23 13:21 U Benzodiazepines Scrn Not Detected (NotDetected) 02/23/23 13:21 [place] 0.8 mmol/L 02/24/23 05:39 Urine Cocaine Screen Not Detected (NotDetected) 02/23/23 13:21 U Marijuana (THC) Screen Detected (NotDetected) H 02/23/23 13:21 Coronavirus (PCR) Not Detected (Not Detectd) 02/23/23 16:15 02/24/23 14:34 This is a psychiatric assessment on Jeff Houston who is a 39-year-old male who was hospitalized for depression and suicidal ideations Patient was being seen at is PCPs office where he was felt to be depressed and a high risk to himself and was sent to the hospital for further assessment and treatment Patient says that he was thinking about ending his life He states that he has been frustrated with his car recently breaking down 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 Past history personal social history Patient admits that he has had multiple hospitalizations in the past He says that he has both mental and physical issues Patient stated that he also needs to see the hospital as as he would like to have [facility] for his degenerative disc disease He says that he feels overly frustrated and helpless and hopeless Denies any alcohol or substance use Mental status examination: General Appearance: Patient appears to be , stated age is alert, directable, and attempts to cooperate. Hygiene appears to be fair Behavior: Patient is without any agitated behavior. cooperative. Speech: Patient's speech is fluent and nonpressured. Mood/Affect: Patient reports his mood is depressed, improving mildly, affect is congruent Suicidality/Homicidality: Patient denies having any homicidal ideation intent or plan. Denies any suicidal ideations intent or plan Perceptions: Patient denies any visual hallucinations and denies any auditory gomes llucinations Though content/process: There is no evidence of any delusional thought content and thought process is linear and goal-directed. Focus on her homelessness Memory and concentration: AOX3, grossly intact for the purposes of this session Judgment and insight: Poor IMPRESSIONS: Major depressive disorder, without psychotic features Rule out pervasive persistent depressive disorder/dysthymia Rule out cluster B traits PLAN: -Patient is admitted under voluntary status to MHU for stabilization of psychiatric symptoms and safety. Patient has signed adult voluntary form and medication consent and is placed in patient's chart. -Medications : Will continue Abilify 5 mg daily at bedtime Duloxetine 60 mg twice a day [place] carbonate 600mg twice a day We'll scheduled for a blood level Prazosin 2 mg daily at bedtime Topamax 100 mg twice a day -SW on board for discharge planning. Encourage patient to participate in groups to work on coping skills. Yamil Franklin M.D.
[2023-02-24] MEDS: ARIPiprazole 5 MG TAB PO SCH (20:13)
[2023-02-24] MEDS: PRAZOSIN 1 MG CAP PO SCH (20:13)
[2023-02-24] MEDS: DOXEPIN 25 MG CAP PO SCH (21:10)
[2023-02-24] MEDS: LORazepam 1 MG TAB PO PRN (21:13)
[2023-02-25] MEDS: IBUPROFEN 800 MG TAB PO PRN ×3 (07:03→20:14)
[2023-02-25 07:31] LABS: Chol/HDL Ratio 4.21 Ratio; LDL Cholesterol,Calculated 83.4 mg/dL (0.0-131.0)
[2023-02-25] MEDS: TOPIRAMATE 100 MG TAB PO SCH ×2 (08:46→20:12)
[2023-02-25] MEDS: DULoxetine HCL 60 MG CAPSULE.DR PO SCH ×2 (08:46→20:12)
[2023-02-25] MEDS: PANTOPRAZOLE 40 MG TABLET PO SCH (08:47)
[2023-02-25] MEDS: PROPRANOLOL 10 MG TAB PO SCH ×2 (08:47→20:12)
[2023-02-25] MEDS: LITHIUM CARBONATE 300 MG CAP PO SCH ×2 (08:47→20:12)
[2023-02-25] MEDS: POTASSIUM CHLORIDE ER 20 MEQ TAB.ER PO SCH (08:48)
--- NOTE | 2023-02-25 10:34 | P.PN ---
Subjective Progress Note Date: 02/25/23 Principal diagnosis: IMPRESSIONS: Major depressive disorder, without psychotic features Rule out pervasive persistent depressive disorder/dysthymia Rule out cluster B traits Progress note: 02/25/2023 Subjective data: The patient was seen in his room where he was lying comfortably in his bed Patient was easily arousable Patient reports that he does not sleep too well and strange places but that at home he usually slept very well from 10 PM to 7 AM He states that depression has still been about the same He denies any suicidal plans but states that he still feels that he does not want to live He also admits that his motivation in general has been poor His self-esteem and confidence has been low Mental status examination: General Appearance: Patient appears to be , stated age is alert, directable, and attempts to cooperate. Hygiene appears to be fair Behavior: Patient is without any agitated behavior. cooperative. Speech: Patient's speech is fluent and nonpressured. Mood/Affect: Patient reports his mood is depressed, improving mildly, affect is congruent Suicidality/Homicidality: Patient denies having any homicidal ideation intent or plan. Denies any suicidal ideations intent or plan Perceptions: Patient denies any visual hallucinations and denies any auditory hallucinations Though content/process: There is no evidence of any delusional thought content and thought process is linear and goal-directed. Focus on her homelessness Memory and concentration: AOX3, grossly intact for the purposes of this session Judgment and insight: Poor IMPRESSIONS: Major depressive disorder, without psychotic features Rule out pervasive persistent depressive disorder/dysthymia Rule out cluster B traits PLAN: -Patient is admitted under voluntary status to MHU for stabilization of psychiatric symptoms and safety. Patient has signed adult voluntary form and medication consent and is placed in patient's chart. -Medications : Will continue Abilify 5 mg daily at bedtime Patient was advised that he is in good does her medications and the that he will continue to need long-term assertiveness training and supportive care and improving his coping skills and modifying his lifestyle and adding more interests in hobbies Patient is also encouraged for group therapy after discharge Duloxetine 60 mg twice a day [place] carbonate 600mg twice a day We'll scheduled for a blood level Prazosin 2 mg daily at bedtime Topamax 100 mg twice a day -SW on board for discharge planning. Encourage patient to participate in groups to work on coping skills. Yamil Rigoberto M.D. Objective - Vital Signs Vital signs: Vital Signs Temp 97.4 F L 02/25/23 06:52 Pulse 85 02/25/23 08:49 Resp 16 02/25/23 06:52 BP 125/83 02/25/23 08:49 Pulse Ox 95 02/24/23 07:14 FiO2 Intake & Output 02/24/23 02/25/23 02/25/23 18:59 06:59 18:59 Weight 116.392 kg - Labs CBC & Chem 7: 02/24/23 05:39 02/24/23 05:39 Labs: Abnormal Lab Results - Last 24 Hours (Table) 02/24/23 Range/Units 05:39 Triglycerides 151.00 H (0.00-149.00) mg/dL HDL Cholesterol 35.40 L (40.00-60.00) mg/dL
[2023-02-25] MEDS: PRAZOSIN 1 MG CAP PO SCH (20:12)
[2023-02-25] MEDS: DOXEPIN 25 MG CAP PO SCH (20:12)
[2023-02-25] MEDS: ARIPiprazole 5 MG TAB PO SCH (20:12)
[2023-02-25] MEDS: LORazepam 1 MG TAB PO PRN (20:14)
[2023-02-26] MEDS: IBUPROFEN 800 MG TAB PO PRN ×3 (04:13→20:05)
[2023-02-26] MEDS: PANTOPRAZOLE 40 MG TABLET PO SCH (08:43)
[2023-02-26] MEDS: LITHIUM CARBONATE 300 MG CAP PO SCH ×2 (08:43→20:05)
[2023-02-26] MEDS: TOPIRAMATE 100 MG TAB PO SCH ×2 (08:43→20:06)
[2023-02-26] MEDS: POTASSIUM CHLORIDE ER 20 MEQ TAB.ER PO SCH (08:44)
[2023-02-26] MEDS: DULoxetine HCL 60 MG CAPSULE.DR PO SCH ×2 (08:44→20:06)
[2023-02-26] MEDS: PROPRANOLOL 10 MG TAB PO SCH ×2 (08:44→20:06)
--- NOTE | 2023-02-26 12:09 | P.PN ---
Progress Note - Text Progress Note Date: 02/26/23 Interval History: Patient was seen resting in bed and was directable and agreeable to speak with contract technical writer in the office. The patient is to report suicidal ideation. He reports that prior to this admission, he however denies ingesting them. He reports that he has been chronically suicidal but more recently is stressed out due to his financial situation and recent car trouble. He is denying any auditory or visual hallucinations at this time. He reports no paranoia or other delusions. He states that he has been having poor sleep and an inconsistent appetite. He is interested in starting Clozaril in order to decrease his polypharmacy at this time. The risks, benefits, and treatment alternatives were discussed with him in detail including the risk of weight gain, sialorrhea, cardiac side effects and sedation. Mental Status Exam: General Appearance: Patient appears to be stated age is alert, directable, and cooperative. Behavior: Patient is calmly seated without any agitated behavior. Eye contact is appropriate. Speech: Patient's speech is fluent and nonpressured. Mood/Affect: Mood is improving mildly, affect is congruent and constricted. Suicidality/Homicidality: Patient reports suicidal ideation however denies any homicidal ideation. Perceptions: Patient denies any visual hallucinations and denies any auditory hallucinations Though content/process: The patient appears to be dysphoric and chronically suicidal. Memory and concentration: AOX3, grossly intact for the purposes of this session Judgment and insight: Fair Vital Signs Temp 98.1 F 02/26/23 04:14 Pulse 73 02/26/23 04:14 Resp 18 02/26/23 04:14 BP 113/77 02/26/23 04:14 Pulse Ox 98 02/26/23 04:14 FiO2 Intake & Output 02/25/23 02/26/23 02/26/23 18:59 06:59 18:59 Weight 117.2 kg Assessment Major depressive disorder, recurrent, severe, without psychotic features Cluster B personality traits Plan: -Patient continues to meet criteria for inpatient psychiatric admission for symptom stabilization and safety. Patient has signed adult voluntary form and medication consent and was placed in patient's chart. -Medications: We will discontinue doxepin and Abilify. In lieu of discontinuing these medic ations, we will start Clozaril after initial diagnostic testing and a baseline EKG. Continue lithium 600 mg by mouth twice a day for suicidal ideation Continue Topamax 100 mg by mouth twice a day Continue Inderal 10 mg by mouth twice a day Continue prazosin 2 mg by mouth at bedtime Continue Cymbalta 60 mg by mouth twice a day -When necessary Ativan and Haldol for agitation/aggression. -SW on board for discharge planning. Encouraged the patient to participate in milieu.
[2023-02-26] MEDS: LORazepam 1 MG TAB PO PRN ×2 (12:26→20:06)
[2023-02-26 13:24] LABS: Basophils % (A) 1 %; Eosinophils # (A) 0.3 k/uL (0-0.7); Eosinophils % (A) 5 %; HGB 13.6 gm/dL (13.0-17.5); Lymphocytes % (A) 30 %; MCH 29.9 pg (25.0-35.0); MCHC 32.4 g/dL (31.0-37.0); MCV 92.3 fL (80.0-100.0); Mean Platelet Volume 7.4; Monocytes # (A) 0.4 k/uL (0-1.0); Monocytes % (A) 6 %; Neutrophils # (A) 3.6 k/uL (1.3-7.7); Neutrophils % (A) 55 %; Platelet Count 223 k/uL (150-450); RBC 4.56 m/uL (4.30-5.90); RDW 13.6 % (11.5-15.5); WBC 6.5 k/uL (3.8-10.6)
[2023-02-26] MEDS: PRAZOSIN 1 MG CAP PO SCH (20:05)
[2023-02-27] MEDS: POTASSIUM CHLORIDE ER 20 MEQ TAB.ER PO SCH (08:40)
[2023-02-27] MEDS: LITHIUM CARBONATE 300 MG CAP PO SCH ×2 (08:40→20:22)
[2023-02-27] MEDS: PANTOPRAZOLE 40 MG TABLET PO SCH (08:40)
[2023-02-27] MEDS: PROPRANOLOL 10 MG TAB PO SCH ×2 (08:40→20:23)
[2023-02-27] MEDS: DULoxetine HCL 60 MG CAPSULE.DR PO SCH ×2 (08:40→20:22)
[2023-02-27] MEDS: TOPIRAMATE 100 MG TAB PO SCH ×2 (08:40→20:24)
--- NOTE | 2023-02-27 10:01 | P.PN ---
Progress Note - Text Progress Note Date: 02/27/23 Interval History: Patient was seen resting in bed and was directable and agreeable to speak with personal lines underwriter in the office. The patient reports suicidal ideation however states that he has no means to act on it while in the psychiatric unit. He continues to report low mood. He denies any issues regarding his sleep or his appetite. He does report elevated anxiety as his medications of doxepin and Abilify were discontinued. He is not reporting any auditory or visual hallucinations. He denies any homicidal ideation. He reports no paranoia or other delusions. He is eager to start Clozaril. Mental Status Exam: Grossly unchanged from yesterday. General Appearance: Patient appears to be stated age is alert, directable, and cooperative. Patient has notable tattoos on his left arm Behavior: Patient is calmly seated without any agitated behavior. Eye contact is appropriate. Speech: Patient's speech is fluent and nonpressured. Mood/Affect: Mood is "anxious," affect is congruent and constricted. Suicidality/Homicidality: Patient reports suicidal ideation however denies any homicidal ideation. Perceptions: Patient denies any visual hallucinations and denies any auditory hallucinations Though content/process: The patient appears to be dysphoric and chronically suicidal. Memory and concentration: AOX3, grossly intact for the purposes of this session Judgment and insight: Fair Vital Signs Temp 98.6 F 02/27/23 04:00 Pulse 89 02/27/23 08:41 Resp 18 02/27/23 04:00 BP 128/80 02/27/23 08:41 Pulse Ox 96 02/27/23 04:00 FiO2 Laboratory Results - Last 24 Hours 02/26/23 12:56 WBC 6.5 RBC 4.56 Hgb 13.6 Hct 42.0 MCV 92.3 MCH 29.9 MCHC 32.4 RDW 13.6 Plt Count 223 MPV 7.4 Neutrophils % 55 Lymphocytes % 30 Monocytes % 6 Eosinophils % 5 Basophils % 1 Neutrophils # 3.6 Lymphocytes # 2.0 Monocytes # 0.4 Eosinophils # 0.3 Basophils # 0.0 Assessment Major depressive disorder, recurrent, severe, without psychotic features Cluster B personality traits Plan: -Patient continues to meet criteria for inpatient psychiatric admission for symptom stabilization and safety. Patient has signed adult voluntary form and medication consent and was placed in patient's chart. -Medications: EKG and CBC with differential reviewed, we will start Clozaril 25 mg tonight Continue lithium 600 mg by mouth twice a day for suicidal ideation Continue Topamax 100 mg by mouth twice a day Continue Inderal 10 mg by mouth twice a day Continue prazosin 2 mg by mouth at bedtime Continue Cymbalta 60 mg by mouth twice a day -When necessary Ativan and Haldol for agitation/aggression. -SW on board for discharge planning. Encouraged the patient to participate in milieu.
[2023-02-27] MEDS: IBUPROFEN 800 MG TAB PO PRN ×2 (11:38→20:28)
[2023-02-27] MEDS: PRAZOSIN 1 MG CAP PO SCH (20:22)
[2023-02-27] MEDS: LORazepam 1 MG TAB PO PRN (20:28)
[2023-02-27] MEDS ORDERED: cloZAPine 25 MG TAB PO SCH (21:00)
[2023-02-28] MEDS: LORazepam 1 MG TAB PO PRN ×2 (08:55→20:06)
[2023-02-28] MEDS: TOPIRAMATE 100 MG TAB PO SCH ×2 (08:55→20:07)
[2023-02-28] MEDS: POTASSIUM CHLORIDE ER 20 MEQ TAB.ER PO SCH (08:55)
[2023-02-28] MEDS: DULoxetine HCL 60 MG CAPSULE.DR PO SCH ×2 (08:55→20:07)
[2023-02-28] MEDS: PANTOPRAZOLE 40 MG TABLET PO SCH (08:55)
[2023-02-28] MEDS: PROPRANOLOL 10 MG TAB PO SCH ×2 (08:55→20:06)
[2023-02-28] MEDS: LITHIUM CARBONATE 300 MG CAP PO SCH ×2 (08:56→20:07)
--- NOTE | 2023-02-28 11:44 | P.PN ---
Progress Note - Text Progress Note Date: 02/28/23 Interval History: Patient was seen resting in bed and was directable and agreeable to speak with database report writer in the office. The patient reports that his goal was to receive disability so that he may be able to afford his own place. This provider attempted to determine if the patient has any other goals outside of obtaining disability. The patient does not. He reports that he is suicidal. He reports no homicidal ideation, intention, and/or plan. He reports that he feels like he is "done with life." He reports no auditory or visual hallucinations. He denies any paranoia or other delusions. He feels that he is unable to go anywhere in life because of all of its obstacles. He reports that he only attended half of his sessions of DBT because of transportation issues. He states that if he was on disability, he would be able to afford transportation. He has been adherent with his Clozaril and is not reporting any significant side effects of his medications. Mental Status Exam: Grossly unchanged from yesterday. General Appearance: Patient appears to be stated age is alert, directable, and cooperative. Patient has notable tattoos on his left arm Behavior: Patient is calmly seated without any agitated behavior. Eye contact is appropriate. Speech: Patient's speech is fluent and nonpressured. Mood/Affect: Mood is "anxious," affect is incongruent and blunted. Suicidality/Homicidality: Patient reports suicidal ideation however denies any homicidal ideation. Perceptions: Patient denies any visual hallucinations and denies any auditory hallucinations Though content/process: The patient appears to be dysphoric and chronically suicidal. Memory and concentration: AOX3, grossly intact for the purposes of this session Judgment and insight: Fair Vital Signs Temp 98 F 02/28/23 07:05 Pulse 104 H 02/28/23 08:58 Resp 16 02/28/23 07:05 BP 120/86 02/28/23 08:58 Pulse Ox 96 02/27/23 04:00 FiO2 Assessment Major depressive disorder, recurrent, severe, without psychotic features Cluster B personality traits Plan: -Patient continues to meet criteria for inpatient psychiatric admission for symptom stabilization and safety. Patient has signed adult voluntary form and medication consent and was placed in patient's chart. -Medications: Increase Clozaril to 50 mg by mouth at bedtime Continue lithium 600 mg by mouth twice a day for suicidal ideation Continue Topamax 100 mg by mouth twice a day Continue Inderal 10 mg by mouth twice a day Continue prazosin 2 mg by mouth at bedtime Continue Cymbalta 60 mg by mouth twice a day -When necessary Ativan and Haldol for agitation/aggression. -SW on board for discharge planning. Encouraged the patient to participate in milieu.
--- NOTE | 2023-02-28 15:27 | CONS ---
CONSULTATION CHIEF COMPLAINT: Schizophrenia with major depression and suicidal thoughts. HISTORY OF PRESENT ILLNESS: This is another many psych admissions for this 47-year-old gentleman who has had a lifelong history of psychiatric difficulties with major depression. He has been on his medications, but for the last 2 or 3 weeks, he has been getting more and more depressed and was having suicidal thoughts and came in. He lived with his mother who about a year ago. REVIEW OF SYSTEMS: He denies any physical or mental signs or symptoms. PHYSICAL EXAMINATION: VITAL SIGNS: Normal. HEAD, EARS, EYES, NOSE, MOUTH AND THROAT: Normal. CHEST: Clear. CARDIAC: Normal. ABDOMEN: Protuberant and soft without tenderness, or masses. EXTREMITIES: Normal. NEUROLOGICAL: Intact. ASSESSMENT: He is admitted to the hospital with diagnosis of major depression with suicidal thoughts. RECOMMENDATIONS: None. Thank you respectfully, DARIEN / KATIE: [phone] /
[2023-02-28] MEDS: IBUPROFEN 800 MG TAB PO PRN (20:06)
[2023-02-28] MEDS: PRAZOSIN 1 MG CAP PO SCH (20:06)
[2023-02-28] MEDS ORDERED: cloZAPine 25 MG TAB PO SCH (21:00)
[2023-03-01] MEDS: IBUPROFEN 800 MG TAB PO PRN ×3 (03:10→20:15)
[2023-03-01] MEDS: PROPRANOLOL 10 MG TAB PO SCH ×2 (08:43→21:30)
[2023-03-01] MEDS: DULoxetine HCL 60 MG CAPSULE.DR PO SCH ×2 (08:43→20:16)
[2023-03-01] MEDS: TOPIRAMATE 100 MG TAB PO SCH ×2 (08:43→20:17)
[2023-03-01] MEDS: POTASSIUM CHLORIDE ER 20 MEQ TAB.ER PO SCH (08:43)
[2023-03-01] MEDS: PANTOPRAZOLE 40 MG TABLET PO SCH (08:43)
[2023-03-01] MEDS: LITHIUM CARBONATE 300 MG CAP PO SCH ×2 (08:43→20:17)
--- NOTE | 2023-03-01 10:24 | P.PN ---
Progress Note - Text Progress Note Date: 03/01/23 Interval History: Patient was seen resting in bed and was directable and agreeable to speak with rfp writer in the office. The patient reports that he is feeling slightly better in regards to his depressive symptoms. However, the patient continues to report suicidal ideation. He does report that he engaged in self harming behavior by superficially scratching at his left wrist with his lunch utensils. He denies that this was any suicide attempt. However, the patient was informed that we will switch him to finger foods he should he continue to engage in this type of behavior. The patient agrees that he does not wish to be based on finger foods. He has been adherent with his medication is not in any significant side effects aside from improved sleep. He denies any auditory or visual hallucinations. He denies any paranoia or other delusions. He continues to report elevated anxiety. Mental Status Exam: Grossly unchanged from yesterday. General Appearance: Patient appears to be stated age is alert, directable, and cooperative. Patient has notable tattoos on his left arm. Superficial small cut on his left wrist. Behavior: Patient is calmly seated without any agitated behavior. Eye contact is appropriate. Speech: Patient's speech is fluent and nonpressured. Mood/Affect: Mood is "anxious," affect is incongruent and blunted. Suicidality/Homicidality: Patient reports suicidal ideation however denies any homicidal ideation. Perceptions: Patient denies any visual hallucinations and denies any auditory hallucinations Though content/process: The patient appears to be dysphoric and chronically suicidal. Memory and concentration: AOX3, grossly intact for the purposes of this session Judgment and insight: Fair Vital Signs Temp 97.9 F 03/01/23 06:48 Pulse 100 03/01/23 08:46 Resp 16 03/01/23 08:46 BP 134/91 03/01/23 08:46 Pulse Ox 97 03/01/23 06:48 FiO2 Assessment Major depressive disorder, recurrent, severe, without psychotic features Cluster B personality traits Plan: -Patient continues to meet criteria for inpatient psychiatric admission for symptom stabilization and safety. Patient has signed adult voluntary form and medication consent and was placed in patient's chart. -Should the patient engage in self-injurious behavior again we will switch him to finger foods. -Medications: Increase Clozaril to 75 mg by mouth at bedtime - CBC with differential ordered for tomorrow Continue lithium 600 mg by mouth twice a day for suicidal ideation Continue Topamax 100 mg by mouth twice a day Continue Inderal 10 mg by mouth twice a day Continue prazosin 2 mg by mouth at bedtime Continue Cymbalta 60 mg by mouth twice a day -When necessary Ativan and Haldol for agitation/aggression. -SW on board for discharge planning. Encouraged the patient to participate in milieu.
[2023-03-01] MEDS: LORazepam 1 MG TAB PO PRN ×2 (12:42→21:00)
[2023-03-01] MEDS: cloZAPine 25 MG TAB PO SCH (20:16)
[2023-03-01] MEDS: PRAZOSIN 1 MG CAP PO SCH (20:17)
[2023-03-01] MEDS ORDERED: OLANZapine 5 MG TAB PO ONE (22:20)
[2023-03-02 08:05] LABS: Basophils % (A) 0 %; Eosinophils # (A) 0.3 k/uL (0-0.7); Eosinophils % (A) 2 %; HCT 42.8 % (39.0-53.0); HGB 13.6 gm/dL (13.0-17.5); Lymphocytes # (A) 1.9 k/uL (1.0-4.8); Lymphocytes % (A) 15 %; MCH 29.2 pg (25.0-35.0); MCHC 31.7 g/dL (31.0-37.0); Mean Platelet Volume 7.3; Monocytes # (A) 0.6 k/uL (0-1.0); Monocytes % (A) 5 %; Neutrophils # (A) 9.5 k/uL (1.3-7.7); Neutrophils % (A) 76 %; Platelet Count 218 k/uL (150-450); RBC 4.66 m/uL (4.30-5.90); RDW 13.6 % (11.5-15.5); WBC 12.5 k/uL (3.8-10.6)
[2023-03-02] MEDS: POTASSIUM CHLORIDE ER 20 MEQ TAB.ER PO SCH (08:47)
[2023-03-02] MEDS: DULoxetine HCL 60 MG CAPSULE.DR PO SCH ×2 (08:47→20:06)
[2023-03-02] MEDS: PANTOPRAZOLE 40 MG TABLET PO SCH (08:48)
[2023-03-02] MEDS: PROPRANOLOL 10 MG TAB PO SCH ×2 (08:48→20:10)
[2023-03-02] MEDS: TOPIRAMATE 100 MG TAB PO SCH ×2 (08:48→20:06)
[2023-03-02] MEDS: LITHIUM CARBONATE 300 MG CAP PO SCH ×2 (08:48→20:06)
[2023-03-02] MEDS ORDERED: ERGOCALCIFEROL 1,250 MCG (50,000 IU) CAPSULE PO SCH (09:00)
--- NOTE | 2023-03-02 10:59 | P.PN ---
Progress Note - Text Progress Note Date: 03/02/23 Interval History: Patient was seen resting in bed and was directable and agreeable to speak with abstract writer in the office. The patient continues to report suicidal ideation. Discharged today, he is unable to keep himself safe and would likely try to kill himself. Last night, the patient did inform staff that he had a plastic knife from the lunchroom in his room which he used to cut himself. He also reported feeling extremely dysphoric and anxious and received Zyprexa last night to address his urges for self harm. He is not reporting any auditory or visual hallucinations. He is denying any paranoia or other delusions. He reports no homicidal ideation. The patient reports elevated anxiety and states that he has numerous things going wrong in his life including lack of support from his family, his van breaking down, and him being denied disability. Mental Status Exam: Grossly unchanged from yesterday. General Appearance: Patient appears to be stated age is alert, directable, and cooperative. Patient has notable tattoos on his left arm. Behavior: Patient is calmly seated without any agitated behavior. Eye contact is appropriate. Speech: Patient's speech is fluent and nonpressured. Mood/Affect: Mood is "I get very nervous," affect is incongruent and blunted. Suicidality/Homicidality: Patient reports suicidal ideation however denies any homicidal ideation. Perceptions: Patient denies any visual hallucinations and denies any auditory hallucinations Though content/process: The patient appears to be dysphoric and chronically suicidal. Memory and concentration: AOX3, grossly intact for the purposes of this session Judgment and insight: Fair Vital Signs Temp 97.6 F 03/02/23 06:40 Pulse 104 H 03/02/23 08:48 Resp 18 03/02/23 06:40 BP 113/82 03/02/23 08:48 Pulse Ox 96 03/02/23 06:40 FiO2 Laboratory Results - Last 24 Hours 03/02/23 07:01 WBC 12.5 H RBC 4.66 Hgb 13.6 Hct 42.8 MCV 92.0 MCH 29.2 MCHC 31.7 RDW 13.6 Plt Count 218 MPV 7.3 Neutrophils % 76 Lymphocytes % 15 Monocytes % 5 Eosinophils % 2 Basophils % 0 Neutrophils # 9.5 H Lymphocytes # 1.9 Monocytes # 0.6 Eosinophils # 0.3 Basophils # 0.0 Assessment Major depressive disorder, recurrent, severe, without psychotic features Cluster B personality traits Plan: -Patient continues to meet criteria for inpatient psychiatric admission for sy mptom stabilization and safety. Patient has signed adult voluntary form and medication consent and was placed in patient's chart. -Should the patient engage in self-injurious behavior again we will switch him to finger foods. -Medications: Continue Clozaril 75 mg by mouth at bedtime - CBC with differential reviewed and within normal limits Continue lithium 600 mg by mouth twice a day for suicidal ideation Continue Topamax 100 mg by mouth twice a day Continue Inderal 10 mg by mouth twice a day Continue prazosin 2 mg by mouth at bedtime Continue Cymbalta 60 mg by mouth twice a day -When necessary Ativan and Haldol for agitation/aggression. -SW on board for discharge planning. Encouraged the patient to participate in milieu.
[2023-03-02] MEDS: PRAZOSIN 1 MG CAP PO SCH (20:05)
[2023-03-02] MEDS: cloZAPine 25 MG TAB PO SCH (20:05)
[2023-03-02] MEDS: IBUPROFEN 800 MG TAB PO PRN (20:06)
[2023-03-02] MEDS: LORazepam 1 MG TAB PO PRN (20:06)
[2023-03-03] MEDS: IBUPROFEN 800 MG TAB PO PRN ×3 (03:32→20:01)
[2023-03-03] MEDS: POTASSIUM CHLORIDE ER 20 MEQ TAB.ER PO SCH (08:42)
[2023-03-03] MEDS: DULoxetine HCL 60 MG CAPSULE.DR PO SCH ×2 (08:42→19:58)
[2023-03-03] MEDS: LITHIUM CARBONATE 300 MG CAP PO SCH ×2 (08:42→19:58)
[2023-03-03] MEDS: PROPRANOLOL 10 MG TAB PO SCH ×2 (08:42→19:58)
[2023-03-03] MEDS: TOPIRAMATE 100 MG TAB PO SCH ×2 (08:42→19:58)
[2023-03-03] MEDS: PANTOPRAZOLE 40 MG TABLET PO SCH (08:42)
--- NOTE | 2023-03-03 11:06 | P.PN ---
Subjective Progress Note Date: 03/03/23 Principal diagnosis: IMPRESSIONS: Major depressive disorder, without psychotic features Rule out pervasive persistent depressive disorder/dysthymia Rule out cluster B traits Patient Name: Jeff Houston Date of : 73 Patient Status: Inpatient Attending Provider: Ritesh Johnson Date: 03/03/23 Progress note by Yamil Franklin M.D. Interval History: Patient was seen resting in bed and was directable and agreeable to speak with insurance writer in the office. The patient continues to report suicidal ideation. Patient and asked if his Clazuril could be increased 200 mg a day as he has discussed that with Dr. Colon Patient states that he used to enjoy watching movies and playing videogames and now returns in on for a few minutes and turns it off right away He says that he has lost his interest in his day-to-day activities He denies any suicidal plans He is not reporting any auditory or visual hallucinations. He is denying any paranoia or other delusions. He reports no homicidal ideation. The patient reports elevated anxiety and states that he has numerous things going wrong in his life including lack of support from his family, his van breaking down, and him being denied disability. Mental Status Exam: Grossly unchanged from yesterday. General Appearance: Patient appears to be stated age is alert, directable, and cooperative. Patient has notable tattoos on his left arm. Behavior: Patient is calmly seated without any agitated behavior. Eye contact is appropriate. Speech: Patient's speech is fluent and nonpressured. Mood/Affect: Mood is "I get very nervous," affect is incongruent and blunted. Suicidality/Homicidality: Patient reports suicidal ideation however denies any homicidal ideation. Perceptions: Patient denies any visual hallucinations and denies any auditory hallucinations Though content/process: The patient appears to be dysphoric and chronically suicidal. Memory and concentration: AOX3, grossly intact for the purposes of this session Judgment and insight: Fair Assessment Major depressive disorder, recurrent, severe, without psychotic features Cluster B personality traits Plan: -Patient continues to meet criteria for inpatient psychiatric admission for symptom stabilization and safety. Patient has signed adult voluntary form and medication consent and was placed in patient's chart. -Should the patient engage in self-injurious behavior again we will switch him to finger foods. -Medications: Continue Clozaril 75 mg by mouth at bedtime - CBC with differential reviewed and within normal limits However patient was given realistic expectations that the his thoughts of suicide are more of a plan to escape as well as that he also needs to work on cognitive behavioral approach to his problem and that the medication does not necessarily remove those thoughts on its own Patient was encouraged to participate in making small goals for each day to keep himself safe as well as doing something more positive and to start focusing on his interests and hobbies Continue lithium 600 mg by mouth twice a day for suicidal ideation Continue Topamax 100 mg by mouth twice a day Continue Inderal 10 mg by mouth twice a day Continue prazosin 2 mg by mouth at bedtime Continue Cymbalta 60 mg by mouth twice a day -When necessary Ativan and Haldol for agitation/aggression. -SW on board for discharge planning. Encouraged the patient to participate in milieu. Yamil Franklin M.D. Objective - Vital Signs Vital signs: Vital Signs Temp 96.8 F L 03/03/23 03:36 Pulse 104 H 03/03/23 08:45 Resp 18 03/03/23 03:36 BP 127/79 03/03/23 08:45 Pulse Ox 97 03/03/23 03:36 FiO2 - Labs CBC & Chem 7: 03/02/23 07:01 02/24/23 05:39
[2023-03-03] MEDS: PRAZOSIN 1 MG CAP PO SCH (19:58)
[2023-03-03] MEDS: LORazepam 1 MG TAB PO PRN (20:01)
[2023-03-03] MEDS: cloZAPine 100 MG TAB PO SCH (20:31)
[2023-03-04] MEDS: IBUPROFEN 800 MG TAB PO PRN ×2 (05:41→19:54)
[2023-03-04] MEDS: TOPIRAMATE 100 MG TAB PO SCH ×2 (08:28→19:54)
[2023-03-04] MEDS: DULoxetine HCL 60 MG CAPSULE.DR PO SCH ×2 (08:28→19:54)
[2023-03-04] MEDS: PANTOPRAZOLE 40 MG TABLET PO SCH (08:28)
[2023-03-04] MEDS: POTASSIUM CHLORIDE ER 20 MEQ TAB.ER PO SCH (08:29)
[2023-03-04] MEDS: LITHIUM CARBONATE 300 MG CAP PO SCH ×2 (08:29→19:54)
[2023-03-04] MEDS: PROPRANOLOL 10 MG TAB PO SCH (08:29)
--- NOTE | 2023-03-04 09:07 | P.PN ---
Subjective Progress Note Date: 03/04/23 Principal diagnosis: IMPRESSIONS: Major depressive disorder, without psychotic features Rule out pervasive persistent depressive disorder/dysthymia Rule out cluster B traits Patient Name: Jeff Houston Date of : 73 Patient Status: Inpatient Attending Provider: Ritesh Johnson Date: 03/03/23 Progress note by Yamil Franklin M.D. Interval History: Patient was seen resting in bed and was directable and agreeable to speak with typewriter ribbon winder in the office. The patient was seen in the hallway Patient reports that he was wondering when the medications would kick in and that he continues to have thoughts of not wanting to be alive although he has no plans He is not reporting any auditory or visual hallucinations. He is denying any paranoia or other delusions. He reports no homicidal ideation. The patient reports elevated anxiety and states that he has numerous things going wrong in his life including lack of support from his family, his van breaking down, and him being denied disability. Mental Status Exam: Grossly unchanged from yesterday. General Appearance: Patient appears to be stated age is alert, directable, and cooperative. Patient has notable tattoos on his left arm. Behavior: Patient is calmly seated without any agitated behavior. Eye contact is appropriate. Speech: Patient's speech is fluent and nonpressured. Mood/Affect: Mood is "I get very nervous," affect is incongruent and blunted. Suicidality/Homicidality: Patient reports suicidal ideation however denies any homicidal ideation. Perceptions: Patient denies any visual hallucinations and denies any auditory hallucinations Though content/process: The patient appears to be dysphoric and chronically suicidal. Memory and concentration: AOX3, grossly intact for the purposes of this session Judgment and insight: Fair Assessment Major depressive disorder, recurrent, severe, without psychotic features Cluster B personality traits Plan: Discussed focusing on positives in life and to work on his other hobbies and interests patient was explained the phenomenon of negative conditioning -Patient continues to meet criteria for inpatient psychiatric admission for symptom stabilization and safety. Patient has signed adult voluntary form and medication consent and was placed in patient's chart. -Patient currently remains on finger foods and wants to have his privileges reinstated -Medications: Continue Clozaril 75 mg by mouth at bedtime - CBC with differential reviewed and within normal limits However patient was given realistic expectations that the his thoughts of suicide are more of a plan to escape as well as that he also needs to work on cognitive behavioral approach to his problem and that the medication does not necessarily remove those thoughts on its own Patient was encouraged to participate in making small goals for each day to keep himself safe as well as doing something more positive and to start focusing on his interests and hobbies Continue lithium 600 mg by mouth twice a day for suicidal ideation Continue Topamax 100 mg by mouth twice a day Continue Inderal 10 mg by mouth twice a day Continue prazosin 2 mg by mouth at bedtime Continue Cymbalta 60 mg by mouth twice a day -When necessary Ativan and Haldol for agitation/aggression. -SW on board for discharge planning. Encouraged the patient to participate in milieu. Yamil Franklin M.D. Objective - Vital Signs Vital signs: Vital Signs Temp 97.7 F 03/04/23 05:43 Pulse 97 03/04/23 05:43 Resp 18 03/04/23 05:43 BP 122/77 03/04/23 05:43 Pulse Ox 99 03/04/23 05:43 FiO2 - Labs CBC & Chem 7: 03/02/23 07:01 02/24/23 05:39
[2023-03-04] MEDS: cloZAPine 100 MG TAB PO SCH (19:54)
[2023-03-04] MEDS: LORazepam 1 MG TAB PO PRN (19:54)
[2023-03-04] MEDS: PRAZOSIN 1 MG CAP PO SCH (19:54)
[2023-03-05] MEDS: IBUPROFEN 800 MG TAB PO PRN ×2 (03:50→18:17)
[2023-03-05] MEDS: PANTOPRAZOLE 40 MG TABLET PO SCH (08:25)
[2023-03-05] MEDS: POTASSIUM CHLORIDE ER 20 MEQ TAB.ER PO SCH (08:25)
[2023-03-05] MEDS: LITHIUM CARBONATE 300 MG CAP PO SCH ×2 (08:25→20:07)
[2023-03-05] MEDS: TOPIRAMATE 100 MG TAB PO SCH ×2 (08:25→20:08)
[2023-03-05] MEDS: PROPRANOLOL 10 MG TAB PO SCH ×2 (08:25→20:07)
[2023-03-05] MEDS: DULoxetine HCL 60 MG CAPSULE.DR PO SCH ×2 (08:25→20:07)
--- NOTE | 2023-03-05 11:11 | P.PN ---
Progress Note - Text Progress Note Date: 03/05/23 Interval History: Patient was seen resting in bed and was directable and agreeable to speak with personal lines underwriter in the office. The patient reports that his mood has been improving. He reports that he is not suicidal today however did experience suicidal thoughts last night. He is not reporting any auditory or visual hallucinations. He denies any paranoia or other delusions. He does report that the medications have been making him feel "groggy." He does report that this wears off as the day progresses. He denies any issues regarding his sleep or his appetite. He reports no urges for self-harm and expresses a desire to be off finger foods. He continues to report elevated anxiety. The patient does have a notable rash around his face however he states that this is a common occurrence for him after he showers. He expresses no serious concern. Mental Status Exam: General Appearance: Patient appears to be stated age is alert, directable, and cooperative. Patient has notable tattoos on his left arm. Behavior: Patient is calmly seated without any agitated behavior. Eye contact is appropriate. Speech: Patient's speech is fluent and nonpressured. Mood/Affect: Mood is "I feel better," affect is incongruent and constricted. Suicidality/Homicidality: Patient reports suicidal ideation however denies any homicidal ideation. Perceptions: Patient denies any visual hallucinations and denies any auditory hallucinations Though content/process: The patient appears to be dysphoric and chronically suicidal. Memory and concentration: AOX3, grossly intact for the purposes of this session Judgment and insight: Fair Vital Signs Temp 98.9 F 03/05/23 07:28 Pulse 98 03/05/23 03:51 Resp 18 03/05/23 03:51 BP 119/75 03/05/23 07:28 Pulse Ox 98 03/05/23 03:51 FiO2 Intake & Output 03/04/23 03/05/23 03/05/23 18:59 06:59 18:59 Weight 117.7 kg Assessment Major depressive disorder, recurrent, severe, without psychotic features Cluster B personality traits Plan: -Patient continues to meet criteria for inpatient psychiatric admission for symptom stabilization and safety. Patient has signed adult voluntary form and medication consent and was placed in patient's chart. -Patient may return to being off finger foods. -Medications: Continue Clozaril 100 mg by mouth at bedtime Continue lithium 600 mg by mouth twice a day for suicidal ideation Decrease Topamax to 50 mg in the morning and 100 mg at bedtime due to concerns for sedation Continue Inderal 10 mg by mouth twice a day Continue prazosin 2 mg by mouth at bedtime Continue Cymbalta 60 mg by mouth twice a day -When necessary Ativan and Haldol for agitation/aggression. -SW on board for discharge planning. Encouraged the patient to participate in milieu.
[2023-03-05] MEDS: LORazepam 1 MG TAB PO PRN (20:07)
[2023-03-05] MEDS: PRAZOSIN 1 MG CAP PO SCH (20:07)
[2023-03-05] MEDS: cloZAPine 100 MG TAB PO SCH (20:07)
[2023-03-05] MEDS: FLUTICASONE 50MCG/SPRAY NASAL 16GM EA NOSTRIL PRN (21:05)
[2023-03-05] MEDS: guaiFENesin-DM 100-10MG/5ML 10 ML CUP PO PRN (21:05)
[2023-03-06] MEDS: guaiFENesin-DM 100-10MG/5ML 10 ML CUP PO PRN (03:16)
[2023-03-06] MEDS: TOPIRAMATE 25 MG TAB PO SCH (08:35)
[2023-03-06] MEDS: PANTOPRAZOLE 40 MG TABLET PO SCH (08:35)
[2023-03-06] MEDS: POTASSIUM CHLORIDE ER 20 MEQ TAB.ER PO SCH (08:35)
[2023-03-06] MEDS: DULoxetine HCL 60 MG CAPSULE.DR PO SCH ×2 (08:35→19:55)
[2023-03-06] MEDS: LITHIUM CARBONATE 300 MG CAP PO SCH ×2 (08:35→19:55)
[2023-03-06] MEDS: PROPRANOLOL 10 MG TAB PO SCH (08:35)
[2023-03-06] MEDS ORDERED: PROPRANOLOL 20 MG TAB PO STA (10:16)
[2023-03-06] MEDS: FLUTICASONE 50MCG/SPRAY NASAL 16GM EA NOSTRIL PRN (10:26)
--- NOTE | 2023-03-06 11:42 | P.PN ---
Progress Note - Text Progress Note Date: 03/06/23 Interval History: Patient was seen up in the nurse's desk and was agreeable to returning the off ice today. The patient reports that his mood has been improving, and that his suicidal thoughts are watching and waning however have been improving overall. He states that he has had them chronically. Is not reporting any specific plans at this time. He is not reporting any auditory or visual hallucinations. He denies any paranoia or other delusions. Seems that the Clozaril has been helping significantly at this time, claims that his anxiety mood improving. He was asking doctor today to discontinue him off of the finger foods. He denies any issues regarding his sleep or his appetite. He continues to report elevated anxiety we discussed going up on the Inderal which she is okay with. The patient does have a notable rash around his face however he states that this is a common occurrence for him after he showers. He expresses no serious concern. Mental Status Exam: General Appearance: Patient appears to be stated age is alert, directable, and cooperative. Patient has notable tattoos on his left arm. Glasses. Behavior: Patient is calmly seated without any agitated behavior. Eye contact is appropriate. Speech: Patient's speech is fluent and nonpressured. Mood/Affect: Mood is "better," affect is incongruent and constricted, improving mildly Suicidality/Homicidality: Patient reports suicidal ideation however denies any homicidal ideation. Perceptions: Patient denies any visual hallucinations and denies any auditory hallucinations Though content/process: The patient appears to be dysphoric and chronically suicidal. Memory and concentration: AOX3, grossly intact for the purposes of this session Judgment and insight: Superficial yet improving Assessment Major depressive disorder, recurrent, severe, without psychotic features Cluster B personality traits Plan: -Patient continues to meet criteria for inpatient psychiatric admission for symptom stabilization and safety. Patient has signed adult voluntary form and medication consent and was placed in patient's chart. -Patient may return to being off finger foods. -Medications: Continue Clozaril as perscribed for SI and mood stabilization. Continue lithium 600 mg by mouth twice a day for suicidal ideation. will check lithium level tomorrow morning. Topamax 50 mg in the morning and 100 mg at bedtime increase Inderal 20 mg by mouth twice a day for anxiety Continue prazosin 2 mg by mouth at bedtime Continue Cymbalta 60 mg by mouth twice a day -When necessary Ativan and Haldol for agitation/aggression. -SW on board for discharge planning. Encouraged the patient to participate in milieu. likely discharge tomorrow back home. SW to helpo with safety planning and ensuring no guns or weapons at home.
[2023-03-06 12:03] LABS: MCHC 31.7 g/dL (31.0-37.0); MCV 91.5 fL (80.0-100.0); Mean Platelet Volume 7.3; Platelet Count 197 k/uL (150-450); RBC 4.15 m/uL (4.30-5.90); RDW 13.6 % (11.5-15.5); WBC 13.7 k/uL (3.8-10.6)
[2023-03-06] MEDS: PRAZOSIN 1 MG CAP PO SCH (19:55)
[2023-03-06] MEDS: cloZAPine 100 MG TAB PO SCH (19:55)
[2023-03-06] MEDS: TOPIRAMATE 100 MG TAB PO SCH (19:55)
[2023-03-06] MEDS: PROPRANOLOL 20 MG TAB PO SCH (19:55)
[2023-03-06] MEDS: IBUPROFEN 800 MG TAB PO PRN (19:57)
[2023-03-06] MEDS: LORazepam 1 MG TAB PO PRN (19:58)
[2023-03-07 07:11] VITALS: BP 129/81; PULSE 84; RESP 16; TEMP 98
[2023-03-07] MEDS: PANTOPRAZOLE 40 MG TABLET PO SCH (08:52)
[2023-03-07] MEDS: FLUTICASONE 50MCG/SPRAY NASAL 16GM EA NOSTRIL PRN (08:52)
[2023-03-07] MEDS: POTASSIUM CHLORIDE ER 20 MEQ TAB.ER PO SCH (08:52)
[2023-03-07] MEDS: LITHIUM CARBONATE 300 MG CAP PO SCH (08:52)
[2023-03-07] MEDS: DULoxetine HCL 60 MG CAPSULE.DR PO SCH (08:52)
[2023-03-07] MEDS: PROPRANOLOL 20 MG TAB PO SCH (08:52)
[2023-03-07] MEDS: TOPIRAMATE 25 MG TAB PO SCH (08:53)
--- NOTE | 2023-03-07 10:54 | P.DS ---
Providers Date of admission: 02/23/23 17:44 Expected date of discharge: 03/07/23 Attending physician: Gagan Xavier MD Consults: 02/23/23 17:47 Consult Physician Routine Consulting Provider: Manan Brown Consult Reason/Comments: medical management Do you want consulting provider notified?: Yes Primary care physician: Manan Brown - Discharge Diagnosis(es) (1) Major depressive disorder without psychotic features Current Visit: Yes Status: Acute Priority: High (2) Borderline personality disorder Current Visit: Yes Status: Acute Priority: High (3) PTSD (post-traumatic stress disorder) Current Visit: Yes Status: Acute Priority: Medium Hospital Course: Admission HPI: Admission note was completed by Dr Franklin "This is a psychiatric assessment on Jeff Houston who is a 39-year-old male who was hospitalized for depression and suicidal ideations Patient was being seen at is PCPs office where he was felt to be depressed and a high risk to himself and was sent to the hospital for further assessment and treatment Patient says that he was thinking about ending his life He states that he has been frustrated with his car recently breaking down 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 Patient was initially fairly suicidal, thoughts of self-harm and isolative however with time and treatment he eventually got along well with other patients on the unit and followed unit protocol. Patient was compliant with the medications and denied any side effects throughout hospital course. Patient was started on clozapine and increased her dose of 100 mg daily at bedtime for mood stabilization/suicidal thoughts/insomnia, lithium 600 mg twice a day for suicidal ideations, mood adjunct, Topamax 50 mg in the morning and 100 mg daily at bedtime, propranolol 20 mg twice a day for anxiety/restlessness, prazosin 2 mg daily at bedtime for nightmares, Cymbalta 60 mg twice a day for mood/anxiety. Patient spoke of his stressors and engaged in therapy both group and individual. Patient was also seen by medical team for history and physical exam. Throughout the course of the hospitalization patient gradually improved with regards to mood, anxiety, de souza icidal thoughts, sleep and returned back to their baseline level of functioning. On the day of discharge patient denied any suicidal or homicidal ideations intent or plan denied any auditory or visual hallucinations. Patient endorsed wanting to live for his family and his future. Patient deals with chronic suicidal ideations however no acute plan and claims that they have improved significantly since hospitalization. The patient denied any access to guns or weapons. Patient denied any paranoia and did not endorse any delusions. Patient does not have a significant history of substance abuse and was counseled on abstaining from all substances including alcohol and marijuana. Patient was also counseled on the medications and need for regular compliance and was encouraged to follow-up with their outpatient appointment for mental health and also for primary care. Prior to discharge a family meeting will be arranged by medical social worker to answer any questions and ensure safety upon discharge. Mental status exam: General Appearance: Patient appears to be mildly overweight, wearing glasses, stated age is alert, pleasant, and cooperative. Patient is in no acute distress and has improved hygiene and grooming Behavior: Patient is calmly seated without any agitated behavior. Speech: Patient's speech is fluent and nonpressured. Mood/Affect: Patient reports their mood is "good", affect is congruent Suicidality/Homicidality: Patient denies having any suicidal or homicidal ideation intent or plan. Perceptions: Patient denies any auditory or visual hallucinations. Though content/process: There is no evidence of any delusional thought content and thought process is linear and goal-directed. more future oriented Memory and concentration: AOX3, grossly intact for the purposes of this session. Can spell "WORLD" backwards correctly. Judgment and insight: chronically poor/impulsive, however has improved with guarded prognosis Impression: Major depressive disorder, recurrent without psychotic features Borderline personality disorder PTSD Plan: -Continue with discharge today as patient has improved and stabilized psychiatrically and is not currently an imminent threat to himself and/or others. Patient will remain at chronically elevated risk for harm to self and/or others due to his impulsivity and personality disorder. -Continue medications: Clozapine 100 mg daily at bedtime for mood stabilization/suicidal thoughts, lithium 600 mg twice a day for suicidal ideation/mood adjunct, Topamax 50 mg every morning +100 mg daily at bedtime, propranolol 20 mg twice a day for anxiety, prazosin 2 mg daily at bedtime for nightmares, Cymbalta 60 mg twice a day for mood/anxiety. -Patient was counseled on the need for medication compliance and appropriate follow-up at mental health and also primary care for medical issues. Patient verbalized understanding and agreed. -Social work to arrange for and conduct family meeting to ensure safety upon discharge and answer any questions/concerns. Social work also to arrange for patients follow up appointments with [facility] for psychiatric care along with follow up with primary care provider. Engineer Conductor is requesting the patient be escalated in his outpatient care to either next up or act program for closer monitoring. -Patient counseled on abstaining from recreational drugs and marijuana and alcohol. Was informed/educated on the adverse effects on their physical and mental health. Patient verbally agreed and understood. -Patient was instructed to return to the hospital or seek immediate medical care if their psychiatric or medical symptoms do worsen or reoccur. Allergies Allergy/AdvReac Type Severity Reaction Status Date / Time No Known Allergies Allergy Verified 02/24/23 09:57 Laboratory Results WBC 13.7 k/uL (3.8-10.6) H 03/06/23 11:22 RBC 4.15 m/uL (4.30-5.90) L 03/06/23 11:22 Hgb 12.0 gm/dL (13.0-17.5) L 03/06/23 11:22 Hct 38.0 % (39.0-53.0) L 03/06/23 11:22 MCV 91.5 fL (80.0-100.0) 03/06/23 11:22 MCH 29.0 pg (25.0-35.0) 03/06/23 11:22 MCHC 31.7 g/dL (31.0-37.0) 03/06/23 11:22 RDW 13.6 % (11.5-15.5) 03/06/23 11:22 Plt Count 197 k/uL (150-450) 03/06/23 11:22 MPV 7.3 03/06/23 11:22 Neutrophils % 76 % 03/02/23 07:01 Lymphocytes % 15 % 03/02/23 07:01 Monocytes % 5 % 03/02/23 07:01 Eosinophils % 2 % 03/02/23 07:01 Basophils % 0 % 03/02/23 07:01 Neutrophils # 9.5 k/uL (1.3-7.7) H 03/02/23 07:01 Lymphocytes # 1.9 k/uL (1.0-4.8) 03/02/23 07:01 Monocytes # 0.6 k/uL (0-1.0) 03/02/23 07:01 Eosinophils # 0.3 k/uL (0-0.7) 03/02/23 07:01 Basophils # 0.0 k/uL (0-0.2) 03/02/23 07:01 Sodium 141 mmol/L (137-145) 02/24/23 05:39 Potassium 3.8 mmol/L (3.5-5.1) 02/24/23 05:39 Chloride 111 mmol/L (98-107) H 02/24/23 05:39 Carbon Dioxide 23 mmol/L (22-30) 02/24/23 05:39 Anion Gap 7 mmol/L 02/24/23 05:39 BUN 12 mg/dL (9-20) 02/24/23 05:39 Creatinine 1.06 mg/dL (0.66-1.25) 02/24/23 05:39 Est GFR (CKD-EPI)AfAm >90 (>60 ml/min/1.73 sqM) 02/24/23 05:39 Est GFR (CKD-EPI)NonAf 83 (>60 ml/min/1.73 sqM) 02/24/23 05:39 Glucose 91 mg/dL (74-99) 02/24/23 05:[address] Glu mg/dL 108 mg/dL 02/24/23 05:39 Hemoglobin A1c 5.4 % (<=6.0) 02/24/23 05:39 Calcium 8.5 mg/dL (8.4-10.2) 02/24/23 05:39 Total Bilirubin 0.4 mg/dL (0.2-1.3) 02/24/23 05:39 AST 31 U/L (17-59) 02/24/23 05:39 ALT 30 U/L (4-49) 02/24/23 05:39 Alkaline Phosphatase 102 U/L (38-126) 02/24/23 05:39 Total Protein 7.2 g/dL (6.3-8.2) 02/24/23 05:39 Albumin 4.0 g/dL (3.5-5.0) 02/24/23 05:39 Triglycerides 151.00 mg/dL (0.00-149.00) H 02/24/23 05:39 Cholesterol 149.00 mg/dL (0.00-200.00) 02/24/23 05:39 LDL Cholesterol, Calc 83.4 mg/dL (0.0-131.0) 02/24/23 05:39 VLDL Cholesterol, Calc 30.20 mg/dL (5.00-40.00) 02/24/23 05:39 HDL Cholesterol 35.40 mg/dL (40.00-60.00) L 02/24/23 05:39 Cholesterol/HDL Ratio 4.21 Ratio 02/24/23 05:39 TSH 0.707 mIU/L (0.465-4.680) 02/24/23 05:39 Urine Color Yellow 02/23/23 16:05 Urine Appearance Clear (Clear) 02/23/23 16:05 Urine pH 7.5 (5.0-8.0) 02/23/23 16:05 Ur Specific [place] 1.016 (1.001-1.035) 02/23/23 16:05 Urine Protein Negative (Negative) 02/23/23 16:05 Urine Glucose (UA) Negative (Negative) 02/23/23 16:05 Urine Ketones Negative (Negative) 02/23/23 16:05 Urine Blood Negative (Negative) 02/23/23 16:05 Urine Nitrite Negative (Negative) 02/23/23 16:05 Urine Bilirubin Negative (Negative) 02/23/23 16:05 Urine Urobilinogen <2.0 mg/dL (<2.0) 02/23/23 16:05 Ur Leukocyte Esterase Negative (Negative) 02/23/23 16:05 Urine Opiates Screen Detected (NotDetected) H 02/23/23 13:21 Ur Oxycodone Screen Not Detected (NotDetected) 02/23/23 13:21 Urine Methadone Screen Not Detected (NotDetected) 02/23/23 13:21 Ur Propoxyphene Screen Not Detected (NotDetected) 02/23/23 13:21 Ur Barbiturates Screen Not Detected (NotDetected) 02/23/23 13:21 U Tricyclic Antidepress Detected (NotDetected) H 02/23/23 13:21 Ur Phencyclidine Scrn Not Detected (NotDetected) 02/23/23 13:21 Ur Amphetamines Screen Not Detected (NotDetected) 02/23/23 13:21 U Methamphetamines Scrn Not Detected (NotDetected) 02/23/23 13:21 U Benzodiazepines Scrn Not Detected (NotDetected) 02/23/23 13:21 [place] 0.8 mmol/L 02/24/23 05:39 Urine Cocaine Screen Not Detected (NotDetected) 02/23/23 13:21 U Marijuana (THC) Screen Detected (NotDetected) H 02/23/23 13:21 Coronavirus (PCR) Not Detected (Not Detectd) 02/23/23 16:15 Influenza Type A (PCR) Not Detected (Not Detectd) 03/06/23 11:15 Influenza Type B (PCR) Not Detected (Not Detectd) 03/06/23 11:15 RSV (PCR) Not Detected (Not Detectd) 03/06/23 11:15 SARS-CoV-2 (PCR) Not Detected (Not Detectd) 03/06/23 11:15 Vital Signs Temp 98 F 03/07/23 06:58 Pulse 84 03/07/23 06:58 Resp 16 03/07/23 06:58 BP 129/81 03/07/23 06:58 Pulse Ox 98 03/06/23 02:53 FiO2 Patient Condition at Discharge: Stable Plan - Discharge Summary Discharge Rx Participant: No New Discharge Prescriptions: New Propranolol [Inderal] 20 mg PO BID 7 Days #14 tab cloZAPine [Clozaril] 100 mg PO HS 7 Days #7 tab Fluticasone Nasal [place] [Flonase Nasal [place]] 2 spray EA NOSTRIL DAILY PRN ml PRN Reason: Allergy Symptoms Topiramate [Topamax] 100 mg PO HS 7 Days #7 tab Topiramate [Topamax] 50 mg PO DAILY 7 Days #14 tab Acetaminophen Tab [Tylenol] 650 mg PO Q4HR PRN tab PRN Reason: Mild Pain (Scale 1 To 3) Continue Omeprazole [PriLOSEC] 20 mg PO DAILY Potassium Chloride ER [K-Dur 20] 20 meq PO DAILY Ibuprofen [Motrin] 800 mg PO Q6H PRN PRN Reason: Pain DULoxetine HCL [Cymbalta] 60 mg PO BID 7 Days #14 cap [place] Carbonate 600 mg PO BID 7 Days #28 cap Prazosin HCl 2 mg PO HS 7 Days #7 cap Ergocalciferol (Vitamin D2) [Drisdol (50,000 Iu)] 1,250 mcg PO Q30D Simvastatin [Zocor] 40 mg PO HS Discontinued Baclofen [Lioresal] 20 mg PO TID HYDROcodone/APAP 7.5-325MG [[place] 7.5-325] 1 tab PO BID PRN PRN Reason: Pain Propranolol [Inderal] 10 mg PO BID 30 Days tab Topiramate [Topamax] 100 mg PO BID 30 Days tab Doxepin [SINEquan] 75 mg PO HS 30 Days #90 cap ARIPiprazole [Abilify] 5 mg PO HS Discharge Medication List Omeprazole [PriLOSEC] 20 mg PO DAILY 12/27/14 [History] Potassium Chloride ER [K-Dur 20] 20 meq PO DAILY 07/19/20 [History] Ergocalciferol (Vitamin D2) [Drisdol (50,000 Iu)] 1,250 mcg PO Q30D 08/29/22 [History] Ibuprofen [Motrin] 800 mg PO Q6H PRN 02/23/23 [History] Simvastatin [Zocor] 40 mg PO HS 02/23/23 [History] Acetaminophen Tab [Tylenol] 650 mg PO Q4HR PRN tab 03/07/23 [Rx] DULoxetine HCL [Cymbalta] 60 mg PO BID 7 Days #14 cap 03/07/23 [Rx] Fluticasone Nasal [place] [Flonase Nasal [place]] 2 spray EA NOSTRIL DAILY PRN ml 03/07/23 [Rx] [place] Carbonate 600 mg PO BID 7 Days #28 cap 03/07/23 [Rx] Prazosin HCl 2 mg PO HS 7 Days #7 cap 03/07/23 [Rx] Propranolol [Inderal] 20 mg PO BID 7 Days #14 tab 03/07/23 [Rx] Topiramate [Topamax] 50 mg PO DAILY 7 Days #14 tab 03/07/23 [Rx] Topiramate [Topamax] 100 mg PO HS 7 Days #7 tab 03/07/23 [Rx] cloZAPine [Clozaril] 100 mg PO HS 7 Days #7 tab 03/07/23 [Rx] Follow up Appointment(s)/Referral(s): Manan Brown MD [Primary Care Provider] - 1-[address] [facility] [NON-STAFF] - 03/08/23 8:30 am (03/08/23 8:30 Rai Savage 03/08/23 11am Aranza Hoover 03/12/[address] Archibald) Patient Instructions/Handouts: Depression (DC), Post Traumatic Stress Disorder (DC), Borderline Personality Disorder (DC) Activity/Diet/Wound Care/Special Instructions: Avoid the use of street drugs and alcohol. Take all medications as prescribed. When you are in need of refills on your medications, please contact your medical provider and/or outpatient psychiatrist/provider to have this done. Please go to your scheduled outpatient appointment for aftercare treatment. If symptoms return or become worse, call the crisis line at and/or go to the nearest emergency room for evaluation. National Suicide Hotline 825. Discharge Disposition: HOME SELF-CARE
[2023-03-07 10:58] VITALS: BMI 38.3
[2023-03-07 11:46] LABS: Basophils % (A) 0 %; Eosinophils # (A) 0.3 k/uL (0-0.7); Eosinophils % (A) 3 %; HCT 39.5 % (39.0-53.0); HGB 12.4 gm/dL (13.0-17.5); Lymphocytes # (A) 1.7 k/uL (1.0-4.8); Lymphocytes % (A) 20 %; MCH 29.1 pg (25.0-35.0); MCHC 31.5 g/dL (31.0-37.0); MCV 92.3 fL (80.0-100.0); Mean Platelet Volume 7.6; Monocytes # (A) 0.3 k/uL (0-1.0); Monocytes % (A) 4 %; Neutrophils # (A) 5.9 k/uL (1.3-7.7); Neutrophils % (A) 71 %; Platelet Count 217 k/uL (150-450); RBC 4.28 m/uL (4.30-5.90); RDW 13.6 % (11.5-15.5); WBC 8.4 k/uL (3.8-10.6)
[2023-03-07] MEDS: LORazepam 1 MG TAB PO PRN (12:01)
[2023-03-07] MEDS: IBUPROFEN 800 MG TAB PO PRN (12:02)
[2023-03-07 12:34] LABS: Clozapine (Clozaril) 129 ng/mL (200-700); Norclozapine 91 ng/mL (200-700)
== END 2023-03-07 14:05 | disposition home or self-care (01) | DRG 751 ==
LOC: EC 12:25 → 3MHU 17:44
PROVIDERS: ADMIT Psychiatry & Neurology Psychiatry; ATTEND Psychiatry & Neurology Psychiatry
DX: F32.0 Major depressive disorder, single episode, mild (principal); R45.851 Suicidal ideations; E78.5 Hyperlipidemia, unspecified; F60.3 Borderline personality disorder; F20.9 Schizophrenia, unspecified; F34.1 Dysthymic disorder; K21.9 Gastro-esophageal reflux disease without esophagitis; F43.10 Post-traumatic stress disorder, unspecified; G47.00 Insomnia, unspecified; Z79.899 Other long term (current) drug therapy; Z85.72 Personal history of non-Hodgkin lymphomas; Z86.711 Personal history of pulmonary embolism; Z63.4 Disappearance and death of family member; Z71.89 Other specified counseling; Z71.3 Dietary counseling and surveillance
CPT/HCPCS: 80053; 80061; 80159; 80178; 80306; 81003; 82075; 83036; 84443; 85025; 85027; 87635; 87636; 93005; 99285

== ENCOUNTER 2023-03-08 09:14 | Inpatient (IN) | payer OTHER ==
[2023-03-08] MEDS ORDERED: NALOXONE 0.4 MG/ML 10 ML VIAL IVP PRN (09:16)
[2023-03-08] MEDS ORDERED: SODIUM CHLORIDE 0.9% 1,000 ML IV STA (09:19)
[2023-03-08 09:41] LABS: Basophils % (A) 0 %; Eosinophils # (A) 0.4 k/uL (0-0.7); Eosinophils % (A) 5 %; HCT 42.5 % (39.0-53.0); HGB 13.4 gm/dL (13.0-17.5); Hypochromasia Slight; Lymphocytes % (A) 33 %; MCH 29.5 pg (25.0-35.0); MCHC 31.5 g/dL (31.0-37.0); MCV 93.6 fL (80.0-100.0); Mean Platelet Volume 7.7; Monocytes # (A) 0.5 k/uL (0-1.0); Monocytes % (A) 6 %; Neutrophils # (A) 4.8 k/uL (1.3-7.7); Neutrophils % (A) 54 %; Platelet Count 253 k/uL (150-450); RBC 4.54 m/uL (4.30-5.90)
[2023-03-08 09:47] LABS: Prothrombin Time 10.4 sec (9.0-12.0)
[2023-03-08 09:53] LABS: Appearance,Urine Cloudy (Clear); Bacteria,Urine Occasional /hpf; Bilirubin,Urine Negative (Negative); Blood,Urine Negative (Negative); Cocaine Screen,Urine Not Detected (NotDetected); Color,Urine Light Yellow; Glucose,Urine (UA) Negative (Negative); Ketones,Urine Negative (Negative); Leukocyte Esterase,Urine Negative (Negative); Mucus,Urine Rare /hpf; Nitrite,Urine Negative (Negative); Phencyclidine Screen,Urine Not Detected (NotDetected); Protein,Urine Negative (Negative); RBC,Urine 6 /hpf (0-5); Specific Gravity,Urine 1.019 (1.001-1.035); Squamous Epithelial Cell,Urine 1 /hpf (0-4); Urn Cannabinoid Scrn Not Detected (NotDetected); Urobilinogen,Urine <2.0 mg/dL (<2.0); WBC,Urine 5 /hpf (0-5)
[2023-03-08 09:54] LABS: Amphetamine Screen,Urine Not Detected (NotDetected); Barbiturate Screen,Urine Not Detected (NotDetected); Benzodiazepines Screen,Urine Detected (NotDetected); Methadone Screen, Urine Not Detected (NotDetected); Opiate Screen,Urine Detected (NotDetected); Oxycodone Screen, Urine Detected (NotDetected); Tricyclic Antidepressant,Urine Not Detected (NotDetected)
[2023-03-08 10:00] LABS: ALT 35 U/L (4-49); AST 36 U/L (17-59); Acetaminophen <10.0 ug/mL; African American GFR (CKD) 80 (>60 ml/min/1.73 sqM); Albumin 4.3 g/dL (3.5-5.0); Alcohol <10 mg/dL; Alkaline Phosphatase 115 U/L (38-126); Anion Gap 10 mmol/L; Blood Urea Nitrogen 12 mg/dL (9-20); Calcium 8.8 mg/dL (8.4-10.2); Carbon Dioxide 23 mmol/L (22-30); Chloride 112 mmol/L (98-107); Glucose 105 mg/dL (74-99); Non-African American GFR(CKD) 69 (>60 ml/min/1.73 sqM); Potassium 4.3 mmol/L (3.5-5.1); Salicylate <1.0 mg/dL; Sodium 145 mmol/L (137-145); Total Bilirubin 0.4 mg/dL (0.2-1.3); Total Protein 7.8 g/dL (6.3-8.2)
[2023-03-08] MEDS ORDERED: PANTOPRAZOLE 40 MG/10 ML VIAL IVP STA (10:03)
--- NOTE | 2023-03-08 10:06 | ED ---
General Adult HPI - General Chief complaint: Altered Mental Status Stated complaint: overdose Time Seen by Provider: 03/08/23 09:19 Source: EMS, RN notes reviewed, old records reviewed Mode of arrival: EMS Limitations: altered mental status - History of Present Illness Initial comments: 47-year-old male presents with suspected overdose. Patient was [place] in [place] with multiple suicide notes and a note indicating the amount of drugs that he had taken and the times that he took these drugs. It was noted that he took 10 [place] 7.5, 10 baclofen, and 10 Klonopin. The times stance on these were around midnight. Patient presented at approximately 9 AM after being found unresponsive in his vehicle. He had snoring respirations. He was transported by paramedics for evaluation. Patient is completely obtunded, no gag reflex, snoring respirations, does not respond to painful stimuli. - Related Data Home Medications Medication Instructions Recorded Confirmed Omeprazole [PriLOSEC] 20 mg PO DAILY 12/27/14 03/08/23 Potassium Chloride ER [K-Dur 20] 20 meq PO DAILY 07/19/20 03/08/23 Ergocalciferol (Vitamin D2) 1,250 mcg PO Q30D 08/29/22 03/08/23 [Drisdol (50,000 Iu)] Ibuprofen [Motrin] 800 mg PO Q6H PRN 02/23/23 03/08/23 Simvastatin [Zocor] 40 mg PO HS 02/23/23 03/08/23 Previous Rx's Medication Instructions Recorded Acetaminophen Tab [Tylenol] 650 mg PO Q4HR PRN tab 03/07/23 DULoxetine HCL [Cymbalta] 60 mg PO BID 7 Days #14 cap 03/07/23 Fluticasone Nasal [place] [Flonase 2 spray EA NOSTRIL DAILY PRN ml 03/07/23 Nasal [place]] [employer] Carbonate 600 mg PO BID 7 Days #28 cap 03/07/23 Prazosin HCl 2 mg PO HS 7 Days #7 cap 03/07/23 Propranolol [Inderal] 20 mg PO BID 7 Days #14 tab 03/07/23 Topiramate [Topamax] 50 mg PO DAILY 7 Days #14 tab 03/07/23 Topiramate [Topamax] 100 mg PO HS 7 Days #7 tab 03/07/23 cloZAPine [Clozaril] 100 mg PO HS 7 Days #7 tab 03/07/23 Allergies Allergy/AdvReac Type Severity Reaction Status Date / Time No Known Allergies Allergy Verified 03/08/23 09:27 Review of Systems ROS Statement: Those systems with pertinent positive or pertinent negative responses have been documented in the HPI. ROS Other: All systems not noted in ROS Statement are negative. Past Medical History Past Medical History: Cancer, Deep Vein Thrombosis (DVT), GERD/Reflux, H yperlipidemia, Hypertension, Osteoarthritis (OA), Pneumonia, Pulmonary Embolus (PE), Syncope, Thyroid Disorder Additional Past Medical History / Comment(s): HX HEADACHES AND DIZZINESS, Hx LYMPHOMA 2003, bulging disc in neck. 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 , no longer on bp meds, states Covid May-2019, pneumonia Aug 2020 .,states current blood clot right leg and in lungs., frequent diarrhea., back, neck & hip pain. STATES PASSED OUT TWICE IN AUGUST History of Any Multi-Drug Resistant Organisms: None Reported Past Surgical History: Hernia Repair Additional Past Surgical History / Comment(s): vasectomy, wisdom teeth removed, pain procedures Past Anesthesia/Blood Transfusion Reactions: No Reported Reaction Past Psychological History: Anxiety, Depression, PTSD Smoking Status: Former smoker - Past Family History Mother Family Medical History: No Reported History Father Family Medical History: Cancer General Exam Limitations: altered mental status General appearance: obtunded Head exam: Present: atraumatic, normocephalic Eye exam: Absent: PERRL ([place] bilateral) Neck exam: Present: normal inspection Respiratory exam: Present: other (Intermittent apnea and snoring respirations) Cardiovascular Exam: Present: regular rate, normal rhythm GI/Abdominal exam: Present: distended. Absent: tenderness Extremities exam: Present: normal inspection, normal capillary refill Neurological exam: Absent: alert, oriented X3 Skin exam: Present: cyanosis (Central cyanosis) Course Vital Signs 03/08/23 03/08/23 03/08/23 09:19 09:20 09:40 Temperature 96.7 F L Pulse Rate 89 90 Respiratory 17 8 L 17 Rate Blood Pressure 146/114 O2 Sat by Pulse 99 100 Oximetry Fraction of Inspired Oxygen (FIO2) 03/08/23 03/08/23 03/08/23 09:51 10:00 10:12 Temperature Pulse Rate 100 Respiratory 29 H Rate Blood Pressure 182/103 O2 Sat by Pulse 96 Oximetry Fraction of 100 100 Inspired Oxygen (FIO2) 03/08/23 03/08/23 03/08/23 10:20 11:05 11:45 Temperature Pulse Rate 89 76 Respiratory 15 Rate Blood Pressure 151/91 O2 Sat by Pulse 100 100 Oximetry Fraction of 70 Inspired Oxygen (FIO2) Procedures - Intubation Sedative: Propofol Paralytic: Succinylcholine Mg Given: 100 Laryngoscope: Jean Carlos Size: 4 ET Tube Size: 7.5 ET Tube Uncuffed: No Tube Secured Depth (cm): 24 Tube Secured Location: lips Tube Placement Confirmation: visualized tube passing through cords, equal breath sounds bilaterally, no breath sounds over epigastrium, confirmation by ca pnometry Patient Tolerated Procedure: well Intubation Complications: none Medical Decision Making - Medical Decision Making Was pt. sent in by a medical professional or institution (Dr. PA, TOP DISTRIBUTION EXECUTIVE, urgent care, hospital, or skilled nursing...) When possible be specific @ -No Did you speak to anyone other than the patient for history (EMS, parent, family, police, friend...)? What history was obtained from this source @ -Paramedics Did you review nursing and triage notes (agree or disagree)? Why? @ -I reviewed and agree with nursing and triage notes Were old charts reviewed (outside hosp., previous admission, EMS record, old EKG, old radiological studies, urgent care reports/EKG's, skilled nursing records)? Report findings @ -No old charts were reviewed Differential Diagnosis (chest pain, altered mental status, abdominal pain women, abdominal pain men, vaginal bleeding, weakness, fever, dyspnea, syncope, headache, dizziness, GI bleed, back pain, seizure, CVA, palpatations, mental health, musculoskeletal)? @Suicide attempt, polysubstance overdose EKG interpreted by me (3pts min.). @ -[Sinus rhythm, rate of 86, [place] interval 153, QRS duration 104, QTC 433, no ST segment elevation. X-rays interpreted by me (1pt min.). @ -Chest x-ray, 1 view postintubation, satisfactory ET tube infiltrate right lung field CT interpreted by me (1pt min.). @ -[CT brain without intracranial hemorrhage, limited assessment and artifact U/S interpreted by me (1pt. min.). @ -None done What testing was considered but not performed or refused? (CT, X-rays, U/S, labs)? Why? @ -None What meds were considered but not given or refused? Why? @ -None Did you discuss the management of the patient with other professionals (professionals i.e. Dr., PA, TOP DISTRIBUTION EXECUTIVE, lab, RT, psych nurse, social work case manager, diesel bus mechanic, teacher, chief data officer, case planner)? Give summary @ -Case discussed with Dr. Pawan zurita for the ICU and Dr. Brown has been paged. Was smoking cessation discussed for >3mins.? @ -No Was critical care preformed (if so, how long)? @ -Yes, 35 minutes Were there social determinants of health that impacted care today? How? (Homelessness, low income, unemployed, alcoholism, drug addiction, transportation, low edu. Level, literacy, decrease access to med. care, [facility], rehab)? @ -No Was there de-escalation of care discussed even if they declined (Discuss DNR or withdrawal of care, Hospice)? DNR status @ -No What co-morbidities impacted this encounter? (DM, HTN, Smoking, COPD, CAD, Cancer, CVA, ARF, Chemo, Hep., AIDS, mental health diagnosis, sleep apnea, morbid obesity)? @ -Depression Was patient admitted / discharged? Hospital course, mention meds given and route, prescriptions, significant lab abnormalities, going to OR and other pert inent info. @ -hospital course 47-year-old male who presented with overdose, patient had a note indicating the amount of medications that he took, taking 10 pills of [place], baclofen, and Klonopin each. Patient has snoring respirations, no gag reflex, no movement to painful stimuli. Narcan does not improve his respiratory status or mental status. I did decide to intubate this patient for airway protection. Drug screen is positive for opiates and benzodiazepines. Otherwise patient laboratory testing is unremarkable. Patient will be admitted to the ICU for close monitoring with psychiatry on consult. new problem with uncertain prognosis? @ -No Drug Therapy requiring intensive monitoring for toxicity (Heparin, Nitro, Insulin, Cardizem)? @ -No Were any procedures done? @ -yes intubation Diagnosis/symptom? @ -Polysubstance overdose, suicide attempt, respiratory failure Acute, or Chronic, or Acute on Chronic? @Acute Uncomplicated (without systemic symptoms) or Complicated (systemic symptoms)? @ -default Side effects of treatment? @ -No Exacerbation, Progression, or Severe Exacerbation? @ -No Poses a threat to life or bodily function? How? (Chest pain, [place], [place], pneumonia, PE, COPD, DKA, ARF, appy, cholecystitis, CVA, Diverticulitis, Homicidal, Suicidal, threat to staff... and all critical care pts) @ -[Yes, respiratory failure, anoxic brain injury - Lab Data Result diagrams: 03/08/23 09:30 03/08/23 09:30 Lab Results 03/08/23 03/08/23 03/08/23 Range/Units 09:30 09:30 09:30 WBC 9.0 (3.8-10.6) k/uL RBC 4.54 (4.30-5.90) m/uL Hgb 13.4 (13.0-17.5) gm/dL Hct 42.5 (39.0-53.0) % MCV 93.6 (80.0-100.0) fL MCH 29.5 (25.0-35.0) pg MCHC 31.5 (31.0-37.0) g/dL RDW 14.0 (11.5-15.5) % Plt Count 253 (150-450) k/uL MPV 7.7 Neutrophils % 54 % Lymphocytes % 33 % Monocytes % 6 % Eosinophils % 5 % Basophils % 0 % Neutrophils # 4.8 (1.3-7.7) k/uL Lymphocytes # 3.0 (1.0-4.8) k/uL Monocytes # 0.5 (0-1.0) k/uL Eosinophils # 0.4 (0-0.7) k/uL Basophils # 0.0 (0-0.2) k/uL Hypochromasia Slight PT 10.4 (9.0-12.0) sec INR 1.0 (<1.2) Sample Site ABG pH (7.35-7.45) ABG pCO2 (35-45) mmHg ABG pO2 (83-108) mmHg ABG HCO3 (21-25) mmol/L ABG Total CO2 (19-24) mmol/L ABG O2 Saturation (94-97) % ABG Base Excess mmol/L Bill Test FiO2 % Sodium (137-145) mmol/L Potassium (3.5-5.1) mmol/L Chloride (98-107) mmol/L Carbon Dioxide (22-30) mmol/L Anion Gap mmol/L BUN (9-20) mg/dL Creatinine (0.66-1.25) mg/dL Est GFR (CKD-EPI)AfAm (>60 ml/min/1.73 sqM) Est GFR (CKD-EPI)NonAf (>60 ml/min/1.73 sqM) Glucose (74-99) mg/dL Plasma Lactic Acid Amadeo (0.7-2.0) mmol/L Calcium (8.4-10.2) mg/dL Total Bilirubin (0.2-1.3) mg/dL AST (17-59) U/L ALT (4-49) U/L Alkaline Phosphatase (38-126) U/L Total Protein (6.3-8.2) g/dL Albumin (3.5-5.0) g/dL Urine Color Light Yellow Urine Appearance Cloudy (Clear) Urine pH 6.0 (5.0-8.0) Ur Specific [place] 1.019 (1.001-1.035) Urine Protein Negative (Negative) Urine Glucose (UA) Negative (Negative) Urine Ketones Negative (Negative) Urine Blood Negative (Negative) Urine Nitrite Negative (Negative) Urine Bilirubin Negative (Negative) Urine Urobilinogen <2.0 (<2.0) mg/dL Ur Leukocyte Esterase Negative (Negative) Urine RBC 6 H (0-5) /hpf Urine WBC 5 (0-5) /hpf Ur Squamous Epith Cells 1 (0-4) /hpf Urine Bacteria Occasional H (None) /hpf Urine Mucus Rare H (None) /hpf Salicylates mg/dL Urine Opiates Screen Detected H (NotDetected) Ur Oxycodone Screen Detected H (NotDetected) Urine Methadone Screen Not Detected (NotDetected) Ur Propoxyphene Screen Not Detected (NotDetected) Acetaminophen ug/mL Ur Barbiturates Screen Not Detected (NotDetected) U Tricyclic Antidepress Not Detected (NotDetected) Ur Phencyclidine Scrn Not Detected (NotDetected) Ur Amphetamines Screen Not Detected (NotDetected) U Methamphetamines Scrn Not Detected (NotDetected) U Benzodiazepines Scrn Detected H (NotDetected) Urine Cocaine Screen Not Detected (NotDetected) U Marijuana (THC) Screen Not Detected (NotDetected) Serum Alcohol mg/dL 03/08/23 03/08/23 03/08/23 Range/Units 09:30 09:30 10:55 WBC (3.8-10.6) k/uL RBC (4.30-5.90) m/uL Hgb (13.0-17.5) gm/dL Hct (39.0-53.0) % MCV (80.0-100.0) fL MCH (25.0-35.0) pg MCHC (31.0-37.0) g/dL RDW (11.5-15.5) % Plt Count (150-450) k/uL MPV Neutrophils % % Lymphocytes % % Monocytes % % Eosinophils % % Basophils % % Neutrophils # (1.3-7.7) k/uL Lymphocytes # (1.0-4.8) k/uL Monocytes # (0-1.0) k/uL Eosinophils # (0-0.7) k/uL Basophils # (0-0.2) k/uL Hypochromasia PT (9.0-12.0) sec INR (<1.2) Sample Site RRAD ABG pH 7.27 L (7.35-7.45) ABG pCO2 44 (35-45) mmHg ABG pO2 283 H (83-108) mmHg ABG HCO3 20 L (21-25) mmol/L ABG Total CO2 22 (19-24) mmol/L ABG O2 Saturation 99.0 H (94-97) % ABG Base Excess -6.9 mmol/L Bill Test Yes FiO2 100 % Sodium 145 (137-145) mmol/L Potassium 4.3 (3.5-5.1) mmol/L Chloride 112 H (98-107) mmol/L Carbon Dioxide 23 (22-30) mmol/L Anion Gap 10 mmol/L BUN 12 (9-20) mg/dL Creatinine 1.23 (0.66-1.25) mg/dL Est GFR (CKD-EPI)AfAm 80 (>60 ml/min/1.73 sqM) Est GFR (CKD-EPI)NonAf 69 (>60 ml/min/1.73 sqM) Glucose 105 H (74-99) mg/dL Plasma Lactic Acid Amadeo 1.0 (0.7-2.0) mmol/L Calcium 8.8 (8.4-10.2) mg/dL Total Bilirubin 0.4 (0.2-1.3) mg/dL AST 36 (17-59) U/L ALT 35 (4-49) U/L Alkaline Phosphatase 115 (38-126) U/L Total Protein 7.8 (6.3-8.2) g/dL Albumin 4.3 (3.5-5.0) g/dL Urine Color Urine Appearance (Clear) Urine pH (5.0-8.0) Ur Specific [place] (1.001-1.035) Urine Protein (Negative) Urine Glucose (UA) (Negative) Urine Ketones (Negative) Urine Blood (Negative) Urine Nitrite (Negative) Urine Bilirubin (Negative) Urine Urobilinogen (<2.0) mg/dL Ur Leukocyte Esterase (Negative) Urine RBC (0-5) /hpf Urine WBC (0-5) /hpf Ur Squamous Epith Cells (0-4) /hpf Urine Bacteria (None) /hpf Urine Mucus (None) /hpf Salicylates <1.0 mg/dL Urine Opiates Screen (NotDetected) Ur Oxycodone Screen (NotDetected) Urine Methadone Screen (NotDetected) Ur Propoxyphene Screen (NotDetected) Acetaminophen <10.0 ug/mL Ur Barbiturates Screen (NotDetected) U Tricyclic Antidepress (NotDetected) Ur Phencyclidine Scrn (NotDetected) Ur Amphetamines Screen (NotDetected) U Methamphetamines Scrn (NotDetected) U Benzodiazepines Scrn (NotDetected) Urine Cocaine Screen (NotDetected) U Marijuana (THC) Screen (NotDetected) Serum Alcohol <10 mg/dL Critical Care Time Critical Care Time: Yes Total Critical Care Time: 35 Disposition Clinical Impression: Drug overdose, Suicide attempt, Respiratory failure requiring intubation Disposition: ADMITTED IP TO THIS [facility] Condition: Serious Is patient prescribed a controlled substance at d/c from ED?: No Referrals: Manan Brown MD [Primary Care Provider] - 1-2 days Time of Disposition: 10:17
[2023-03-08] MEDS: SODIUM CHLORIDE 0.9% 1,000 ML IV SCH ×2 (10:12→22:11)
[2023-03-08] MEDS ORDERED: SUCCINYLCHOLINE CHLORIDE 200 MG/10 ML VIAL IV STA (10:23)
[2023-03-08] MEDS ORDERED: NALOXONE 0.4 MG/ML 1 ML VIAL IVP PRN (10:23)
--- NOTE | 2023-03-08 10:34 | CT ---
EXAMINATION TYPE: CT brain wo con DATE OF EXAM: 03/08/2023 COMPARISON: 10/14/2021 HISTORY: ams/overdose CT DLP: 1291.4 mGycm. Automated Exposure Control for Dose Reduction was Utilized. TECHNIQUE: CT scan of the head is performed without contrast. FINDINGS: Severely limited exam due to motion. Grossly there is no evidence of midline shift or siza ble acute hemorrhage . Would be difficult to exclude given the amount of artifact. There is hyperosto sis of the frontal bone. Changes of chronic sinusitis. Orbits symmetric. Grossly the craniocervical junction is maintained. Sella turcica and normal. IMPRESSION: Markedly limited exam due to patient motion demonstrates no definite sizable acute intrac ranial hemorrhage. There is limitation due to artifact or subtle hemorrhage. Recommend either MRI or short-term follow-up repeat CT scan given limitation of exam.
--- NOTE | 2023-03-08 10:44 | XR ---
EXAMINATION TYPE: XR chest 1V portable DATE OF EXAM: 03/08/2023 COMPARISON: 09/25/2021 INDICATION: Overdose postintubation TECHNIQUE: Single frontal view of the chest is obtained. FINDINGS: The heart size is normal. The pulmonary vasculature is normal. Some patchy infiltrate medially to the right lung. Correlate for atelectasis. Aspiration could be con sidered. Follow-up is recommended Endotracheal tube tip is 3.1 cm above the malou. Nasogastric tube transverses the thorax with tip in the left upper quadrant of the abdomen. IMPRESSION: 1. Mild patchy infiltrates in the right lung likely atelectasis. Aspiration could be considered. Foll ow-up is recommended. 2. Lines and catheters discussed above.
[2023-03-08 10:59] LABS: ABG Base Excess -6.9 mmol/L; ABG HCO3 20 mmol/L (21-25); ABG PCO2 44 mmHg (35-45); ABG PH 7.27 (7.35-7.45); ABG PO2 283 mmHg (83-108); ABG TCO2 22 mmol/L (19-24); Allen Test Performed? Yes
[2023-03-08] MEDS ORDERED: NALOXONE 0.4 MG/ML 1 ML VIAL IV PRN (11:49)
[2023-03-08] MEDS ORDERED: ACETAMINOPHEN SUPPOSITORY 650 MG SUPP RECTAL PRN (11:49)
[2023-03-08 13:40] LABS: Glucose,Whole Blood 92 mg/dL (70-110)
--- NOTE | 2023-03-08 14:28 | P.CNPUL ---
History of Present Illness Consult date: 03/08/23 Requesting physician: Manan Brown Reason for consult: other (Ventilator/critical care management) Chief complaint: Drug overdose History of present illness: This is a 47-year-old male patient with a history of major depressive disorder, borderline personality disorder, posttraumatic stress disorder. The patient does have a history of suicidal ideations and was just discharged from our facility yesterday. He was brought back into the emergency room this morning with suspected overdose. [place] and in no indicating the amount of drugs that he had taken in the time he took these drugs. The note stated 10 Longs 7.5 mg, 10 baclofen and 10 Klonopin. At times were written about midnight. He was found in his car unresponsive and with snoring respirations. He received Narcan without much improvement. He was intubated in the emergency room. We are seeing him in consultation now in the intensive care unit. He is on the mechanical ventilator and assist control mode at a rate of 20, tidal volume 500, FiO2 70% and a PEEP of 5. He is sedated on propofol at 15 mcg/kg/m. Normal saline at 100 ML's per hour. White count 9.0. Hemoglobin 13.4. Platelets 253. Sodium 145. Potassium 4.3. Bicarb 23. BUN 12. Creatinine 1.23. Glucose 105. Arterial blood gases on 100% FiO2 revealed a pO2 of 283, pCO2 44 and a pH of 7.27. Urine drug screen was positive for opiates, oxycodone and benzodiazepines. Chest x-ray reveals mild patchy infiltrates of the right lung likely atelectasis versus aspiration. Nasogastric tube in place. Endotracheal tube in place. Computed tomography scan of the brain revealed no definite sizable acute intracranial hemorrhage. Review of Systems ROS unobtainable: due to endotracheal tube Past Medical History Past Medical History: Cancer, Deep Vein Thrombosis (DVT), GERD/Reflux, Hyperlipidemia, Hypertension, Osteoarthritis (OA), Pneumonia, Pulmonary Embolus (PE), Syncope, Thyroid Disorder Additional Past Medical History / Comment(s): HX HEADACHES AND DIZZINESS, Hx LYMPHOMA 2004, bulging disc in neck. 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 , no longer on bp meds, states Covid May-2020, pneumonia Aug 2020 .,states current blood clot right leg and in lungs., frequent diarrhea., back, neck & hip pain. STATES PASSED OUT TWICE IN AUGUST History of Any Multi-Drug Resistant Organisms: None Reported Past Surgical History: Hernia Repair Additional Past Surgical History / Comment(s): vasectomy, wisdom teeth removed, pain procedures Past Anesthesia/Blood Transfusion Reactions: No Reported Reaction Past Psychological History: Anxiety, Depression, PTSD Smoking Status: Former smoker - Past Family History Mother Family Medical History: No Reported History Father Family Medical History: Cancer Medications and Allergies Home Medications Medication Instructions Recorded Confirmed Type Omeprazole [PriLOSEC] 20 mg PO DAILY 12/27/14 03/08/23 History Potassium Chloride ER [K-Dur 20] 20 meq PO DAILY 07/19/20 03/08/23 History Ergocalciferol (Vitamin D2) 1,250 mcg PO Q30D 08/29/22 03/08/23 History [Drisdol (50,000 Iu)] Ibuprofen [Motrin] 800 mg PO Q6H PRN 02/23/23 03/08/23 History Simvastatin [Zocor] 40 mg PO HS 02/23/23 03/08/23 History Acetaminophen Tab [Tylenol] 650 mg PO Q4HR PRN tab 03/07/23 03/08/23 Rx DULoxetine HCL [Cymbalta] 60 mg PO BID 7 Days #14 cap 03/07/23 03/08/23 Rx Fluticasone Nasal [place] [Flonase 2 spray EA NOSTRIL DAILY PRN ml 03/07/23 03/08/23 Rx Nasal [place]] [place] Carbonate 600 mg PO BID 7 Days #28 cap 03/07/23 03/08/23 Rx Prazosin HCl 2 mg PO HS 7 Days #7 cap 03/07/23 03/08/23 Rx Propranolol [Inderal] 20 mg PO BID 7 Days #14 tab 03/07/23 03/08/23 Rx Topiramate [Topamax] 50 mg PO DAILY 7 Days #14 tab 03/07/23 03/08/23 Rx Topiramate [Topamax] 100 mg PO HS 7 Days #7 tab 03/07/23 03/08/23 Rx cloZAPine [Clozaril] 100 mg PO HS 7 Days #7 tab 03/07/23 03/08/23 Rx Allergies Allergy/AdvReac Type Severity Reaction Status Date / Time No Known Allergies Allergy Verified 03/08/23 09:27 Physical Exam Vitals: Vital Signs Temp Pulse Resp BP Pulse Ox FiO2 03/08/23 13:45 72 20 136/93 100 03/08/23 13:37 70 03/08/23 13:30 71 20 98 70 03/08/23 13:00 75 20 126/90 100 03/08/23 12:24 70 03/08/23 12:00 79 20 122/84 100 03/08/23 11:45 70 03/08/23 11:05 76 100 03/08/23 11:00 77 20 133/93 100 03/08/23 10:20 89 15 151/91 100 03/08/23 10:00 100 29 H 182/103 96 03/08/23 09:51 100 03/08/23 09:40 90 17 146/114 100 03/08/23 09:20 8 L 03/08/23 09:19 96.7 F L 89 17 99 Intake and Output 03/07/23 03/08/23 03/08/23 22:59 06:59 14:59 Intake Total 100 Output Total 1200 Balance -1100 Intake: IV 100 Sodium Chloride 0.9% 1, 100 000 ml @ 100 mls/hr IV . Q10H REPLACED BY [facility] Rx#:[id number] Output: Urine 1200 Uretheral ([place]) 100 Other: Weight 117.934 kg GENERAL EXAM: Intubated, sedated 47-year-old male patient on mechanical ventilator, comfortable in no apparent distress. HEAD: Normocephalic. EYES: Normal reaction of pupils, equal size. NOSE: Clear with pink turbinates. THROAT: No erythema or exudates. NECK: No masses, no JVD. CHEST: No chest wall deformity. LUNGS: Equal air entry with no crackles, wheeze, rhonchi or dullness. CVS: S1 and S2 normal with no audible murmur, regular rhythm. ABDOMEN: No hepatosplenomegaly, normal bowel sounds, no guarding or rigidity. SPINE: No scoliosis or deformity SKIN: No rashes CENTRAL NERVOUS SYSTEM: No focal deficits, tone is normal in all 4 extremities. EXTREMITIES: There is no peripheral edema. No clubbing, no cyanosis. Peripheral pulses are intact. Results - Laboratory Findings CBC and BMP: 03/08/23 09:30 03/08/23 09:30 ABG ABG pH 7.27 (7.35-7.45) L 03/08/23 10:55 ABG pCO2 44 mmHg (35-45) 03/08/23 10:55 ABG pO2 283 mmHg (83-108) H 03/08/23 10:55 ABG O2 Saturation 99.0 % (94-97) H 03/08/23 10:55 PT/INR, D-dimer PT 10.4 sec (9.0-12.0) 03/08/23 09:30 INR 1.0 (<1.2) 03/08/23 09:30 Abnormal lab findings: Abnormal Labs 03/08/23 03/08/23 03/08/23 09:30 09:30 09:30 ABG pH ABG pO2 ABG HCO3 ABG O2 Saturation Chloride 112 H Glucose 105 H Creatine Kinase 235 H Urine RBC 6 H Urine Bacteria Occasional H Urine Mucus Rare H Urine Opiates Screen Detected H Ur Oxycodone Screen Detected H U Benzodiazepines Scrn Detected H 03/08/23 10:55 ABG pH 7.27 L ABG pO2 283 H ABG HCO3 20 L ABG O2 Saturation 99.0 H Chloride Glucose Creatine Kinase Urine RBC Urine Bacteria Urine Mucus Urine Opiates Screen Ur Oxycodone Screen U Benzodiazepines Scrn - Diagnostic Findings Chest x-ray: image reviewed Assessment and Plan Assessment: Acute hypoxemic respiratory failure secondary to drug overdose. The patient left a note stating he took 10 tablets of each baclofen, Longs and Klonopin. Drug screen is positive for opiates, oxycodone, benzodiazepines. Recently discharged from the psychiatric unit on 03/07/2023 for suicidal ideat ions and depression History of major depressive disorder Borderline personality disorder Posterior medics stress disorder. History of hyperlipidemia Gastroesophageal reflux disease History of lymphoma in 2003 History of PE/DVT Former smoker Plan: The patient was seen and evaluated Computed tomography scan, chest x-ray, ABGs, labs and medications reviewed Continue normal saline at 100 MLS per hour Titrate propofol as tolerated Titrate the FiO2 as tolerated We will continue to follow and make further recommendations based on his clinical status I have personally seen and examined the patient, performed the documentation and the assessment and plan as written. Number of minutes spent on the visit: 20.
[2023-03-08] MEDS: CHLORHEXIDINE GLUCONATE 15 ML CUP MUCOUS MEM SCH (22:12)
[2023-03-09 05:45] LABS: ABG Base Excess -2.7 mmol/L; ABG HCO3 23 mmol/L (21-25); ABG Oxygen Saturation 97.8 % (94-97); ABG PCO2 40 mmHg (35-45); ABG PH 7.36 (7.35-7.45); ABG PO2 102 mmHg (83-108); ABG TCO2 24 mmol/L (19-24); Allen Test Performed? Yes
[2023-03-09] MEDS: SODIUM CHLORIDE 0.9% 1,000 ML IV SCH ×2 (06:01→21:27)
[2023-03-09 07:03] LABS: Basophils % (A) 0 %; Eosinophils # (A) 0.2 k/uL (0-0.7); Eosinophils % (A) 3 %; HCT 37.3 % (39.0-53.0); HGB 11.9 gm/dL (13.0-17.5); Hypochromasia Slight; Lymphocytes # (A) 1.5 k/uL (1.0-4.8); Lymphocytes % (A) 21 %; MCH 30.2 pg (25.0-35.0); MCHC 32.1 g/dL (31.0-37.0); MCV 94.2 fL (80.0-100.0); Mean Platelet Volume 7.3; Monocytes # (A) 0.4 k/uL (0-1.0); Monocytes % (A) 6 %; Neutrophils % (A) 69 %; Platelet Count 220 k/uL (150-450); RBC 3.96 m/uL (4.30-5.90); RDW 13.8 % (11.5-15.5); WBC 7.2 k/uL (3.8-10.6)
[2023-03-09 07:15] LABS: ALT 27 U/L (4-49); AST 30 U/L (17-59); African American GFR (CKD) >90 (>60 ml/min/1.73 sqM); Albumin 3.2 g/dL (3.5-5.0); Alkaline Phosphatase 93 U/L (38-126); Anion Gap 7 mmol/L; Blood Urea Nitrogen 11 mg/dL (9-20); Calcium 8.2 mg/dL (8.4-10.2); Carbon Dioxide 21 mmol/L (22-30); Chloride 117 mmol/L (98-107); Glucose 97 mg/dL (74-99); Non-African American GFR(CKD) >90 (>60 ml/min/1.73 sqM); Potassium 3.6 mmol/L (3.5-5.1); Sodium 145 mmol/L (137-145); Total Bilirubin 0.3 mg/dL (0.2-1.3); Total Protein 6.2 g/dL (6.3-8.2)
--- NOTE | 2023-03-09 07:44 | XR ---
EXAMINATION TYPE: XR chest 1V DATE OF EXAM: 03/09/2023 6:02 AM CLINICAL INDICATION:Male, 47 years old with history of Mechanical Ventilation; [facility] COMPARISON: Chest radiograph from one day prior. TECHNIQUE: XR chest 1V Frontal view of the chest. FINDINGS: Lungs/Pleura: There is no evidence of pleural effusion, focal consolidation, or pneumothorax. Pulmonary vascularity: Unremarkable. Heart/mediastinum: Cardiomediastinal silhouette is unremarkable. Musculoskeletal: No acute osseous pathology. Other findings: None Lines/Tubes: Endotracheal tube with distal tip 4.3 cm above the malou. Nasogastric tube with its distal tip and side-port projecting under the diaphragm. IMPRESSION: Low lung volumes with a generalized hazy appearance which could represent atelectasis versus pulmonar y edema correlate with serum BNP. Stable support tubes.
[2023-03-09] MEDS: CHLORHEXIDINE GLUCONATE 15 ML CUP MUCOUS MEM SCH (08:04)
[2023-03-09] MEDS: PANTOPRAZOLE 40 MG/10 ML VIAL IV SCH (08:04)
--- NOTE | 2023-03-09 10:54 | P.PN ---
Subjective Progress Note Date: 03/09/23 This is a 47-year-old male patient with a history of major depressive disorder, borderline personality disorder, posttraumatic stress disorder. The patient does have a history of suicidal ideations and was just discharged from our facility yesterday. He was brought back into the emergency room this morning with suspected overdose. He was found in the [place] near the [place] with multiple suicide nodes and in no indicating the amount of drugs that he had taken in the time he took these drugs. The note stated 10 [place] 7.5 mg, 10 baclofen and 10 Klonopin. At times were written about midnight. He was found in his car unresponsive and with snoring respirations. He received Narcan without much improvement. He was intubated in the emergency room. We are seeing him in consultation now in the intensive care unit. He is on the mechanical ventilator and assist control mode at a rate of 20, tidal volume 500, FiO2 70% and a PEEP of 5. He is sedated on propofol at 15 mcg/kg/m. Normal saline at 1 00 ML's per hour. White count 9.0. Hemoglobin 13.4. Platelets 253. Sodium 145. Potassium 4.3. Bicarb 23. BUN 12. Creatinine 1.23. Glucose 105. Arterial blood gases on 100% FiO2 revealed a pO2 of 283, pCO2 44 and a pH of 7.27. Urine drug screen was positive for opiates, oxycodone and benzo diazepines. Chest x-ray reveals mild patchy infiltrates of the right lung likely atelectasis versus aspiration. Nasogastric tube in place. Endotracheal tube in place. Computed tomography scan of the brain revealed no definite sizable acute intracranial hemorrhage. The patient is seen today 03/09/2023 in follow-up in the intensive care unit. He remains intubated on mechanical ventilator currently and assist control mode at a rate of 20, telephone 500, FiO2 50% and a PEEP of 5. Morning blood gases reveal a P O2 of 102, pCO2 of 40 and a pH of 7.36. White count 7.2. Hemoglobin 11.9. Sodium 145. Potassium 3.6. Bicarb 21. BUN 11. Creatinine 0.88. Glucose 97. He is sedated on propofol at 30 mcg/kg/m. Normal saline at 100 ML's per hour. Chest x-ray reveals low lung volumes with generalized hazy appearance most likely atelectasis. Objective - Vital Signs Vital signs: Vital Signs Temp 99.5 F 03/09/23 08:00 Pulse 94 03/09/23 10:00 Resp 22 03/09/23 10:00 BP 99/62 03/09/23 10:00 Pulse Ox 98 03/09/23 10:00 FiO2 50 03/09/23 08:00 Intake & Output 03/08/23 03/09/23 03/09/23 18:59 06:59 18:59 Intake Total 679.079 1008.152 362.444 Output Total 1640 530 106 Balance -953.319 878.152 256.444 Weight 117.934 kg 123.5 kg Intake: IV 600 1200 300 Sodium Chloride 0.9% 1, 600 1200 300 000 ml @ 100 mls/hr IV . Q10H [facility] Rx#:[id number] Intake, IV Titration 86.681 208.152 62.444 Amount propofoL 1,000 mg In 86.681 208.152 62.444 Empty Bag 1 bag @ 15 MCG/ KG/MIN 10.614 mls/hr IV . Q9H26M [facility] Rx#:[id number] Output: Urine 1640 530 106 Uretheral (Wallace) 100 Other: Voiding Method Indwelling Catheter Indwelling Catheter Indwelling Catheter - Exam GENERAL EXAM: Intubated, sedated 47-year-old male, currently on mechanical ventilator, comfortable in no apparent distress. HEAD: Normocephalic. EYES: Normal reaction of pupils, equal size. NOSE: Clear with pink turbinates. THROAT: No erythema or exudates. NECK: No masses, no JVD. CHEST: No chest wall deformity. LUNGS: Equal air entry with no crackles, wheeze, rhonchi or dullness. CVS: S1 and S2 normal with no audible murmur, regular rhythm. ABDOMEN: No hepatosplenomegaly, normal bowel sounds, no guarding or rigidity. SPINE: No scoliosis or deformity SKIN: No rashes CENTRAL NERVOUS SYSTEM: No focal deficits, tone is normal in all 4 extremities. EXTREMITIES: There is no peripheral edema. No clubbing, no cyanosis. Peripheral pulses are intact. - Labs CBC & Chem 7: 03/09/23 06:02 03/09/23 06:02 Labs: Abnormal Lab Results - Last 24 Hours (Table) 03/08/23 03/08/23 03/09/23 Range/Units 09:30 10:55 05:44 RBC (4.30-5.90) m/uL Hgb (13.0-17.5) gm/dL Hct (39.0-53.0) % ABG pH 7.27 L (7.35-7.45) ABG pO2 283 H (83-108) mmHg ABG HCO3 20 L (21-25) mmol/L ABG O2 Saturation 99.0 H 97.8 H (94-97) % Chloride (98-107) mmol/L Carbon Dioxide (22-30) mmol/L Calcium (8.4-10.2) mg/dL Creatine Kinase 235 H (55-170) U/L Total Protein (6.3-8.2) g/dL Albumin (3.5-5.0) g/dL 03/09/23 03/09/23 Range/Units 06:02 06:02 RBC 3.96 L (4.30-5.90) m/uL Hgb 11.9 L (13.0-17.5) gm/dL Hct 37.3 L (39.0-53.0) % ABG pH (7.35-7.45) ABG pO2 (83-108) mmHg ABG HCO3 (21-25) mmol/L ABG O2 Saturation (94-97) % Chloride 117 H (98-107) mmol/L Carbon Dioxide 21 L (22-30) mmol/L Calcium 8.2 L (8.4-10.2) mg/dL Creatine Kinase (55-170) U/L Total Protein 6.2 L (6.3-8.2) g/dL Albumin 3.2 L (3.5-5.0) g/dL Microbiology - Last 24 Hours (Table) 03/08/23 10:06 Gram Stain - Preliminary Sputum Assessment and Plan Assessment: Acute hypoxemic respiratory failure secondary to drug overdose. The patient left a note stating he took 10 tablets of each baclofen, [place] and Klonopin. Drug screen is positive for opiates, oxycodone, benzodiazepines. Recently discharged from the psychiatric unit on 03/07/2023 for suicidal ideations and depression History of major depressive disorder Borderline personality disorder Posterior medics stress disorder. History of hyperlipidemia Gastroesophageal reflux disease History of lymphoma in 2003 History of PE/DVT Former smoker Plan: The patient was seen and evaluated Chest x-ray, ABGs, labs and medications reviewed We will give the patient daily interruption of sedation and weaning trial If tolerated he will be extubated today Psychiatry consult We will continue to follow I have personally seen and examined the patient, performed the documentation and the assessment and plan as written. Number of minutes spent on the visit: 10.
--- NOTE | 2023-03-09 13:17 | P.CN ---
Psychiatric Consult - . Consult date: 03/09/23 Consult:: 03/09/23 13:16 Patient is intubated at this time and not appropriate for psych evaluation. please contact [facility] once patient is extubated and awake/appropriate for evaluation. Thank you
[2023-03-09] MEDS ORDERED: Potassium Replacement Protocol 1 EACH MISC MISCELLANE PRN (15:13)
[2023-03-09] MEDS ORDERED: POTASSIUM CHLORIDE ER 20 MEQ TAB.ER PO SCH (16:00)
[2023-03-10 04:47] LABS: Basophils % (A) 0 %; Eosinophils # (A) 0.2 k/uL (0-0.7); Eosinophils % (A) 2 %; HCT 35.6 % (39.0-53.0); HGB 11.4 gm/dL (13.0-17.5); Lymphocytes % (A) 21 %; MCHC 32.2 g/dL (31.0-37.0); MCV 93.1 fL (80.0-100.0); Mean Platelet Volume 7.3; Monocytes # (A) 0.6 k/uL (0-1.0); Monocytes % (A) 6 %; Neutrophils # (A) 6.3 k/uL (1.3-7.7); Neutrophils % (A) 68 %; Platelet Count 226 k/uL (150-450); RBC 3.82 m/uL (4.30-5.90); RDW 13.9 % (11.5-15.5); WBC 9.2 k/uL (3.8-10.6)
[2023-03-10 05:02] LABS: ALT 26 U/L (4-49); AST 30 U/L (17-59); African American GFR (CKD) >90 (>60 ml/min/1.73 sqM); Albumin 3.5 g/dL (3.5-5.0); Alkaline Phosphatase 95 U/L (38-126); Anion Gap 8 mmol/L; Blood Urea Nitrogen 9 mg/dL (9-20); Calcium 8.5 mg/dL (8.4-10.2); Carbon Dioxide 22 mmol/L (22-30); Chloride 115 mmol/L (98-107); Glucose 93 mg/dL (74-99); Non-African American GFR(CKD) >90 (>60 ml/min/1.73 sqM); Potassium 3.4 mmol/L (3.5-5.1); Sodium 145 mmol/L (137-145); Total Bilirubin 0.5 mg/dL (0.2-1.3); Total Protein 6.6 g/dL (6.3-8.2)
[2023-03-10] MEDS: POTASSIUM CHLORIDE ER 20 MEQ TAB.ER PO SCH (06:07)
[2023-03-10] MEDS: PANTOPRAZOLE 40 MG/10 ML VIAL IV SCH (08:04)
--- NOTE | 2023-03-10 10:40 | P.PN ---
Subjective Progress Note Date: 03/10/23 This is a 47-year-old male patient with a history of major depressive disorder, borderline personality disorder, posttraumatic stress disorder. The patient does have a history of suicidal ideations and was just discharged from our facility yesterday. He was brought back into the emergency room this morning with suspected overdose. He was found in the [place] near the [place] with multiple suicide nodes and in no indicating the amount of drugs that he had taken in the time he took these drugs. The note stated 10 [place] 7.5 mg, 10 baclofen and 10 Klonopin. At times were written about midnight. He was found in his car unresponsive and with snoring respirations. He received Narcan without much improvement. He was intubated in the emergency room. We are seeing him in consultation now in the intensive care unit. He is on the mechanical ventilator and assist control mode at a rate of 20, tidal volume 500, FiO2 70% and a PEEP of 5. He is sedated on propofol at 15 mcg/kg/m. Normal saline at 1 00 ML's per hour. White count 9.0. Hemoglobin 13.4. Platelets 253. Sodium 145. Potassium 4.3. Bicarb 23. BUN 12. Creatinine 1.23. Glucose 105. Arterial blood gases on 100% FiO2 revealed a pO2 of 283, pCO2 44 and a pH of 7.27. Urine drug screen was positive for opiates, oxycodone and benzo diazepines. Chest x-ray reveals mild patchy infiltrates of the right lung likely atelectasis versus aspiration. Nasogastric tube in place. Endotracheal tube in place. Computed tomography scan of the brain revealed no definite sizable acute intracranial hemorrhage. The patient is seen today 03/09/2023 in follow-up in the intensive care unit. He remains intubated on mechanical ventilator currently and assist control mode at a rate of 20, telephone 500, FiO2 50% and a PEEP of 5. Morning blood gases reveal a P O2 of 102, pCO2 of 40 and a pH of 7.36. White count 7.2. Hemoglobin 11.9. Sodium 145. Potassium 3.6. Bicarb 21. BUN 11. Creatinine 0.88. Glucose 97. He is sedated on propofol at 30 mcg/kg/m. Normal saline at 100 ML's per hour. Chest x-ray reveals low lung volumes with generalized hazy appearance most likely atelectasis. The patient is seen today 03/10/2023 in follow-up in the intensive care unit. He is awake and alert in no acute distress. He is maintaining O2 saturations in the 90s on room air. He has no IV fluids. The patient did admit that he was trying to kill himself and is somewhat remorseful. Awaiting psychiatry consult. opal polisher at the bedside. White count 9.2. Hemoglobin 11.4. Platelets 226. Sodium 145. Potassium 3.4. Bicarb 22. BUN 8. Creatinine 0.82. Objective - Vital Signs Vital signs: Vital Signs Temp 98.7 F 03/10/23 08:00 Pulse 98 03/10/23 10:00 Resp 27 H 03/10/23 10:00 BP 142/78 03/10/23 08:00 Pulse Ox 94 L 03/10/23 09:00 FiO2 50 03/09/23 08:00 Intake & Output 03/09/23 03/10/23 03/10/23 18:59 06:59 18:59 Intake Total 2067.727 6082 200 Output Total 911 1910 195 Balance 251.444 -310 5 Weight 122 kg Intake: IV 1100 0 Sodium Chloride 0.9% 1, 1100 0 000 ml @ 100 mls/hr IV . Q10H [facility] Rx#:[id number] Intake, IV Titration 62.444 Amount propofoL 1,000 mg In 62.444 Empty Bag 1 bag @ 15 MCG/ KG/MIN 10.614 mls/hr IV . Q9H26M [facility] Rx#:[id number] Oral 1600 200 Output: Urine 911 1910 195 Other: Voiding Method Indwelling Catheter Indwelling Catheter Indwelling Catheter - Exam GENERAL EXAM: Alert, oriented 47-year-old male, currently on room air, comfortable in no apparent distress. HEAD: Normocephalic. EYES: Normal reaction of pupils, equal size. NOSE: Clear with pink turbinates. THROAT: No erythema or exudates. NECK: No masses, no JVD. CHEST: No chest wall deformity. LUNGS: Equal air entry with no crackles, wheeze, rhonchi or dullness. CVS: S1 and S2 normal with no audible murmur, regular rhythm. ABDOMEN: No hepatosplenomegaly, normal bowel sounds, no guarding or rigidity. SPINE: No scoliosis or deformity SKIN: No rashes CENTRAL NERVOUS SYSTEM: No focal deficits, tone is normal in all 4 extremities. EXTREMITIES: There is no peripheral edema. No clubbing, no cyanosis. P eripheral pulses are intact. - Labs CBC & Chem 7: 03/10/23 04:07 03/10/23 04:07 Labs: Abnormal Lab Results - Last 24 Hours (Table) 03/10/23 03/10/23 Range/Units 04:07 04:07 RBC 3.82 L (4.30-5.90) m/uL Hgb 11.4 L (13.0-17.5) gm/dL Hct 35.6 L (39.0-53.0) % Potassium 3.4 L (3.5-5.1) mmol/L Chloride 115 H (98-107) mmol/L Microbiology - Last 24 Hours (Table) 03/08/23 10:06 Gram Stain - Preliminary Sputum Assessment and Plan Assessment: Acute hypoxemic respiratory failure secondary to drug overdose. The patient left a note stating he took 10 tablets of each baclofen, [place] and Klonopin. Drug screen is positive for opiates, oxycodone, benzodiazepines. extubated on 03/09/2023. Currently on room air. Recently discharged from the psychiatric unit on 03/07/2023 for suicidal ideations and depression History of major depressive disorder Borderline personality disorder Posterior medics stress disorder. History of hyperlipidemia Gastroesophageal reflux disease History of lymphoma in 2003 History of PE/DVT Former smoker Plan: The patient was seen and evaluated Labs and medications reviewed cleared for transfer out of the ICU Regular medical floor with a food safety field specialist or in the psychiatric unit Psychiatry consult pending I have personally seen and examined the patient, performed the documentation and the assessment and plan as written. Number of minutes spent on the visit: 10.
--- NOTE | 2023-03-10 17:42 | P.CN ---
Psychiatric Consult - . Consult date: 03/10/23 Consult:: IDENTIFYING DATA: This patient is a 47 year old male with past psychiatric history of MDD, Borderline personality disorder, and PTSD, who was admitted to the ICU and intubated after suicide attempt by overdose. REASON FOR REFERRAL: Psychiatry was consulted for suicide attempt. HISTORY OF PRESENT ILLNESS: The patient presented to the hospital on 03/08/2023 at around 9am [place] and a note indicating the times/amount of drugs he had taken in an overdose. Per ER note, it was noted he took 10 pills of [place] 7.5 mg, 10 pills of Baclofen, and 10 pills of Klonopin; around midnight. He required mechanical ventilation for acute hypoxemic respiratory failure, and was extubated last night. On my assessment, he is sitting in his chair with his father and one-to-one sitter at bedside. He appears somewhat confused and is slow to answer questions. He recalls he was discharged on March 07 from the psychiatry unit, does not recall if he went home immediately after, but [place] of pills. He reports the [place] and Baclofen were prescribed by Dr. Brown, and the Klonopin are from an "old stash". He denies taking benzodiazepines regularly. He reports he regrets the suicide attempt today. He reports his mood is a little nervous and also depressed. He denies suicidal thoughts currently on assessment, but does report suicidal thoughts have been crossing his mind earlier today. He is alert and oriented to person and place. He incorrectly states it is the "end of March". He admits to feeling confused and cannot correctly spell the word "world" backwards, incorrectly states "DORW". At this time, patient denies homicidal ideations, intent or plan. Patient denies any auditory, visual hallucinations and denies any paranoia or delusions. He denies drug, alcohol, tobacco or cannabis use. He is a former smoker per chart. We reviewed his discharge medications from 03/07/23: Cymbalta 60 mg BID - has been taking for 4-6 months and reports it is "working" [place] 600 mg BID - he reports this "works well for suicidal thoughts" and he has been taking this for 1.5 years Prazosin 2 mg QHS - taking for several years Propranolol 20 mg BID - reports "it is hard to remember" this medications Topamax 50 mg daily and 100 mg QHS - reports this was recently changed from 100 mg BID, takes for headaches Clozaril 100 mg QHS - reports this was recently started prior to his last discharge. PAST PSYCHIATRIC HISTORY: Patient was previously diagnosed with depression, anxiety, borderline personality disorder, bipolar disorder, and PTSD. He has had multiple psychiatric hospitalizations in the past: most recently 02/23/23-03/07/23, 08/30/22-09/07/22 The patient is has been tried on several different medications in the past including Pristiq, Sinequan, Prazosin, Abilify, Cymbalta, [place], Prazosin, Propranolol, Topamax, Clozapine, Klonopin, Ambien. Outpatient follow-up: [facility] with Dr. Archibald. Suicide attempts: Cutting his wrists in 2011. Multi-drug overdose on 03/07/2023. PAST MEDICAL HISTORY: Past Medical History: Cancer, Deep Vein Thrombosis (DVT), GERD/Reflux, Hyperlipidemia, Hypertension, Osteoarthritis (OA), Pneumonia, Pulmonary Embolus (PE), Syncope, Thyroid Disorder Additional Past Medical History / Comment(s): HX HEADACHES AND DIZZINESS, Hx LYMPHOMA 2003, bulging disc in neck. 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 , no longer on bp meds, states Covid May-2020, pneumonia Aug 2020 .,states current blood clot right leg and in lungs., frequent diarrhea., back, neck & hip pain. STATES PASSED OUT TWICE IN AUGUST History of Any Multi-Drug Resistant Organisms: None Reported Past Surgical History: Hernia Repair Additional Past Surgical History / Comment(s): vasectomy, wisdom teeth removed, pain procedures Past Anesthesia/Blood Transfusion Reactions: No Reported Reaction Past Psychological History: Anxiety, Depression, PTSD Smoking Status: Former smoker ALLERGIES: as per EMR. CHEMICAL DEPENDENCY HISTORY: as per HPI. FAMILY PSYCHIATRIC/SUBSTANCE USE HISTORY: Per chart, the patient's father was an alcoholic. He reports no other significant family psychiatric or substance abuse history. SOCIAL HISTORY: Per chart, patient was born and raised in [place], [place]. He is single, never , but has 3 adult children. He says that he currently lives with his daughter in a house and has been recently denied from his permanent disability for the third time. He currently has no employment and receives food stamps and Medicaid. He has one older brother. He denies any history, legal problems, or pentecostal affiliation. MENTAL STATUS EXAM: General Appearance: Patient appears to be stated age, disheveled, dressed in hospital gown. Behavior: Patient is calm, withdrawn, sitting up in chair, appears a bit confused. Speech: Patient's speech is fluent and slowed. Mood/Affect: Patient reports their mood is "a little nervous, depressed", affect is congruent Suicidality/Homicidality: Patient denies homicidal ideation. He does endorse suicidal ideation earlier today. He is s/p suicide attempt by multi-drug overdose. Perceptions: Patient denies any visual hallucinations and denies any auditory hallucinations. Though content/process: There is no evidence of any delusional thought content. Thought process is slowed and confused. Memory and concentration: Alert and oriented to person, place. Incorrectly states it is the "end of March", and cannot correctly spell "WORLD" backword, incorrectly states "DORW". Judgment and insight: poor IMPRESSIONS: Delirium, multifactorial [Acute hypoxemic respiratory failure secondary to multi-drug overdose requiring mechanical ventilation; abrupt discontinuation of psychotropic medications] Major depressive disorder, recurrent, s/p suicide attempt by adequate means Post-traumatic stress disorder, by history Borderline personality disorder PLAN: -At this time patient DOES meet criteria for inpatient psychiatric admission, however we will continue to follow patient on the medical floor until delirium resolves and patient can be transferred to psychiatric bed once delirium reso lves. -Patient DOES NOT have decision making capacity at this time and is unable to reason through and communicate/appreciate the risks, benefits and alternatives to treatment. -Delirium precautions recommended with patient including - avoiding use of narcotics and FUR CLEANER sedatives, limit anticholinergic medications when possible, frequent re-orientation, minimize use of restraints, open window shades during the day and close them at night. -Continue to evaluate and treat underlying causes of delirium; ie chest Xray to rule out pneumonia etc. -Would recommend the following medication changes/additions: Resume Cymbalta at lower dose of 30 mg BID. Resume Propranolol at lower dose of 10 mg BID. Resume Topamax at lower dose of 25 mg BID. Resume [place] at lower dose of 300 mg BID. Discontinue Clozapine. Start Zyprexa 2.5 mg BID for augmentation/mood/delirium. -Continue 1:1 sitter for safety. -Cannot leave AMA at this time. Patient will need a petition and certification if attempting to leave AMA. -Communicated plan to patient's nurse. -Will continue to follow along -Please contact with any questions. 03/10/23 14:27 03/10/23 17:13
[2023-03-10] MEDS: OLANZapine 2.5 MG TAB PO SCH (20:57)
[2023-03-10] MEDS: PROPRANOLOL 10 MG TAB PO SCH (20:57)
[2023-03-10] MEDS: TOPIRAMATE 25 MG TAB PO SCH (20:58)
[2023-03-10] MEDS: PRAZOSIN 1 MG CAP PO SCH (20:58)
[2023-03-10] MEDS: DULoxetine HCL 30 MG CAPSULE.DR PO SCH (20:58)
[2023-03-10] MEDS: LITHIUM CARBONATE 300 MG CAP PO SCH (20:58)
--- NOTE | 2023-03-10 21:34 | HP ---
HISTORY AND PHYSICAL CHIEF COMPLAINT: Overdose and suicide attempt. HISTORY OF PRESENT ILLNESS: This is another admission recently for this 47-year-old male. He has had chronic mental health problems, and depression. He was just released several days ago from the psych unit. [place], [place] and considering jumping in. REVIEW OF SYSTEMS: Unobtainable. Past medical history, family history, personal and social histories are all otherwise unremarkable, or unchanged. PHYSICAL EXAMINATION: VITAL SIGNS: Pulse is 63 with a blood pressure of 101/55. LUNGS: Breath sounds are heard bilaterally. HEAD, EARS, EYES, NOSE, THROAT: Normal. NECK: Neck veins are not distended. CHEST: Clear. CARDIAC: Demonstrated sinus rhythm. ABDOMEN: Soft and there are no masses. EXTREMITIES: Normal. NEUROLOGICAL: He is obtunded. ASSESSMENT: He is admitted to the hospital with diagnoses of: 1. Overdose. 2. Suicide attempt. 3. Depression. PLAN: ICU management until he is stable and then readmit to inpatient psych. MMODL / IJN: [id number] /
--- NOTE | 2023-03-10 22:16 | PN ---
PROGRESS NOTE DATE OF SERVICE: 03/09/2023 CHIEF COMPLAINT: Overdose, major depression and suicidal effort. HISTORY OF PRESENT ILLNESS: This gentleman remains in ICU. Vital signs are stable. He is on respiratory PHYSICAL EXAM: GENERAL: Color is good. Perfusion is adequate. CHEST: Clear bilaterally. CARDIAC: Sinus. ABDOMEN: Soft, nontender. IMPRESSION: 1. Drug overdose. 2. Major depression. 3. Suicide effort. PLAN: Continue with ICU support until he is stable. After which, he will probably be transferred to inpatient psych. MMODL / IJN: [id number] /
[2023-03-11 05:22] LABS: Basophils % (A) 0 %; Eosinophils # (A) 0.3 k/uL (0-0.7); Eosinophils % (A) 4 %; HCT 36.3 % (39.0-53.0); HGB 11.3 gm/dL (13.0-17.5); Lymphocytes # (A) 1.7 k/uL (1.0-4.8); Lymphocytes % (A) 20 %; MCH 28.9 pg (25.0-35.0); MCHC 31.1 g/dL (31.0-37.0); MCV 93.1 fL (80.0-100.0); Mean Platelet Volume 7.7; Monocytes # (A) 0.5 k/uL (0-1.0); Monocytes % (A) 5 %; Neutrophils # (A) 5.8 k/uL (1.3-7.7); Neutrophils % (A) 68 %; Platelet Count 216 k/uL (150-450); WBC 8.5 k/uL (3.8-10.6)
[2023-03-11 05:38] LABS: African American GFR (CKD) >90 (>60 ml/min/1.73 sqM); Anion Gap 8 mmol/L; Blood Urea Nitrogen 10 mg/dL (9-20); Calcium 8.5 mg/dL (8.4-10.2); Carbon Dioxide 21 mmol/L (22-30); Chloride 117 mmol/L (98-107); Glucose 100 mg/dL (74-99); Non-African American GFR(CKD) >90 (>60 ml/min/1.73 sqM); Potassium 3.7 mmol/L (3.5-5.1); Sodium 146 mmol/L (137-145)
[2023-03-11] MEDS: PANTOPRAZOLE 40 MG/10 ML VIAL IV SCH (08:44)
[2023-03-11] MEDS: LITHIUM CARBONATE 300 MG CAP PO SCH ×2 (08:44→21:59)
[2023-03-11] MEDS: DULoxetine HCL 30 MG CAPSULE.DR PO SCH ×2 (08:44→21:59)
[2023-03-11] MEDS: PROPRANOLOL 10 MG TAB PO SCH ×2 (08:44→21:58)
[2023-03-11] MEDS: TOPIRAMATE 25 MG TAB PO SCH ×2 (08:44→21:59)
[2023-03-11] MEDS: OLANZapine 2.5 MG TAB PO SCH ×2 (08:44→21:58)
--- NOTE | 2023-03-11 10:10 | P.PN ---
Subjective Progress Note Date: 03/11/23 This is a 47-year-old male patient with a history of major depressive disorder, borderline personality disorder, posttraumatic stress disorder. The patient does have a history of suicidal ideations and was just discharged from our facility yesterday. He was brought back into the emergency room this morning with suspected overdose. He was [place] with multiple suicide nodes and in no indicating the amount of drugs that he had taken in the time he took these drugs. The note stated 10 [place] 7.5 mg, 10 baclofen and 10 Klonopin. At times were written about midnight. He was found in his car unresponsive and with snoring respirations. He received Narcan without much improvement. He was intubated in the emergency room. We are seeing him in consultation now in the intensive care unit. He is on the mechanical ventilator and assist control mode at a rate of 20, tidal volume 500, FiO2 70% and a PEEP of 5. He is sedated on propofol at 15 mcg/kg/m. Normal saline at 1 00 ML's per hour. White count 9.0. Hemoglobin 13.4. Platelets 253. Sodium 145. Potassium 4.3. Bicarb 23. BUN 12. Creatinine 1.23. Glucose 105. Arterial blood gases on 100% FiO2 revealed a pO2 of 283, pCO2 44 and a pH of 7.27. Urine drug screen was positive for opiates, oxycodone and benzo diazepines. Chest x-ray reveals mild patchy infiltrates of the right lung likely atelectasis versus aspiration. Nasogastric tube in place. Endotracheal tube in place. Computed tomography scan of the brain revealed no definite sizable acute intracranial hemorrhage. The patient is seen today 03/09/2023 in follow-up in the intensive care unit. He remains intubated on mechanical ventilator currently and assist control mode at a rate of 20, telephone 500, FiO2 50% and a PEEP of 5. Morning blood gases reveal a P O2 of 102, pCO2 of 40 and a pH of 7.36. White count 7.2. Hemoglobin 11.9. Sodium 145. Potassium 3.6. Bicarb 21. BUN 11. Creatinine 0.88. Glucose 97. He is sedated on propofol at 30 mcg/kg/m. Normal saline at 100 ML's per hour. Chest x-ray reveals low lung volumes with generalized hazy appearance most likely atelectasis. The patient is seen today 03/10/2023 in follow-up in the intensive care unit. He is awake and alert in no acute distress. He is maintaining O2 saturations in the 90s on room air. He has no IV fluids. The patient did admit that he was trying to kill himself and is somewhat remorseful. Awaiting psychiatry consult. machinist at the bedside. White count 9.2. Hemoglobin 11.4. Platelets 226. Sodium 145. Potassium 3.4. Bicarb 22. BUN 8. Creatinine 0.82. The patient is seen today 03/11/2023 in follow-up in the intensive care unit. He is currently sitting up in a chair at the bedside. Awake and alert in no acute distress. He is maintaining O2 saturations in the 90s on room air. He's afebrile. Hemodynamically stable. machinist at the bedside. White count 8.5. Hemoglobin 11.3. Sodium 146. Bicarb 21. BUN 10. Creatinine 0.84. Glucose 100. Coronavirus by PCR not detected. Plan is to transfer to inpatient psych. Objective - Vital Signs Vital signs: Vital Signs Temp 98.4 F 03/11/23 04:00 Pulse 71 03/11/23 05:00 Resp 27 H 03/11/23 05:00 BP 136/74 03/11/23 04:00 Pulse Ox 96 03/11/23 04:00 FiO2 50 03/09/23 08:00 Intake & Output 03/10/23 03/11/23 03/11/23 18:59 06:59 18:59 Intake Total 440 Output Total 695 300 Balance -255 -300 Weight 119.9 kg Intake: Oral 440 Output: Urine 695 300 Other: Voiding Method Toilet Toilet Urinal Urinal # Bowel Movements 1 - Exam GENERAL EXAM: Alert, oriented 47-year-old male, sitting up in a chair, on room air, comfortable in no apparent distress. HEAD: Normocephalic. EYES: Normal reaction of pupils, equal size. NOSE: Clear with pink turbinates. THROAT: No erythema or exudates. NECK: No masses, no JVD. CHEST: No chest wall deformity. LUNGS: Equal air entry with no crackles, wheeze, rhonchi or dullness. CVS: S1 and S2 normal with no audible murmur, regular rhythm. ABDOMEN: No hepatosplenomegaly, normal bowel sounds, no guarding or rigidity. SPINE: No scoliosis or deformity SKIN: No rashes CENTRAL NERVOUS SYSTEM: No focal deficits, tone is normal in all 4 extremities. EXTREMITIES: There is no peripheral edema. No clubbing, no cyanosis. Peripheral pulses are intact. - Labs CBC & Chem 7: 03/11/23 04:29 03/11/23 04:29 Labs: Abnormal Lab Results - Last 24 Hours (Table) 03/11/23 03/11/23 Range/Units 04:29 04:29 RBC 3.90 L (4.30-5.90) m/uL Hgb 11.3 L (13.0-17.5) gm/dL Hct 36.3 L (39.0-53.0) % Sodium 146 H (137-145) mmol/L Chloride 117 H (98-107) mmol/L Carbon Dioxide 21 L (22-30) mmol/L Glucose 100 H (74-99) mg/dL Microbiology - Last 24 Hours (Table) 03/08/23 10:06 Gram Stain - Preliminary Sputum Sputum Culture - Preliminary Presumptive Staph aureus Assessment and Plan Assessment: Acute hypoxemic respiratory failure secondary to drug overdose. The patient left a note stating he took 10 tablets of each baclofen, [place] and Klonopin. Drug screen is positive for opiates, oxycodone, benzodiazepines. extubated on 03/09/2023. Currently on room air. Recently discharged from the psychiatric unit on 03/07/2023 for suicidal ideations and depression History of major depressive disorder Borderline personality disorder Posterior medics stress disorder. History of hyperlipidemia Gastroesophageal reflux disease History of lymphoma in 2003 History of PE/DVT Former smoker Plan: The patient was seen and evaluated Labs and medications reviewed Stable and on room air Cleared for transfer to the psychiatric unit today I have personally seen and examined the patient, performed the documentation and the assessment and plan as written. Number of minutes spent on the visit: 10.
--- NOTE | 2023-03-11 17:31 | P.PN ---
Progress Note - Text Progress Note Date: 03/11/23 Psychiatry consult follow-up note: Interval history: Patient was seen sitting in his chair eating his dinner with a one-to-one sitter at bedside to maintain safety, and was directable and agreeable to speak with instructional writer. His mood, focus and attention are improved today. He admits to still feeling depressed, with low energy and low motivation. He reports good sleep last night and good appetite. He is alert and oriented to person, place and time. He does not appear confused today. At this time, patient denies any suicidal or homicidal ideation, intent or plan. Denies any auditory or visual hallucinations. Patient denies any side effects from the medications and has been compliant with meds. Mental status exam: General Appearance: Patient appears to be stated age, disheveled, dressed in hospital gown. Behavior: Patient is calm, sitting up in chair, eating his dinner. Speech: Patient's speech is fluent and slowed. Mood/Affect: Patient reports their mood is "not too bad" and "depressed", affect is congruent. Suicidality/Homicidality: Patient denies homicidal ideation. He denies suicidal ideation today. He is s/p suicide attempt by multi-drug overdose with adequate means. Perceptions: Patient denies any visual hallucinations and denies any auditory hallucinations. Though content/process: There is no evidence of any delusional thought content. Thought process is slowed. Memory and concentration: Alert and oriented to person, place, time. He can correctly spell "WORLD" backwords. Judgment and insight: improving mildly, poor IMPRESSIONS: Major depressive disorder, recurrent, s/p suicide attempt by intentional multi- drug overdose with adequate means Post-traumatic stress disorder, by history Borderline personality disorder Delirium, resolved PLAN: -At this time patient DOES meet criteria for inpatient psychiatric admission, however due to limited bed capacity on our unit at this time he will need to be referred out to another psychiatric facility. -Delirium precautions recommended with patient including - avoiding use of narcotics and BLACK OXIDE COATING EQUIPMENT TENDER sedatives, limit anticholinergic medications when possible, frequent re-orientation, minimize use of restraints, open window shades during the day and close them at night. -Would recommend the following medication changes/additions: Increase Cymbalta to 60 mg daily in the morning and 30 mg QHS for depression, starting tomorrow AM. Continue Propranolol at 10 mg BID for anxiety. Continue Topamax at 25 mg BID (he reports this was prescribed for headaches). Continue Prazosin 2 mg QHS for nightmares. Increase [place] 600 mg BID for mood/suicidal ideations. Continue Zyprexa 2.5 mg BID for augmentation/mood/delirium. -Continue 1:1 sitter for safety. -Cannot leave AMA at this time. Patient will need a petition and certification if attempting to leave AMA. -Communicated plan to patient's nurse. -Will continue to follow along -Please contact with any questions.
[2023-03-11] MEDS: PRAZOSIN 1 MG CAP PO SCH (21:58)
[2023-03-11] MEDS: HYDROCORTISONE 1% CREAM 30 GM TUBE TOPICAL PRN (22:44)
[2023-03-12] MEDS: DULoxetine HCL 60 MG CAPSULE.DR PO SCH (07:52)
[2023-03-12] MEDS: LITHIUM CARBONATE 300 MG CAP PO SCH ×2 (07:52→20:46)
[2023-03-12] MEDS: OLANZapine 2.5 MG TAB PO SCH ×2 (07:53→20:46)
[2023-03-12] MEDS: TOPIRAMATE 25 MG TAB PO SCH ×2 (07:54→20:47)
[2023-03-12] MEDS: PANTOPRAZOLE 40 MG/10 ML VIAL IV SCH (07:55)
[2023-03-12] MEDS: PROPRANOLOL 10 MG TAB PO SCH ×2 (08:38→20:46)
[2023-03-12] MEDS: PRAZOSIN 1 MG CAP PO SCH (20:46)
[2023-03-12] MEDS: DULoxetine HCL 30 MG CAPSULE.DR PO SCH (20:46)
[2023-03-12] MEDS: MAG HYDROX/AL HYDROX/SIMETH 30 ML, LIDOCAINE VISCOUS 2% 30 ML, NYSTATIN 100,000 UNIT/ML... PO SCH ×3 (22:52)
[2023-03-13] MEDS: LEVOTHYROXINE 50 MCG TAB PO SCH (06:27)
[2023-03-13] MEDS: DULoxetine HCL 60 MG CAPSULE.DR PO SCH (08:37)
[2023-03-13] MEDS: PANTOPRAZOLE 40 MG/10 ML VIAL IV SCH (08:37)
[2023-03-13] MEDS: PROPRANOLOL 10 MG TAB PO SCH ×2 (08:40→20:52)
[2023-03-13] MEDS: LITHIUM CARBONATE 300 MG CAP PO SCH ×2 (08:40→20:51)
[2023-03-13] MEDS: MAG HYDROX/AL HYDROX/SIMETH 30 ML, LIDOCAINE VISCOUS 2% 30 ML, NYSTATIN 100,000 UNIT/ML... PO SCH ×9 (08:41→22:00)
[2023-03-13] MEDS: TOPIRAMATE 25 MG TAB PO SCH ×2 (08:51→20:52)
[2023-03-13] MEDS: OLANZapine 2.5 MG TAB PO SCH ×2 (08:51→20:51)
[2023-03-13 08:54] VITALS: BMI 38.4
[2023-03-13] MEDS: HYDROCORTISONE 1% CREAM 30 GM TUBE TOPICAL PRN (10:45)
--- NOTE | 2023-03-13 11:58 | PN ---
PROGRESS NOTE DATE OF SERVICE: 03/13/2023 CHIEF COMPLAINT: Major depression and overdose. HISTORY OF PRESENT ILLNESS: This gentleman is stable. He awaits transfer to psych unit which has been recommended by Psychiatry. However, apparently the psychiatry unit here in the hospital has had a bed reduction and there is no room. Psychiatry is currently working on plan to transfer him to another inpatient facility outside of the area. PHYSICAL EXAMINATION: VITAL SIGNS: Normal. CHEST: Clear. CARDIAC: Normal. ABDOMEN: Soft and nontender. IMPRESSION: 1. Major depression. 2. Suicidal attempt. 3. Drug overdose. PLAN: Await for psychiatric inpatient arrangements to be made in a facility outside our area. MMODL / IJN: [id number] /
--- NOTE | 2023-03-13 13:58 | P.PN ---
Progress Note - Text Progress Note Date: 03/13/23 Interval history: Patient was seen sitting in his chair, he was speaking with his sitter. He is agreeable to proposal writer today. He claimed that he is having anxiety and also depression. He spoke briefly about the suicide attempt however was fairly vague and guarded as to why he overdosed. He states that he found an old bottle of pills in [place] He stated that he did not tell anybody and he claims that he did it to try and kill himself. He continues to be fairly superficial and minimizing. continues to have poor insight and judgment. states that he is sleeping a bit better at night time. patient denies any suicidal or homicidal ideation, intent or plan. Denies any auditory or visual hallucinations. Patient denies any side effects from the medications and has been compliant with meds. Mental status exam: General Appearance: Patient appears to be stated age, superficial, dressed in hospital gown. Behavior: Patient is calm, sitting up in chair Speech: Patient's speech is fluent and slowed. Mood/Affect: Patient reports their mood is "not too bad" and "depressed", affect is congruent and constricted. Suicidality/Homicidality: Patient denies homicidal ideation. He denies suicidal ideation today Perceptions: Patient denies any visual hallucinations and denies any auditory hallucinations. Though content/process: There is no evidence of any delusional thought content. Thought process is slowed. Memory and concentration: Alert and oriented to person, place, time. He can correctly spell "WORLD" backwords. Judgment and insight: poor/impulsive. IMPRESSIONS: Major depressive disorder, recurrent, s/p suicide attempt by intentional multi-drug overdose with adequate means Post-traumatic stress disorder, by history Borderline personality disorder PLAN: -At this time patient DOES meet criteria for inpatient psychiatric admission, however due to limited bed capacity on our unit at this time he will need to be referred out to another psychiatric facility. -Delirium precautions recommended with patient including - avoiding use of narcotics and INSPECTOR TECHNICIAN sedatives, limit anticholinergic medications when possible, frequent re-orientation, minimize use of restraints, open window shades during the day and close them at night. -Would recommend the following medication changes/additions: Cymbalta 60 mg daily in the morning and 30 mg QHS for depression Continue Propranolol at 10 mg BID for anxiety. Continue Topamax at 25 mg BID (he reports this was prescribed for headaches). Continue Prazosin 2 mg QHS for nightmares. [place] 600 mg BID for mood/suicidal ideations. ordered lithium level for tomorrow morning Continue Zyprexa 2.5 mg BID for augmentation/mood/delirium. -Continue 1:1 sitter for safety. -Cannot leave AMA at this time. Patient will need a petition and certification if attempting to leave AMA. -Communicated plan to patient's nurse. -Please contact with any questions.
[2023-03-13] MEDS ORDERED: ACETAMINOPHEN TAB 325 MG TAB PO PRN (14:10)
--- NOTE | 2023-03-13 17:04 | HP ---
HISTORY AND PHYSICAL CHIEF COMPLAINT: Drug overdose. HISTORY OF PRESENT ILLNESS: This is another admission for this young man who just was discharged from the psych unit after he tried to kill himself. [place] once again and was brought into the emergency room. He is admitted to ICU. REVIEW OF SYSTEMS: Unobtainable. Past medical history, family history, personal and social histories are all unobtainable and unchanged from his recent admitting and discharge summaries. He has had a long history of psychiatric issues and depression. PHYSICAL EXAMINATION: VITAL SIGNS: Blood pressure is 103/54 with a pulse of 89, respirations of 10. GENERAL: He appeared to be comatose. He was well perfused. HEENT: Pupils are equal and reactive. CHEST: Clear. CARDIAC: Demonstrates sinus rhythm. ABDOMEN: Soft, nontender. EXTREMITIES: Normal, but he was comatose. IMPRESSION: 1. Drug ingestion and overdose. 2. Major depression. 3. Suicide attempt. PLAN: 1. Bedrest. 2. IV fluids. 3. ICU management. 4. Psychiatry consult. MMDUNIAL / KATIE: [id number] /
[2023-03-13] MEDS: DULoxetine HCL 30 MG CAPSULE.DR PO SCH (20:51)
[2023-03-13] MEDS: PRAZOSIN 1 MG CAP PO SCH (20:51)
--- NOTE | 2023-03-13 21:04 | PN ---
PROGRESS NOTE CHIEF COMPLAINT: Overdose and depression. HISTORY OF PRESENT ILLNESS: This gentleman is stable and awaits transfer to the psych unit. Apparently, there is a problem and that 1 of the psychiatrists has left the hospital and there is no room on the down sized psych unit. Psychiatry is looking to place him at a facility outside the area. PHYSICAL EXAMINATION: GENERAL: He is awake, alert. VITAL SIGNS: Normal. CHEST: Clear. CARDIAC: Normal. NEUROLOGIC: Affect is flat. IMPRESSION: Major depression and overdose. PLAN: Await inpatient psych transfer. MMODL / IJN: [id number] /
--- NOTE | 2023-03-14 05:42 | PN ---
PROGRESS NOTE DATE OF SERVICE: 03/10/2023 CHIEF COMPLAINT: Overdose, major depression, and suicidal attempt. HISTORY OF PRESENT ILLNESS: This gentleman is more awake and alert. He is more stable and breathing on his own. He is going to be seen by Psychiatry. PHYSICAL EXAMINATION: CHEST: Clear. CARDIAC: Normal. ABDOMEN: Soft, nontender. IMPRESSION: 1. Drug overdose. 2. Major depression. 3. Suicide attempt. PLAN: Continue to monitor and follow with ICU management. Psychiatric re-evaluation. MMODL / IJN: [id number] /
[2023-03-14] MEDS: LEVOTHYROXINE 50 MCG TAB PO SCH (05:43)
--- NOTE | 2023-03-14 05:58 | PN ---
PROGRESS NOTE DATE OF SERVICE: 03/11/2023 CHIEF COMPLAINT: Major depression, overdose, and suicide attempt. HISTORY OF PRESENT ILLNESS: This gentleman is awake and stable. He is being seen by Psychiatry and plan is to move him to the psych unit today. PHYSICAL EXAMINATION: CHEST: Clear. CARDIAC: Normal. ABDOMEN: Soft, protuberant. VITAL SIGNS: Normal. IMPRESSION: 1. Major depression. 2. Overdose. 3. Suicide attempt. PLAN: Move to Psychiatry later today. MMODL / IJN: [id number] /
[2023-03-14] MEDS: PANTOPRAZOLE 40 MG/10 ML VIAL IV SCH (08:33)
[2023-03-14] MEDS: DULoxetine HCL 60 MG CAPSULE.DR PO SCH (08:33)
[2023-03-14] MEDS: PROPRANOLOL 10 MG TAB PO SCH (08:34)
[2023-03-14] MEDS: MAG HYDROX/AL HYDROX/SIMETH 30 ML, LIDOCAINE VISCOUS 2% 30 ML, NYSTATIN 100,000 UNIT/ML... PO SCH ×6 (08:34→15:42)
[2023-03-14] MEDS: TOPIRAMATE 25 MG TAB PO SCH (08:34)
[2023-03-14] MEDS: LITHIUM CARBONATE 300 MG CAP PO SCH (08:34)
[2023-03-14] MEDS: OLANZapine 2.5 MG TAB PO SCH (08:34)
[2023-03-14 13:43] VITALS: BP 121/77; PULSE 61; RESP 16; TEMP 98.3
== END 2023-03-14 19:27 | DRG 817 ==
LOC: EC 09:14 → 2SICU 11:52
PROVIDERS: ADMIT Family Medicine; ATTEND Family Medicine
PROC: 0BH17EZ Insertion of Endotracheal Airway into Trachea, Via Natural or Artificial Opening (ICD-10-PCS; principal; 2023-03-08)
PROC: 5A1945Z Respiratory Ventilation, 24-96 Consecutive Hours (ICD-10-PCS; principal; 2023-03-08)
DX: T40.2X2A Poisoning by other opioids, intentional self-harm, initial encounter (principal); J96.01 Acute respiratory failure with hypoxia; T48.1X2A Poisoning by skeletal muscle relaxants [neuromuscular blocking agents], intentional self-harm, initial encounter; T42.4X2A Poisoning by benzodiazepines, intentional self-harm, initial encounter; F33.9 Major depressive disorder, recurrent, unspecified; F60.3 Borderline personality disorder; Z20.822 Contact with and (suspected) exposure to COVID-19; J98.11 Atelectasis; E07.9 Disorder of thyroid, unspecified; F43.10 Post-traumatic stress disorder, unspecified; I10 Essential (primary) hypertension; M19.90 Unspecified osteoarthritis, unspecified site; E78.5 Hyperlipidemia, unspecified; K21.9 Gastro-esophageal reflux disease without esophagitis; Z79.899 Other long term (current) drug therapy; M25.559 Pain in unspecified hip; Z91.51 Personal history of suicidal behavior; Z85.72 Personal history of non-Hodgkin lymphomas; Z86.711 Personal history of pulmonary embolism; Z86.718 Personal history of other venous thrombosis and embolism; Z87.891 Personal history of nicotine dependence; Y92.828 Other wilderness area as the place of occurrence of the external cause
CPT/HCPCS: 31500; 36415; 36600; 70450; 71045; 80048; 80053; 80143; 80178; 80179; 80306; 80320; 81001; 82550; 82805; 83605; 85025; 85610; 87070; 87077; 87186; 87205; 87635; 93005; 94002; 94003; 96361; 96374; 96375; 99291